=== PATIENT | female | born 1950 | race Caucasian/White ===

== ENCOUNTER 2023-08-13 14:23 | Inpatient (IN) | payer MEDICARE, SELFPAY ==
--- NOTE | ~2023-08-13 | XR_ITS ---
EXAMINATION: XR CHEST CLINICAL INFORMATION: General weakness, rash, fall. COMPARISON: None available. TECHNIQUE: 2 views of the chest were obtained. FINDINGS: Moderate size hiatal hernia. Otherwise, no significant cardiomediastinal contour abnormality. No focal airspace opacity, pleural effusion or pneumothorax. Nonspecific asymmetric widening of the right acromioclavicular joint. Partially imaged reversed total left shoulder arthroplasty. Thoracic spondylosis. XR/XR chest 2V IMPRESSION: 1. No acute cardiopulmonary findings. 2. Moderate size hiatal hernia. 3. Nonspecific asymmetric widening of the right acromioclavicular joint. Recommend correlation with point tenderness.
--- NOTE | ~2023-08-13 | CT_ITS ---
EXAMINATION: CT CERVICAL SPINE CLINICAL INFORMATION: Reason for Exam general weakness, rash and two falls COMPARISON: No prior CT available, TECHNIQUE: Computed axial sagittal and coronal images acquired using department's standard protocol. This CT examination was performed using dose optimization techniques as appropriate, variously including the following: *Automated exposure control *Adjustment of mA and/or kV according to patient size (this includes techniques or standardized protocols for targeted exams where dose is matched to indication/reason for exam; i.e. extremities or head) *Use of iterative reconstruction technique CONTRAST: None DLP: 908 mGy-cm FINDINGS: SKULL BASE: Visualized structures at skull base are normal, Included facial sinuses are clear, CERVICAL VERTEBRAE: Seven cervical vertebrae identified maintaining proper height and alignment, DISCS: Loss of disc height and developed osteophyte from the edges of endplates at C3-C4, C4-C5, C5-C6 and to a lesser extent C6-C7 and C7-T1 suggest underlying advanced degenerative disc disease. C1-C2: There is no CT evidence of significant osseous narrowing of the central canal or neural foramen. C2-C3: There is no CT evidence of significant osseous narrowing of the central canal or neural foramen. C3-C4: Circumferential disc bulge and developed osteophyte from the edges of endplates along with facet joints arthropathy contributed to bilateral foraminal stenosis. There is also mild narrowing of central canal at this level. No fracture. C4-C5: Circumferential disc bulge and developed osteophyte from the edges of endplates along with facet joints arthropathy contributed to bilateral foraminal stenosis. There is also mild narrowing of central canal at this level. No fracture. C5-C6: Circumferential disc bulge and developed osteophyte from the edges of endplates along with facet joints arthropathy contributed to bilateral foraminal stenosis. There is also mild narrowing of central canal at this level. No fracture. C6-C7: There is no CT evidence of significant osseous narrowing of the central canal or neural foramen. C7-T1: There is no CT evidence of significant osseous narrowing of the central canal or neural foramen. PARAVERTEBRAL SOFT TISSUE: Paravertebral soft tissues unremarkable. CT/CT cervical spine wo IV con IMPRESSION: * No CT evidence of cervical spine fracture. * Advanced degenerative disc disease at C3-C4, C4-C5, C5-C6 and to a lesser extent C6-C7 and C7-T1. * Circumferential disc bulge and developed osteophyte from the edges of endplates along with facet joints arthropathy contributed to mild narrowing of neural foramen bilaterally and central canal at C3-C4, C4-C5 and C5-C6. If patient has neurological symptoms consider correlation with follow-up MRI.
--- NOTE | ~2023-08-13 | CT_ITS ---
CT head/brain wo IV con CLINICAL INFORMATION: Generalized weakness rash fall COMPARISON: No prior CT scan available for comparison. TECHNIQUE: Department standard protocol. This CT examination was performed using dose optimization techniques as appropriate, variously including the following: *Automated exposure control *Adjustment of mA and/or kV according to patient size (this includes techniques or standardized protocols for targeted exams where dose is matched to indication/reason for exam; i.e. extremities or head) *Use of iterative reconstruction technique DLP: 559 mGy-cm FINDINGS: Exam limited by motion artifact. Beam hardening artifacts distorting images. CEREBRAL HEMISPHERES: There is no evidence of intra-axial or extra-axial mass, hemorrhage or acute infarct. BRAIN PARENCHYMA: Deep white matter and paraventricular hypoattenuation, nonspecific; most likely changes secondary to chronic ischemia due to microvascular angiopathy. SUBDURAL SPACE: No bleed. BASAL GANGLIA AND PINEAL GLAND: Unremarkable VENTRICLES: Symmetric and normal in size. CEREBELLUM AND BRAINSTEM: There is a wedge-shaped low-attenuation area in the right cerebellum about 2 x 1.9 cm, may represent an arachnoid cyst, versus an old brain injury versus congenital developmental. This could be further characterize with MRI if clinically indicated. CEREBELLOPONTINE ANGLES: No lesion found. ORBITS: No intraorbital mass. VESSELS: Unremarkable SKULL BASE: Unremarkable INCLUDED SINUSES AT SKULL BASE: Clear SKULL AND SKIN: No fracture or bone lesion found. CT/CT head/brain wo IV con IMPRESSION: * Deep white matter and periventricular hypoattenuation, nonspecific; most likely sequela of chronic microvascular angiopathy ischemia. * There is a wedge-shaped low-attenuation area in the right cerebellum fossa about 2 x 1.9 cm, may represent an arachnoid cyst, versus an old cerebellar injury versus congenital developmental. This could be further characterize with MRI, if clinically indicated.
--- NOTE | ~2023-08-13 | MR_ITS ---
EXAMINATION: MR BRAIN WITHOUT CONTRAST CLINICAL INFORMATION: Frequent falls. Cerebellar hypotension on CT imaging. COMPARISON: Head CT dated 08/13/2023. TECHNIQUE: Multiplanar, multisequence imaging of the brain was performed without contrast. FINDINGS: No diffusion abnormalities are identified to suggest an acute infarct. There are chronic infarcts in the inferior right cerebellar hemisphere. No mass effect or midline shift is seen. [id number] chronic white matter microangiopathic changes noted with diffuse brain parenchymal volume loss and concordant ex vacuo prominence of the ventricles. No evidence of hydrocephalus. No extra-axial fluid collections are seen. The gradient refocused acquisition is normal. Mild chronic small vessel ischemic changes noted in the georgette. The craniovertebral junction, marrow signal, and midline structures are normal. The major intracranial flow voids at the level of the [place] are preserved. The dural venous sinus flow voids are maintained. The mastoid air cells and paranasal sinuses are well aerated. Severe loss of disc height with chronic endplate changes partially visualized at the C3-C4 level. MR/MR head/brain wo con IMPRESSION: No acute intracranial process. Chronic right-sided cerebellar infarcts. Moderate generalized parenchymal volume loss and [id number] chronic white matter microangiopathy.
--- NOTE | ~2023-08-13 | XR_ITS ---
EXAMINATION: XR BILATERAL HIPS WITH AP PELVIS CLINICAL INFORMATION: Fall COMPARISON: None available. TECHNIQUE: AP view of the pelvis and 2 views of each hip were obtained. FINDINGS: Bone alignment is normal. No fracture or dislocation. Mild arthritis at both hip joints with small osteophytes. Proliferative bone reaction adjacent to both greater trochanters and ischial tuberosities. Bones of the pelvis are otherwise normal. Sacroiliac joints are normal. Degenerative changes of the lower lumbar spine. Soft tissues are normal. XR/XR hip BI w [id number] IMPRESSION: No fracture or dislocation. Mild degenerative changes.
[2023-08-13 14:31] VITALS: BP 128/68; BP 158/74; PULSE 103; PULSE 82; RESP 20; TEMP 36.5; O2SAT 84; O2SAT 99; BMI 27.8
--- NOTE | 2023-08-13 14:43 | ECG_ITS ---
Test Reason : FALL Blood Pressure : / mmHG Vent. Rate : 079 BPM Atrial Rate : 079 BPM P-R Int : 152 ms QRS Dur : 076 ms QT Int : 416 ms P-R-T Axes : 011 021 049 degrees QTc Int : 477 ms Normal sinus rhythm Normal ECG No previous ECGs available Referred By: Daysi Fletcher Electronically Signed By:COLBY JOSEPH
[2023-08-13] MEDS: diphenhydrAMINE HCL 50 MG/ML VIAL IVPUSH (15:04)
[2023-08-13 15:07] VITALS: PULSE 83; RESP 18
[2023-08-13] MEDS: Famotidine/PF 20 MG/2 ML VIAL IVPUSH (15:07)
[2023-08-13] MEDS: methylPREDNISolone Sod Succ 125 MG/2 ML VIAL IVPUSH (15:07)
[2023-08-13] MEDS: Propylene Glycol/PEG 400 Gel Eye Drops 10ML 2 DROP EYE-BOTH (15:22)
[2023-08-13 15:29] LABS: INTERNATIONAL NORM RATIO 1.1 (0.9-1.1); Prothrombin Time 13.3 SEC (11.1-13.3)
--- NOTE | 2023-08-13 15:29 | ED_ITS ---
HPI - Fall General Chief Complaint: Fall Stated Complaint: FALL, LOW O2 SAT Time Seen by Provider: 08/13/23 14:34 Source: patient and EMS Mode of arrival: EMS Related Data Allergies Allergy/AdvReac Type Severity Reaction Status Date / Time Penicillins [PENICILLINS] Allergy Severe HIVES Verified 08/13/23 14:58 droperidol [From INAPSINE] Allergy Intermediate UNUSUAL Verified 08/13/23 14:58 HEAD MOVEMENTS oxycodone [OXYCODONE] Allergy Mild ITCHING Verified 08/13/23 14:58 morphine [MORPHINE] AdvReac Unknown CONFUSION Verified 08/13/23 14:58 PMFSH Social History Social History Smoked in Last 30 Days: No Use of substances other than those prescribed or required for medical reasons: No Physical Exam 2 Vital Signs: Vital Signs: Last Vital Signs Temp 97.7 F 08/13/23 14:31 Pulse 83 08/13/23 15:07 Resp 18 08/13/23 15:07 BP 158/74 H 08/13/23 14:31 Pulse Ox 99 08/13/23 14:31 O2 Del Method Room Air 08/13/23 14:31 BMI result Body Mass Index 27.8 Medications Administered Discontinued Medications Generic Name Dose Route Start Last Admin Trade Name Freq PRN Reason Stop Dose Admin Diphenhydramine HCl 50 mg 08/13/23 14:48 08/13/23 15:04 Diphenhydramine Hcl 50 Mg/Ml Vial IVPUSH 08/13/23 14:49 50 mg ONCE ONE Administration Famotidine 20 mg 08/13/23 14:48 08/13/23 15:07 Famotidine/Pf 20 Mg/2 Ml Vial IVPUSH 08/13/23 14:49 20 mg ONCE ONE Administration Methylprednisolone Sodium Succinate 125 mg 08/13/23 14:48 08/13/23 15:07 Methylprednisolone Sod Succ 125 Mg/2 Ml Vial IVPUSH 08/13/23 14:49 125 mg ONCE ONE Administration Polyethyl Glycol/Propylene Glycol 2 drop 08/13/23 14:48 08/13/23 15:22 Propylene Glycol/Peg 400 Gel Eye Drops 10ml EYE-BOTH 08/13/23 14:49 2 drop ONCE ONE Administration Medical Decision Making Lab Data 08/13/23 15:14 08/13/23 15:14
[2023-08-13 15:43] LABS: Basophils Percent Auto 0.2 % (0-2); PLT CLUMP 1; SCAN SMEAR FLAG 1
[2023-08-13 15:44] LABS: Eosinophils Absolute Auto 0.3 X10*3/uL (0.0-0.4); Eosinophils Percent Auto 1.5 % (0-4); Hematocrit 47.2 % (37.0-47.0); Hemoglobin 15.2 g/dl (12.0-16.0); Imm Gran Abs Auto 0.15 X10*3/uL (0.00-0.03); Imm Gran Pct Auto 0.7 % (0.0-0.4); Lymphocytes Absolute Auto 0.6 X10*3/uL (1.2-4.9); Lymphocytes Percent Auto 2.5 % (20-40); MANUAL DIFF FLAG SCAN; Mean Corpuscular HGB Conc 32.2 g/dl (31.0-35.0); Mean Corpuscular Hemoglobin 27.1 pg (27.0-33.0); Mean Corpuscular Volume 84.3 fL (80.0-98.0); Monocytes Absolute Auto 0.7 X10*3/uL (0.1-1.2); Monocytes Percent Auto 2.9 % (2-11); Neutrophils Absolute Auto 20.4 x10*3/uL (2.0-8.3); Neutrophils Percent Auto 92.2 % (45-73); Red Cell Distribution Width 16.1 % (11.0-16.0)
[2023-08-13 15:45] LABS: PLT ABN DIST 1; White Blood Count 22.2 X10*3/uL (4.8-10.8)
--- NOTE | 2023-08-13 15:49 | ED_ITS ---
HPI - Allergic Reaction General Chief complaint: Fall Stated complaint: FALL, LOW O2 SAT Time Seen by Provider: 08/13/23 14:34 Source: patient and EMS Mode of arrival: EMS Limitations: no limitations History of Present Illness HPI narrative: 73yoF with a PMHx of left shoulder/knee replacements who is presenting to the ED via EMS for general weakness to b/l lower extremities, two falls today and diffuse itchy rash. She reports on Wednesday she went to the dentist and they gave her 2 erythromycin is like they normally do prophylactic due to her left shoulder replacement and left knee replacement then 2 days later she developed this diffuse itchy rash. She was supposed to follow-up with her doctor today although she canceled due to 2 falls that she had. She reports that 1 of the falls were when she was trying to get into her car she misstepped and landed on her buttocks. She reports she did hit her head but did not lose consciousness she is not on any blood thinners and she did not have any symptoms prior to the fall other than general bilateral leg weakness. She also reports she when outside to her patio and she fell again she reports her legs just gave out. Therefore her 2 friends called EMS for further evaluation treatment. Patient reports that she has not had any other new medication. Apparently when EMS arrived they believe that she had low oxygen due to her lips appear cyanotic although when patient arrived to our ER she is 99% on room air and she denies any shortness of breath or any trouble breathing or coughing or any chest pain. Patient denies changes in lotions or detergents. Denies drainage from rash. Denies CP SOB or any difficulty breathing. Denies wheezing, facial swelling or throat swelling. Denies any difficulty swallowing or chest tightness. Denies any recent sick contacts or recent travel, fever, chills, body aches or recent illness, cough, palpitations, nausea/vomiting/diarrhea, abdominal pain, swelling or pain in the joints, muscle aches, stiffness, headache, dizziness, numbness, tingling or any other symptoms complaints or concerns at this time. complaint: allergic reaction Onset (ago): day(s) (5) Exposure: medication (Possibly erythromycin after she was given this at the dentist on Wednesday) Symptoms: rash and itching Severity: moderate Treatment prior to arrival: none Previous Allergic Reaction History: none Related Data Home Medications Medication Instructions Recorded Confirmed atorvastatin 40 mg tablet 40 mg PO DAILY 08/13/23 bupropion HCl 100 mg tablet,12 hr 100 mg PO QAM 08/13/23 sustained-release carvedilol 3.125 mg tablet 3.125 mg PO BID 08/13/23 cyclosporine 0.05 % eye drops in a 1 drp ophthalmic (eye) BID 08/13/23 dropperette (Restasis) duloxetine 60 mg capsule,delayed 60 mg PO DAILY 08/13/23 release erythromycin 500 mg tablet 1,000 mg PO ONCE 08/13/23 furosemide 20 mg tablet 20 mg PO DAILY 08/13/23 gabapentin 300 mg capsule 300 mg PO BEDTIME 08/13/23 levothyroxine 100 mcg tablet mcg PO 08/13/23 omeprazole 40 mg capsule,delayed 40 mg PO DAILY 08/13/23 release potassium chloride 10 mEq 10 meq PO DAILY 08/13/23 tablet,extended release tolterodine 4 mg capsule,extended 4 mg PO DAILY 08/13/23 release 24 hr trazodone 100 mg tablet 100 mg PO BEDTIME 08/13/23 Allergies Allergy/AdvReac Type Severity Reaction Status Date / Time Penicillins [PENICILLINS] Allergy Severe HIVES Verified 08/13/23 14:58 droperidol [From INAPSINE] Allergy Intermediate UNUSUAL Verified 08/13/23 14:58 HEAD MOVEMENTS oxycodone [OXYCODONE] Allergy Mild ITCHING Verified 08/13/23 14:58 morphine [MORPHINE] AdvReac Unknown CONFUSION Verified 08/13/23 14:58 Review of Systems 2 Review of Systems: Constitutional : No Fever, No Chills , no body aches, no recent illness Head/Face: No facial swelling, No facial redness ENT/Mouth : No oral/throat swelling, No Hoarseness, No Swallowing Difficulty Eyes: No Eye Pain, No Swelling, No Redness Cardiovascular : No Chest Pain, No SOB, No palpitations Respiratory : No Cough, No Sputum, No Wheezing, No Smoke Exposure, No Dyspnea Gastrointestinal : No Nausea, No Vomiting, No Diarrhea, No abdominal Pain Genitourinary : No Dysuria, No Urinary Frequency, No Hematuria Musculoskeletal : No joint pain, No Myalgias, No Joint Swelling Skin : No Skin Lesions, positive rash Neuro : + general Weakness, No Focal weakness, No Numbness, No Headache, No dizziness, No tingling Psych : No Anxiety/Panic, No Depression Heme/Lymph: No Bruising, No Lymphadenopathy Endocrine : No Polyuria, No Polydipsia Denies changes in lotions or detergents. + new medication on wednesday at dentist office Denies drainage from rash. Denies any recent sick contacts or recent travel. Yes all other systems are reviewed and are negative PMFSH Past Medical History Attestation statement: The following information was validated with the patient. Source: old records reviewed, obtained from family and nursing notes reviewed Social History Social History Smoked in Last 30 Days: No Use of substances other than those prescribed or required for medical reasons: No Advance Directives: No Advance Directives Information Provided: No Physical Exam ED Vital Signs: Vital Signs - 24 hr 08/13/23 14:31 08/13/23 15:07 08/13/23 15:07 Temperature 97.7 F Pulse Rate 82 83 83 Respiratory Rate 20 18 Blood Pressure 158/74 H Pulse Oximetry 99 Oxygen Delivery Method Room Air 08/13/23 17:00 Temperature Pulse Rate 78 Respiratory Rate 16 Blood Pressure 155/66 H Pulse Oximetry 98 Oxygen Delivery Method Room Air BMI result Body Mass Index 27.8 vital signs have been reviewed as normal and appeared to be correct. Blood pressure 158/74. Heart rate normal. Respiration rate normal. Temperature normal. Oxygen saturation normal. Appearance: Alert. Oriented X3. In acute distress. Patient's lips and nose and upper arms with cyanosis. Head: Normal external exam. Normocephalic. Atraumatic. No Mathis signs noted. No raccoon eyes noted Eyes: PERRLA. EOMI. Conjunctiva and sclera normal. Eyelids normal. ENT: EAC normal. TM's Normal. No septal hematoma noted. No hemotympanum noted. Pharynx normal. Uvula midline. Patient noted to have dry mucous membranes. No lesions/ulcerations or masses noted on the tongue. Normal voice. No trismus noted. No drooling noted. No muffled voice noted. Neck: Normal inspection. Neck supple. FROM. No adenopathy. Thyroid Normal. No tracheal deviation noted. No crepitus is noted. No meningeal signs. No neck mass noted. No signs of trauma noted. CVS: Normal heart rate and rhythm. Heart sound normal. Pulses normal throughout. No murmurs/rales/gallops. Respiratory: No respiratory distress. Painless inspiration. Breath sounds normal. No wheezes/rales/rhonchi noted. Chest nontender. No crepitus is noted. No signs of trauma noted. No accessory muscle usage noted or decreased air movement noted. No signs of trauma. Abdomen: Soft and nontender. Bowel sounds normal in all 4 quadrants. No distention noted. No organomegaly noted. No visible injury noted. Back: No CVA tenderness. Full range of motion noted. Nontender. No signs of trauma. Patient neuro intact bilaterally and distally on all 4 extremities. Patient's reflexes intact bilaterally and distally on all 4 extremities. No lesion/induration/fluctuance or signs of infection noted. Skin: Skin warm and dry. Normal skin color. Normal skin turgor. No lesions/lacerations noted. Patient noted to have erythematous macular blanchable well-demarcated lesions/hives consistent with allergic reaction to upper aspect of her body. To lower legs patient appears to have petechiae. No drainage. Extremities: No lower extremity edema. No calf tenderness is noted. Extremities exhibit normal range of motion although patient reports pain. Neuro: Oriented X 3. No motor deficit. No sensory deficit. Reflexes normal. No focal neuro deficits noted. CN's II-XII intact bilaterally? Vascular: + radial pulses/+ 2 distal pedal pulses/+2 dorsalis pedis b/l. Delayed cap refill to upper extremities nail. Normal cap refill to lower toe nails. + cyanosis noted to upper extremity nails. No cyanosis to lower extremity toes nails/legs. Course Course Course Narrative: 14:45pm - 73yoF presenting to the ER with generalized weakness, 2 falls and a diffuse rash. She reports that this rash started 2 days after she was seen at the dentist on Wednesday and given to erythromycin pills for prophylactic therapy due to she has left shoulder and knee replacement. She does not have a mechanical valve. She reports she has had these pills in the past and has never had a reaction. She denies any other new substances. When EMS arrived at her house they noted that she had cyanosis therefore they placed on nasal cannula oxygen and brought her here for further evaluation treatment. Patient denies any oxygen her oxygen saturation 99% on room air. She does have a diffuse rash that is erythematous and blanchable consistent with hives. To lower legs patient appears to have petechiae. She is also noted to have dry mucous membranes. No focal weakness. Patient would not be a TPA candidate as she has non disabling symptoms. IMP/Plan: Allergic rxn. Not anaphylaxis. Not sepsis/ infectious etiology. Patient well appearing in no acute distress, breathing easily without throat symptoms. Speaking full sentences, and handling secretions without difficulty. There is no obvious threat to airway. Lungs are CTA in all diamond. No signs of angioedema, stridor, airway compromise, anaphylaxis or anaphylactic shock. Not c/w SSSS/ TEN/ Eryth multiforme/ Love Johnsons. Given HPI and PE - will obtain labs, blood cultures, lactic, CT scan of brain/cervical spine, chest x-ray. Provide 125 mg of IV Solu-Medrol, 50 mg of IV Benadryl, 20 mg of IV Pepcid and lubricate the patient size with eyedrops and re-evaluate. I considered Love Altaf, TEN, SSS, EM, infx, sepsis but the hx, exam & or data did not support the dxs. Pt/family was advised that some diseases present atypically & the pt was given explicit DC instructions. Reevaluation(s) Reevaluation #1: Labs reviewed - patient with leukocytosis of 22,000, RBC 5.60, hematocrit 47.2, platelet count unable to evaluate due to clumps, hyponatremia of 133, potassium of 5.4, carbon dioxide of 19, BUN of 22, lactic acid of 3.3, total CK 172, total protein 6.2, albumin 3.0, lactic acid 3.3 although I do not believe this is sepsis this is drug reaction versus vasculitis versus possible discoid lupus flare. otherwise all other labs are within normal limits. CT scan of brain/cervical spine and chest x-ray revealed chronic changes no acute processes noted. Plan: Therefore at this time patient will be admitted for leukocytosis, hyponatremia, hyperkalemia, general weakness with possibly drug reaction versus vasculitis versus discoid lupus flare. I discussed this case with Dr. Butt the hospitalist who will admit at this time. Patient at bedside understand agree this plan. Time: 18:44 Medications Administered Discontinued Medications Generic Name Dose Route Start Last Admin Trade Name Freq PRN Reason Stop Dose Admin Diphenhydramine HCl 50 mg 08/13/23 14:48 08/13/23 15:04 Diphenhydramine Hcl 50 Mg/Ml Vial IVPUSH 08/13/23 14:49 50 mg ONCE ONE Administration Famotidine 20 mg 08/13/23 14:48 08/13/23 15:07 Famotidine/Pf 20 Mg/2 Ml Vial IVPUSH 08/13/23 14:49 20 mg ONCE ONE Administration Methylprednisolone Sodium Succinate 125 mg 08/13/23 14:48 08/13/23 15:07 Methylprednisolone Sod Succ 125 Mg/2 Ml Vial IVPUSH 08/13/23 14:49 125 mg ONCE ONE Administration Polyethyl Glycol/Propylene Glycol 2 drop 08/13/23 14:48 08/13/23 15:22 Propylene Glycol/Peg 400 Gel Eye Drops 10ml EYE-BOTH 08/13/23 14:49 2 drop ONCE ONE Administration Medical Decision Making Medical Decision Making MDM Narrative: see course Differential Diagnosis Differential Diagnoses: The differential diagnosis associated with the presentation includes see course Admission/Observation Consideration of admission/observation: Escalation of care including admission/observation considered Consult Healthcare Provider Management of the patient was discussed with: Hospitalist Dr. Butt Lab Data MDM Lab Attestation statement: I reviewed the patient's lab results. 08/13/23 15:14 08/13/23 16:44 Labs: Lab Results 08/13/23 08/13/23 Range/Units 15:14 16:44 WBC 22.2 H (4.8-10.8) X10*3/uL RBC 5.60 H (4.20-5.50) X10*6/uL Hgb 15.2 (12.0-16.0) g/dl Hct 47.2 H (37.0-47.0) % MCV 84.3 (80.0-98.0) fL MCH 27.1 (27.0-33.0) pg MCHC 32.2 (31.0-35.0) g/dl RDW 16.1 H (11.0-16.0) % Plt Count TNP MPV 13.0 H (9.4-12.3) fL Immature Gran % (Auto) 0.7 H (0.0-0.4) % Neut % (Auto) 92.2 H (45-73) % Lymph % (Auto) 2.5 L (20-40) % Robertson % (Auto) 2.9 (2-11) % Eos % (Auto) 1.5 (0-4) % Baso % (Auto) 0.2 (0-2) % Lymph # (Auto) 0.6 L (1.2-4.9) X10*3/uL Robertson # (Auto) 0.7 (0.1-1.2) X10*3/uL Eos # (Auto) 0.3 (0.0-0.4) X10*3/uL Baso # (Auto) 0.0 (0.0-0.2) X10*3/uL Abs Immat Gran (auto) 0.15 H (0.00-0.03) X10*3/uL Absolute Neuts (auto) 20.4 H (2.0-8.3) x10*3/uL Absolute Nucleated RBC 0.000 (0.0-0.012) X10*3/uL Nucleated RBC % (auto) 0.0 (0.0-0.2) /100WBC Smear Tech's Comments VERIFIED PT 13.3 (11.1-13.3) SEC INR 1.1 (0.9-1.1) Sodium 133 L (135-145) mmol/L Potassium 5.4 H (3.3-5.1) mmol/L Chloride 102 (96-108) mmol/L Carbon Dioxide 19 L (22-29) mmol/L Anion Gap 17 (12-20) BUN 22 H (9-16) mg/dL Creatinine 0.97 (0.5-1.4) mg/dL Estim Creat Clear Calc 53.6 Estimated GFR 56 Random Glucose 80 (60-115) mg/dL Lactic Acid 3.3 H* (0.5-2.0) mmol/L Calcium 8.6 (8.4-10.2) mg/dL Magnesium 2.4 (1.6-2.6) mg/dL Total Bilirubin 1.0 (0.0-1.0) mg/dL Direct Bilirubin 0.3 (0.0-0.5) mg/dL AST 14 (5-31) U/L ALT 16 (0-31) U/L Alkaline Phosphatase 68 (39-117) U/L Total Creatine Kinase 172 H (26-140) U/L Troponin I High Sens < 2.7 (<3.5-17.0) ng/L B-Natriuretic Peptide 21 (<100) pg/mL Total Protein 6.2 L (6.5-8.0) g/dL Albumin 3.0 L (3.5-5.0) g/dL Independent Interpretation I performed an independent interpretation of an: CT Scan (CT scan of brain/cervical spine and chest x-ray reviewed by myself this is my independent interpretation agreeable with radiology reports no discrepancy) Radiology Impression Discussion of test interpretation with radiology: I have reviewed the radiologist's reading. Radiologist Impression: FINDINGS: Exam limited by motion artifact. Beam hardening artifacts distorting images. CEREBRAL HEMISPHERES: There is no evidence of intra-axial or extra-axial mass, hemorrhage or acute infarct. BRAIN PARENCHYMA: Deep white matter and paraventricular hypoattenuation, nonspecific; most likely changes secondary to chronic ischemia due to microvascular angiopathy. SUBDURAL SPACE: No bleed. BASAL GANGLIA AND PINEAL GLAND: Unremarkable VENTRICLES: Symmetric and normal in size. CEREBELLUM AND BRAINSTEM: There is a wedge-shaped low-attenuation area in the right cerebellum about 2 x 1.9 cm, may represent an arachnoid cyst, versus an old brain injury versus congenital developmental. This could be further characterize with MRI if clinically indicated. CEREBELLOPONTINE ANGLES: No lesion found. ORBITS: No intraorbital mass. VESSELS: Unremarkable SKULL BASE: Unremarkable INCLUDED SINUSES AT SKULL BASE: Clear SKULL AND SKIN: No fracture or bone lesion found. CT/CT head/brain wo IV con IMPRESSION: * Deep white matter and periventricular hypoattenuation, nonspecific; most likely sequela of chronic microvascular angiopathy ischemia. * There is a wedge-shaped low-attenuation area in the right cerebellum fossa about 2 x 1.9 cm, may represent an arachnoid cyst, versus an old cerebellar injury versus congenital developmental. This could be further characterize with MRI, if clinically indicated. FINDINGS: SKULL BASE: Visualized structures at skull base are normal, Included facial sinuses are clear, CERVICAL VERTEBRAE: Seven cervical vertebrae identified maintaining proper height and alignment, DISCS: Loss of disc height and developed osteophyte from the edges of endplates at C3-C4, C4-C5, C5-C6 and to a lesser extent C6-C7 and C7-T1 suggest underlying advanced degenerative disc disease. C1-C2: There is no CT evidence of significant osseous narrowing of the central canal or neural foramen. C2-C3: There is no CT evidence of significant osseous narrowing of the central canal or neural foramen. C3-C4: Circumferential disc bulge and developed osteophyte from the edges of endplates along with facet joints arthropathy contributed to bilateral foraminal stenosis. There is also mild narrowing of central canal at this level. No fracture. C4-C5: Circumferential disc bulge and developed osteophyte from the edges of endplates along with facet joints arthropathy contributed to bilateral foraminal stenosis. There is also mild narrowing of central canal at this level. No fracture. C5-C6: Circumferential disc bulge and developed osteophyte from the edges of endplates along with facet joints arthropathy contributed to bilateral foraminal stenosis. There is also mild narrowing of central canal at this level. No fracture. C6-C7: There is no CT evidence of significant osseous narrowing of the central canal or neural foramen. C7-T1: There is no CT evidence of significant osseous narrowing of the central canal or neural foramen. PARAVERTEBRAL SOFT TISSUE: Paravertebral soft tissues unremarkable. CT/CT cervical spine wo IV con IMPRESSION: * No CT evidence of cervical spine fracture. * Advanced degenerative disc disease at C3-C4, C4-C5, C5-C6 and to a lesser extent C6-C7 and C7-T1. * Circumferential disc bulge and developed osteophyte from the edges of endplates along with facet joints arthropathy contributed to mild narrowing of neural foramen bilaterally and central canal at C3-C4, C4-C5 and C5-C6. If patient has neurological symptoms consider correlation with follow-up MRI. FINDINGS: Moderate size hiatal hernia. Otherwise, no significant cardiomediastinal contour abnormality. No focal airspace opacity, pleural effusion or pneumothorax. Nonspecific asymmetric widening of the right acromioclavicular joint. Partially imaged reversed total left shoulder arthroplasty. Thoracic spondylosis. XR/XR chest 2V IMPRESSION: 1. No acute cardiopulmonary findings. 2. Moderate size hiatal hernia. 3. Nonspecific asymmetric widening of the right acromioclavicular joint. Recommend correlation with point tenderness. Independent Historian Clinical information obtained from an independent historian. History obtained from or confirmed by: EMS External Record Review External record reviewed: Inpatient record, Office record, Outpatient record, Prior outpatient labs, Prior outpatient radiology, Primary care record and Outside ED record All prior labs/imaging/EKG and notes that are accessible in our system reviewed by myself Chronic Conditions Patient?s care impacted by: Other (Prior knee and his shoulder surgery) Social Determinants Patient?s care significantly limited by Social Determinants of Health including: Other Social Determinant of Health Critical Care Time Critical Care Time Critical Care Time: Yes Total Critical Care Time: 60 Attestation: I personally attest to this time spent taking care of the patient Discharge Plan Discharge Clinical Impression: Allergic reaction, Elevated WBC count, Fall, General weakness, Head injury, Anemia, Acute hyponatremia, Acute hyperkalemia, Elevated lactic acid level, Lupus, Drug reaction Patient Disposition: Admitted as Observation
[2023-08-13 16:20] LABS: SLIDE REVIEW VERIFIED
[2023-08-13 17:00] VITALS: BP 155/66; PULSE 78; RESP 16; O2SAT 98
[2023-08-13 17:06] LABS: Lactic Acid 3.3 mmol/L (0.5-2.0)
[2023-08-13 17:10] LABS: Alanine Aminotransferase 16 U/L (0-31); Alkaline Phosphatase 68 U/L (39-117); Anion Gap 17 (12-20); Aspartate Amino Transferase 14 U/L (5-31); Bilirubin Direct 0.3 mg/dL (0.0-0.5); Blood Urea Nitrogen 22 mg/dL (9-16); Calcium 8.6 mg/dL (8.4-10.2); Carbon Dioxide 19 mmol/L (22-29); Chloride 102 mmol/L (96-108); Creatinine Clr Calc Pharmacy 53.6; Estimated Glomerular Filt Rate 56; Glucose Random 80 mg/dL (60-115); Magnesium 2.4 mg/dL (1.6-2.6); Potassium 5.4 mmol/L (3.3-5.1); Sodium 133 mmol/L (135-145); Total Protein 6.2 g/dL (6.5-8.0)
[2023-08-13 17:11] LABS: B Type Natriuretic Peptide 21 pg/mL (<100)
[2023-08-13 18:02] LABS: Troponin-I High Sensitivity < 2.7 ng/L (<3.5-17.0)
--- NOTE | 2023-08-13 18:20 | PC.NURSE ---
This business writer assumed care of this Pt at 1545. Pt A&Ox3, reports increase weakness in the pass few days, but started few months ago , causing two falls today. Erythematous generalized rash with hives noted all over body, Pt stated starting 5 days ago after taking prophylactic ABX prescribed by dentist . Pt speaking in full sentences, SpO2 96% on RA, denies SOB, CP or palpitations. Pt reports dry mouth, Ice chips given, tolerating well. Pt difficult stick, 2nd IV line established via ultrasound guided.
[2023-08-13 18:49] LABS: Reflex Lactate? Lactic Acid Added
--- NOTE | 2023-08-13 19:02 | PHA.MEDREC ---
Pharmacy Consult ? Medication Reconciliation Pharmacy has completed the medication reconciliation. Patient confirmed medications. Reported she takes duloxetine 30 and 60 mg at night. Reports she was taken of bupropion and restatis eye drops. Reports she now use Refresh Tears but also use Systane. Cortney Perez, PharmD
[2023-08-13 19:15] LABS: ~Lactic Acid-LAB USE ONLY 1.9 mmol/L (0.5-2.0)
[2023-08-13 19:29] LABS: Carbon Monoxide POC 1.5 %; VBG HCO3 21 mmol/L (22-26); VBG pCO2 31 mmHg; VBG pH 7.45 (7.32-7.43); VBG pO2 56 mmHg
[2023-08-13 19:33] LABS: Carbon Monoxide Refer to POC result; Venous Blood Gas Refer to POC result
--- NOTE | 2023-08-13 19:36 | P.HPHOSP_ITS ---
<Statement entered by Airam Joiner MD - 10/10/23 19:22> Pt seen and examined i agree with the findings in the H&P, A&P History of Present Illness Date of Service: 08/13/23 Attending physician on admission: Airam Joiner Chief Complaint: Lower leg weakness, falls, puritic red rash Pt is a 73-year-old female with a PMH significant for?lupus, HLD, HTN, hypothyroidism, chronic lower extremity edema, GERD, and mood disorder who presents to the ED for evaluation after multiple falls earlier today. Patient lives by herself and was locked out of her house earlier today when she went to get her spare mcgovern from her patio. Patient says she bent over to get the mcgovern and her legs ?just let go? and she fell to the ground and could not get up. Patient denies lightheadedness, dizziness. Denies head strike. No LOC. She remained on the ground in the rain for 45 minutes before EMS arrived to help her back into her house. Patient declined to be brought to the emergency room at that time. Later in the afternoon she went to get into her car and fell again when she ?misjudged? where the seat was. Pt did strike her head on the ground but denies LOC. Pt also experienced right hip pain at this time. Pt again called EMS who brought her to the ED for further evaluation. Pt denies lightheadedness, dizziness, nausea, vomiting, diarrhea, abdominal pain. No recent illnesses. Denies chest pain/pressure, palpitations. No shortness of breath, difficulty breathing. Patient states that her legs lately have ?not been what they used to be?, and she has been having difficulty getting up from sitting and has found her legs weaker than normal. Patient reports having to other recent falls, one in June and another in April where she fell and had to non displaced/incomplete fractures in her left fibula. Patient followed up with [facility] and fractures healed without complications. Patient also has been experiencing diffuse erythematous, pruritic rash on torso and upper body. Patient began noticing rash 5 days prior on Wednesday. Began as a pruritic rash on her back and chest, then spread to upper back, abdomen, upper extremities, and upper thighs. Yesterday patient noticed she also had a rash on her face and on lower extremities. Patient reports on Wednesday she took erythromycin prophylactically before a dental procedure d/t left shoulder and left knee replacements. Patient reports this is common for her before dental procedures, and reports she has done this for many years prior. However rash developed 2 days later after taking erythromycin. Patient denies any other medication changes. No new laundry detergent, soaps, lotions. Denies wheezing, difficulty breathing or swallowing. No shortness of breath. Of note, patient denies ever having a rash like this before, but does have a history of lupus and states she does get a mylar rash when exposed to sunlight, though rash is normally confined to her face. In the ED patient was afebrile but slightly hypertensive up to 158/74, satting at 99% on RA. Labs were significant for leukocytosis of 22.2, sodium 133, potassium 5.4, lactic acid 3.3 with repeat 1.9, albumin 3.0, CPK 172. Renal and hepatic function WNL. CXR showed no acute cardiopulmonary findings, but did show moderate size hiatal hernia and nonspecific asymmetric widening of the right acromioclavicular joint. CT of head found nonspecific deep white matter and periventricular hypoattenuation, most likely sequela of chronic microvascular angiopathy ischemia, and also found a wedge-shaped low-attenuation area in the right cerebellum fossa about 2 x 1.9 cm, possibly an arachnoid cyst versus an old cerebellar injury versus congenital development. MRI follow-up recommended if clinically relevant. CT of cervical spine of found no evidence of cervical spine fracture, but did show degenerative disc disease and circumferential disc bulge and developed osteophyte at C3-C4, C4-C5, and C5-C6. EKG demonstrated normal sinus rhythm without evidence of ST elevations or depressions. Pt was treated with diphenhydramine, Solu-Medrol, famotidine, and polyethylene glycol/polypropylene glycol. Pt will be admitted to the hospital for treatment and further evaluation of recurrent falls, and likely drug-induced allergic reaction. Review of Systems 2 Review of Systems: Lower leg weakness Frequent falls with head strike Right hip pain Diffuse, pruritic, erythematous whole body rash Denies LOC No lightheadedness, dizziness Denies chest pain/pressure, palpitations No shortness of breath, dysphagia, difficulty breathing Denies fever, chills, nausea, vomiting, abdominal pain, diarrhea PMFSH Social History Smoked in Last 30 Days: No Use of substances other than those prescribed or required for medical reasons: No Advance Directives: No Advance Directives Information Provided: No Meds Allergies Allergy/AdvReac Type Severity Reaction Status Date / Time Penicillins [PENICILLINS] Allergy Severe HIVES Verified 08/13/23 14:58 droperidol [From INAPSINE] Allergy Intermediate UNUSUAL Verified 08/13/23 14:58 HEAD MOVEMENTS oxycodone [OXYCODONE] Allergy Mild ITCHING Verified 08/13/23 14:58 morphine [MORPHINE] AdvReac Unknown CONFUSION Verified 08/13/23 14:58 Home Medications Medication Instructions Recorded Confirmed Last Taken Type atorvastatin 40 mg tablet 40 mg PO BEDTIME 08/13/23 08/13/23 08/12/23 History carboxymethylcellulose sodium 0.5 1 drp ophthalmic (eye) BID 08/13/23 08/13/23 08/13/23 History % eye drops (Refresh Tears) carvedilol 3.125 mg tablet 3.125 mg PO BID 08/13/23 08/13/23 08/13/23 History duloxetine 30 mg capsule,delayed 30 mg PO BEDTIME 08/13/23 08/13/23 08/12/23 History release duloxetine 60 mg capsule,delayed 60 mg PO BEDTIME 08/13/23 08/13/23 08/12/23 History release erythromycin 500 mg tablet 1,000 mg PO ONCE PRN PRIOR TO 08/13/23 08/13/23 Unknown History DENTAL PROCEDURE furosemide 20 mg tablet 20 mg PO DAILY 08/13/23 08/13/23 08/13/23 History gabapentin 300 mg capsule 300 mg PO BEDTIME 08/13/23 08/13/23 08/12/23 History levothyroxine 100 mcg tablet 100 mcg PO DAILY 08/13/23 08/13/23 08/13/23 History omeprazole 40 mg capsule,delayed 40 mg PO DAILY 08/13/23 08/13/23 08/13/23 History release potassium chloride 10 mEq 10 meq PO DAILY 08/13/23 08/13/23 08/13/23 History tablet,extended release tolterodine 4 mg capsule,extended 4 mg PO DAILY 08/13/23 08/13/23 08/13/23 History release 24 hr trazodone 100 mg tablet 100 mg PO BEDTIME 08/13/23 08/13/23 08/12/23 History Physical Exam 2 Vital Signs and Narrative: Vital Signs: Last Vital Signs Temp 97.7 F 08/13/23 14:31 Pulse 78 08/13/23 17:00 Resp 16 08/13/23 17:00 BP 155/66 H 08/13/23 17:00 Pulse Ox 98 08/13/23 17:00 O2 Del Method Room Air 08/13/23 17:00 BMI result Body Mass Index 27.8 Constitutional: Alert, in no acute distress. Mental Status: Oriented to person, place and time. Eyes: Pupils are equal, round, and reactive to light. Pt constantly blinking, difficulty seeing in light which she states is her baseline. Ear, Nose, and Throat: Oropharynx clear, mucous membranes moist. Ears and nose without deformities. Trachea midline. Respiratory: Clear to auscultation bilaterally. No wheezing, rales, or rhonchi. Cardiovascular: S1, S2 regular. No murmurs, rubs, or gallops. Gastrointestinal: Abdomen soft, non-tender, non-distended. Normal bowel sounds. Neurologic: Cranial nerves II-XII are grossly intact bilaterally. No focal neurological deficits. Moves all extremities spontaneously. Skin: Multiple areas of ecchymoses on upper extremities bilaterally. Face with erythematous mylar rash. Chest, abdomen, back, upper extremities bilaterally with diffuse erythematous, blanchable macular rash. Petechial rash on lower extremities bilaterally. See pictures below. Musculoskeletal: Limited ROM of right leg secondary to right hip pain. Right hip tender to palpation. Extremities: Non pitting edema. Psychiatric: Normal mood and affect. Results Labs 08/13/23 15:14 08/13/23 16:44 Labs: Laboratory Results - last 24 hr 08/13/23 08/13/23 08/13/23 15:14 16:44 18:58 MCV 84.3 MCH 27.1 MCHC 32.2 RDW 16.1 H Plt Count TNP MPV 13.0 H Immature Gran % (Auto) 0.7 H Neut % (Auto) 92.2 H Lymph % (Auto) 2.5 L Sargent % (Auto) 2.9 Eos % (Auto) 1.5 Baso % (Auto) 0.2 Lymph # (Auto) 0.6 L Sargent # (Auto) 0.7 Eos # (Auto) 0.3 Baso # (Auto) 0.0 Abs Immat Gran (auto) 0.15 H Absolute Neuts (auto) 20.4 H Absolute Nucleated RBC 0.000 Nucleated RBC % (auto) 0.0 Smear Tech's Comments VERIFIED PT 13.3 INR 1.1 VBG pH VBG pCO2 VBG pO2 VBG HCO3 VBG O2 Saturation VBG Base Excess Carboxyhemoglobin % Anion Gap 17 Estim Creat Clear Calc 53.6 Estimated GFR 56 Random Glucose 80 Lactic Acid 3.3 H* Lactic Acid F/U @ 2Hr 1.9 Calcium 8.6 Magnesium 2.4 Total Bilirubin 1.0 Direct Bilirubin 0.3 AST 14 ALT 16 Alkaline Phosphatase 68 Total Creatine Kinase 172 H B-Natriuretic Peptide 21 Total Protein 6.2 L Albumin 3.0 L 08/13/23 19:23 MCV MCH MCHC RDW Plt Count MPV Immature Gran % (Auto) Neut % (Auto) Lymph % (Auto) Sargent % (Auto) Eos % (Auto) Baso % (Auto) Lymph # (Auto) Sargent # (Auto) Eos # (Auto) Baso # (Auto) Abs Immat Gran (auto) Absolute Neuts (auto) Absolute Nucleated RBC Nucleated RBC % (auto) Smear Tech's Comments PT INR VBG pH 7.45 H VBG pCO2 31 VBG pO2 56 VBG HCO3 21 L VBG O2 Saturation 86.0 VBG Base Excess -1.0 Carboxyhemoglobin % 1.5 Anion Gap Estim Creat Clear Calc Estimated GFR Random Glucose Lactic Acid Lactic Acid F/U @ 2Hr Calcium Magnesium Total Bilirubin Direct Bilirubin AST ALT Alkaline Phosphatase Total Creatine Kinase B-Natriuretic Peptide Total Protein Albumin Imaging Radiologist's Impressions: Impressions Cervical Spine CT 08/13/23 17:13 IMPRESSION: * No CT evidence of cervical spine fracture. * Advanced degenerative disc disease at C3-C4, C4-C5, C5-C6 and to a lesser extent C6-C7 and C7-T1. * Circumferential disc bulge and developed osteophyte from the edges of endplates along with facet joints arthropathy contributed to mild narrowing of neural foramen bilaterally and central canal at C3-C4, C4-C5 and C5-C6. If patient has neurological symptoms consider correlation with follow-up MRI. Head CT 08/13/23 17:13 IMPRESSION: * Deep white matter and periventricular hypoattenuation, nonspecific; most likely sequela of chronic microvascular angiopathy ischemia. * There is a wedge-shaped low-attenuation area in the right cerebellum fossa about 2 x 1.9 cm, may represent an arachnoid cyst, versus an old cerebellar injury versus congenital developmental. This could be further characterize with MRI, if clinically indicated. Chest X-Ray 08/13/23 17:23 IMPRESSION: 1. No acute cardiopulmonary findings. 2. Moderate size hiatal hernia. 3. Nonspecific asymmetric widening of the right acromioclavicular joint. Recommend correlation with point tenderness. Assessment and Plan (1) Acute hyperkalemia: Status: Acute (2) Elevated lactic acid level: Status: Acute (3) General weakness: Status: Acute (4) Rash and nonspecific skin eruption: Status: Acute (5) Frequent falls: Status: Acute Plan Pt is a 73-year-old female with a PMH significant for?lupus, HLD, HTN, hypothyroidism, chronic lower extremity edema, GERD, and mood disorder who presents to the ED for evaluation after multiple falls earlier today. Pt will be admitted to the hospital for treatment and further evaluation of recurrent falls, and likely drug-induced allergic reaction. Frequent falls Patient fell twice today, once with head strike Patient reports at least two other falls at home since April CT of head shows wedge-shaped area of hypoattenuation in the right cerebellum fossa Will get MRI of head/brain Will get x-ray of hip/pelvis d/t right hip pain Hold off on neurology consult pending MRI results PT/OT evaluation Will monitor on telemetry Erythematous rash Possibly secondary to adverse drug reaction, though patient has taken erythromycin in the past with no adverse reaction Not likely of infectious etiology Will give dexamethasone IV 10 mg q.6 Will give loratadine Hyperkalemia Potassium 5.3 Will give one dose of Lokelma Hold potassium chloride supplements Follow BMP in the morning Lactic acidosis, resolved Initial lactic acid 3.3 with repeat 1.9 Leukocytosis Likely reactionary, no clear source of infection: Patient afebrile, CXR negative, no nausea, vomiting, diarrhea, abdominal pain, cough, SOB Macular degeneration/dry eyes Continue home eye drops HLD Continue statin HTN Continue home meds Chronic lower leg edema Continue furosemide Hypothyroidism Continue levothyroxine Mood disorder Continue duloxetine DNR/DNI Attending:?Dr. Joiner DVT Prophylaxis: Lovenox Pt will require a hospitalization of at least two nights for treatment and further evaluation of frequent falls and full-body rash with IV steroids, PT/OT evaluation, additional imaging, and close monitoring. Time Spent With Patient Time: Total time managing care of this patient today ____ minutes. Quality Stroke Does the patient have a stroke diagnosis?: No VTE Prior VTE?: No VTE Risk Level:: Medical - moderate - high VTE Device Contraindication: Treatment Not Indicated VTE Drug Contraindication: N/A - Med Ordered
[2023-08-13 20:42] VITALS: BP 135/65; PULSE 78; RESP 18; O2SAT 93
[2023-08-13] MEDS: traZODone HCL 100 MG TABLET PO (21:35)
[2023-08-13] MEDS: Sodium Zirconium Cyclosilicate 10 GM POWD.PACK PO (21:35)
[2023-08-13] MEDS: DULoxetine HCl 30 MG CAPSULE.DR PO (21:36)
[2023-08-13] MEDS: DULoxetine HCl 60 MG CAPSULE.DR PO (21:36)
[2023-08-13] MEDS: carvediloL 3.125 MG TABLET PO (21:36)
[2023-08-13] MEDS: Gabapentin 300 MG CAPSULE PO (21:36)
[2023-08-13] MEDS: Atorvastatin Calcium 40 MG TABLET PO (21:36)
[2023-08-13] MEDS: dexAMETHasone sod phosphate 10 MG/ML VIAL IVPUSH (21:36)
[2023-08-13] MEDS: Enoxaparin Sodium 40 MG/0.4 ML SYRINGE SUBCUT (21:37)
[2023-08-13 21:43] LABS: Appearance Urine Clear; Color Urine Yellow; Glucose Urine UA Negative (Negative); Leukocyte Esterase Urine Moderate (2+) (Negative); Nitrite Urine Negative (Negative); PH 5.5 (5.0-9.0); Specific Gravity - Urine 1.015 (1.005-1.025); UMIC TRIGGER UACC YES; Urine Blood Negative (Negative); Urine Ketones Trace mg/dL (Negative); Urine Protein Trace mg/dL (Neg-Trace)
[2023-08-13 21:48] LABS: Bacteria Urine None Seen (None Seen); RBC Urine 0-2 /HPF (0-2); UACC Culture Trigger YES
[2023-08-13] MEDS: Propylene Glycol/PEG 400 Gel Eye Drops 10ML 1 DROP EYE-BOTH (21:56)
--- NOTE | 2023-08-13 22:28 | PC.NURSE ---
RN to RN report given to Tresa Pt will be transported to room 487, Pt aware of plan.
[2023-08-13 22:57] VITALS: BMI 26.9
[2023-08-13 23:05] VITALS: BP 153/70; PULSE 82; RESP 16; TEMP 36.7; O2SAT 98
[2023-08-14] MEDS: Levothyroxine Sodium 100 MCG TABLET PO (05:20)
[2023-08-14] MEDS: 0.9 % Sodium Chloride Flush 3 ML SYRINGE IVFLUSH ×4 (05:20→20:18)
[2023-08-14] MEDS: Omeprazole 40 MG CAPSULE.DR PO (05:20)
[2023-08-14] MEDS: dexAMETHasone sod phosphate 10 MG/ML VIAL IVPUSH (05:20)
[2023-08-14 08:00] VITALS: BP 144/93; PULSE 70; RESP 18; TEMP 36.8; O2SAT 91
[2023-08-14] MEDS: Tolterodine Tartrate LA 4 MG CAP.ER.24H PO (08:02)
[2023-08-14] MEDS: Loratadine 10 MG TABLET PO (08:02)
[2023-08-14] MEDS: Furosemide 20 MG TABLET PO (08:02)
[2023-08-14] MEDS: carvediloL 3.125 MG TABLET PO ×2 (08:02→20:18)
[2023-08-14] MEDS: Propylene Glycol/PEG 400 Gel Eye Drops 10ML 1 DROP EYE-BOTH ×2 (08:12→20:29)
--- NOTE | 2023-08-14 08:53 | HO.PM.IMPN ---
Subjective Subjective Date of Service: 08/14/23 Interval History: itchy, weak Physical Exam Vital Signs: Vital Signs: Last Vital Signs Temp 98.2 F 08/14/23 08:00 Pulse 70 08/14/23 08:00 Resp 18 08/14/23 08:00 BP 144/93 H 08/14/23 08:00 Pulse Ox 91 L 08/14/23 08:00 O2 Del Method Room Air 08/14/23 08:00 BMI result Body Mass Index 26.9 stable diffuse rash (see pics from hpi) Objective Data Active Medications Acetaminophen (Acetaminophen 325 Mg Tablet) 650 mg PO Q6H PRN PRN Reason: Pain, Mild (Pain Scale 1-3) Atorvastatin Calcium (Atorvastatin Calcium 40 Mg Tablet) 40 mg PO BEDTIME [facility] Last Admin: 08/13/23 21:36 Dose: 40 mg Documented By: EVELIA Carvedilol (Carvedilol 3.125 Mg Tablet) 3.125 mg PO BID [facility]; Protocol Last Admin: 08/14/23 08:02 Dose: 3.125 mg Documented By: AMEENA Docusate Sodium (Docusate Sodium 100 Mg Capsule) 100 mg PO DAILY PRN PRN Reason: Constipation Duloxetine HCl (Duloxetine Hcl 30 Mg Capsule.) 30 mg PO BEDTIME [facility] Last Admin: 08/13/23 21:36 Dose: 30 mg Documented By: EVELIA Duloxetine HCl (Duloxetine Hcl 60 Mg Capsule.) 60 mg PO BEDTIME [facility] Last Admin: 08/13/23 21:36 Dose: 60 mg Documented By: EVELIA Enoxaparin Sodium (Enoxaparin Sodium 40 Mg/0.4 Ml Syringe) 40 mg SUBCUT Q24H [facility] Last Admin: 08/13/23 21:37 Dose: 40 mg Documented By: EVELIA Furosemide (Furosemide 20 Mg Tablet) 20 mg PO DAILY [facility]; Protocol Last Admin: 08/14/23 08:02 Dose: 20 mg Documented By: AMEENA Gabapentin (Gabapentin 300 Mg Capsule) 300 mg PO BEDTIME [facility] Last Admin: 08/13/23 21:36 Dose: 300 mg Documented By: EVELIA Levothyroxine Sodium (Levothyroxine Sodium 100 Mcg Tablet) 100 mcg PO DAILY@0600 [facility] Last Admin: 08/14/23 05:20 Dose: 100 mcg Documented By: HAMILTON Loratadine (Loratadine 10 Mg Tablet) 10 mg PO DAILY [facility] Last Admin: 08/14/23 08:02 Dose: 10 mg Documented By: AMEENA Omeprazole (Omeprazole 40 Mg Capsule.Dr) 40 mg PO DAILY@0630 [facility] Last Admin: 08/14/23 05:20 Dose: 40 mg Documented By: HAMILTON Ondansetron HCl (Ondansetron Hcl 4 Mg/2 Ml Vial) 4 mg IVPUSH Q8H PRN PRN Reason: Nausea and Vomiting Polyethyl Glycol/Propylene Glycol (Propylene Glycol/Peg 400 Gel Eye Drops 10ml) 1 drop EYE-BOTH BID [facility] Last Admin: 08/14/23 08:12 Dose: 1 drop Documented By: AMEENA Prednisone (Prednisone 20 Mg Tablet) 40 mg PO DAILY [facility] Sodium Chloride (0.9 % Sodium Chloride Flush 3 Ml Syringe) 3 ml IVFLUSH QSHIFT [facility] Last Admin: 08/14/23 08:02 Dose: 3 ml Documented By: AMEENA Tolterodine Tartrate (Tolterodine Tartrate La 4 Mg Cap.Er.24h) 4 mg PO DAILY [facility] Last Admin: 08/14/23 08:02 Dose: 4 mg Documented By: AMEENA Trazodone HCl (Trazodone Hcl 100 Mg Tablet) 100 mg PO BEDTIME [facility] Last Admin: 08/13/23 21:35 Dose: 100 mg Documented By: JBX Labs 08/13/23 15:14 08/13/23 16:44 Labs: Laboratory Results - last 24 hr 08/13/23 08/13/23 08/13/23 15:14 16:44 18:58 MCV 84.3 MCH 27.1 MCHC 32.2 RDW 16.1 H Plt Count TNP MPV 13.0 H Immature Gran % (Auto) 0.7 H Neut % (Auto) 92.2 H Lymph % (Auto) 2.5 L Bennett % (Auto) 2.9 Eos % (Auto) 1.5 Baso % (Auto) 0.2 Lymph # (Auto) 0.6 L Bennett # (Auto) 0.7 Eos # (Auto) 0.3 Baso # (Auto) 0.0 Abs Immat Gran (auto) 0.15 H Absolute Neuts (auto) 20.4 H Absolute Nucleated RBC 0.000 Nucleated RBC % (auto) 0.0 Smear Tech's Comments VERIFIED PT 13.3 INR 1.1 VBG pH VBG pCO2 VBG pO2 VBG HCO3 VBG O2 Saturation VBG Base Excess Carboxyhemoglobin % Anion Gap 17 Estim Creat Clear Calc 53.6 Estimated GFR 56 Random Glucose 80 Lactic Acid 3.3 H* Lactic Acid F/U @ 2Hr 1.9 Calcium 8.6 Magnesium 2.4 Total Bilirubin 1.0 Direct Bilirubin 0.3 AST 14 ALT 16 Alkaline Phosphatase 68 Total Creatine Kinase 172 H B-Natriuretic Peptide 21 Total Protein 6.2 L Albumin 3.0 L Urine Color Urine Appearance Urine pH Ur Specific [place] Urine Protein Urine Glucose (UA) Urine Ketones Urine Blood Urine Nitrite Ur Leukocyte Esterase Urine RBC Urine WBC Ur Squamous Epith Cells Urine Bacteria Hyaline Casts 08/13/23 08/13/23 19:23 21:34 MCV MCH MCHC RDW Plt Count MPV Immature Gran % (Auto) Neut % (Auto) Lymph % (Auto) Bennett % (Auto) Eos % (Auto) Baso % (Auto) Lymph # (Auto) Bennett # (Auto) Eos # (Auto) Baso # (Auto) Abs Immat Gran (auto) Absolute Neuts (auto) Absolute Nucleated RBC Nucleated RBC % (auto) Smear Tech's Comments PT INR VBG pH 7.45 H VBG pCO2 31 VBG pO2 56 VBG HCO3 21 L VBG O2 Saturation 86.0 VBG Base Excess -1.0 Carboxyhemoglobin % 1.5 Anion Gap Estim Creat Clear Calc Estimated GFR Random Glucose Lactic Acid Lactic Acid F/U @ 2Hr Calcium Magnesium Total Bilirubin Direct Bilirubin AST ALT Alkaline Phosphatase Total Creatine Kinase B-Natriuretic Peptide Total Protein Albumin Urine Color Yellow Urine Appearance Clear Urine pH 5.5 Ur Specific [place] 1.015 Urine Protein Trace Urine Glucose (UA) Negative Urine Ketones Trace Urine Blood Negative Urine Nitrite Negative Ur Leukocyte Esterase Moderate (2+) H Urine RBC 0-2 Urine WBC 11-20 H Ur Squamous Epith Cells 3-5 Urine Bacteria None Seen Hyaline Casts 3-5 Assessment and Plan (1) Rash and nonspecific skin eruption: Status: Acute Plan 73F PMH discoid lupus, hld, htn, hypothyroid, gerd, mood disorder, presented with falls and rash frequent falls ?old vs recent cerebellar finding on cth, pt, mri drug rash erythromycin most likely culprit change to prednisone 40mg daily benadryl hypokarlemia monitor lactic acidosis - acute resolved not due to sepsis (due to drug reaction) macular degeneration hld statin hypothryoid synthroid dnr/dni dvt prophylaxis - lovenox reason for continued hospitalization:monitor drug reaction Time Spent With Patient Time: Total time managing care of this patient today ____ minutes. Quality Stroke Does the patient have a stroke diagnosis?: No VTE Prior VTE?: No VTE Risk Level:: Medical - moderate - high VTE Device Contraindication: Treatment Not Indicated VTE Drug Contraindication: N/A - Med Ordered
[2023-08-14 09:48] VITALS: O2SAT 98
[2023-08-14] MEDS: predniSONE 20 MG TABLET 40 MG PO (10:05)
[2023-08-14 11:14] VITALS: BP 134/61; PULSE 82; RESP 18; TEMP 36.9; O2SAT 96
[2023-08-14 15:15] VITALS: BP 126/60; PULSE 79; RESP 18; TEMP 36.4; O2SAT 97
[2023-08-14] MEDS: diphenhydrAMINE HCL 50 MG/ML VIAL 25 MG IVPUSH ×2 (16:23→22:36)
[2023-08-14 20:00] VITALS: BP 168/79; PULSE 87; RESP 20; TEMP 36.4; O2SAT 93
[2023-08-14] MEDS: DULoxetine HCl 30 MG CAPSULE.DR PO (20:18)
[2023-08-14] MEDS: Atorvastatin Calcium 40 MG TABLET PO (20:18)
[2023-08-14] MEDS: Gabapentin 300 MG CAPSULE PO (20:18)
[2023-08-14] MEDS: Enoxaparin Sodium 40 MG/0.4 ML SYRINGE SUBCUT (20:18)
[2023-08-14] MEDS: traZODone HCL 100 MG TABLET PO (20:19)
[2023-08-14] MEDS: DULoxetine HCl 60 MG CAPSULE.DR PO (20:19)
[2023-08-14 23:46] VITALS: BP 144/60; PULSE 85; RESP 18; TEMP 37.2; O2SAT 95
[2023-08-15 04:00] VITALS: BP 147/68; PULSE 88; RESP 16; TEMP 37; O2SAT 96
[2023-08-15] MEDS: Omeprazole 40 MG CAPSULE.DR PO (05:49)
[2023-08-15] MEDS: diphenhydrAMINE HCL 50 MG/ML VIAL 25 MG IVPUSH ×3 (05:49→18:15)
[2023-08-15] MEDS: Levothyroxine Sodium 100 MCG TABLET PO (05:49)
[2023-08-15 06:19] LABS: Hematocrit 39.6 % (37.0-47.0); Hemoglobin 12.3 g/dl (12.0-16.0); Mean Corpuscular HGB Conc 31.1 g/dl (31.0-35.0); Mean Corpuscular Hemoglobin 26.6 pg (27.0-33.0); Mean Corpuscular Volume 85.5 fL (80.0-98.0); Mean Platelet Volume 11.4 fL (9.4-12.3); Platelet Count 180 X10*3/uL (160-400); Red Blood Count 4.63 X10*6/uL (4.20-5.50); Red Cell Distribution Width 16.7 % (11.0-16.0); White Blood Count 16.6 X10*3/uL (4.8-10.8)
[2023-08-15 07:08] VITALS: BP 164/77; PULSE 71; RESP 18; TEMP 36.7; O2SAT 95
[2023-08-15 07:37] LABS: Anion Gap 13 (12-20); Blood Urea Nitrogen 22 mg/dL (9-16); Calcium 8.8 mg/dL (8.4-10.2); Carbon Dioxide 20 mmol/L (22-29); Chloride 110 mmol/L (96-108); Creatinine Clr Calc Pharmacy 69.3; Estimated Glomerular Filt Rate > 60; Glucose Fasting 135 mg/dL (60-99); Sodium 139 mmol/L (135-145)
[2023-08-15] MEDS: predniSONE 20 MG TABLET 40 MG PO (07:41)
[2023-08-15] MEDS: carvediloL 3.125 MG TABLET PO ×2 (07:41→20:45)
[2023-08-15] MEDS: Loratadine 10 MG TABLET PO (07:41)
[2023-08-15] MEDS: Furosemide 20 MG TABLET PO (07:41)
[2023-08-15] MEDS: Tolterodine Tartrate LA 4 MG CAP.ER.24H PO (07:41)
[2023-08-15] MEDS: 0.9 % Sodium Chloride Flush 3 ML SYRINGE IVFLUSH ×3 (07:42→20:46)
[2023-08-15] MEDS: Propylene Glycol/PEG 400 Gel Eye Drops 10ML 1 DROP EYE-BOTH ×2 (07:51→20:46)
--- NOTE | 2023-08-15 08:59 | P.PNIM_ITS ---
Subjective Subjective Date of Service: 08/15/23 Interval History: improving rash Physical Exam 2 Vital Signs: Vital Signs: Last Vital Signs Temp 98.1 F 08/15/23 07:08 Pulse 71 08/15/23 07:08 Resp 18 08/15/23 07:08 BP 164/77 H 08/15/23 07:08 Pulse Ox 95 08/15/23 07:08 O2 Del Method Room Air 08/15/23 07:08 BMI result Body Mass Index 26.9 facial erythema and abdominal erythema still present but much improved Objective Data Active Medications Acetaminophen (Acetaminophen 325 Mg Tablet) 650 mg PO Q6H PRN PRN Reason: Pain, Mild (Pain Scale 1-3) Atorvastatin Calcium (Atorvastatin Calcium 40 Mg Tablet) 40 mg PO BEDTIME [facility] Last Admin: 08/14/23 20:18 Dose: 40 mg Documented By: HAMILTON Carvedilol (Carvedilol 3.125 Mg Tablet) 3.125 mg PO BID [facility]; Protocol Last Admin: 08/15/23 07:41 Dose: 3.125 mg Documented By: AMEENA Diphenhydramine HCl (Diphenhydramine Hcl 50 Mg/Ml Vial) 25 mg IVPUSH Q6H PRN PRN Reason: itchy Last Admin: 08/15/23 05:49 Dose: 25 mg Documented By: HAMILTON Docusate Sodium (Docusate Sodium 100 Mg Capsule) 100 mg PO DAILY PRN PRN Reason: Constipation Duloxetine HCl (Duloxetine Hcl 30 Mg Capsule.) 30 mg PO BEDTIME [facility] Last Admin: 08/14/23 20:18 Dose: 30 mg Documented By: HAMILTON Duloxetine HCl (Duloxetine Hcl 60 Mg Capsule.Dr) 60 mg PO BEDTIME [facility] Last Admin: 08/14/23 20:19 Dose: 60 mg Documented By: HAMILTON Enoxaparin Sodium (Enoxaparin Sodium 40 Mg/0.4 Ml Syringe) 40 mg SUBCUT Q24H [facility] Last Admin: 08/14/23 20:18 Dose: 40 mg Documented By: HAMILTON Furosemide (Furosemide 20 Mg Tablet) 20 mg PO DAILY [facility]; Protocol Last Admin: 08/15/23 07:41 Dose: 20 mg Documented By: AMEENA Gabapentin (Gabapentin 300 Mg Capsule) 300 mg PO BEDTIME [facility] Last Admin: 08/14/23 20:18 Dose: 300 mg Documented By: HAMILTON Levothyroxine Sodium (Levothyroxine Sodium 100 Mcg Tablet) 100 mcg PO DAILY@0600 [facility] Last Admin: 08/15/23 05:49 Dose: 100 mcg Documented By: HAMILTON Loratadine (Loratadine 10 Mg Tablet) 10 mg PO DAILY [facility] Last Admin: 08/15/23 07:41 Dose: 10 mg Documented By: AMEENA Omeprazole (Omeprazole 40 Mg Capsule.Dr) 40 mg PO DAILY@0630 [facility] Last Admin: 08/15/23 05:49 Dose: 40 mg Documented By: HAMILTON Ondansetron HCl (Ondansetron Hcl 4 Mg/2 Ml Vial) 4 mg IVPUSH Q8H PRN PRN Reason: Nausea and Vomiting Polyethyl Glycol/Propylene Glycol (Propylene Glycol/Peg 400 Gel Eye Drops 10ml) 1 drop EYE-BOTH BID [facility] Last Admin: 08/15/23 07:51 Dose: 1 drop Documented By: AMEENA Prednisone (Prednisone 20 Mg Tablet) 40 mg PO DAILY [facility] Last Admin: 08/15/23 07:41 Dose: 40 mg Documented By: AMEENA Sodium Chloride (0.9 % Sodium Chloride Flush 3 Ml Syringe) 3 ml IVFLUSH QSHIFT [facility] Last Admin: 08/15/23 07:42 Dose: 3 ml Documented By: AMEENA Tolterodine Tartrate (Tolterodine Tartrate La 4 Mg Cap.Er.24h) 4 mg PO DAILY [facility] Last Admin: 08/15/23 07:41 Dose: 4 mg Documented By: AMEENA Trazodone HCl (Trazodone Hcl 100 Mg Tablet) 100 mg PO BEDTIME [facility] Last Admin: 08/14/23 20:19 Dose: 100 mg Documented By: HAMILTON Labs 08/15/23 05:39 08/15/23 05:39 Labs: Laboratory Results - last 24 hr 08/15/23 05:39 MCV 85.5 MCH 26.6 L MCHC 31.1 RDW 16.7 H Plt Count 180 MPV 11.4 Absolute Nucleated RBC 0.000 Nucleated RBC % (auto) 0.0 Anion Gap 13 Estim Creat Clear Calc 69.3 Estimated GFR > 60 Fasting Glucose 135 H Calcium 8.8 Microbiology Microbiology Results: Microbiology 08/13/23 16:44 Blood Culture - Preliminary Blood - Venous No growth after 24 hours. 08/13/23 15:14 Blood Culture - Preliminary Blood - Venous No growth after 24 hours. 08/13/23 Unknown Urine Culture - Preliminary Urine clean catch - Urine grier top Culture too young to evaluate. Assessment and Plan (1) Rash and nonspecific skin eruption: Status: Acute Plan 73F PMH discoid lupus, hld, htn, hypothyroid, gerd, mood disorder, presented with falls and rash frequent falls ?old vs recent cerebellar finding on cth, mri Plan for short-term rehab on discharge drug rash erythromycin most likely culprit prednisone 40mg daily benadryl Improving hyperkalemia Resolved lactic acidosis - acute resolved not due to sepsis (due to drug reaction) macular degeneration hld statin hypothryoid synthroid dnr/dni dvt prophylaxis - lovenox reason for continued hospitalization:monitor drug reaction, plan for MRI Time Spent With Patient Time: Total time managing care of this patient today ____ minutes. Quality Stroke Does the patient have a stroke diagnosis?: No VTE Prior VTE?: No VTE Risk Level:: Medical - moderate - high VTE Device Contraindication: Treatment Not Indicated VTE Drug Contraindication: N/A - Med Ordered
[2023-08-15 11:25] VITALS: BP 164/81; PULSE 79; RESP 18; TEMP 36.4; O2SAT 95
[2023-08-15] MEDS: Acetaminophen 325 MG TABLET 650 MG PO (11:49)
--- NOTE | 2023-08-15 12:50 | MHC.CM.PN ---
IMM 08/15/23: Lives alone on first floor. Owns cane, walker and WC. Drives self where she needs to go. PCP on file is accurate. [facility] and if she can't go there, then she wants to go home w/[facility] in-home services (whoever they used last time, she does not recall, but only wants who they recommend); she had their services in April of 2023 and was happy with the care [facility] set up for her in her home. She has since been D/C'd from their services. Would need to reach out to [facility]F to inquire RE the in-home company previously assigned to her in April 2023. D/C plan TBD. BERNARDO to follow.
--- NOTE | 2023-08-15 12:55 | MHC.CM.PN ---
...If Pt. is to return home rather than SNF, she indicated her sister would be transporting her home. CM to follow.
[2023-08-15 15:49] VITALS: BP 158/87; PULSE 74; RESP 15; TEMP 36.6; O2SAT 98
[2023-08-15 19:59] VITALS: BP 158/60; PULSE 60; RESP 14; TEMP 36.8; O2SAT 92
[2023-08-15] MEDS: Gabapentin 300 MG CAPSULE PO (20:45)
[2023-08-15] MEDS: DULoxetine HCl 30 MG CAPSULE.DR PO (20:45)
[2023-08-15] MEDS: DULoxetine HCl 60 MG CAPSULE.DR PO (20:45)
[2023-08-15] MEDS: Atorvastatin Calcium 40 MG TABLET PO (20:45)
[2023-08-15] MEDS: Enoxaparin Sodium 40 MG/0.4 ML SYRINGE SUBCUT (20:45)
[2023-08-15] MEDS: traZODone HCL 100 MG TABLET PO (20:45)
[2023-08-15 23:44] VITALS: BP 157/84; PULSE 73; RESP 18; TEMP 36.3; O2SAT 95
[2023-08-16] VITALS (7 sets, daily range): BP systolic 162–179; BP diastolic 68–89; PULSE 62–168; RESP 17–20; TEMP 36.1–36.9; O2SAT 93–97
[2023-08-16] MEDS: Levothyroxine Sodium 100 MCG TABLET PO (05:40)
[2023-08-16] MEDS: Omeprazole 40 MG CAPSULE.DR PO (05:40)
[2023-08-16] MEDS: diphenhydrAMINE HCL 50 MG/ML VIAL 25 MG IVPUSH ×3 (05:48→20:41)
[2023-08-16] MEDS: Loratadine 10 MG TABLET PO (08:26)
[2023-08-16] MEDS: predniSONE 20 MG TABLET 40 MG PO (08:26)
[2023-08-16] MEDS: Docusate Sodium 100 MG CAPSULE PO (08:26)
[2023-08-16] MEDS: Propylene Glycol/PEG 400 Gel Eye Drops 10ML 1 DROP EYE-BOTH ×2 (08:26→20:39)
[2023-08-16] MEDS: carvediloL 3.125 MG TABLET PO ×2 (08:26→20:38)
[2023-08-16] MEDS: 0.9 % Sodium Chloride Flush 3 ML SYRINGE IVFLUSH ×3 (08:27→20:39)
[2023-08-16] MEDS: Furosemide 20 MG TABLET PO (08:27)
[2023-08-16] MEDS: Tolterodine Tartrate LA 4 MG CAP.ER.24H PO (08:27)
[2023-08-16] MEDS: Milk of Magnesia 30 ML ORAL.SUSP PO (10:45)
--- NOTE | 2023-08-16 11:02 | HO.PM.IMPN ---
Subjective Subjective Date of Service: 08/16/23 Interval History: rash much better, feeling stronger Physical Exam Vital Signs: Vital Signs: Last Vital Signs Temp 97 F 08/16/23 07:01 Pulse 76 08/16/23 10:42 Resp 18 08/16/23 07:01 BP 179/68 H 08/16/23 10:42 Pulse Ox 94 08/16/23 10:42 O2 Del Method Room Air 08/16/23 07:01 BMI result Body Mass Index 26.9 facial erythema and abdominal erythema continue to improve Objective Data Active Medications Acetaminophen (Acetaminophen 325 Mg Tablet) 650 mg PO Q6H PRN PRN Reason: Pain, Mild (Pain Scale 1-3) Last Admin: 08/15/23 11:49 Dose: 650 mg Documented By: AMEENA Atorvastatin Calcium (Atorvastatin Calcium 40 Mg Tablet) 40 mg PO BEDTIME [facility] Last Admin: 08/15/23 20:45 Dose: 40 mg Documented By: SAL Carvedilol (Carvedilol 3.125 Mg Tablet) 3.125 mg PO BID [facility]; Protocol Last Admin: 08/16/23 08:26 Dose: 3.125 mg Documented By: ROBSON Diphenhydramine HCl (Diphenhydramine Hcl 50 Mg/Ml Vial) 25 mg IVPUSH Q6H PRN PRN Reason: itchy Last Admin: 08/16/23 05:48 Dose: 25 mg Documented By: SAL Docusate Sodium (Docusate Sodium 100 Mg Capsule) 100 mg PO DAILY PRN PRN Reason: Constipation Last Admin: 08/16/23 08:26 Dose: 100 mg Documented By: ROBSON Duloxetine HCl (Duloxetine Hcl 30 Mg Capsule.) 30 mg PO BEDTIME [facility] Last Admin: 08/15/23 20:45 Dose: 30 mg Documented By: SAL Duloxetine HCl (Duloxetine Hcl 60 Mg Capsule.) 60 mg PO BEDTIME [facility] Last Admin: 08/15/23 20:45 Dose: 60 mg Documented By: SAL Enoxaparin Sodium (Enoxaparin Sodium 40 Mg/0.4 Ml Syringe) 40 mg SUBCUT Q24H [facility] Last Admin: 08/15/23 20:45 Dose: 40 mg Documented By: SAL Furosemide (Furosemide 20 Mg Tablet) 20 mg PO DAILY [facility]; Protocol Last Admin: 08/16/23 08:27 Dose: 20 mg Documented By: ROBSON Gabapentin (Gabapentin 300 Mg Capsule) 300 mg PO BEDTIME [facility] Last Admin: 08/15/23 20:45 Dose: 300 mg Documented By: SAL Levothyroxine Sodium (Levothyroxine Sodium 100 Mcg Tablet) 100 mcg PO DAILY@0600 [facility] Last Admin: 08/16/23 05:40 Dose: 100 mcg Documented By: SAL Loratadine (Loratadine 10 Mg Tablet) 10 mg PO DAILY [facility] Last Admin: 08/16/23 08:26 Dose: 10 mg Documented By: ROBSON Omeprazole (Omeprazole 40 Mg Capsule.Dr) 40 mg PO DAILY@0630 [facility] Last Admin: 08/16/23 05:40 Dose: 40 mg Documented By: SAL Ondansetron HCl (Ondansetron Hcl 4 Mg/2 Ml Vial) 4 mg IVPUSH Q8H PRN PRN Reason: Nausea and Vomiting Polyethyl Glycol/Propylene Glycol (Propylene Glycol/Peg 400 Gel Eye Drops 10ml) 1 drop EYE-BOTH BID [facility] Last Admin: 08/16/23 08:26 Dose: 1 drop Documented By: ROBSON Prednisone (Prednisone 20 Mg Tablet) 40 mg PO DAILY [facility] Last Admin: 08/16/23 08:26 Dose: 40 mg Documented By: ROBSON Sodium Chloride (0.9 % Sodium Chloride Flush 3 Ml Syringe) 3 ml IVFLUSH QSHIFT [facility] Last Admin: 08/16/23 08:27 Dose: 3 ml Documented By: ROBSON Tolterodine Tartrate (Tolterodine Tartrate La 4 Mg Cap.Er.24h) 4 mg PO DAILY [facility] Last Admin: 08/16/23 08:27 Dose: 4 mg Documented By: ROBSON Trazodone HCl (Trazodone Hcl 100 Mg Tablet) 100 mg PO BEDTIME [facility] Last Admin: 08/15/23 20:45 Dose: 100 mg Documented By: SAL Labs 08/15/23 05:39 08/15/23 05:39 Microbiology Microbiology Results: Microbiology 08/13/23 16:44 Blood Culture - Preliminary Blood - Venous No growth after 48 hours. 08/13/23 15:14 Blood Culture - Preliminary Blood - Venous No growth after 48 hours. 08/13/23 Unknown Urine Culture - Final Urine clean catch - Urine grier top Assessment and Plan (1) Rash and nonspecific skin eruption: Status: Acute Plan 73F PMH discoid lupus, hld, htn, hypothyroid, gerd, mood disorder, presented with falls and rash frequent falls ?old vs recent cerebellar finding on cth, mri Plan for short-term rehab on discharge drug rash erythromycin most likely culprit continue prednisone 40mg daily benadryl Improving hyperkalemia Resolved lactic acidosis - acute resolved not due to sepsis (due to drug reaction) macular degeneration hld statin hypothryoid synthroid dnr/dni dvt prophylaxis - lovenox reason for continued hospitalization:monitor drug reaction, plan for MRI Time Spent With Patient Time: Total time managing care of this patient today ____ minutes. Quality Stroke Does the patient have a stroke diagnosis?: No VTE Prior VTE?: No VTE Risk Level:: Medical - moderate - high VTE Device Contraindication: Treatment Not Indicated VTE Drug Contraindication: N/A - Med Ordered
--- NOTE | 2023-08-16 14:09 | MHC.CM.PN ---
Patient is not yet medically cleared for dc (monitoring drug reaction);PT rec STR and CM will follow.
--- NOTE | 2023-08-16 14:09 | MHC.CM.PN ---
met with Pt to discuss dc plan. She has stated that she wants to go home, and if STR is needed, she will only go to [facility]. CM discussed that OT and PT have recommended STR and [facility] not [facility] a [facility] available, and asked if she would consider another STR, she said that she would not. She would like to go home and have [facility]. CM to follow and assist with dc.
[2023-08-16] MEDS: Gabapentin 300 MG CAPSULE PO (20:38)
[2023-08-16] MEDS: Enoxaparin Sodium 40 MG/0.4 ML SYRINGE SUBCUT (20:38)
[2023-08-16] MEDS: traZODone HCL 100 MG TABLET PO (20:38)
[2023-08-16] MEDS: Atorvastatin Calcium 40 MG TABLET PO (20:38)
[2023-08-16] MEDS: DULoxetine HCl 60 MG CAPSULE.DR PO (20:38)
[2023-08-16] MEDS: DULoxetine HCl 30 MG CAPSULE.DR PO (20:38)
--- NOTE | 2023-08-16 23:41 | ECG_ITS ---
Test Reason : Tachycardia Blood Pressure : / mmHG Vent. Rate : 157 BPM Atrial Rate : 000 BPM P-R Int : 000 ms QRS Dur : 076 ms QT Int : 272 ms P-R-T Axes : 000 037 209 degrees QTc Int : 439 ms Atrial fibrillation with rapid ventricular response Marked ST abnormality, possible inferior subendocardial injury Marked ST abnormality, possible lateral subendocardial injury Abnormal ECG When compared with ECG of 13-AUG-2023 16:55, Significant changes have occurred Referred By: Sarah Dennis Electronically Signed By:COLBY JOSEPH
--- NOTE | 2023-08-16 23:54 | PM.EVENT ---
Event Note Date of Service: 08/16/23 Event Note: Called around 1140PM for HR of 160s. EKG showed new onset Afib w RvR Started IV Metoprolol and extra PO Carvedilol Cardio consult and Echo tomorrow To discuss AC w cardio Time Spent With Patient Time: Total time managing care of this patient today ____ minutes.
[2023-08-17] VITALS (12 sets, daily range): BP systolic 134–180; BP diastolic 72–100; PULSE 63–160; RESP 18–20; TEMP 36.2–37.1; O2SAT 95–98
[2023-08-17] MEDS: Metoprolol Tartrate 5 MG/5 ML VIAL IVPUSH (00:05)
[2023-08-17] MEDS: carvediloL 3.125 MG TABLET PO ×4 (00:16→19:21)
--- NOTE | 2023-08-17 03:36 | PC.NURSE ---
Addendum entered by Carine Valderrama RN 08/17/23 04:04: 5 beats of VTach at 0353, MD aware, pt asymptomatic. Original Note: Pt had a sudden burst od HR on the 160s -170s at 2330, rest of vitals are WNL, pt denies any palpitation ,CP nor SOB, Dr. Dennis was notified, EKG stat done showed RVR , same MD came at the bedside, Metoprolol 5 mg IV given, Coreg 3.125 mg po given, vitals remained stable, pt denies any discomfort, HR came down to 70s at SR.
[2023-08-17] MEDS: Omeprazole 40 MG CAPSULE.DR PO (05:29)
[2023-08-17] MEDS: Levothyroxine Sodium 100 MCG TABLET PO (05:29)
--- NOTE | 2023-08-17 07:00 | CA_ITS ---
Transthoracic Echocardiogram Patient (Last, First, Middle): Rica Velasco V Gender: Female Date of : 1950 Age: 73 Procedure Date: 08/17/2023 Procedure Type: Transthoracic Echocardiogram Location: [facility] [place] Height: 167.64 cm Weight: 75.3 kg BSA: 1.85 m2 Heart Rate: bpm BP: 168 / 92 mmHg Geochemistry Teacher: PRITI Referring MD: Sarah Dennis MD Symptoms: new onset atrial fibrillation Study Quality: Fair ECG Rhythm: Sinus Conclusions: - The left ventricular systolic function is normal. The calculated ejection fraction is 64% by biplane method. - There is severe septal and severe basal asymmetric hypertrophy. - No obvious valvular pathology seen on this study. Findings Procedure Information Contrast agent, definity, is being given per protocol without apparent complications. Left Ventricle Normal left ventricular cavity size. There is mildly increased left ventricular wall thickness. The left ventricular systolic function is normal. The calculated ejection fraction is 64% by biplane method. There is no evidence of regional wall motion abnormalities. There is severe septal and severe basal asymmetric hypertrophy. Right Ventricle Normal right ventricular cavity size and systolic function. Atria Both atria are normal in size. Aortic Valve There is a normal trileaflet aortic valve. There is mild calcification of the aortic valve. There is no aortic valve stenosis. There is no aortic valve regurgitation. Mitral Valve There is mild anterior mitral leaflet thickening. There is mild mitral annular calcification. There is trace mitral valve regurgitation. There is no mitral valve stenosis. Pulmonic Valve The pulmonic valve is likely normal. Tricuspid Valve Normal tricuspid valve structure. There is mild tricuspid valve regurgitation. There is no evidence of pulmonary hypertension. Great Vessels The asc aorta is normal in size. Venous The inferior vena cava is normal in size and collapses greater than 50% with inspiration. Pericardium/Pleural There is no evidence of pericardial effusion. Prior Study Comparison No prior study available for comparison. Recommendations, Care & Conclusions No obvious valvular pathology seen on this study. Measurements 2D Linear Measurements IVSd: 1.70 0.6-0.9/0.6-1.0 cm LVIDd: 3.69 3.9-5.3/4.2-5.9 cm LVIDd Index: 1.99 2.4-3.2/2.2-3.1 cm/m2 LVIDs: 2.56 2.0-3.6 cm LVPWd: 1.17 0.7-1.1 cm Ao Root: 3.30 2.1-3.5 cm LA Diam: 3.80 2.7-3.8/3.0-4.0 cm LAIDs Index: 2.05 1.5-2.3 cm/m2 LV Mass: 241.34 67-162/88-224 g LV Mass Index: 130.45 43-95/49-115 g/m2 LVOT Diam: 1.90 3.0+(-)1.3 cm 2D Systolic Function EF 4C: 63.30 >55% EF 2C: 67.70 >55% EF BiP: 64.10 >55% Mitral Valve MV Pk E: 1.09 MV PK A: 1.03 MV Decel Time: 223.00 E/A: 1.10 E'Lateral: 9.14 E'Medial: 6.53 E/E' Med: 16.70 E/E' Lat: 11.90 PHT: 65.00 MVA PHT: 3.38 Decel Surry: 4.89 Aortic Valve AoV Pk Cain: 1.65 AoV Mn Cain: 1.12 AoV VTI: 0.36 AoV Pk Grad: 11.00 Aov Mn Grad: 6.00 CHADD Cont.VTI: 2.19 LVOT LVOT Pk Cain: 1.25 LVOT Mn Cain: 0.89 LVOT VTI: 0.28 LVOT Pk Grad: 6.00 LVOT Mn Grad: 4.00 LVOT Diam: 1.90 LVOT Area: 2.84 Diastolic Function MV Pk E: 1.09 MV Pk A: 1.03 E/A: 1.10 E'Medial: 6.53 E/E' Med: 16.70 E' Laterial: 9.14 E/E' Lat: 11.90 Right Ventricle TAPSE (mm): 21.00 TVS' Cain: 14.00 Tricuspid Valve TR Pk Cain: 1.93 TR Pk Grad: 15.00 RA Press: 3.00 RVSP: 18.00 Great Vessels Aorta Ao Root-2D: 3.30 2.0-3.7 cm Ao Asc: 3.40 2.1-3.4 cm Pulmonary Valve PV Pk Cain: 1.07 Peak PV Grad: 5.00 Updated in Other Vendor System with Status of Final Garry Castellon MD electronically signed on 08/17/2023 11:29:39 AM with status of Final
[2023-08-17 07:05] LABS: Hematocrit 38.9 % (37.0-47.0); Hemoglobin 12.2 g/dl (12.0-16.0); Mean Corpuscular HGB Conc 31.4 g/dl (31.0-35.0); Mean Corpuscular Hemoglobin 27.2 pg (27.0-33.0); Mean Corpuscular Volume 86.8 fL (80.0-98.0); Mean Platelet Volume 11.8 fL (9.4-12.3); Platelet Count 197 X10*3/uL (160-400); Red Blood Count 4.48 X10*6/uL (4.20-5.50); Red Cell Distribution Width 17.1 % (11.0-16.0); White Blood Count 14.1 X10*3/uL (4.8-10.8)
[2023-08-17 07:17] LABS: Anion Gap 11 (12-20); Blood Urea Nitrogen 19 mg/dL (9-16); Calcium 8.7 mg/dL (8.4-10.2); Carbon Dioxide 30 mmol/L (22-29); Chloride 107 mmol/L (96-108); Creatinine Clr Calc Pharmacy 78.9; Estimated Glomerular Filt Rate > 60; Glucose Fasting 101 mg/dL (60-99); Magnesium 2.5 mg/dL (1.6-2.6); Potassium 3.6 mmol/L (3.3-5.1); Sodium 144 mmol/L (135-145)
[2023-08-17 07:33] LABS: Thyroid Stimulating Hormone 1.82 uIU/mL (0.32-4.0)
[2023-08-17] MEDS: Tolterodine Tartrate LA 4 MG CAP.ER.24H PO (09:07)
[2023-08-17] MEDS: predniSONE 20 MG TABLET 40 MG PO (09:07)
[2023-08-17] MEDS: Propylene Glycol/PEG 400 Gel Eye Drops 10ML 1 DROP EYE-BOTH ×2 (09:07→19:21)
[2023-08-17] MEDS: Furosemide 20 MG TABLET PO (09:08)
[2023-08-17] MEDS: Loratadine 10 MG TABLET PO (09:09)
[2023-08-17] MEDS: diphenhydrAMINE HCL 50 MG/ML VIAL 25 MG IVPUSH ×2 (09:09→16:11)
[2023-08-17] MEDS: 0.9 % Sodium Chloride Flush 3 ML SYRINGE IVFLUSH ×3 (09:09→19:21)
--- NOTE | 2023-08-17 09:47 | PM.CNCAR ---
History of Present Illness History of Present Illness Date of Service: 08/17/23 Chief complaint: whole body erythematous rash, frequent falls Narrative: This is a cardiology consultation regarding atrial fibrillation rapid rate. Patient with multiple comorbidities including discard lupus, hypertension, hyperlipidemia extra. It seems she is here for rash thought to be from regulated causes. In this context, she was noted to have atrial fibrillation rapid rate on the telemetry as today. Patient states she really did not feel anything in terms of symptoms. She does not recall any prior cardiac issues. No history of any coronary artery disease or myocardial infarction or cardiomyopathy. Today, she states she feels fine. Review of Systems Review of Systems: Yes all other systems are reviewed and are negative Constitutional: Constitutional: Reports as per HPI and Reports no additional constitutional complaints Eyes: Eyes: Reports as per HPI and Denies no additional eye complaints ENT: Denies system reviewed and no additional complaints, except as documented and Reports as per HPI Cardiovascular: Cardiovascular: Reports as per HPI, Reports no additional cardiovascular complaints, Denies acrocyanosis, Denies cool extremities, Denies chest pain, Denies leg edema, Denies lightheadedness, Denies palpitations and Denies dyspnea Respiratory: Respiratory: Reports as per HPI, Denies no additional respiratory complaints and Denies dyspnea Gastrointestinal: Gastrointestinal: Reports as per HPI and Denies no additional gastrointestinal complaints Genitourinary: Genitourinary: Reports as per HPI Musculoskeletal: Musculoskeletal: Reports no additional musculoskeletal complaints and Reports as per HPI Integumentary/Breasts: Skin/Breast: Reports system reviewed and no additional complaints, except as docu Neurologic: Reports system reviewed and no additional complaints, except as documented and Reports as per HPI Psychiatric: Psychiatric: Reports no additional psychiatric complaints and Reports as per HPI Endocrine: Endocrine: Reports no additional endocrine complaints, Reports as per HPI and Denies palpitations Hematologic/Lymphatic: Hematologic/Lymphatic: Reports no additional hematologic/lymphatic complaints and Reports as per HPI Allergic/Immunologic: Allergic/Immunologic: Reports no additional allergic/immunologic complaints and Reports as per HPI [facility] Past Medical History Medical History (Updated 08/17/23 @ 09:51 by Garry Castellon MD) Lupus Family History Family History (Updated 08/17/23 @ 09:49 by Garry Castellon MD) Mother Myocardial infarction Social History Social History Household Members: None Housing: House Patient Tobacco Use Status: Never used Tobacco Smoked in Last 30 Days: No e-Cigarette/Vaping Use: Never Used Use of substances other than those prescribed or required for medical reasons: No Currently Displaying Signs/Symptoms of Drug Intoxication Withdrawal: No Have you been hit, kicked, punched, or otherwise hurt by someone within the past year? If so, by whom?: No Do you feel safe in your current relationship?: Yes Is there a partner from a previous relationship who is making you feel unsafe now?: No Are you made to feel afraid or neglected: No Advance Directives: No Advance Directives Information Provided: No Do you have thoughts of harming others: None Do you have a plan to hurt others: No Plan Recently lost weight without trying: Yes How much weight loss: 2-13 pounds Nutrition Risks: No Nutritional Risk Patient : No service: No Meds Allergies Allergy/AdvReac Type Severity Reaction Status Date / Time Penicillins [PENICILLINS] Allergy Severe HIVES Verified 08/13/23 14:58 droperidol [From INAPSINE] Allergy Intermediate UNUSUAL Verified 08/13/23 14:58 HEAD MOVEMENTS oxycodone [OXYCODONE] Allergy Mild ITCHING Verified 08/13/23 14:58 morphine [MORPHINE] AdvReac Unknown CONFUSION Verified 08/13/23 14:58 Active Medications: Current Medications Acetaminophen (Acetaminophen 325 Mg Tablet) 650 mg PO Q6H PRN PRN Reason: Pain, Mild (Pain Scale 1-3) Last Admin: 08/15/23 11:49 Dose: 650 mg Atorvastatin Calcium (Atorvastatin Calcium 40 Mg Tablet) 40 mg PO BEDTIME [facility] Last Admin: 08/16/23 20:38 Dose: 40 mg Carvedilol (Carvedilol 3.125 Mg Tablet) 3.125 mg PO BID [facility]; Protocol Last Admin: 08/17/23 09:07 Dose: 3.125 mg Diphenhydramine HCl (Diphenhydramine Hcl 50 Mg/Ml Vial) 25 mg IVPUSH Q6H PRN PRN Reason: itchy Last Admin: 08/17/23 09:09 Dose: 25 mg Docusate Sodium (Docusate Sodium 100 Mg Capsule) 100 mg PO DAILY PRN PRN Reason: Constipation Last Admin: 08/16/23 08:26 Dose: 100 mg Duloxetine HCl (Duloxetine Hcl 30 Mg Capsule.Dr) 30 mg PO BEDTIME [facility] Last Admin: 08/16/23 20:38 Dose: 30 mg Duloxetine HCl (Duloxetine Hcl 60 Mg Capsule.Dr) 60 mg PO BEDTIME [facility] Last Admin: 08/16/23 20:38 Dose: 60 mg Enoxaparin Sodium (Enoxaparin Sodium 40 Mg/0.4 Ml Syringe) 40 mg SUBCUT Q24H [facility] Last Admin: 08/16/23 20:38 Dose: 40 mg Furosemide (Furosemide 20 Mg Tablet) 20 mg PO DAILY [facility]; Protocol Last Admin: 08/17/23 09:08 Dose: 20 mg Gabapentin (Gabapentin 300 Mg Capsule) 300 mg PO BEDTIME [facility] Last Admin: 08/16/23 20:38 Dose: 300 mg Levothyroxine Sodium (Levothyroxine Sodium 100 Mcg Tablet) 100 mcg PO DAILY@0600 [facility] Last Admin: 08/17/23 05:29 Dose: 100 mcg Loratadine (Loratadine 10 Mg Tablet) 10 mg PO DAILY [facility] Last Admin: 08/17/23 09:09 Dose: 10 mg Omeprazole (Omeprazole 40 Mg Capsule.) 40 mg PO DAILY@0630 [facility] Last Admin: 08/17/23 05:29 Dose: 40 mg Ondansetron HCl (Ondansetron Hcl 4 Mg/2 Ml Vial) 4 mg IVPUSH Q8H PRN PRN Reason: Nausea and Vomiting Polyethyl Glycol/Propylene Glycol (Propylene Glycol/Peg 400 Gel Eye Drops 10ml) 1 drop EYE-BOTH BID [facility] Last Admin: 08/17/23 09:07 Dose: 1 drop Prednisone (Prednisone 20 Mg Tablet) 40 mg PO DAILY [facility] Last Admin: 08/17/23 09:07 Dose: 40 mg Sodium Chloride (0.9 % Sodium Chloride Flush 3 Ml Syringe) 3 ml IVFLUSH QSHIFT [facility] Last Admin: 08/17/23 09:09 Dose: 3 ml Tolterodine Tartrate (Tolterodine Tartrate La 4 Mg Cap.Er.24h) 4 mg PO DAILY [facility] Last Admin: 08/17/23 09:07 Dose: 4 mg Trazodone HCl (Trazodone Hcl 100 Mg Tablet) 100 mg PO BEDTIME [facility] Last Admin: 08/16/23 20:38 Dose: 100 mg Home Medications Medication Instructions Recorded Confirmed Last Taken Type atorvastatin 40 mg tablet 40 mg PO BEDTIME 08/13/23 08/13/23 08/12/23 History carboxymethylcellulose sodium 0.5 1 drp ophthalmic (eye) BID 08/13/23 08/13/23 08/13/23 History % eye drops (Refresh Tears) carvedilol 3.125 mg tablet 3.125 mg PO BID 08/13/23 08/13/23 08/13/23 History duloxetine 30 mg capsule,delayed 30 mg PO BEDTIME 08/13/23 08/13/23 08/12/23 History release duloxetine 60 mg capsule,delayed 60 mg PO BEDTIME 08/13/23 08/13/23 08/12/23 History release erythromycin 500 mg tablet 1,000 mg PO ONCE PRN PRIOR TO 08/13/23 08/13/23 Unknown History DENTAL PROCEDURE furosemide 20 mg tablet 20 mg PO DAILY 08/13/23 08/13/23 08/13/23 History gabapentin 300 mg capsule 300 mg PO BEDTIME 08/13/23 08/13/23 08/12/23 History levothyroxine 100 mcg tablet 100 mcg PO DAILY 08/13/23 08/13/23 08/13/23 History omeprazole 40 mg capsule,delayed 40 mg PO DAILY 08/13/23 08/13/23 08/13/23 History release potassium chloride 10 mEq 10 meq PO DAILY 08/13/23 08/13/23 08/13/23 History tablet,extended release tolterodine 4 mg capsule,extended 4 mg PO DAILY 08/13/23 08/13/23 08/13/23 History release 24 hr trazodone 100 mg tablet 100 mg PO BEDTIME 08/13/23 08/13/23 08/12/23 History Physical Exam Vital Signs: Vital Signs: Last Vital Signs Temp 97.8 F 08/17/23 07:13 Pulse 64 08/17/23 07:13 Resp 18 08/17/23 07:13 BP 168/92 H 08/17/23 07:13 Pulse Ox 96 08/17/23 07:13 O2 Del Method Room Air 08/17/23 07:13 O2 Flow Rate 98 08/16/23 23:30 BMI result Body Mass Index 26.9 Const: General: comfortable and no acute distress Orientation/consciousness: patient oriented x3 HEENT: Other: Unremarkable Head: Yes normal to inspection Neck: Neck: Yes normal visual inspection Chest: Chest palpation & inspection: normal inspection of the chest Resp: Auscultation: clear to auscultation bilaterally Cardio: Palpation: normal PMI Heart sounds: S1 normal heart sound present, S2 normal heart sound present, no gallops, no murmurs and no rubs GI: Palpation (GI): Soft to palpation Back/Spine/Pelvis: Other: unremarkable Skin: General skin exam: rashes and/or lesions noted Neuro: General: patient oriented x3 Extrem: General: Yes normal to inspection Psych: Mental Status: mental status grossly normal Objective Labs and Meds 08/17/23 06:09 08/17/23 06:09 Lab results: Laboratory Results - last 24 hr 08/17/23 06:09 WBC 14.1 H RBC 4.48 Hgb 12.2 Hct 38.9 MCV 86.8 MCH 27.2 MCHC 31.4 RDW 17.1 H Plt Count 197 MPV 11.8 Absolute Nucleated RBC 0.000 Nucleated RBC % (auto) 0.0 Sodium 144 Potassium 3.6 Chloride 107 Carbon Dioxide 30 H Anion Gap 11 L BUN 19 H Creatinine 0.65 Estim Creat Clear Calc 78.9 Estimated GFR > 60 Fasting Glucose 101 H Calcium 8.7 Magnesium 2.5 TSH 1.82 ECG Interpretation: EKG with atrial fibrillation at a rate of 157/Min; ST depression somewhat diffusely. While in sinus rhythm, 79/Min. No ST-T changes noted. Imaging Radiologist's impression: Impressions Brain MRI 08/16/23 12:35 IMPRESSION: No acute intracranial process. Chronic right-sided cerebellar infarcts. Moderate generalized parenchymal volume loss and [id number] chronic white matter microangiopathy. Assessment and Plan (1) Atrial fibrillation with rapid ventricular response: Status: Acute Plan Telemetry with evidence of atrial fibrillation rapid rate but back in sinus rhythm now with PACs/PVCs. Blood pressure seems to be on the higher side. Listed to be on carvedilol 3.125 b.i.d.. Start Cardizem CD 1 20 mg daily. Brain MRI with suggestion of chronic right-sided cerebellar infarct. Not clear if it is related to intracranial vascular disease or embolic. Ideally, recommend anticoagulation but need to ensure there is no significant fall risk or other bleeding concerns. Will review echocardiogram once completed. Time Spent With Patient Time: Total time managing care of this patient today ____ minutes. Procedures Date of Service Date of Service: 08/17/23
--- NOTE | 2023-08-17 10:40 | P.PNIM_ITS ---
Subjective Subjective Date of Service: 08/17/23 Interval History: rash continues to improve, overnight went into rapid afib for about 20 minutes, asymptomatic Physical Exam 2 Vital Signs: Vital Signs: Last Vital Signs Temp 97.8 F 08/17/23 07:13 Pulse 64 08/17/23 07:13 Resp 18 08/17/23 07:13 BP 168/92 H 08/17/23 07:13 Pulse Ox 96 08/17/23 07:13 O2 Del Method Room Air 08/17/23 07:13 O2 Flow Rate 98 08/16/23 23:30 BMI result Body Mass Index 26.9 rash mostlyt resolved ambulation improving Objective Data Active Medications Acetaminophen (Acetaminophen 325 Mg Tablet) 650 mg PO Q6H PRN PRN Reason: Pain, Mild (Pain Scale 1-3) Last Admin: 08/15/23 11:49 Dose: 650 mg Documented By: AMEENA Apixaban (Apixaban 5 Mg Tablet) 5 mg PO BID [facility] Atorvastatin Calcium (Atorvastatin Calcium 40 Mg Tablet) 40 mg PO BEDTIME [facility] Last Admin: 08/16/23 20:38 Dose: 40 mg Documented By: MARY Carvedilol (Carvedilol 3.125 Mg Tablet) 3.125 mg PO BID [facility]; Protocol Last Admin: 08/17/23 09:07 Dose: 3.125 mg Documented By: ROBSON Diltiazem HCl (Diltiazem Hcl Cd 120 Mg Cap.Er.Deg) 120 mg PO DAILY [facility]; Protocol Diphenhydramine HCl (Diphenhydramine Hcl 50 Mg/Ml Vial) 25 mg IVPUSH Q6H PRN PRN Reason: itchy Last Admin: 08/17/23 09:09 Dose: 25 mg Documented By: ROBSON Docusate Sodium (Docusate Sodium 100 Mg Capsule) 100 mg PO DAILY PRN PRN Reason: Constipation Last Admin: 08/16/23 08:26 Dose: 100 mg Documented By: ROBSON Duloxetine HCl (Duloxetine Hcl 30 Mg Capsule.) 30 mg PO BEDTIME [facility] Last Admin: 08/16/23 20:38 Dose: 30 mg Documented By: MARY Duloxetine HCl (Duloxetine Hcl 60 Mg Capsule.) 60 mg PO BEDTIME [facility] Last Admin: 08/16/23 20:38 Dose: 60 mg Documented By: MARY Furosemide (Furosemide 20 Mg Tablet) 20 mg PO DAILY [facility]; Protocol Last Admin: 08/17/23 09:08 Dose: 20 mg Documented By: ROBSON Gabapentin (Gabapentin 300 Mg Capsule) 300 mg PO BEDTIME [facility] Last Admin: 08/16/23 20:38 Dose: 300 mg Documented By: MARY Levothyroxine Sodium (Levothyroxine Sodium 100 Mcg Tablet) 100 mcg PO DAILY@0600 [facility] Last Admin: 08/17/23 05:29 Dose: 100 mcg Documented By: MARY Loratadine (Loratadine 10 Mg Tablet) 10 mg PO DAILY [facility] Last Admin: 08/17/23 09:09 Dose: 10 mg Documented By: ROBSON Omeprazole (Omeprazole 40 Mg Capsule.Dr) 40 mg PO DAILY@0630 [facility] Last Admin: 08/17/23 05:29 Dose: 40 mg Documented By: MARY Ondansetron HCl (Ondansetron Hcl 4 Mg/2 Ml Vial) 4 mg IVPUSH Q8H PRN PRN Reason: Nausea and Vomiting Polyethyl Glycol/Propylene Glycol (Propylene Glycol/Peg 400 Gel Eye Drops 10ml) 1 drop EYE-BOTH BID [facility] Last Admin: 08/17/23 09:07 Dose: 1 drop Documented By: ROBSON Prednisone (Prednisone 20 Mg Tablet) 40 mg PO DAILY [facility] Last Admin: 08/17/23 09:07 Dose: 40 mg Documented By: ROBSON Sodium Chloride (0.9 % Sodium Chloride Flush 3 Ml Syringe) 3 ml IVFLUSH QSHIFT [facility] Last Admin: 08/17/23 09:09 Dose: 3 ml Documented By: ROBSON Tolterodine Tartrate (Tolterodine Tartrate La 4 Mg Cap.Er.24h) 4 mg PO DAILY [facility] Last Admin: 08/17/23 09:07 Dose: 4 mg Documented By: ROBSON Trazodone HCl (Trazodone Hcl 100 Mg Tablet) 100 mg PO BEDTIME [facility] Last Admin: 08/16/23 20:38 Dose: 100 mg Documented By: MARY Labs 08/17/23 06:09 08/17/23 06:09 Labs: Laboratory Results - last 24 hr 08/17/23 06:09 MCV 86.8 MCH 27.2 MCHC 31.4 RDW 17.1 H Plt Count 197 MPV 11.8 Absolute Nucleated RBC 0.000 Nucleated RBC % (auto) 0.0 Anion Gap 11 L Estim Creat Clear Calc 78.9 Estimated GFR > 60 Fasting Glucose 101 H Calcium 8.7 Magnesium 2.5 TSH 1.82 Assessment and Plan (1) Rash and nonspecific skin eruption: Status: Acute Plan 73F PMH discoid lupus, hld, htn, hypothyroid, gerd, mood disorder, presented with falls and rash frequent falls due to old cerebellar infarcts working with pt/ot, ? discharge to SNF, but if continues to improved, possibly home drug rash with systemic drug reaction erythromycin most likely culprit continue prednisone 40mg daily benadryl much improved new onset afib with rvr now in sinus with pacs cardio appreciated -started diltiazem 120 mg daily, follow-up echo Starting on Eliquis 5 mg b.i.d. - discussed risks (bleeding, falls)/benefit (stroke prevention) with patient and healthcare proxy hyperkalemia Resolved lactic acidosis - acute resolved not due to sepsis (due to drug reaction) macular degeneration hld statin hypothryoid synthroid dnr/dni dvt prophylaxis - eliquis reason for continued hospitalization:monitor for tolerance of diltiazem , Eliquis, monitoring heart rhythm Time Spent With Patient Time: Total time managing care of this patient today ____ minutes. Quality Stroke Does the patient have a stroke diagnosis?: No VTE Prior VTE?: No VTE Risk Level:: Medical - moderate - high VTE Device Contraindication: Treatment Not Indicated VTE Drug Contraindication: N/A - Med Ordered
[2023-08-17] MEDS: dilTIAZem HCL CD 120 MG CAP.ER.DEG PO (11:14)
[2023-08-17] MEDS: Apixaban 5 MG TABLET PO ×2 (11:14→19:21)
[2023-08-17] MEDS: DULoxetine HCl 30 MG CAPSULE.DR PO (19:21)
[2023-08-17] MEDS: DULoxetine HCl 60 MG CAPSULE.DR PO (19:21)
[2023-08-17] MEDS: Atorvastatin Calcium 40 MG TABLET PO (19:21)
[2023-08-17] MEDS: Gabapentin 300 MG CAPSULE PO (19:21)
[2023-08-17] MEDS: traZODone HCL 100 MG TABLET PO (19:21)
[2023-08-18 03:13] VITALS: BP 160/82; PULSE 76; RESP 18; TEMP 36.4; O2SAT 93
[2023-08-18 06:37] LABS: Anion Gap 11 (12-20); Blood Urea Nitrogen 24 mg/dL (9-16); Calcium 8.3 mg/dL (8.4-10.2); Carbon Dioxide 27 mmol/L (22-29); Chloride 106 mmol/L (96-108); Creatinine Clr Calc Pharmacy 77.7; Estimated Glomerular Filt Rate > 60; Glucose Fasting 115 mg/dL (60-99); Magnesium 2.6 mg/dL (1.6-2.6); Sodium 140 mmol/L (135-145)
[2023-08-18] MEDS: Omeprazole 40 MG CAPSULE.DR PO (06:43)
[2023-08-18] MEDS: Levothyroxine Sodium 100 MCG TABLET PO (06:43)
[2023-08-18] MEDS: diphenhydrAMINE HCL 50 MG/ML VIAL 25 MG IVPUSH (06:45)
[2023-08-18 06:55] LABS: Hematocrit 39.8 % (37.0-47.0); Hemoglobin 12.3 g/dl (12.0-16.0); Mean Corpuscular HGB Conc 30.9 g/dl (31.0-35.0); Mean Corpuscular Hemoglobin 26.8 pg (27.0-33.0); Mean Corpuscular Volume 86.7 fL (80.0-98.0); Mean Platelet Volume 11.1 fL (9.4-12.3); Platelet Count 204 X10*3/uL (160-400); Red Blood Count 4.59 X10*6/uL (4.20-5.50); Red Cell Distribution Width 17.1 % (11.0-16.0); White Blood Count 13.5 X10*3/uL (4.8-10.8)
[2023-08-18 08:00] VITALS: BP 178/88; PULSE 70; RESP 20; TEMP 36.9; O2SAT 96
[2023-08-18] MEDS: Tolterodine Tartrate LA 4 MG CAP.ER.24H PO (08:26)
[2023-08-18] MEDS: predniSONE 20 MG TABLET 40 MG PO (08:26)
[2023-08-18] MEDS: Furosemide 20 MG TABLET PO (08:27)
[2023-08-18] MEDS: dilTIAZem HCL CD 120 MG CAP.ER.DEG PO ×2 (08:27→10:53)
[2023-08-18] MEDS: Loratadine 10 MG TABLET PO (08:27)
[2023-08-18] MEDS: Apixaban 5 MG TABLET PO (08:27)
[2023-08-18] MEDS: carvediloL 3.125 MG TABLET PO (08:27)
[2023-08-18] MEDS: 0.9 % Sodium Chloride Flush 3 ML SYRINGE IVFLUSH (08:28)
[2023-08-18] MEDS: Propylene Glycol/PEG 400 Gel Eye Drops 10ML 1 DROP EYE-BOTH (08:36)
[2023-08-18 10:56] VITALS: BP 150/88; PULSE 75
--- NOTE | 2023-08-18 11:08 | MHC.CM.PN ---
IMM 08/18/23, Pt has been medically cleared for dc, she is going to [facility] for STR, her sister is going to transport her, as she declined to go by ambulance.
--- NOTE | 2023-08-18 11:25 | PM.PNCARD ---
Subjective Subjective Date of Service: 08/18/23 Interval history: Patient states she is feeling fine. No new complaints. However, this a.m. she went back into atrial fibrillation rapid rate but now back in sinus rhythm. Review of Systems Review of Systems Yes all other systems are reviewed and are negative Constitutional: Reports as per HPI and Reports no additional constitutional complaints Eyes: Reports as per HPI and Denies no additional eye complaints Denies system reviewed and no additional complaints, except as documented and Reports as per HPI Cardiovascular: Reports as per HPI, Reports no additional cardiovascular complaints, Denies acrocyanosis, Denies cool extremities, Denies chest pain, Denies leg edema, Denies lightheadedness, Denies palpitations and Denies dyspnea Respiratory: Reports as per HPI, Denies no additional respiratory complaints and Denies dyspnea Gastrointestinal: Reports as per HPI and Denies no additional gastrointestinal complaints Genitourinary: Reports as per HPI Musculoskeletal: Reports no additional musculoskeletal complaints and Reports as per HPI Skin/Breast: Reports system reviewed and no additional complaints, except as docu Reports system reviewed and no additional complaints, except as documented and Reports as per HPI Psychiatric: Reports no additional psychiatric complaints and Reports as per HPI Endocrine: Reports no additional endocrine complaints, Reports as per HPI and Denies palpitations Hematologic/Lymphatic: Reports no additional hematologic/lymphatic complaints and Reports as per HPI Allergic/Immunologic: Reports no additional allergic/immunologic complaints and Reports as per HPI Physical Exam Vital Signs: Last Vital Signs Temp 98.4 F 08/18/23 08:00 Pulse 75 08/18/23 10:56 Resp 20 08/18/23 08:00 BP 150/88 H 08/18/23 10:56 Pulse Ox 96 08/18/23 08:00 O2 Del Method Room Air 08/18/23 08:00 O2 Flow Rate 98 08/16/23 23:30 BMI result Body Mass Index 26.9 Const General: comfortable and no acute distress Orientation/consciousness: patient oriented x3 HEENT Other: Unremarkable Head: Yes normal to inspection Neck Neck: Yes normal visual inspection Chest Chest palpation & inspection: normal inspection of the chest Resp Auscultation: clear to auscultation bilaterally Cardio Palpation: normal PMI Heart sounds: S1 normal heart sound present, S2 normal heart sound present, no gallops, no murmurs and no rubs GI Palpation (GI): Soft to palpation Back/Spine/Pelvis Other: unremarkable Skin General skin exam: no rashes or lesions noted Neuro General: patient oriented x3 Extrem General: Yes normal to inspection Psych Mental Status: mental status grossly normal Objective Labs and Meds 08/18/23 05:38 08/18/23 05:38 Lab results: Laboratory Results - last 24 hr 08/18/23 05:38 WBC 13.5 H RBC 4.59 Hgb 12.3 Hct 39.8 MCV 86.7 MCH 26.8 L MCHC 30.9 L RDW 17.1 H Plt Count 204 MPV 11.1 Absolute Nucleated RBC 0.000 Nucleated RBC % (auto) 0.0 Sodium 140 Potassium 4.0 Chloride 106 Carbon Dioxide 27 Anion Gap 11 L BUN 24 H Creatinine 0.66 Estim Creat Clear Calc 77.7 Estimated GFR > 60 Fasting Glucose 115 H Calcium 8.3 L Magnesium 2.6 Progress Note: A&P Assessment and plan (1) Atrial fibrillation with rapid ventricular response: Status: Acute Plan She had one further episode of atrial fibrillation with rapid rate this a.m., but again back in sinus rhythm. Echocardiogram with LVEF of 64%. Septal hypertrophy, but otherwise unremarkable. For meds on carvedilol 3.125 b.i.d.. Also diltiazem CD 120 mg daily. We can increase that dose to 240 mg daily as the blood pressure is also higher side. Brain MRI with suggestion of chronic right-sided cerebellar infarct. Not clear if it is related to intracranial vascular disease or embolic. Ideally, recommend anticoagulation but need to ensure there is no significant fall risk or other bleeding concerns. Discussed with Dr. Dennis. She is going to rehab and whenever she is able to come we can arrange follow-up appointment. Time Spent With Patient Time: Total time managing care of this patient today ____ minutes. Progress Note: Quality Stroke Does the patient have a stroke diagnosis?: No Procedures Date of Service Date of Service: 08/18/23
--- NOTE | 2023-08-18 11:33 | PM.DS ---
DS: Providers Provider Date of Service: 08/18/23 Date of admission: 08/13/23 20:29 Primary care physician: Brandon Mauricio MD Consults: 08/16/23 23:51 Consult to Cardiology Routine Consulting Provider: [facility] Reason for consultation: new onset atrial fibrillation DS: Diagnosis Discharge Diagnosis (1) Atrial fibrillation with rapid ventricular response: Status: Acute (2) Frequent falls: Status: Acute (3) Rash and nonspecific skin eruption: Status: Acute (4) Drug reaction: Status: Acute (5) Acute hyperkalemia: Status: Acute DS: Summary Hospital Course Hospital Course: Admission note HPI Pt is a 73-year-old female with a PMH significant for?lupus, HLD, HTN, hypothyroidism, chronic lower extremity edema, GERD, and mood disorder who presents to the ED for evaluation after multiple falls earlier today. Patient lives by herself and was locked out of her house earlier today when she went to get her spare mcgovern from her patio. Patient says she bent over to get the mcgovern and her legs ?just let go? and she fell to the ground and could not get up. Patient denies lightheadedness, dizziness. Denies head strike. No LOC. She remained on the ground in the rain for 45 minutes before EMS arrived to help her back into her house. Patient declined to be brought to the emergency room at that time. Later in the afternoon she went to get into her car and fell again when she ?misjudged? where the seat was. Pt did strike her head on the ground but denies LOC. Pt also experienced right hip pain at this time. Pt again called EMS who brought her to the ED for further evaluation. Pt denies lightheadedness, dizziness, nausea, vomiting, diarrhea, abdominal pain. No recent illnesses. Denies chest pain/pressure, palpitations. No shortness of breath, difficulty breathing. Patient states that her legs lately have ?not been what they used to be?, and she has been having difficulty getting up from sitting and has found her legs weaker than normal. Patient reports having to other recent falls, one in June and another in April where she fell and had to non displaced/incomplete fractures in her left fibula. Patient followed up with [facility] and fractures healed without complications. Patient also has been experiencing diffuse erythematous, pruritic rash on torso and upper body. Patient began noticing rash 5 days prior on Wednesday. Began as a pruritic rash on her back and chest, then spread to upper back, abdomen, upper extremities, and upper thighs. Yesterday patient noticed she also had a rash on her face and on lower extremities. Patient reports on Wednesday she took erythromycin prophylactically before a dental procedure d/t left shoulder and left knee replacements. Patient reports this is common for her before dental procedures, and reports she has done this for many years prior. However rash developed 2 days later after taking erythromycin. Patient denies any other medication changes. No new laundry detergent, soaps, lotions. Denies wheezing, difficulty breathing or swallowing. No shortness of breath. Of note, patient denies ever having a rash like this before, but does have a history of lupus and states she does get a mylar rash when exposed to sunlight, though rash is normally confined to her face. In the ED patient was afebrile but slightly hypertensive up to 158/74, satting at 99% on RA. Labs were significant for leukocytosis of 22.2, sodium 133, potassium 5.4, lactic acid 3.3 with repeat 1.9, albumin 3.0, CPK 172. Renal and hepatic function WNL. CXR showed no acute cardiopulmonary findings, but did show moderate size hiatal hernia and nonspecific asymmetric widening of the right acromioclavicular joint. CT of head found nonspecific deep white matter and periventricular hypoattenuation, most likely sequela of chronic microvascular angiopathy ischemia, and also found a wedge-shaped low-attenuation area in the right cerebellum fossa about 2 x 1.9 cm, possibly an arachnoid cyst versus an old cerebellar injury versus congenital development. MRI follow-up recommended if clinically relevant. CT of cervical spine of found no evidence of cervical spine fracture, but did show degenerative disc disease and circumferential disc bulge and developed osteophyte at C3-C4, C4-C5, and C5-C6. EKG demonstrated normal sinus rhythm without evidence of ST elevations or depressions. Pt was treated with diphenhydramine, Solu-Medrol, famotidine, and polyethylene glycol/polypropylene glycol. Pt will be admitted to the hospital for treatment and further evaluation of recurrent falls, and likely drug-induced allergic reaction. Hospital course # frequent falls MRI brain reported old cerebellar infarcts. Seen by PT\OT who recommended SNF. to be discharge to nursing facility for rehab. # drug rash with systemic drug reaction erythromycin most likely culprit. Improved with Loratadine, Prednisone and Benadryl PRN. To be discharged on tapering dose Prednisone and daily Loratadine with PRN Benadryl. # new onset afib with rvr Converted back to sinus with usage of Cardizem as she was evaluated by Cardiology who recommended Cardizem CD 240 mg daily as Echo showed EF 64% with severe septal and basal hypertrophy Started on Eliquis 5 mg b.i.d. as risks (bleeding, falls) and benefit (stroke prevention) were discussed with patient and healthcare proxy who agreed to proceed with anticoagulation. Plan to follow with cardiology as outpatient. 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 Discharge coordination time: Greater than 30 minutes Quality: Safe Use of Opioids Does Pt have an Active Cancer Diagnosis on the Problem List?: No Quality: Stroke Does the patient have a stroke diagnosis?: No Physical Exam Vital Signs: Vital Signs: Last Vital Signs Temp 98.4 F 08/18/23 08:00 Pulse 75 08/18/23 10:56 Resp 20 08/18/23 08:00 BP 150/88 H 08/18/23 10:56 Pulse Ox 96 08/18/23 08:00 O2 Del Method Room Air 08/18/23 08:00 O2 Flow Rate 98 08/16/23 23:30 BMI result Body Mass Index 26.9 Const: Other: Constitutional : Awake, interactive, not in distress Neck : Normal inspection, Supple Cardiovascular : RRR, no JVP, no lower extremity edema Respiratory : good bilateral air entry, no crackles, wheezes or rhonchi Gastrointestinal: soft, lax, Normal bowel sounds, Non tender Skin : Warm, Dry, generalized rash with no scratching woods, bleeding or new rash Neurological : Alert & oriented x3, No focal deficit DS: Data Data Completed and Pending Labs on day of discharge: Laboratory Results - last 24 hr 08/18/23 05:38 WBC 13.5 H RBC 4.59 Hgb 12.3 Hct 39.8 MCV 86.7 MCH 26.8 L MCHC 30.9 L RDW 17.1 H Plt Count 204 MPV 11.1 Absolute Nucleated RBC 0.000 Nucleated RBC % (auto) 0.0 Sodium 140 Potassium 4.0 Chloride 106 Carbon Dioxide 27 Anion Gap 11 L BUN 24 H Creatinine 0.66 Estim Creat Clear Calc 77.7 Estimated GFR > 60 Fasting Glucose 115 H Calcium 8.3 L Magnesium 2.6 Preliminary micro results at discharge 08/13/23 16:44 Blood Culture - Preliminary Blood - Venous No growth after 48 hours. 08/13/23 15:14 Blood Culture - Preliminary Blood - Venous No growth after 48 hours. Imaging Chest x-ray: Radiologist's impression: ITS Impressions Cervical Spine CT 08/13/23 17:13 IMPRESSION: * No CT evidence of cervical spine fracture. * Advanced degenerative disc disease at C3-C4, C4-C5, C5-C6 and to a lesser extent C6-C7 and C7-T1. * Circumferential disc bulge and developed osteophyte from the edges of endplates along with facet joints arthropathy contributed to mild narrowing of neural foramen bilaterally and central canal at C3-C4, C4-C5 and C5-C6. If patient has neurological symptoms consider correlation with follow-up MRI. Head CT 08/13/23 17:13 IMPRESSION: * Deep white matter and periventricular hypoattenuation, nonspecific; most likely sequela of chronic microvascular angiopathy ischemia. * There is a wedge-shaped low-attenuation area in the right cerebellum fossa about 2 x 1.9 cm, may represent an arachnoid cyst, versus an old cerebellar injury versus congenital developmental. This could be further characterize with MRI, if clinically indicated. Chest X-Ray 08/13/23 17:23 IMPRESSION: 1. No acute cardiopulmonary findings. 2. Moderate size hiatal hernia. 3. Nonspecific asymmetric widening of the right acromioclavicular joint. Recommend correlation with point tenderness. Hip/Pelvis X-Ray 08/13/23 21:13 IMPRESSION: No fracture or dislocation. Mild degenerative changes. Brain MRI 08/16/23 12:35 IMPRESSION: No acute intracranial process. Chronic right-sided cerebellar infarcts. Moderate generalized parenchymal volume loss and [id number] chronic white matter microangiopathy. Discharge Plan Discharge Anticipated Discharge Date/Time: 08/18/23 11:17 Patient Disposition: Xfer [facility] Discharge Diagnosis: Skin rash NEw onset Atrial fibrillation Referrals: Mary[facility] Zep[facility] [place] [facility] [Outside] - 1 Week Brandon Mauricio MD [Primary Care Provider] - 1 Week Discharge Medications: New loratadine 10 mg Tablet 10 mg PO DAILY Qty: 30 0RF Eliquis 5 mg Tablet 5 mg PO BID Qty: 60 0RF diltiazem HCl 240 mg Capsule,Extended Release 24hr 240 mg PO DAILY Qty: 30 0RF Protocol: Hold for SBP/HR < HOLD for SBP < : 90 HOLD for HR < : 60 diphenhydramine HCl 25 mg capsule 25 mg PO TID PRN (Reason: itching) Qty: 20 0RF prednisone 10 mg tablet See Taper PO DIRECTED Qty: 30 0RF Taper: Prednisone 40 mg daily for 3 Days and 0 Hour 30 mg daily for 3 Days and 0 Hour 20 mg daily for 3 Days and 0 Hour 10 mg daily for 3 Days and 0 Hour Rx Instructions: see taper instructions Continued atorvastatin 40 mg tablet 40 mg PO BEDTIME tolterodine 4 mg capsule,extended release 24hr 4 mg PO DAILY potassium chloride 10 mEq tablet extended release 10 meq PO DAILY omeprazole 40 mg capsule,delayed release(DR/EC) 40 mg PO DAILY carvedilol 3.125 mg tablet 3.125 mg PO BID levothyroxine 100 mcg tablet 100 mcg PO DAILY trazodone 100 mg tablet 100 mg PO BEDTIME gabapentin 300 mg capsule 300 mg PO BEDTIME furosemide 20 mg tablet 20 mg PO DAILY duloxetine 60 mg capsule,delayed release(DR/EC) 60 mg PO BEDTIME duloxetine 30 mg capsule,delayed release(DR/EC) 30 mg PO BEDTIME carboxymethylcellulose sodium [Refresh Tears] 0.5 % Drops 1 drp OPHTHALMIC (EYE) BID Discontinued erythromycin 500 mg tablet 1,000 mg PO ONCE PRN (Reason: PRIOR TO DENTAL PROCEDURE) Discharge Orders: Discharge Order (Routine); Ordered 08/18/23 Ordered By: Sarah Dennis Diet: Advance to usual diet Activity on Discharge: As tolerated Stand Alone Forms: Patient Portal Discharge page Care Plan Goals: Read below Health Concerns: Read below Plan of Treatment: Read below Assessment: You were admitted for evaluation of skin rash. believed to be a drug reaction likely to antibiotic Erythromycin. responded well to treatment with Steroids and allergy meds. 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
[2023-08-18 11:57] VITALS: BP 134/78; PULSE 76; RESP 20; TEMP 36.4; O2SAT 98
[2023-08-18 12:06] VITALS: BP 134/78; PULSE 76; O2SAT 98
== END 2023-08-18 13:18 | disposition skilled nursing facility (03) | DRG 607 ==
LOC: HO.ED 18:37 → HO.EDOVER 20:49 → HO.IMC 21:27
PROVIDERS: Internal Medicine; Physician Assistant Medical; Admitting Provider Student in an Organized Health Care Education/Training Program; Emergency Provider Emergency Medicine Emergency Medical Services; PCP Internal Medicine; Visit Provider Student in an Organized Health Care Education/Training Program
DX: L27.0 Generalized skin eruption due to drugs and medicaments taken internally (principal); E87.21 Acute metabolic acidosis; T36.3X5A Adverse effect of macrolides, initial encounter; H35.30 Unspecified macular degeneration; I48.91 Unspecified atrial fibrillation; I69.398 Other sequelae of cerebral infarction; Z66 Do not resuscitate; F39 Unspecified mood [affective] disorder; E87.5 Hyperkalemia; R29.6 Repeated falls; M32.9 Systemic lupus erythematosus, unspecified; E03.9 Hypothyroidism, unspecified; Z79.899 Other long term (current) drug therapy
CPT/HCPCS: 36415; 70450; 70551; 71046; 72125; 73521; 80048; 80053; 81001; 82248; 82375; 82550; 82803; 83605; 83735; 83880; 84443; 84484; 85025; 85027; 85610; 87040; 87086; 93005; 93306; 97110; 97162; 97166; 97530; 97535; 99285; J1100; J1200; J1650; J2930; Q9957

== ENCOUNTER 2023-08-13 20:29 | Outpatient (BNV) | payer MEDICARE, SELFPAY | END 2023-08-17 07:00 | PROVIDERS: Admitting Provider Student in an Organized Health Care Education/Training Program; Emergency Provider Emergency Medicine Emergency Medical Services; PCP Internal Medicine; Visit Provider Internal Medicine | DX: I36.1 Nonrheumatic tricuspid (valve) insufficiency (principal); I34.81 Nonrheumatic mitral (valve) annulus calcification | CPT/HCPCS: 93306 ==

== ENCOUNTER → 2023-08-13 20:29 | Outpatient (BNV) | payer MEDICARE, SELFPAY | PROVIDERS: Admitting Provider Student in an Organized Health Care Education/Training Program; Emergency Provider Emergency Medicine Emergency Medical Services; PCP Internal Medicine; Visit Provider Internal Medicine | DX: E87.5 Hyperkalemia (principal); R79.89 Other specified abnormal findings of blood chemistry; R53.1 Weakness; R21 Rash and other nonspecific skin eruption; R29.6 Repeated falls | CPT/HCPCS: 99223; 99232; 99233; 99239; 99499 ==

== ENCOUNTER → 2023-08-13 20:29 | Outpatient (BNV) | payer MEDICARE, SELFPAY | PROVIDERS: Admitting Provider Student in an Organized Health Care Education/Training Program; Emergency Provider Emergency Medicine Emergency Medical Services; PCP Internal Medicine; Visit Provider Internal Medicine | DX: I48.91 Unspecified atrial fibrillation (principal) | CPT/HCPCS: 99223; 99233 ==

== ENCOUNTER → 2023-09-03 12:50 | Outpatient (REF) | payer MEDICARE, SELFPAY ==
--- NOTE | 2023-09-03 12:59 | HM_ITS ---
Conclusion: 1. Patient was monitored for total period of 3 days 2. Baseline was normal sinus with average heart of 81 beats per minute 3. No significant pauses noted 4. Frequent PACs noted with total burden of 1.3% with 9 short runs of SVG, fastest 130 beats per minute and longest 5 beats 5. No patient reported events MTDD
== END ==
LOC: HO.CARD 12:50
PROVIDERS: PCP Internal Medicine; Visit Provider Internal Medicine
DX: I48.91 Unspecified atrial fibrillation (principal)
CPT/HCPCS: 93242

== ENCOUNTER → 2023-09-03 12:59 | Outpatient (BNV) | payer MEDICARE, SELFPAY | PROVIDERS: PCP Internal Medicine; Visit Provider Internal Medicine Cardiovascular Disease | DX: I49.1 Atrial premature depolarization (principal) | CPT/HCPCS: 93244 ==

== ENCOUNTER 2023-09-16 13:27 | Outpatient (AMB) | payer MEDICARE, SELFPAY ==
[2023-09-16 13:31] VITALS: BP 114/58; PULSE 89; BMI 27.3
--- NOTE | 2023-09-16 13:31 | A.OFFVIS_ITS ---
Intake Vital Signs 09/16/23 13:31 Height 5 ft 6 in Weight 168 lb 13.985 oz BMI 27.3 BP 114/58 L Blood Pressure Location Lt brachial Pulse 89 Intake Visit Reasons: [facility] [place] f/u after testing (HS) Accompanied by: family member - HCP Allergies erythromycin base [From Erythrocin] Allergy (Severe, Verified 08/18/23 11:31) Rash Penicillins [PENICILLINS] Allergy (Severe, Verified 08/13/23 14:58) HIVES droperidol [From INAPSINE] Allergy (Intermediate, Verified 08/13/23 14:58) UNUSUAL HEAD MOVEMENTS oxycodone [OXYCODONE] Allergy (Mild, Verified 08/13/23 14:58) ITCHING morphine [MORPHINE] Adverse Reaction (Unknown, Verified 08/13/23 14:58) CONFUSION Medication List - Last Reconciled 09/16/23 by Gia Dasilva NP apixaban (Eliquis) 5 mg PO BID atorvastatin 40 mg PO BEDTIME carboxymethylcellulose sodium 0.5% (Refresh Tears) 1 drp ophthalmic (eye) BID carvedilol 3.125 mg PO BID diltiazem HCl 240 mg See Protocol PO DAILY diphenhydramine HCl 25 mg PO TID PRN duloxetine 60 mg PO BEDTIME duloxetine 30 mg PO BEDTIME furosemide 20 mg PO DAILY gabapentin 300 mg PO BEDTIME levothyroxine 100 mcg PO DAILY loratadine 10 mg PO DAILY omeprazole 40 mg PO DAILY potassium chloride ER 10 mEq PO DAILY tolterodine ER 4 mg PO DAILY trazodone 100 mg PO BEDTIME HPI HPI Comments History of Present Illness Details 73-year-old female presents with her a [facility] care proxy to discuss results. Patient reports doing very well. Denies any new falls, palpitations, SOB, bleeding concerns, or dizziness. She reports checking her blood pressures at home with systolic readins of 1302-150s in the early mornings before her medications. She does try to avoid salt best she can. She reports compliance with the medications. PT had a echocardiogram in-patient that showed EF of 64% and Septal hypertophy. Holter showed normal sinus rhythm with a PAC burden of 1.3%. [facility] Medical History Frequent falls Anemia Head injury General weakness Fall Lupus Family History Mother Myocardial infarction Social History Household Members: None Housing: House Patient Tobacco Use Status: Never used Tobacco e-Cigarette/Vaping Use: Never Used service: No Review of Systems Const Denies chills, Denies fatigue, Denies fever(s), Denies frequent falls, Denies weakness, Denies weight gain and Denies weight loss ENT Denies dizziness Card Denies chest pain, Denies chest pain with activity, Denies syncope, Denies rapid heart rate, Denies pedal edema, Denies irregular heart rhythm, Denies leg edema, Denies lightheadedness, Denies palpitations, Denies dyspnea, Denies dyspnea on exertion, Denies orthopnea and Denies other (LOC) Resp Denies cough, Denies dyspnea and Denies dyspnea on exertion GI Denies hematochezia and Denies change in bowel habits Musc Denies abnormal gait, Denies arthralgias, Denies muscle weakness, Denies numbness, Denies radiating pain into limb and Denies tingling Neuro Denies abnormal gait, Denies dizziness, Denies syncope, Denies frequent falls, Denies numbness, Denies tingling and Denies weakness Endo Denies fatigue and Denies palpitations Physical Exam Const General: healthy appearing and no acute distress Orientation/consciousness: patient oriented x3 HEENT Head: Yes normal to inspection Eyes General: appearance normal, both eyes and all related structures Neck Neck: Yes normal visual inspection Chest Chest palpation & inspection: normal inspection of the chest Resp Effort & Inspection: normal respiratory effort Auscultation: clear to auscultation bilaterally Cardio Jugular venous distension: no JVD Palpation: normal PMI Rate: regular rate Rhythm: regular rhythm Heart sounds: S1 normal heart sound present, S2 normal heart sound present, no click, no gallops, no murmurs and no rubs GI Inspection: Yes normal to inspection Palpation (GI): Soft to palpation Skin General skin exam: no rashes or lesions noted Neuro General: patient oriented x3 Extrem General: Yes normal to inspection Psych Appearance: grossly normal Assessment & Plan Assessment & Plan (1) Atrial fibrillation: Code(s): I48.91 - Unspecified atrial fibrillation (2) Asymmetric septal hypertrophy: Comment: Seen on Echo 10/3/23 Code(s): I42.2 - Other hypertrophic cardiomyopathy Plan Discussed the importance of blood pressure control. Goal of 130/80. Avoidance of salt. Report any new palpitations or symptoms. Importance of eliquis discussed and the risks of stroke without anticoagulation. Medications: New diltiazem HCl 240 mg See Protocol PO DAILY 30 caps 6RF Refilled apixaban (Eliquis) 5 mg PO BID 60 tabs 6RF apixaban (Eliquis) 5 mg PO BID 60 tabs 0RF diltiazem HCl 240 mg See Protocol PO DAILY 30 caps 6RF Coding Level of Care Code Est Pt Level 3 (09472) Diagnoses Atrial fibrillation I48.91 Asymmetric septal hypertrophy I42.2
== END 2023-09-16 13:59 | disposition home or self-care (01) ==
PROVIDERS: PCP Internal Medicine; Visit Provider Nurse Practitioner
DX: I48.91 Unspecified atrial fibrillation (principal); I42.2 Other hypertrophic cardiomyopathy
CPT/HCPCS: 99213

== ENCOUNTER → 2023-09-16 13:27 | Outpatient (BNVA) | payer MEDICARE, SELFPAY | PROVIDERS: PCP Internal Medicine; Visit Provider Nurse Practitioner | DX: I48.91 Unspecified atrial fibrillation (principal); I42.2 Other hypertrophic cardiomyopathy | CPT/HCPCS: 99212 ==

== ENCOUNTER 2023-12-09 15:25 | Emergency (ER) | payer MEDICARE, SELFPAY ==
--- NOTE | ~2023-12-09 | XR_ITS ---
Examination: Right elbow, chest with right RIBS and pelvis. Clinical indications: Fall. Pain. COMPARISON: Hip with bilateral pelvis, chest 08/13/2023. TECHNIQUE: Chest and right RIBS 6 views. AP pelvis one view. Right elbow 3 views. FINDINGS: CHEST: The lungs are well-expanded and clear of acute pneumonic process. The heart size and pulmonary vascularity is normal. 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 RIGHT RIBS: Multiple views of right ribs reveal no visible fracture or bony abnormality. PELVIS: There is normal symmetry of bilateral SI joints and hip joints. There is no visible acute fracture, dislocation or subluxation. There are degenerative disc changes lower lumbar spine. No lytic or sclerotic process seen. The soft tissues are normal. RIGHT ELBOW: There is no visible acute fracture, dislocation or subluxation seen. The joint space is maintained normal. There is a small olecranon and coronoid process enthesophytes. No loose body seen. No joint effusion noted. XR/XR pelvis 1-2V IMPRESSION: 1. Unremarkable chest exam. 2. Unremarkable right rib exam. 3. Unremarkable pelvis. 4. Unremarkable right elbow exam. 5. Small olecranon and coronoid process enthesophytes. No loose bodies or joint effusion seen. No acute fracture seen.
--- NOTE | ~2023-12-09 | XR_ITS ---
Examination: Right elbow, chest with right RIBS and pelvis. Clinical indications: Fall. Pain. COMPARISON: Hip with bilateral pelvis, chest 08/13/2023. TECHNIQUE: Chest and right RIBS 6 views. AP pelvis one view. Right elbow 3 views. FINDINGS: CHEST: The lungs are well-expanded and clear of acute pneumonic process. The heart size and pulmonary vascularity is normal. 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 RIGHT RIBS: Multiple views of right ribs reveal no visible fracture or bony abnormality. PELVIS: There is normal symmetry of bilateral SI joints and hip joints. There is no visible acute fracture, dislocation or subluxation. There are degenerative disc changes lower lumbar spine. No lytic or sclerotic process seen. The soft tissues are normal. RIGHT ELBOW: There is no visible acute fracture, dislocation or subluxation seen. The joint space is maintained normal. There is a small olecranon and coronoid process enthesophytes. No loose body seen. No joint effusion noted. XR/XR elbow RT 2V IMPRESSION: 1. Unremarkable chest exam. 2. Unremarkable right rib exam. 3. Unremarkable pelvis. 4. Unremarkable right elbow exam. 5. Small olecranon and coronoid process enthesophytes. No loose bodies or joint effusion seen. No acute fracture seen.
--- NOTE | ~2023-12-09 | XR_ITS ---
Examination: Right elbow, chest with right RIBS and pelvis. Clinical indications: Fall. Pain. COMPARISON: Hip with bilateral pelvis, chest 08/13/2023. TECHNIQUE: Chest and right RIBS 6 views. AP pelvis one view. Right elbow 3 views. FINDINGS: CHEST: The lungs are well-expanded and clear of acute pneumonic process. The heart size and pulmonary vascularity is normal. 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 RIGHT RIBS: Multiple views of right ribs reveal no visible fracture or bony abnormality. PELVIS: There is normal symmetry of bilateral SI joints and hip joints. There is no visible acute fracture, dislocation or subluxation. There are degenerative disc changes lower lumbar spine. No lytic or sclerotic process seen. The soft tissues are normal. RIGHT ELBOW: There is no visible acute fracture, dislocation or subluxation seen. The joint space is maintained normal. There is a small olecranon and coronoid process enthesophytes. No loose body seen. No joint effusion noted. XR/XR ribs RT min 3V w CXR1V IMPRESSION: 1. Unremarkable chest exam. 2. Unremarkable right rib exam. 3. Unremarkable pelvis. 4. Unremarkable right elbow exam. 5. Small olecranon and coronoid process enthesophytes. No loose bodies or joint effusion seen. No acute fracture seen.
--- NOTE | ~2023-12-09 | CT_ITS ---
EXAMINATION: CT brain and CT cervical spine without contrast. CLINICAL INDICATION: Fall, head strike. COMPARISON: CT brain and CT cervical spine 08/13/2023. TECHNIQUE: 5 mm thin axial and reformatted 2 mm thin sagittal and coronal images of brain were obtained. Subsequently axial 2 mm thin and 2 mm thin sagittal and coronal reconstructed images of cervical spine were obtained. DLP [id number]. This CT examination was performed using dose optimization technique as appropriate, variously including the following: Automated exposure control Adjustment of MA and/or KV according to patient size(this includes techniques or standardized protocols for targeted exams where dose is matched to indication/reason for exam; extremities or head. Use of iterative reconstruction techniques. FINDINGS: Brain: There is no acute intra-axial, extra-axial bleed, masses or midline shift. There is no acute infarction evolution. There is no edema. The grier to white matter differentiation is maintained normal. There is wedge shaped hypodensity in right inferior cerebellar hemisphere from previous insult. The lateral ventricles are symmetrical in size but moderately enlarged and so are the cortical sulci from cerebral volume loss. Bone windows reveal posterior occipital lobe hematoma without calvarial fracture. Bilateral paranasal sinuses and mastoid air cells are well-aerated. Cervical spine: On sagittal reconstructed images there is maintained cervical lordosis. The vertebral heights, alignment are normal. There is loss of C3-C4, C4-C5, C5-C6 disc heights with ventral and posterior spondylosis. The craniovertebral junction and the C1-C2 alignment is normal. The prevertebral and paravertebral soft tissues are normal. The airway is widely patent. The lung apices are clear. CT/CT cervical spine wo IV con IMPRESSION: Midline posterior parietal scalp hematoma without calvarial fracture. No intracranial bleed or infarct. 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 No acute fracture or dislocation in cervical spine. Degenerative disc changes and spondylosis C3-C4 through C5-C6 disc level.
--- NOTE | 2023-12-09 15:37 | ECG_ITS ---
Test Reason : FALL Blood Pressure : / mmHG Vent. Rate : 078 BPM Atrial Rate : 078 BPM P-R Int : 192 ms QRS Dur : 082 ms QT Int : 408 ms P-R-T Axes : 108 017 046 degrees QTc Int : 465 ms Normal sinus rhythm Nonspecific ST abnormality Abnormal ECG When compared with ECG of 16-AUG-2023 23:39, Sinus rhythm has replaced Atrial fibrillation Vent. rate has decreased BY [address] no longer depressed in Inferior leads ST no longer depressed in Anterolateral leads T wave inversion no longer evident in Inferior leads T wave inversion no longer evident in Anterolateral leads Referred By: Ozzie Goodwin Electronically Signed By:Agusto Adams
[2023-12-09 15:41] VITALS: BP 140/90; BP 191/76; PULSE 66; PULSE 83; RESP 20; TEMP 36.5; O2SAT 95; O2SAT 97; BMI 27.9
--- OUTSIDE RECORDS SUMMARY | 2023-12-09 16:53 | XMS_ITS | Continuity of Care Document ---
Author Name Unknown Organization [facility] Address [address] [place] [id number] Care Team Providers Care Parts Driver Name Role Phone Brandon Mauricio MD Primary Care Physician Encounter [facility] [place] [facility] [place] Date(s): 12/18/20 - 01/17/21 [facility] [address] [place] [address]- Attending Physician: Abhilash Pineda Admitting Physician: Admtr, Abhilash Referring Physician: Admtr, [id number] Allergies, Adverse Reactions, Alerts Substance Reaction Severity Status naproxen STOMACH UPSET Active CeleBREX STOMACH UPSET Active Inapsine stiff neck can't move Active morphine nausea vimiting very lethargic Active oxyCODONE lethargiic Active penicillins hives Active Medications buPROPion 100 mg/12 hours (SR) oral tablet, extended release 1 tablet = 100 mg, By Mouth, Daily at bedtime, # 60 tablet, 0 Refills, Maintenance, 12/30/20 7:13:00 EST, ER Tablet, Partial fill upon patient request if the prescription is for a schedule II opioid drug. Start Date: 12/30/20 Status: Ordered celecoxib 200 mg oral capsule 1 capsule = 200 mg, By Mouth, Daily, 0 Refills, Maintenance, 12/31/20 8:55:00 EST, Capsule, Partialfill upon patient request if the prescription is for a schedule II opioid drug. Start Date: 12/31/20 Status: Ordered docusate sodium 100 mg oral capsule 1 capsule = 100 mg, By Mouth, 2 times a day, # 60 capsule, 0 Refills, Maintenance, 12/31/20 8:50:00EST, Capsule, [facility], Partial fill upon patient request if the prescription is for a schedule II opioid drug., 167, cm, 12/31/20 8:28... Start Date: 12/31/20 Status: Ordered duloxetine 30 mg oral enteric coated capsule 3 capsule = 90 mg, By Mouth, Daily, 0 Refills, Maintenance, 12/31/20 8:54:00 EST, Capsule, Partial fill upon patient request if the prescription is for a schedule II opioid drug. Start Date: 12/31/20 Status: Ordered gabapentin 300 mg oral capsule 300 mg, 1, capsule, By Mouth, Daily, Refills 0, Maintenance, 12/18/20 14:33:00 EST, Partial fill upon patient request if the prescription is for a schedule II opioid drug. Start Date: 12/18/20 Status: Ordered Klor-Con 10 10, mEq, By Mouth, Daily, 0, 0, 02/16/08 0:06:58, Print LISA Number, [id number], Constant Indicator Start Date: 02/16/08 Status: Ordered Levothyroxine Tablet = 0.01 mg, By Mouth, Daily, on WEDNESDAY takes tabs 2, 0 Refills Start Date: 02/16/08 Status: Ordered lisinopril 20 mg oral tablet 20 mg, 1, tablet, By Mouth, Daily, Refills 0, Maintenance, 01/03/21 12:19:00 EST, Partial fill uponpatient request if the prescription is for a schedule II opioid drug. Start Date: 01/03/21 Status: Ordered MiraLax Powder 1 pack/packet = 17 Gm, By Mouth, Daily, PRN Constipation, 0 Refills, Maintenance, 12/31/20 8:55:00 EST, Powder, Partial fill upon patient request if the prescription is for a schedule II opioid drug. Start Date: 12/31/20 Status: Ordered Omeprazole = 40 mg, By Mouth, Daily, 0 Refills, Maintenance, 12/18/20 14:32:00 EST, Partial fill upon patient request if the prescription is for a schedule II opioid drug. Start Date: 12/18/20 Status: Ordered rivaroxaban 20 mg oral tablet = 20 mg, By Mouth, Daily at supper, 0 Refills, Maintenance, 01/03/21 9:29:00 EST, Tablet, Partial fill upon patient request if the prescription is for a schedule II opioid drug. Start Date: 01/03/21 Status: Ordered senna 187 mg oral tablet 1 tablet = 8.6 mg, By Mouth, Daily at bedtime, PRN as needed for constipation, 0 Refills, Maintenance, 12/31/20 8:55:00 EST, Tablet, Partial fill upon patient request if the prescription is for a schedule II opioid drug. Start Date: 12/31/20 Status: Ordered tolterodine 4 mg oral capsule, extended release 1 capsule = 4 mg, By Mouth, Daily, # 30 capsule, 0 Refills, Maintenance, 12/30/20 7:14:00 EST, CR Capsule, Partial fill upon patient request if the prescription is for a schedule II opioid drug. Start Date: 12/30/20 Status: Ordered traZODone 100 mg oral tablet 100 mg, 1, tablet, By Mouth, Daily at bedtime, Refills 0, Maintenance, 12/18/20 14:31:00 EST, Partial fill upon patient request if the prescription is for a schedule II opioid drug. Start Date: 12/18/20 Status: Ordered Problem List Condition Effective Dates Status Health Status Inform ant Macular degeneration(Confirmed) Active Depression(Confirmed) Active Finger injury(Confirmed) Active Hypertension(Confirmed) Active Hypothyroid(Confirmed) Active UTI (urinary tract infection)(Confirmed) Active
--- OUTSIDE RECORDS SUMMARY | 2023-12-09 16:53 | XMS_ITS | Continuity of Care Document ---
Author Name Unknown Organization [facility] Address [address] [place] [id number]- Care Team Providers Care Chaplain Name Role Phone Brandon Mauricio MD Primary Care Physician Encounter [facility] Date(s): 05/19/23 - 06/18/[address] [address]- Attending Physician: Not on Staff, Attending MD Admitting Physician: Not on Staff, Admitting MD Referring Physician: Not on Staff, Referring MD Allergies, Adverse Reactions, Alerts Substance Reaction Severity Status naproxen STOMACH UPSET Active morphine nausea vimiting very lethargic Active penicillins hives Active Inapsine stiff neck can't move Active oxyCODONE lethargiic Active CeleBREX STOMACH UPSET Active Immunizations Given and Recorded Vaccine Date Status Refusal Reason tetanus/diphtheria/pertussis, acel(Tdap) 04/04/22 Given Medications amoxicillin 500 mg oral capsule = 500 mg, By Mouth, 3 times a day, 0 Refills, Maintenance, 04/30/23 12:02:00 EDT, Capsule, Partial fill upon patient request if the prescription is for a schedule II opioid drug. Start Date: 04/30/23 Stop Date: 05/05/23 Status: Ordered atorvastatin 40 mg oral tablet 40, By Mouth, Daily at bedtime, 0 Refills, Maintenance, 04/28/23 1:26:00 EDT, Partial fill upon patient request if the prescription is for a schedule II opioid drug. Start Date: 04/28/23 Status: Ordered buPROPion 100 mg/12 hours (SR) oral tablet, extended release 1 tablet = 100 mg, By Mouth, Daily at bedtime, # 60 tablet, 0 Refills, Maintenance, 12/30/20 7:13:00 EST, ER Tablet, Partial fill upon patient request if the prescription is for a schedule II opioid drug. Start Date: 12/30/20 Status: Ordered duloxetine 30 mg oral enteric [...] 0, 0, 02/16/08 0:06:58, Print LISA Number, [id number], Constant Indicator Start Date: 02/16/08 Status: Ordered Levothyroxine Tablet = 100 mcg, By Mouth, Daily, on WEDNESDAY takes tabs 2, 0 Refills, 02/16/08 0:04:21 EDT Start Date: 02/16/08 Status: Ordered Ocuvite Adult 50+ oral capsule 1 capsule, By Mouth, Daily, 0 Refills, Maintenance, 04/28/23 1:34:00 EDT, Partial fill upon patientrequest if the prescription is for a schedule II opioid drug. Start Date: 04/28/23 Status: Ordered Omeprazole = 40 mg, By Mouth, Daily, 0 Refills, Maintenance, 12/18/20 14:32:00 EST, Partial fill upon patient request if the prescription is for a schedule II opioid drug. Start Date: 12/18/20 Status: Ordered tolterodine 4 mg oral capsule, [...] Date: 12/18/20 Status: Ordered Problem List Condition Confirmation Course Effective Dates Status Health St atus Informant Macular degeneration Confirmed Active Depression Confirmed Active Finger injury Confirmed Active Hypertension Confirmed Active Hypothyroid Confirmed Active UTI (urinary tract infection) Confirmed Active Patient Care team information Care Team Personnel Name: [place] Adamson RN Position: S RN Member Role: Primary Care Nurse Name: Brandon Mauricio MD Position: [facility] Physician - Primary Care Member Role: PCP Address: Address: [address] [place] [address] Name: Sarah Morales RN Position: [facility] RN Member Role: Primary Care Nurse Name: Trini Barakat RN Position: [facility] RN Member Role: Primary Care Nurse Name: Brittany Lane RN Position: S RN Member Role: Primary Care Nurse Name: [place] Maddox RN Position: S RN Member Role: Primary Care Nurse Care Team Related Persons Name: GARY BLACK Address: [address] [address]
--- OUTSIDE RECORDS SUMMARY | 2023-12-09 16:53 | XMS_ITS | Continuity of Care Document ---
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 Role Phone Brandon Mauricio MD Primary Care Physician [phone] Encounter 05/21/23 - 06/15/23 [facility] [address] [place] [address]- Discharge Disposition: GOALS MET Allergies, Adverse Reactions, Alerts Substance Reaction Severity Status naproxen STOMACH UPSET Active CeleBREX STOMACH UPSET Active morphine nausea vimiting very lethargic Active oxyCODONE lethargiic Active penicillins hives Active Inapsine stiff neck can't move Active Immunizations Given and Recorded Vaccine Date [...] 0, 0, 02/16/08 0:06:58, Print LISA Number, [id number], Constant Indicator Start Date: 02/16/08 Status: Ordered [...] Care Nurse Name: Brandon Mauricio MD Position: S Physician - Primary Care Member Role: PCP Address: Address: [address] [place] [address] Name: Sarah Morales RN Position: S RN Member Role: Primary Care Nurse Name: Trini Barakat RN Position: S RN Member Role: Primary Care Nurse Name: Brittany Lane RN Position: S RN Member Role: Primary Care Nurse Name: [place] Maddox RN Position: S RN Member Role: Primary Care Nurse Care Team Related Persons Name: GARY BLACK Address: [address] [address]
--- OUTSIDE RECORDS SUMMARY | 2023-12-09 16:53 | XMS_ITS | Continuity of Care Document ---
Author Name Unknown Organization [facility] Address [address] [place] [phone]- Care Team Providers Care Cook Helper Name Role Phone Brandon Mauricio MD Primary Care Physician Encounter [facility] ACCT R [id number] Date(s): 12/30/20 - 01/03/[address] [address]- Discharge Disposition: A-Transfer SNF Attending Physician: Rian Bnod MD Admitting Physician: Rian Bond MD Referring Physician: Rian Bond MD Allergies, Adverse Reactions, Alerts Substance Reaction Severity Status naproxen STOMACH UPSET Active morphine nausea vimiting very lethargic Active penicillins hives Active Inapsine stiff neck can't move Active oxyCODONE lethargiic Active CeleBREX STOMACH UPSET Active Medications acetaminophen 325 mg oral tablet 650 mg, Tablet, By Mouth, Every 6 hours, PRN for Pain , Mild, Routine, 12/31/20 20:09:00 EST Start Date: 12/31/20 Stop Date: 01/04/21 Status: Discontinued acetaminophen-HYDROcodone 325 mg-5 mg oral tablet See Instructions, PRN Pain , Severe, Take 1 tablet By Mouth Every 4 hours as needed for pain, # 42 tablet, 0 Refills, Acute 01/10/21 9:29:00 EST, 01/03/21 9:29:00 EST, Tablet, Partial fill upon patient request if the prescription is for a schedule II... Start Date: 01/03/21 Stop Date: 01/10/21 Status: Ordered buPROPion 100 mg/12 hours (SR) oral tablet, extended release 1 tablet = 100 mg, By Mouth, Daily at bedtime, # 60 tablet, 0 Refills, Maintenance, 12/30/20 7:13:00 EST, ER Tablet, Partial fill upon patient request if the prescription is for a schedule II opioid drug. Start Date: 12/30/20 Status: Ordered carvedilol 3.125 mg oral tablet 3.125 mg, Tablet, By Mouth, 01/03/21 9:00:00 EST Start Date: 01/03/21 Stop Date: 01/03/21 Status: Completed celecoxib 200 mg oral capsule 1 capsule [...] capsule, 0 Refills, Maintenance, 12/31/20 8:50:00EST, Capsule, [facility], Partial fill upon patient request if [...] 0, 0, 02/16/08 0:06:58, Print LISA Number, [id number], Constant Indicator Start Date: 02/16/08 Status: Ordered Levothyroxine Tablet = 0.01 mg, By Mouth, Daily, on WEDNESDAY takes tabs 2, 0 Refills Start Date: 02/16/08 Status: Ordered lisinopril 20 mg oral tablet 20 mg, Tablet, By Mouth, 01/03/21 12:19:00 EST Start Date: 01/03/21 Stop Date: 01/03/21 Status: Completed lisinopril 20 mg oral tablet 20 mg, [...] opioid drug. Start Date: 12/30/20 Status: Ordered traMADol 50 mg oral tablet See Instructions, PRN Pain , Mild, Take 1 tablet By Mouth Every 4 hours as needed for pain not to exceed 400 mg/day, # 60 tablet, 0 Refills, Acute 01/10/21 9:30:00 EST, 01/03/21 9:29:00 EST, Tablet, Partial fill upon patient request if the prescript... 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 IMPRESSION: Unremarkable postoperative study. WSN: [id number] Ordering Physician: Rian Bond Dictated By: Francis Roldan MD Dictated Date/Time: 12/30/20 1:30 pm Reviewed By: Francis Roldan MD Signed By: Francis Roldan MD Signed Date/Time: 12/30/20 1:30 pm Transcribed By: MEDINA Transcribed Date/Time: 12/30/20 1:29 pm Vital Signs Most recent to oldest [Reference Range]: 1 2 3 Height 167 cm (01/03/21 11:29 AM) 167 cm (01/03/21 7:21 AM) 167 cm (01/02/21 3:18 PM) Weight 78.6 kg (12/30/20 9:17 AM) 78.6 kg (12/30/20 6:56 AM) Oxygen Saturation [94-100 %] 98 % (01/03/21 11:29 AM) 98 % (01/03/21 7:21 AM) 94 % (01/03/21 3:00 AM) Pulse Rate [55-90 bpm] 88 bpm (01/03/21 11:29 AM) 83 bpm (01/03/21 9:55 AM) 83 bpm (01/03/21 7:21 AM) Body Mass Index [18.5-24.99] 28.18 *H* (12/30/20 9:17 AM) 28.18 *H* (12/30/20 6:56 AM) Blood Pressure [90-138/55-84 mm Hg] 146/88mm Hg *H* (01/03/21 12:33 PM) 146/88mm Hg *H* (01/03/21 11:29 AM) 184/90mm Hg *H* (01/03/21 9:55 AM) Respiratory Rate [16-30 br/min] 20 br/min (01/03/21 3:59 PM) 20 br/min (01/03/21 11:29 AM) 20 br/min (01/03/21 11:00 AM) Temperature [96.8-100.4 DegF] 98.1 DegF (01/03/21 11:29 AM) 98.1 DegF (01/03/21 7:21 AM) 97.4 DegF (01/03/21 3:00 AM) Liters per Minute 2 L/min (01/02/21 3:18 PM) 2 L/min (01/01/21 7:45 AM) 2 L/min (01/01/21 5:17 AM) Mode of Delivery (Oxygen) Room air (01/03/21 11:29 AM) Room air (01/03/21 7:21 AM) Room air (01/03/21 3:00 AM) Blood pressure sites Arm, left (01/03/21 11:29 AM) Arm, left (01/03/21 7:21 AM) Arm, right (01/03/21 3:00 AM) Temperature Route Oral (01/03/21 11:29 AM) Oral (01/03/21 7:21 AM) Oral (01/03/21 3:00 AM) Dry Weight 78.6 kg (12/30/20 9:17 AM) 78.6 kg (12/30/20 6:56 AM) Weight Obtained Via Standing scale (12/30/20 9:17 AM) Dry Weight Obtained Via Standing scale (12/30/20 9:17 AM)
--- OUTSIDE RECORDS SUMMARY | 2023-12-09 16:53 | XMS_ITS | Continuity of Care Document ---
Author Name Unknown Organization [facility] Address [address] [place] [id number]- Care Team Providers Care Shoe Repair Cobbler Name Role Phone Brandon Mauricio MD Primary Care Physician Encounter [facility]CT R [id number] Date(s): 04/03/22 - 04/04/[address] [address]- Discharge Disposition: A-D/C Home Attending Physician: Tiffany Amezcua MD Admitting Physician: Tiffany Amezcua MD Referring Physician: Not on Staff, Referring MD Allergies, Adverse Reactions, Alerts Substance Reaction Severity Status naproxen STOMACH UPSET Active CeleBREX STOMACH UPSET Active morphine nausea vimiting very lethargic Active oxyCODONE lethargiic Active penicillins hives Active Inapsine stiff neck can't move Active Immunizations Given and Recorded Vaccine Date Status Refusal Reason tetanus/diphtheria/pertussis, acel(Tdap) 04/04/22 Given Medications buPROPion 100 mg/12 hours (SR) oral [...] capsule, 0 Refills, Maintenance, 12/31/20 8:50:00EST, Capsule, [facility], Partial fill upon patient [...] 0, 0, 02/16/08 0:06:58, Print LISA Number, [id number], Constant Indicator Start Date: 02/16/08 Status: Ordered [...] Exam Date Time Procedure Performing Provider Status 04/03/22 10:31 PM Hand Min 3 Views Left Misbah Melchorjuan campoverde; Auth (Verified) Notes: (Hand Min 3 Views Left) Reason For Exam: with Pain;Trauma RESULT: Hand Min 3 Views Left Hand Min 3 Views Left, 3 views Hx of Present Illness: pt states tripand fall while taking blanket out of her car, no loc, no thinners; Reason: Trauma; with Pain; Clinical Question(s): Fracture COMPARISON: 04/03/2022 radiographs of the right hand. FINDINGS: No fractures or bone lesions. [id number] changes of the DIPs. Mild degenerative changes at the first CMC joint. Borderline scapholunate interval measuring 0.3 cm, slightly less then the contralateral side suggests some degree of scapholunate dissociation. Normal soft tissues. IMPRESSION: 1. No acute fracture or malalignment. 2. Borderline scapholunate interval measuring 0.3 cm, slightly less than the contralateral side suggesting some degree of scapholunate dissociation, of uncertain chronicity. WSN: [id number] Ordering Physician: Alejo Dugan Dictated By: Dewayne Schmitz MD Dictated Date/Time: 04/03/22 11:47 p Reviewed By: Dewayne Schmitz MD Signed By: Dewayne Schmitz MD Signed Date/Time: 04/03/22 11:47 pm Transcribed By: MEDINA Transcribed Date/Time: 04/03/22 11:44 pm * Exam Date Time Procedure Performing Provider Status 04/03/22 10:31 PM Elbow Min 3 Views Left Hammad Crawley lle; Auth (Verified) Notes: (Elbow Min 3 Views Left) Reason For Exam: with Pain;Trauma RESULT: Elbow Min 3 Views Left Elbow Min 3 Views Left INDICATION: Fall COMPARISON: None. FINDINGS: No fracture or dislocation. Moderate spurring at the ulnotrochlear joint. Several well-corticated osseous fragments projecting just lateral to the lateral humeral epicondylemeasuring up to 6 mm, which may be related to calcific tendinopathy of the extensor tendons, may berelated to an old soft tissue injury or, less likely, represent free intra-articular bodies. No joint effusion. Mild soft tissue edema at the lateral/dorsal aspect of the proximal forearm; tiny densities projecting over the area of swelling, which may be outside of the patient or may represent foreign bodies. IMPRESSION: No acute osseous abnormality. Mild-moderate elbow joint osteoarthritis. Mild soft tissue edema at the proximal forearm; tiny densities projecting over the area of swelling, which may be outside of the patient or may represent tiny foreign bodies related to possible laceration. Correlate with physical exam. I have personally reviewed the images and I agree with this report. WSN: [id number] Ordering Physician: Alejo Dugan Dictated By: Leo Guillen DO Dictated Date/Time: 04/03/22 11:17 p Reviewed By: Von London MD Signed By: Von London MD Signed Date/Time: 04/03/22 11:22 pm Transcribed By: MEDINA Transcribed Date/Time: 04/03/22 11:15 pm * Exam Date Time Procedure Performing Provider Status 04/03/22 10:31 PM Hand Min 3 Views Right Hammad Crawley; Auth (Verified) Notes: (Hand Min 3 Views Right) Reason For Exam: with Pain;Trauma RESULT: Hand Min 3 Views Right Hand Min 3 Views Right INDICATION: Fall COMPARISON: 06/19/2011 FINDINGS: No fractures or bone lesions. Mild-moderate diffuse interphalangeal osteoarthritis. Mild radiocarpal and first carpometacarpal osteoarthritis. Borderline increased scapholunate interval. No radiographic evidence of significant soft tissue swelling. 2 mm linear density projecting just ulnar to the base of the fifth metacarpal, seen in 2010, possibly representing chronic foreign body. IMPRESSION: No acute osseous abnormality. Borderline increased scapholunate interval, question scapholunate ligament injury, age-indeterminate but new from 2010. Osteoarthritis. Findings were relayed by Dr. Guillen to Alejo Dugan MD via Cortext on 04/03/2022 10:50 PM . I have personally reviewed the images and I agree with this report. WSN: [id number] Ordering Physician: Alejo Dugan Dictated By: Leo Guillen DO Dictated Date/Time: 04/03/22 10:56 p Reviewed By: Von London MD Signed By: Von London MD Signed Date/Time: 04/03/22 11:01 pm Transcribed By: MEDINA Transcribed Date/Time: 04/03/22 10:50 pm Vital Signs Most recent to oldest [Reference Range]: 1 2 3 Height 170 cm (04/04/22 2:32 AM) 170 cm (04/03/22 9:08 PM) 170 cm (04/03/22 3:07 PM) Weight 82 kg (04/04/22 2:32 AM) 82 kg (04/03/22 9:08 PM) 82 kg (04/03/22 3:07 PM) Oxygen Saturation [94-100 %] 98 % (04/04/22 2:32 AM) 100 % (04/03/22 9:08 PM) 91 % *L* (04/03/22 6:54 PM) Pulse Rate [55-90 bpm] 72 bpm (04/04/22 2:32 AM) 74 bpm (04/03/22 9:08 PM) 85 bpm (04/03/22 6:54 PM) Body Mass Index [18.5-24.99] 28.37 *H* (04/04/22 2:32 AM) 28.37 *H* (04/03/22 9:08 PM) 28.37 *H* (04/03/22 3:06 PM) Blood Pressure [90-138/55-84 mm Hg] 198/100mm Hg *H* (04/04/22 2:32 AM) 162/83mm Hg *H* (04/03/22 9:08 PM) 188/112mm Hg *H* (04/03/22 6:54 PM) Respiratory Rate [16-30 br/min] 18 br/min (04/04/22 2:32 AM) 20 br/min (04/03/22 9:08 PM) 18 br/min (04/03/22 6:54 PM) Temperature [96.8-100.4 DegF] 98.7 DegF (04/03/22 9:08 PM) 97.8 DegF (04/03/22 6:54 PM) 97.7 DegF (04/03/22 5:03 PM) Mode of Delivery (Oxygen) Room air (04/03/22 9:08 PM) Room air (04/03/22 5:03 PM) Room air (04/03/22 3:06 PM) Blood pressure sites Arm, right (04/03/22 9:08 PM) Arm, right (04/03/22 6:54 PM) Arm, right (04/03/22 5:03 PM) Temperature Route Oral (04/03/22 9:08 PM) Oral (04/03/22 6:54 PM) Oral (04/03/22 5:03 PM) Dry Weight 82 kg (04/04/22 2:32 AM) 82 kg (04/03/22 9:08 PM) 82 kg (04/03/22 3:07 PM) Weight Obtained Via Patient/family state d (04/03/22 3:06 PM) Dry Weight Obtained Via Patient/family s tated (04/03/22 3:06 PM)
--- OUTSIDE RECORDS SUMMARY | 2023-12-09 16:53 | XMS_ITS | Continuity of Care Document ---
Author Name Unknown Organization [facility] Address [address] [place] [id number]- Care Team Providers Care Physician/Allergy/Immunology Name Role Phone Brandon Mauricoi MD Primary Care Physician Encounter [facility] Date(s): 04/27/23 - 04/30/[address] [address]- Encounter Diagnosis Syncope(Final) - 04/27/23 Discharge Disposition: A-D/C Home Attending Physician: Tamiko Nelson MD Admitting Physician: Rebeca Gil MD Referring Physician: Not on Staff, Referring [...] 0, 0, 02/16/08 0:06:58, Print LISA Number, [id number], Constant Indicator Start Date: 02/16/08 Status: Ordered [...] Active UTI (urinary tract infection) Confirmed Active Results Radiology Reports * Exam Date Time Procedure Performing Provider Status 04/27/23 7:[address] Head/Brain W/O Contrast Arnie Méndez; Auth (Verified) Notes: (CT Head/Brain W/O Contrast) Reason For Exam: Trauma RESULT: CT Head/Brain W/O Contrast CT Cervical Spine W/O Contrast, CT Head/Brain W/O Contrast Hx of Present Illness: passed out two teeth extracted yest just novacaine and felt ok the was walking into the kitchen and passed out pt c o pain in L ankle and middle R back pain pt has on going condition with eyes and is blinking alot . pt states that she has started to be; Reason: Other:; Neck trauma, dangerous injury mechanism; Clinical Question(s): Fracture Dislocation COMPARISON: None. TECHNIQUE: Incremental CT without contrast through the head was formatted in axial and coronal plane. Spiral CT without contrast through the cervical spine was formatted in 3 planes. Automatic tube modulation was used for the cervical spine and iterative dose reconstruction was used for both the head and cervical spine to optimize scan parameters and image quality. CTDIvol Body: 8.90 mGy, DLP Body: 263 mGy*cm. CTDIvol Head: 39.60 mGy, DLP Head: 672 mGy*cm. FINDINGS: Video Game Animator View Findings, Lines and Tubes: None. HEAD: BRAIN and EXTRA-AXIAL SPACES: No parenchymal hemorrhage, midline shift or mass effect. There is a small focus of encephalomalaciain the right cerebellum consistent with old infarction. Edwards- white matter differentiation is well preserved. No acute infarct. Negative insular ribbon sign. Atherosclerotic vascular calcification of the carotid arteries but negative hyperdense vessel sign. Mild prominence of the ventricles and sulci consistent with parenchymal volume loss. No white matter lesions. No subarachnoid hemorrhage, subdural or epidural collections. CALVARIUM, SKULL BASE AND SOFT TISSUES: No fractures or suspicious bony lesions. The paranasal sinuses and mastoid air cells are clear. Status-post bilateral lens extraction. The extracranial soft tissues are unremarkable. CERVICAL SPINE: No fracture or acute malalignment. The alignment is maintained. Moderate-severe degenerative changes are noted including disc height loss, anterior osteophytes and posterior disc osteophyte complexes. OTHER BONES: The limited visualized upper ribs and clavicles are intact. CERVICAL SOFT TISSUES AND LUNG APICES: Image quality degraded by respiratory motion. Clear lung apices. IMPRESSION: No acute abnormality of the head or cervical spine. WSN: [id number] Ordering Physician: Alma Galindo Dictated By: Castro Deng MD Dictated Date/Time: 04/27/23 7:18 pm Reviewed By: Castro Deng MD Signed By: Castro Deng MD Signed Date/Time: 04/27/23 7:18 pm Transcribed By: MEDINA Transcribed Date/Time: 04/27/23 7:13 pm * Exam Date Time Procedure Performing Provider Status 04/27/23 7:[address] Cervical Spine W/O Contrast Dexter Méndez; Auth (Verified) Notes: (CT Cervical Spine W/O Contrast) Reason For Exam: Neck trauma, dangerous injury mechanism;Other: RESULT: CT Cervical Spine W/O Contrast CT Cervical Spine W/O Contrast, CT Head/Brain W/O Contrast Hx of Present Illness: passed out two teeth extracted yest just novacaine and felt ok the was walking into the kitchen and passed out pt c o pain in L ankle and middle R back pain pt has on going condition with eyes and is blinking alot . pt states that she has started to be; Reason: Other:; Neck trauma, dangerous injury mechanism; Clinical Question(s): Fracture Dislocation COMPARISON: None. TECHNIQUE: Incremental CT without contrast through the head was formatted in axial and coronal plane. Spiral CT without contrast through the cervical spine was formatted in 3 planes. Automatic tube modulation was used for the cervical spine and iterative dose reconstruction was used for both the head and cervical spine to optimize scan parameters and image quality. CTDIvol Body: 8.90 mGy, DLP Body: 263 mGy*cm. CTDIvol Head: 39.60 mGy, DLP Head: 672 mGy*cm. FINDINGS: Video Game Animator View Findings, Lines and Tubes: None. HEAD: BRAIN and EXTRA-AXIAL SPACES: No parenchymal hemorrhage, midline shift or mass effect. There is a small focus of encephalomalaciain the right cerebellum consistent with old infarction. Edwards- white matter differentiation is well preserved. No acute infarct. Negative insular ribbon sign. Atherosclerotic vascular calcification of the carotid arteries but negative hyperdense vessel sign. Mild prominence of the ventricles and sulci consistent with parenchymal volume loss. No white matter lesions. No subarachnoid hemorrhage, subdural or epidural collections. CALVARIUM, SKULL BASE AND SOFT TISSUES: No fractures or suspicious bony lesions. The paranasal sinuses and mastoid air cells are clear. Status-post bilateral lens extraction. The extracranial soft tissues are unremarkable. CERVICAL SPINE: No fracture or acute malalignment. The alignment is maintained. Moderate-severe degenerative changes are noted including disc height loss, anterior osteophytes and posterior disc osteophyte complexes. OTHER BONES: The limited visualized upper ribs and clavicles are intact. CERVICAL SOFT TISSUES AND LUNG APICES: Image quality degraded by respiratory motion. Clear lung apices. IMPRESSION: No acute abnormality of the head or cervical spine. WSN: [id number] Ordering Physician: Alma Galindo Dictated By: Castro Deng MD Dictated Date/Time: 04/27/23 7:18 pm Reviewed By: Castro Deng MD Signed By: Castro Deng MD Signed Date/Time: 04/27/23 7:18 pm Transcribed By: MEDINA Transcribed Date/Time: 04/27/23 7:13 pm * Exam Date Time Procedure Performing Provider Status 04/27/23 7:02 PM Knee 1 or 2 Views Left Sadie Hernandez; Usman (Verified) Notes: (Knee 1 or 2 Views Left) Reason For Exam: with Pain;Trauma RESULT: Knee 1 or 2 Views Left Knee 1 or 2 Views Left CLINICAL INDICATION: Hx of Present Illness: passed out two teeth extracted yest just novacaine and felt ok the was walking into the kitchen and passed out pt c o pain in L ankle and middle R back pain pt has on going condition with eyes and is blinking alot . pt states that she has started to be; Reason: Trauma; with Pain; Clinical Question(s): Fracture COMPARISONS: None TECHNIQUE: 2 views of the left knee were obtained. FINDINGS: Status post total knee arthroplasty. Arthroplasty hardware is surrounded by bone. No loosening. No joint effusion. The patella is normally positioned. IMPRESSION: No fracture or dislocation. Intact arthroplasty hardware. WSN: [id number] Ordering Physician: Alma Galindo Dictated By: Castro Deng MD Dictated Date/Time: 04/27/23 7:08 pm Reviewed By: Castro Deng MD Signed By: Castro Deng MD Signed Date/Time: 04/27/23 7:08 pm Transcribed By: MEDINA Transcribed Date/Time: 04/27/23 7:07 pm * Exam Date Time Procedure Performing Provider Status 04/27/23 7:02 PM Ankle Min 3 Views Left DavidSadie duran; Usman (Verified) Notes: (Ankle Min 3 Views Left) Reason For Exam: with Pain;Trauma RESULT: Ankle Min 3 Views Left Ankle Min 3 Views Left CLINICAL INDICATION: Hx of Present Illness: passed out two teeth extracted yest just novacaine and felt ok the was walking into the kitchen and passed out pt c o pain in L ankle and middle R back pain pt has on going condition with eyes and is blinking alot . pt states that she has started to be; Reason: Trauma; with Pain; Clinical Question(s): Fracture COMPARISONS: None TECHNIQUE: AP, lateral and stress views of the left ankle were obtained. FINDINGS: There is a minimally displaced oblique fracture extending through the distal fibula at the lateral malleolus. No medial or posterior malleolar fracture. There is overlying soft tissue swelling. Thereis a prominent calcaneal heel spur. The ankle mortise is not widened. No retained foreign body is identified. Hindfoot midfoot alignment is normal. IMPRESSION: Minimally displaced oblique distal fibular fracture. Prominent plantar calcaneal heel spur. An actionable message (Yellow) has been communicated via the [employer] system on 04/27/2023 7:06 PM, Message ID [id number]. WSN: [id number] Ordering Physician: Alma Galindo Dictated By: Castro Deng MD Dictated Date/Time: 04/27/23 7:06 pm Reviewed By: Castro Deng MD Signed By: Castro Deng MD Signed Date/Time: 04/27/23 7:06 pm Transcribed By: MEDINA Transcribed Date/Time: 04/27/23 7:06 pm * Exam Date Time Procedure Performing Provider Status 04/27/23 7:02 PM Chest 2 Views Frontal and Lat Mnea Hernandez; Usman (Verified) Notes: (Chest 2 Views Frontal and Lat) Reason For Exam: Chest Pain;Other: RESULT: Chest 2 Views Frontal and Lat Chest 2 Views Frontal and Lat Hx of Present Illness: passed out two teeth extracted yest just novacaine and felt ok the was walking into the kitchen and passed out pt c o pain in L ankle and middle R back pain pt has on going condition with eyes and is blinking alot . pt states that she has started to be; Reason: Other:; Chest Pain; Clinical Question(s): Other: COMPARISON: 05/29/2022 FINDINGS: LINES AND TUBES: None. LUNGS AND PLEURA: Previously seen left mid lung zone opacity has resolved. Clear lungs. Normal pulmonary vascularity. No pleural effusion. No pneumothorax. HEART, MEDIASTINUM AND JAMIE: Heart is at the upper limits of normal for size. Moderate-sized paraesophageal hernia. BONES AND SOFT TISSUES: No acute abnormality. Left reverse shoulder arthroplasty intact. Status post bilateral distal clavicular excision. . IMPRESSION: No acute cardiopulmonary pathology. WSN: [id number] Ordering Physician: Alejo Dugan Dictated By: Castro Deng MD Dictated Date/Time: 04/27/23 7:04 pm Reviewed By: Castro Deng MD Signed By: Castro Deng MD Signed Date/Time: 04/27/23 7:04 pm Transcribed By: MEDINA Transcribed Date/Time: 04/27/23 7:03 pm Vital Signs Most recent to oldest [Reference Range]: 1 2 3 Height 170 cm (04/30/23 10:17 AM) 170 cm (04/30/23 7:30 AM) 170 cm (04/30/23 2:45 AM) Weight 77 kg (04/28/23 1:01 AM) Oxygen Saturation [94-100 %] 98 % (04/30/23 7:30 AM) 93 % *L* (04/30/23 2:45 AM) 94 % (04/29/23 11:22 PM) Pulse Rate [55-90 bpm] 86 bpm (04/30/23 7:30 AM) 100 bpm *H* (04/30/23 2:45 AM) 70 bpm (04/29/23 11:22 PM) Body Mass Index [18.5-24.99 kg/m2] 26.64 kg/m2 *H* (04/28/23 1:01 AM) Blood Pressure [90-138/55-84 mm Hg] 155/95mm Hg *H* (04/30/23 7:30 AM) 136/73mm Hg (04/30/23 2:45 AM) 172/82mm Hg *H* (04/29/23 11:22 PM) Respiratory Rate [16-30 br/min] 20 br/min (04/30/23 7:30 AM) 16 br/min (04/30/23 2:45 AM) 18 br/min (04/29/23 11:22 PM) Temperature [96.8-100.4 DegF] 98.1 DegF (04/30/23 7:30 AM) 97.9 DegF (04/30/23 2:45 AM) 97.9 DegF (04/29/23 11:22 PM) Mode of Delivery (Oxygen) Room air (04/30/23 7:30 AM) Room air (04/30/23 2:45 AM) Room air (04/29/23 11:22 PM) Blood pressure sites Arm, right (04/30/23 7:30 AM) Arm, right (04/30/23 2:45 AM) Arm, right (04/29/23 11:22 PM) Temperature Route Oral (04/30/23 7:30 AM) Oral (04/30/23 2:45 AM) Oral (04/29/23 11:22 PM) Dry Weight 77 kg (04/28/23 1:01 AM) 77 kg (04/27/23 5:53 PM) 77 kg (04/27/23 4:04 PM) Dry Weight Obtained Via Patient/family s tated (04/27/23 4:04 PM) Admission evaluation note * Renee Verdin MD: MODIFY Renee Verdin MD: MODIFY, MODIFY, MODIFY, MODIFY Kyle Delgado DO: MODIFY, MODIFY Kyle Delgado DO: MODIFY, MODIFY Kyle Delgado DO: MODIFY, MODIFY Kyle Delgado DO: MODIFY, MODIFY Delgado DO, Kyle: MODIFY, MODIFY Delgado DO, Kyle: MODIFY, MODIFY Delgado DO, Kyle: MODIFY, MODIFY Delgado DO, Kyle: MODIFY, MODIFY Delgado DO, Kyle: MODIFY, MODIFY Delgado DO, Kyle: MODIFY, MODIFY Delgado DO, Kyle: MODIFY, MODIFY Delgado DO, Kyle: MODIFY, MODIFY Delgado DO, Kyle: MODIFY, MODIFY Delgado DO, Kyle: MODIFY, MODIFY Delgado DO, Kyle: MODIFY, MODIFY Delgado DO, Kyle: MODIFY, MODIFY Delgado DO, Kyle: MODIFY, MODIFY Delgado DO, Kyle: MODIFY, PERFORM Delgado DO, Kyle: PERFORM Event Display: Admission Note Authored Date: [id number] Patient: ??ROBERTA BHATIA ? Age:??72 Years?Sex:??Female?:??1950?? Chief Complaint/Reason for Consultation from home, legs gave out, fell to ground, did not hit head, no loc, no sob, refused collar. had twoteeth pulled yesterday, has had some n/d from that. History of Present Illness This is a 72-year-old female with a past medical history of hypertension, hypothyroidism, discoid lupus who presented to the emergency department via EMS for loss of control of her legs and a fall onto her back that occurred a few hours prior to presentation. ?? The patient reports that she was standing in her kitchen the afternoon prior to admission, she was talking with her friend??and started to feel lightheaded??with??her vision going dark.?? Patient reports that she felt her knees give out??and that she??rolled her left ankle outwards??and fell onto her back.?? She does not believe she hit her head or lost consciousness.?? Patient without any chest pain, shortness of breath, abdominal pain, nausea, vomiting, headache, fevers, chills, dysuria??or unusual symptoms prior??to this event.?? No numbness or tingling in the lower extremities.?? She had not had any changes??in medication and??had taken her usual??morning medications.?? She does report having??soreness in the left ankle and??right knee.??Patient recently had a tooth extraction and hasbeen restless and??has had trouble sleeping.? Imaging showed no acute abnormality on CXR,??left ankle x-ray showed a minimally displaced??oblique distal fracture??of the fibula.??Prominent plantar calcaneal heel spur. Left knee x-ray showed no fracture or dislocation. Intact arthroplasty hardware. CTH/c-spine showed no acute abnormality of the head or spine. So far in the emergency room patient received 975 mg of Tylenol, 500 mg of amoxicillin, and a 1 L bolus of LR IV fluids. ?? Vital signs have shown the patient to be afebrile, heart rate in the 70s to 80s, blood pressure of 116/100 initially and 172/95 downtrending to 149/78, oxygen saturation of 97% on room air. Labs showed a CBC and BMP within normal limits, TSH of 0.47, COVID-negative. EKG showed normal sinus rhythm, heart rate 77 bpm, without significant signs of ischemia. Urinalysis with slight bacteria, 2+ leukocytes and 11 WBCs. Review of Systems A review of systems was completed and is otherwise negative except as mentioned in history of present illness. Objective Measurements?? Height: 170 cm (04/27/23) Dry Weight: 77 kg (04/27/23) ? Vital Signs?? Temperature: 98.2 DegF (04/27/23 16:51:00) Temperature Route: Oral (04/27/23 16:51:00) Pulse Rate:??7 bpm??Low (04/27/23 23:05:00) Respiratory Rate: 18 br/min (04/27/23 23:05:00) Systolic Blood Pressure:??162 mm Hg??High (04/27/23 23:05:00) Diastolic Blood Pressure:??96 mm Hg??High (04/27/23 23:05:00) Blood pressure sites: Arm, left (04/27/23 23:05:00) Mean Arterial Pressure: 116 mm Hg (04/27/23 20:28:00) Pulse Pressure: 66 mm Hg (04/27/23 23:05:00) Oxygen Saturation: 95 % (04/27/23 23:05:00) Mode of Delivery (Oxygen): Room air (04/27/23 23:05:00) Early Warning Score: 4 (04/27/23 23:06:05) ? Physical Exam General: The patient was found resting and in no acute distress. HEENT:??NCAT, EOMI, no scleral icterus,??moist mucus membranes, trachea midline. Cardiovascular: RRR S1 and S2 heard with no murmurs, rubs or gallops. Respiratory: Breath sounds clear to auscultation bilaterally. No wheezing. GI: Soft. Nontender and nondistended. Normal bowel sounds present. MSK: LLE ankle with limited ROM due to pain, mild edema, tender to palpation, RLE without edema, noerythema in the lower extremities. 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 Sensation intact throughout. Psych: Alert and oriented x3, appropriate level of concern and pleasant. Assessment/Plan This is a 72-year-old female with a past medical history of hypertension, hypothyroidism, discoid lupus who presented to the emergency department via EMS for syncope and was found to have a distal fibula fracture of her left lower extremity. ?? Syncope??- orthostatic??hypotension??vs??vasovagal vs arrhythmia?? Patient presented after syncopal event??with unclear etiology,??stated she felt lightheaded,??her knees gave out??and she fell and twisted her ankle. CTH/c-spine showed no acute abnormality of the head or spine. EKG showed normal sinus rhythm, heart rate 77 bpm, without significant signs of ischemia. Labs without significant findings,??UA with asymptomatic bacteriuria??but otherwise without signs of infection, no fever??or leukocytosis. Differential includes syncope??secondary to orthostatic hypotension, vasovagal syncope or arrhythmia. Pt has had somewhat of a labile BP since arrival. ?? Plan Obtain orthostatic vitals Continue case monitor, monitor for arrhythmia Consider Holter monitor on discharge Monitor vitals per unit standard EKG PRN ?? LLE fracture of distal fibula Left ankle x-ray showed a minimally displaced??oblique distal fracture??of the fibula.??Prominent plantar calcaneal heel spur. Plan: patient to follow-up with orthopedics outpatient. Tylenol PRN??for pain. ?? Asymptomatic bacteriuria Pt without dysuria; UA with slight bacteria, 2+ leukocytes and 11 WBCs. Plan: Follow-up with add on urine culture ?? Chronic stable medical conditions: Hypertension:??Continue home??Coreg 3.125 twice daily,??benazepril not on formulary,??equivalent dose of lisinopril ordered??20 mg daily Hyperlipidemia:??Continue home atorvastatin 40 mg daily Insomnia/depression:??Continue home duloxetine 90 mg and home bupropion??100 mg and trazodone??100 mg at bedtime Neuropathy: continue home gabapentin GERD: Pantoprazole??40 mg daily ordered, omeprazole not on formulary Hypothyroidism: Continue home levothyroxine Overactive bladder:??Hold??tolterodine??not on formulary ?? Quality Measures: VTE prophylaxis: Lovenox Diet: Cardiac Code status: DNR - confirmed with the patient Discharge planning:??Likely 1-2 days ?? Discussed with Dr. Verdin ?? - Kyle Delgado DO - PGY2 - Internal Medicine - Pager # [phone]? Attending Attestation: I have seen and evaluated this patient???04/28/2023 on D3 B after she had presented for evaluation??after an episode of lightheadedness at home where she fell??without loss of consciousness or head strike??and wherein she??sustained??a left ankle injury?admitted for evaluation of near syncope after she was also found to have a minimally displaced oblique fracture of the distal fibula. ??She describes intermittent??lightheadedness??upon standing??for the past several days. ??Additionally she had a dental procedure??and has been on??antibiotics with some loose stools.??She denies any nausea or vomiting but has had poor oral intake because of the dental issue. ??Sheotherwise denies any changes to her medications recently and has been adherent to her antihypertensi ve regimen.?On??review of??billing???there was??billing for orthostatic hypotension back in 05/2021 but I could not find??the associated documentation for that. ??Nonetheless her current clinical symptoms do seem most suggestive of an orthostatic or postural hypotension leading to near syncope resulting in a fall with??a minimally displaced??oblique fracture of the distal fibula.?The differential for her and near syncope/fall??would??include cardiogenic etiologies??but her initial EKG and telemetry have been normal??and??there are no??murmurs to suggest underlying structural heart??disease. ??The patient was given a walking boot and advised to follow-up with orthopedic surgery.?I have discussed the case and its management with the resident and agree with the findings and plan as documented in the resident??s note. ?? [] ?? Histories Allergies Allergies ?(Active and Proposed Allergies Only) CeleBREX? (Severity: Unknown severity, Onset: Unknown) ?Reactions: STOMACH UPSET naproxen? (Severity: Unknown severity, Onset: Unknown) ?Reactions: STOMACH UPSET morphine? (Severity: Unknown severity, Onset: Unknown) ?Reactions: very lethargic, nausea vimiting oxyCODONE? (Severity: Unknown severity, Onset: Unknown) ?Reactions: lethargiic penicillins? (Severity: Unknown severity, Onset: Unknown) ?Reactions: hives Inapsine? (Severity: Unknown severity, Onset: Unknown) ?Reactions: stiff neck can't move ? Past Medical History/Problem List Active Problems/ Past Surgical History Depression Finger injury Hypertension Hypothyroid Macular degeneration UTI (urinary tract infection) Discoid lupus Postoperative DVT Left total knee arthroplasty Rotator cuff surgery Cataract extraction Left shoulder replacement Right hammertoe surgery Bilateral shoulder arthroscopy ? Social History ?? She lives at home by herself. ??She does not smoke drink alcohol or use drugs. ??She does have a best friend who is helpful and supportive. ?? Family History No family history recorded. ? Medications Home Medications Amoxicillin (amoxicillin 500 mg oral capsule)?1?capsule?500?Milligram?By Mouth?3 times a day?for 7?Days?TAKE 1 CAPSULE BY MOUTH THREE TIMES DAILY UNTIL GONE Atorvastatin (atorvastatin 40 mg oral tablet)?40?By Mouth?Daily at bedtime Benazepril (benazepril 40 mg oral tablet)?1/2 tablet?By Mouth?Daily at bedtime BuPROpion (buPROPion 100 mg/12 hours (SR) oral tablet, extended release)?1?tab(s)?100?Milligram?By Mouth?Daily at bedtime Carvedilol (carvedilol 3.125 mg oral tablet)?3.125?By Mouth?2 times a day Docusate (docusate sodium 100 mg oral capsule)?1?capsule?100?Milligram?By Mouth?2times a day Duloxetine (duloxetine 30 mg oral enteric coated capsule)?3?capsule?90?Milligram?By Mouth?Daily Gabapentin (gabapentin 300 mg oral capsule)?300?Milligram?1?capsule?By Mouth?Daily Levothyroxine (Levothyroxine Tablet)?100?Microgram?By Mouth?Daily?on WEDNESDAY takes tabs 2 Miscellaneous Rx (FUROSEMIDE 20MG TABLETS)?20?By Mouth?Daily?TAKE 1 TABLET BY MOUTH EVERY DAY Multivitamin With Minerals (Ocuvite Adult 50+ oral capsule)?1?capsule?By Mouth?Daily Omeprazole?40?Milligram?By Mouth?Daily Potassium Chloride (Klor-Con 10)?10?Milliequivalent?By Mouth?Daily Tolterodine (tolterodine 4 mg oral capsule, extended release)?1?capsule?4?Milligram?By Mouth?Daily Trazodone (traZODone 100 mg oral tablet)?100?Milligram?1?tablet?By Mouth?Daily atbedtime ? Results Recent Labs BLOOD COUNT & DIFF WBC 8.3 k/mm3 ()?? 04/27/2023 16:30 RBC 4.53 m/mm3 ()?? 04/27/2023 16:30 Hgb 13.0 Gm/dL ()?? 04/27/2023 16:30 Hct 41.8 % ()?? 04/27/2023 16:30 MCV 92.3 femtoliters ()?? 04/27/2023 16:30 MCH 28.7 pg ()?? 04/27/2023 16:30 MCHC 31.1 g/dL (Low)?? 04/27/2023 16:30 Platelet Count 234 k/mm3 ()?? 04/27/2023 16:30 RDW-SD 50.7 femtoliters (High)?? 04/27/2023 16:30 MPV 11.5 femtoliters ()?? 04/27/2023 16:30 Nucleated RBC (Automated) 0.0 #/100 WBC'S ()?? 04/27/2023 16:30 Abs. NRBC 0.0 k/mm3 ()?? 04/27/2023 16:30 Abs. Neut 5.4 k/mm3 ()?? 04/27/2023 16:30 Abs. Lymph 1.8 k/mm3 ()?? 04/27/2023 16:30 Abs. Alpine 0.9 k/mm3 ()?? 04/27/2023 16:30 Abs. Eo 0.2 k/mm3 ()?? 04/27/2023 16:30 Abs. Baso 0.1 k/mm3 ()?? 04/27/2023 16:30 Neut % 64.2 % ()?? 04/27/2023 16:30 Lymph % 21.5 % ()?? 04/27/2023 16:30 Alpine % 10.8 % (High)?? 04/27/2023 16:30 Eos % 2.2 % ()?? 04/27/2023 16:30 Baso % 0.7 % ()?? 04/27/2023 16:30 Imm Gran 0.6 % ()?? 04/27/2023 16:30 Abs. Imm Gran 0.1 k/mm3 ()?? 04/27/2023 16:30 ?? CHEM GENERAL Sodium 140 mmol/L ()?? 04/27/2023 16:32 Potassium 4.3 mmol/L ()?? 04/27/2023 16:32 Chloride 102 mmol/L ()?? 04/27/2023 16:32 Bicarbonate Level 28 mmol/L ()?? 04/27/2023 16:32 Anion Gap 10 ()?? 04/27/2023 16:32 Glucose Level 102 mg/dL (High)?? 04/27/2023 16:32 BUN 14 mg/dL ()?? 04/27/2023 16:32 Creatinine-Blood 1.0 mg/dL ()?? 04/27/2023 16:32 Estimated GFR Creatinine 60 ML/MIN/1.73 M2 ()?? 04/27/2023 16:32 Calcium 9.5 mg/dL ()?? 04/27/2023 16:32 Magnesium 2.2 mg/dL ()?? 04/27/2023 16:32 ?? ENDOCRINE/TUMOR MARKER TSH 0.47 uIU/mL ()?? 04/27/2023 16:32 ?? HEME OTHER Hold Blue Top SPECIMEN DISCARDED AFTER 4 HOURS. ()?? 04/27/2023 16:30 ?? UA/URINALYSIS Appear/Color, Urine LIGHT YELLOW ()?? 04/27/2023 19:32 Specific Lester, Urine 1.010 ()?? 04/27/2023 19:32 pH, Urine 6.5 ()?? 04/27/2023 19:32 Albumin, Urine NEGATIVE ()?? 04/27/2023 19:32 Glucose, Urine NEGATIVE ()?? 04/27/2023 19:32 Ketones, Urine NEGATIVE ()?? 04/27/2023 19:32 Bilirubin, Urine NEGATIVE ()?? 04/27/2023 19:32 Hemoglobin, Urine NEGATIVE ()?? 04/27/2023 19:32 Nitrite, Urine NEGATIVE ()?? 04/27/2023 19:32 Leukocyte, Urine 2+ (Abnormal)?? 04/27/2023 19:32 Urobilinogen NORMAL mg/dL ()?? 04/27/2023 19:32 WBC's, Urine 11 /HPF (High)?? 04/27/2023 19:32 RBC's, Urine 1 /HPF ()?? 04/27/2023 19:32 Bacteria SLIGHT HPF (Abnormal)?? 04/27/2023 19:32 Squamous Epith 1 /HPF ()?? 04/27/2023 19:32 Transitional Epith <1 /HPF ()?? 04/27/2023 19:32 Hold Urine Culture Testing available 48 hours from time of collection. ()?? 04/27/2023 19:32 ?? URINE OTHER Est Creatinine Clearance 48.59 mL/min ()?? 04/27/2023 17:16 ?? VIROLOGY COVID-19 by RT-PCR NEGATIVE ()?? 04/27/2023 20:18 ? Urinalysis Albumin, Urine: NEGATIVE (19:32) Appear/Color, Urine: LIGHT YELLOW (19:32) Bacteria: SLIGHT Abnormal (19:32) Bilirubin, Urine: NEGATIVE (19:32) Est Creatinine Clearance: 48.59 mL/min (17:16) Glucose, Urine: NEGATIVE (19:32) Hemoglobin, Urine: NEGATIVE (19:32) Hold Urine Culture: Testing available 48 hours from time of collection. (19:32) Ketones, Urine: NEGATIVE (19:32) Leukocyte, Urine: 2+ Abnormal (19:32) Nitrite, Urine: NEGATIVE (19:32) pH, Urine: 6.5 (19:32) RBC's, Urine: 1 /HPF (19:32) Specific Lester, Urine: 1.01 (19:32) Squamous Epith: 1 /HPF (19:32) Transitional Epith: <1 (19:32) Urobilinogen: NORMAL (19:32) WBC's, Urine:??11 /HPF??High (19:32) ?? Microbiology ?? COVID-19 (Novel Coronavirus), Rapid PCR?? Completed?? Source: Nasal Body Site: Nose Collected Dt/Tm: 04/27/2023 20:08 Last Updated Dt/Tm: 04/27/2023 21:16 ? Cardiology * Event Display: Cardiac Rhythm Strips Authored Date: * Event Display: Cardiac Rhythm Strips Authored Date: Hospital Progress note * Justine Doyel RN: PERFORM, SIGN, VERIFY Event Display: Progress Note Hospital Authored Date: Patient: ROBERTA BHATIA Age: 72 years Sex: Female : 1950 Associated Diagnoses: None Author: Justine Doyle RN Findings Problem Related to Alteration in Cardiac Function (new) : Alteration in Cardiac Function/new 04/30/2023 4:00 EDT Alteration in Cardiac Status Related to Syncope . Nursing Data Cardiac Data. : Cardiac Data. 04/29/2023 5:00 EDT Cardiovascular Assessment Status Unchanged from recorder's assessment 04/29/2023 3:00 EDT Cardiovascular Assessment Status Unchanged from recorder's assessment 04/29/2023 1:00 EDT Cardiovascular Assessment Status Unchanged from recorder's assessment 04/28/2023 23:00 EDT Cardiovascular Assessment Status Unchanged from recorder's assessment 04/28/2023 21:00 EDT Cardiovascular Assessment Status Unchanged from recorder's assessment 04/28/2023 19:18 EDT Cardiovascular Symptoms None Nail Bed Color, Fingers [place] Nail Bed Color, Toes [place] Skin Temperature Upper Extremities Warm Skin Temperature Lower Extremities Warm Cardiac Rhythm Normal sinus rhythm, Sinus arrhythmia monitoring and evaluation advisor Yes Cardiovascular WNL except . Evaluation E: Patient alert orient x3. Denies pain. Diminished lungs bibasilar. Left lower leg edematous, bruised, elevated with ice intermittently. Received miralax as last bm 04/25. +flatus. Primafit to suction, as limited mobility. 0.9nacl infusing at 100 ml/hr. Known orthostatic hypotension, patient asymptomatic at this time. Tele: NSR. See cis for details. . * Tamiko Nelson MD: PERFORM Event Display: Progress Note Hospital Authored Date: Patient: ??ROBERTA BHATIA ? Age:??72 Years?Sex:??Female?:??1950?? Subjective Patient seen and examined Patient's orthostatic vitals significantly positive Complaining of dizziness on standing Denies any chest pain shortness of breath nausea vomiting diarrhea Review of Systems All systems were reviewed and are negative unless mentioned Allergies Allergies ?(Active and Proposed Allergies Only) CeleBREX? (Severity: Unknown severity, Onset: Unknown) ?Reactions: STOMACH UPSET naproxen? (Severity: Unknown severity, Onset: Unknown) ?Reactions: STOMACH UPSET morphine? (Severity: Unknown severity, Onset: Unknown) ?Reactions: very lethargic, nausea vimiting oxyCODONE? (Severity: Unknown severity, Onset: Unknown) ?Reactions: lethargiic penicillins? (Severity: Unknown severity, Onset: Unknown) ?Reactions: hives Inapsine? (Severity: Unknown severity, Onset: Unknown) ?Reactions: stiff neck can't move ? Objective Measurements?? Height: 170 cm (04/29/23) Weight: 77 kg (04/28/23) Dry Weight: 77 kg (04/28/23) Body Mass Index:??26.64 kg/m2??High (04/28/23) ? Vital Signs?? Temperature: 97.4 DegF (04/29/23 15:00:00) Temperature Route: Oral (04/29/23 15:00:00) Pulse Rate: 67 bpm (04/29/23 15:00:00) Pulse Rate, Lyin bpm (04/28/23 17:32:00) Systolic Blood Pressure, Lyin mm Hg (04/28/23 17:32:00) Diastolic Blood Pressure, Lyin mm Hg (04/28/23 17:32:00) Pulse Rate, Sittin bpm (04/28/23 17:32:00) Systolic Blood Pressure, Sittin mm Hg (04/28/23 17:32:00) Diastolic Blood Pressure, Sittin mm Hg (04/28/23 17:32:00) Pulse Rate, Standin bpm (04/28/23 17:32:00) Systolic Blood Pressure, Standin mm Hg (04/28/23 17:32:00) Diastolic Blood Pressure, Standin mm Hg (04/28/23 17:32:00) Respiratory Rate: 18 br/min (04/29/23 15:00:00) Systolic Blood Pressure:??154 mm Hg??High (04/29/23 15:00:00) Diastolic Blood Pressure:??87 mm Hg??High (04/29/23 15:00:00) Blood pressure sites: Arm, left (04/29/23 15:00:00) Mean Arterial Pressure: 100 mm Hg (04/29/23 03:53:00) Pulse Pressure: 67 mm Hg (04/29/23 15:00:00) Oxygen Saturation: 98 % (04/29/23 15:00:00) Mode of Delivery (Oxygen): Room air (04/29/23 15:00:00) Early Warning Score: 2 (04/29/23 16:09:58) ? Intake/Output? 04/27 20:13 04/29 07:00 04/28 07:00 04/27 07:00 04/26 07:00 ?? 04/29 16:33 04/29 16:33 04/29 06:59 04/28 06:59 04/27 06:59 Intake ?560 ?0 ?560 ?0 ?0 Output ? 2500 ?0 ? 2500 ?0 ?0 Net Total ?-1940 ?0 ?-1940 ?0 ?0 ? Physical Exam General: The patient was found resting and in no acute distress. HEENT:??NCAT, EOMI, no scleral icterus,??moist mucus membranes, trachea midline. Cardiovascular: RRR S1 and S2 heard with no murmurs, rubs or gallops. Respiratory: Breath sounds clear to auscultation bilaterally. No wheezing. GI: Soft. Nontender and nondistended. Normal bowel sounds present. MSK: LLE ankle with limited ROM due to pain, mild edema, tender to palpation, RLE without edema, noerythema in the lower extremities. 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 Sensation intact throughout. Psych: Alert and oriented x3, appropriate level of concern and pleasant _ Home Medications Amoxicillin (amoxicillin 500 mg oral capsule)?1?capsule?500?Milligram?By Mouth?3 times a day?for 7?Days?TAKE 1 CAPSULE BY MOUTH THREE TIMES DAILY UNTIL GONE Atorvastatin (atorvastatin 40 mg oral tablet)?40?By Mouth?Daily at bedtime Benazepril (benazepril 40 mg oral tablet)?1/2 tablet?By Mouth?Daily at bedtime BuPROpion (buPROPion 100 mg/12 hours (SR) oral tablet, extended release)?1?tab(s)?100?Milligram?By Mouth?Daily at bedtime Carvedilol (carvedilol 3.125 mg oral tablet)?3.125?By Mouth?2 times a day Docusate (docusate sodium 100 mg oral capsule)?1?capsule?100?Milligram?By Mouth?2times a day Duloxetine (duloxetine 30 mg oral enteric coated capsule)?3?capsule?90?Milligram?By Mouth?Daily Gabapentin (gabapentin 300 mg oral capsule)?300?Milligram?1?capsule?By Mouth?Daily Levothyroxine (Levothyroxine Tablet)?100?Microgram?By Mouth?Daily?on WEDNESDAY takes tabs 2 Miscellaneous Rx (FUROSEMIDE 20MG TABLETS)?20?By Mouth?Daily?TAKE 1 TABLET BY MOUTH EVERY DAY Multivitamin With Minerals (Ocuvite Adult 50+ oral capsule)?1?capsule?By Mouth?Daily Omeprazole?40?Milligram?By Mouth?Daily Potassium Chloride (Klor-Con 10)?10?Milliequivalent?By Mouth?Daily Tolterodine (tolterodine 4 mg oral capsule, extended release)?1?capsule?4?Milligram?By Mouth?Daily Trazodone (traZODone 100 mg oral tablet)?100?Milligram?1?tablet?By Mouth?Daily atbedtime ? Inpatient Medications Medications (21) Active SCHEDULED: (13) Amoxicillin 250 mg Capsule (Amoxicillin Capsule) ??500 mg, By Mouth, 3 times a day Atorvastatin 40 mg Tablet (atorvastatin 40 mg oral tablet) ??40 mg, By Mouth, Daily at bedtime BuPROPion 100 mg SR Tablet (buPROPion 100 mg/12 hours (SR) oral tablet, extended release) ??100 mg,By Mouth, Daily at bedtime Carvedilol 3.125 mg Tablet (carvedilol 3.125 mg oral tablet) ??3.125 mg, By Mouth, 2 times a day Duloxetine 30 mg Capsule (Duloxetine) ??90 mg, By Mouth, Daily at bedtime Enoxaparin 40 mg Inj (Enoxaparin Inj) ??40 mg 0.4 mL, Subcutaneous Injection, Daily Gabapentin 300 mg Capsule (gabapentin 300 mg oral capsule) ??300 mg, By Mouth, Daily at bedtime Levothyroxine 100 mcg Tablet (Levothyroxine Tablet) ??100 mcg, By Mouth, Daily Levothyroxine 100 mcg Tablet (Levothyroxine Tablet) ??100 mcg, By Mouth, Every Wednesday Lisinopril 20 mg Tablet (lisinopril 20 mg oral tablet) ??20 mg, By Mouth, Daily at bedtime NaCl 0.9% Flush 3ml (NaCL 0.9% Flush) ??3 mL, IV Push, Every 8 hours Pantoprazole 40 mg EC Tablet (pantoprazole 40 mg oral delayed release tablet) ??40 mg, By Mouth, Daily Trazodone 50 mg Tablet (traZODone 50 mg oral tablet) ??100 mg, By Mouth, Daily at bedtime CONTINUOUS: (1) NaCL 0.9% (1000 mL) Cont IV 1,000 mL (Sodium Chloride 0.9% 1,000 mL) ??1,000 mL, IV Infusion, 100 mL/hr PRN: (7) Acetaminophen 325 mg Tablet (Acetaminophen Tablet) ??650 mg, By Mouth, Every 4 hours Dextromethorphan-Guaifenesin 20 mg-200 mg/10 mL Liqu UD (Robitussin DM Liquid) ??10 mL, By Mouth, Every 4 hours Melatonin 3 mg Tablet (Melatonin Tablet) ??3 mg, By Mouth, Daily at bedtime NaCl 0.9% Flush 3ml (NaCL 0.9% Flush) ??3 mL, IV Push, Every 8 hours Polyethylene Glycol 17 Gm Powder (MiraLax Powder) ??17 Gm 1 pack/packet, By Mouth, Daily Senna 8.6 mg / Docusate 50 mg tablet (Docusate/Senna Tablet) ??1 tablet, By Mouth, 2 times a day Simethicone 80 mg Chewable Tablet (Simethicone Tablet) ??80 mg, Chew, 3 times a day ? 72 Hour Antibiotic History Active Antibiotics Calendar Day Last Administered First Administered Amoxicillin??500 mg, By Mouth, 3 times a day ?2 04/29/2023 10:04 04/28/2023 09:00 ? Stopped Antibiotics Stop Date/Time Last Administered First Administered Amoxicillin??500 mg, By Mouth, Once 04/27/2023 20:52 04/27/2023 20:52 04/27/2023 20:52 ? Results Recent Labs BLOOD COUNT & DIFF WBC 9.0 k/mm3 ()?? 04/28/2023 07:30 RBC 4.83 m/mm3 ()?? 04/28/2023 07:30 Hgb 13.6 Gm/dL ()?? 04/28/2023 07:30 Hct 44.2 % ()?? 04/28/2023 07:30 MCV 91.5 femtoliters ()?? 04/28/2023 07:30 MCH 28.2 pg ()?? 04/28/2023 07:30 MCHC 30.8 g/dL (Low)?? 04/28/2023 07:30 Platelet Count 218 k/mm3 ()?? 04/28/2023 07:30 RDW-SD 50.2 femtoliters (High)?? 04/28/2023 07:30 MPV 11.6 femtoliters ()?? 04/28/2023 07:30 Nucleated RBC (Automated) 0.0 #/100 WBC'S ()?? 04/28/2023 07:30 Abs. NRBC 0.0 k/mm3 ()?? 04/28/2023 07:30 ?? CHEM GENERAL Sodium 140 mmol/L ()?? 04/29/2023 01:29 Potassium 3.6 mmol/L ()?? 04/29/2023 01:29 Chloride 104 mmol/L ()?? 04/29/2023 01:29 Bicarbonate Level 25 mmol/L ()?? 04/29/2023 01:29 Anion Gap 11 ()?? 04/29/2023 01:29 Glucose Level 103 mg/dL (High)?? 04/29/2023 01:29 BUN 12 mg/dL ()?? 04/29/2023 01:29 Creatinine-Blood 0.8 mg/dL ()?? 04/29/2023 01:29 Estimated GFR Creatinine 77 ML/MIN/1.73 M2 ()?? 04/29/2023 01:29 Calcium 8.9 mg/dL ()?? 04/29/2023 01:29 ?? URINE OTHER Est Creatinine Clearance 60.74 mL/min ()?? 04/28/2023 08:34 ? Urinalysis?? No qualifying data available. ? Assessment/Plan This is a 72-year-old female with a past medical history of hypertension, hypothyroidism, discoid lupus who presented to the emergency department via EMS for syncope and was found to have a distal fibula fracture of her left lower extremity. ?? Syncope??- orthostatic??hypotension?? Patient presented after syncopal event??with unclear etiology,??stated she felt lightheaded,??her knees gave out??and she fell and twisted her ankle. CTH/c-spine showed no acute abnormality of the head or spine. EKG showed normal sinus rhythm, heart rate 77 bpm, without significant signs of ischemia. Labs without significant findings,??UA with asymptomatic bacteriuria??but otherwise without signs of infection, no fever??or leukocytosis. Patient's orthostatic vitals significantly positive??for orthostatic hypotension ?? Plan Start IV fluids Telemetry monitoring Patient currently on Coreg, lisinopril Hold BP meds??Coreg, lisinopril Plan for repeat orthostatic vitals tomorrow Start compression stocking ? LLE fracture of distal fibula Left ankle x-ray showed a minimally displaced??oblique distal fracture??of the fibula.??Prominent plantar calcaneal heel spur. Plan: patient to follow-up with orthopedics outpatient. Tylenol PRN??for pain. Discussed with Ortho PA today ?? Asymptomatic bacteriuria Pt without dysuria; UA with slight bacteria, 2+ leukocytes and 11 WBCs. Unfortunately urine culture was not sent For now??we will hold off on any antibiotics??as patient is not symptomatic ?? Chronic stable medical conditions: Hypertension:??We will hold??Coreg 3.125 twice daily,??lisinopril??as patient's orthostatic vitals are significantly positive ? Hyperlipidemia:??Continue home atorvastatin 40 mg daily Insomnia/depression:??Continue home duloxetine 90 mg and home bupropion??100 mg and trazodone??100 mg at bedtime Neuropathy: continue home gabapentin GERD: Pantoprazole??40 mg daily ordered, omeprazole not on formulary Hypothyroidism: Continue home levothyroxine Overactive bladder:??Hold??tolterodine??not on formulary ?? Quality Measures: VTE prophylaxis: Lovenox Diet: Cardiac Code status: DNR - confirmed with the patient Discharge planning:??Likely 1-2 days ? Diagnoses Syncope ??(R55) ? * Raheem CARVER, Arden: PERFORM, SIGN, VERIFY, MODIFY, SIGN Event Display: Progress Note Hospital Authored Date: [id number] Patient: ROBERTA BHATIA Age: 72 years Sex: Female : 1950 Associated Diagnoses: None Author: Raheem CARVER, Arden 72-year-old female with a past medical history of hypertension, hypothyroidism, discoid lupus who presented to the emergency department via EMS for syncope and was found to have a distal fibula fracture of her left lower extremity. patient orthostatic positive - contributing factors { patient having diarrhea multiple days after starting antibiotics for her dental infection } will check ortho lives alone , await pt eval might need rehab will hold lasix , restart as appropriate please follow with PT EVAL AND dc planning for further questions please refer todays h and p Note * Hannah Maddox RN: PERFORM Event Display: Discharge/Transfer Note Hospital Authored Date: [id number] Nursing Discharge Note Entered On: 04/30/2023 16:29 EDT Performed On: 04/30/2023 16:29 EDT by Hannah Maddox RN Nursing Discharge Note 2 Discharge Time : 04/30/2023 15:30 EDT Discharge Level of Care at Discharge : senior living facility Discharge Nursing Homes/Rehab Facilities : [facility] Patient Left Unit Via : Ambulance Patient Accompanied Off Unit with : Ambulance/[facility] Personnel Handover Given to Transport Personnel : Yes DC Instructions Provided & Signed by Pt : No Patient Understands D/C Instructions : No Patient Instructions Discharge Signed : No Did Pt have Specialty Bed or Wound Vac : No Hannah Maddox RN - 04/30/2023 16:29 EDT * Tamiko Nelson MD: PERFORM, MODIFY, MODIFY Event Display: Discharge/Transfer Note Hospital Authored Date: Patient: ??ROBERTA BHATIA ? Age:??72 Years?Sex:??Female?:??1950?? Patient Information Discharge Location: [facility] Primary Care Physician: Brandon Mauricio MD Admit Date/Time: 04/27/23 20:13 Discharge Disposition Discharge Disposition: Snf Facility/Rehab Discharge Diagnosis Syncope (R55) Orthostatic hypotension _ Discharge Medications Amoxicillin (amoxicillin 500 mg oral capsule)?500?Milligram?By Mouth?3 times a day?for 5?Days Atorvastatin (atorvastatin 40 mg oral tablet)?40?By Mouth?Daily at bedtime BuPROpion (buPROPion 100 mg/12 hours (SR) oral tablet, extended release)?1?tab(s)?100?Milligram?By Mouth?Daily at bedtime Duloxetine (duloxetine 30 mg oral enteric coated capsule)?3?capsule?90?Milligram?By Mouth?Daily Gabapentin (gabapentin 300 mg oral capsule)?300?Milligram?1?capsule?By Mouth?Daily Levothyroxine (Levothyroxine Tablet)?100?Microgram?By Mouth?Daily?on WEDNESDAY takes tabs 2 Multivitamin With Minerals (Ocuvite Adult 50+ oral capsule)?1?capsule?By Mouth?Daily Omeprazole?40?Milligram?By Mouth?Daily Potassium Chloride (Klor-Con 10)?10?Milliequivalent?By Mouth?Daily Tolterodine (tolterodine 4 mg oral capsule, extended release)?1?capsule?4?Milligram?By Mouth?Daily Trazodone (traZODone 100 mg oral tablet)?100?Milligram?1?tablet?By Mouth?Daily atbedtime ? Medications Started None Medications Discontinued Hold benazepril, Lasix, Coreg Doses Changed None Allergies Allergies ?(Active and Proposed Allergies Only) CeleBREX? (Severity: Unknown severity, Onset: Unknown) ?Reactions: STOMACH UPSET naproxen? (Severity: Unknown severity, Onset: Unknown) ?Reactions: STOMACH UPSET morphine? (Severity: Unknown severity, Onset: Unknown) ?Reactions: very lethargic, nausea vimiting oxyCODONE? (Severity: Unknown severity, Onset: Unknown) ?Reactions: lethargiic penicillins? (Severity: Unknown severity, Onset: Unknown) ?Reactions: hives Inapsine? (Severity: Unknown severity, Onset: Unknown) ?Reactions: stiff neck can't move ? PCP Follow-Up/Heads-Up Please follow with??CBC BMP in 5 to 7 days Hospital Course ??This is a 72-year-old female with a past medical history of hypertension, hypothyroidism, discoidlupus who presented to the emergency department via EMS for syncope and was found to have a distal fibula fracture of her left lower extremity. ?? Syncope??- orthostatic??hypotension?? Patient presented after syncopal event??with unclear etiology,??stated she felt lightheaded,??her knees gave out??and she fell and twisted her ankle. CTH/c-spine showed no acute abnormality of the head or spine. EKG showed normal sinus rhythm, heart rate 77 bpm, without significant signs of ischemia. Labs without significant findings,??UA with asymptomatic bacteriuria??but otherwise without signs of infection, no fever??or leukocytosis. Patient's orthostatic vitals significantly positive??for orthostatic hypotension Status post??IV fluids??yesterday and today Patient's orthostatic vitals??much better than before??but still??positive Patient's dizziness now completely resolved Patient is feeling much better As patient is having significant orthostatic hypotension, patient's home blood pressure medicationsbenazepril,??Coreg, Lasix were??on hold Plan to follow-up with PCP as outpatient??for restart of this medications??slowly Telemetry no significant findings Patient is advised to??wear compression stockings??on the right leg??as left leg has fracture Patient is also advised to??get up slowly ? LLE fracture of distal fibula Left ankle x-ray showed a minimally displaced??oblique distal fracture??of the fibula.??Prominent plantar calcaneal heel spur. Plan: patient to follow-up with orthopedics outpatient. Tylenol PRN??for pain. Discussed with Ortho ?? Asymptomatic bacteriuria Pt without dysuria; UA with slight bacteria, 2+ leukocytes and 11 WBCs. Unfortunately urine culture was not sent For now??we will hold off on any antibiotics??as patient is not symptomatic ?? Chronic stable medical conditions: Hypertension:??We will hold??Coreg 3.125 twice daily,??benazepril, Lasix??due to orthostatic hypotension Hyperlipidemia:??Continue home atorvastatin 40 mg daily Insomnia/depression:??Continue home duloxetine 90 mg and home bupropion??100 mg and trazodone??100 mg at bedtime Neuropathy: continue home gabapentin GERD: Pantoprazole??40 mg daily ordered, omeprazole not on formulary Hypothyroidism: Continue home levothyroxine Overactive bladder:??cont ??tolterodine?? Continue patient's??home amoxicillin??for??4-5 more days??for recent tooth extraction ?? Quality Measures: VTE prophylaxis: Received??Lovenox??in the hospital Diet: Cardiac Code status: DNR - confirmed with the patient ?? Discharge to??rehab today as per??PT recommendations Please check repeat orthostatic vitals in the rehab tomorrow. Objective Assessment and Plan ? Measurements?? Height: 170 cm (04/30/23) Weight: 77 kg (04/28/23) Dry Weight: 77 kg (04/28/23) Body Mass Index:??26.64 kg/m2??High (04/28/23) ? Vital Signs?? Temperature: 98.1 DegF (04/30/23 07:30:00) Temperature Route: Oral (04/30/23 07:30:00) Pulse Rate: 86 bpm (04/30/23 07:30:00) Pulse Rate, Lyin bpm (04/30/23 10:17:00) Systolic Blood Pressure, Lyin mm Hg (04/30/23 10:17:00) Diastolic Blood Pressure, Lyin mm Hg (04/30/23 10:17:00) Pulse Rate, Sittin bpm (04/30/23 10:17:00) Systolic Blood Pressure, Sittin mm Hg (04/30/23 10:17:00) Diastolic Blood Pressure, Sittin mm Hg (04/30/23 10:17:00) Pulse Rate, Standin bpm (04/30/23 10:17:00) Systolic Blood Pressure, Standin mm Hg (04/30/23 10:17:00) Diastolic Blood Pressure, Standin mm Hg (04/30/23 10:17:00) Respiratory Rate: 20 br/min (04/30/23 07:30:00) Systolic Blood Pressure:??155 mm Hg??High (04/30/23 07:30:00) Diastolic Blood Pressure:??95 mm Hg??High (04/30/23 07:30:00) Blood pressure sites: Arm, right (04/30/23 07:30:00) Mean Arterial Pressure: 115 mm Hg (04/30/23 07:30:00) Pulse Pressure: 60 mm Hg (04/30/23 07:30:00) Oxygen Saturation: 98 % (04/30/23 07:30:00) Mode of Delivery (Oxygen): Room air (04/30/23 07:30:00) Early Warning Score: 0 (04/30/23 07:30:45) ? Intake/Output? 04/27 20:13 04/30 07:00 04/29 07:00 04/28 07:00 04/27 07:00 ?? 04/30 12:06 04/30 12:06 04/30 06:59 04/29 06:59 04/28 06:59 Intake ? 2360 ?0 ? 1800 ?560 ?0 Output ? 4900 ?0 ? 2400 ? 2500 ?0 Net Total ?-2540 ?0 ? -600 ?-1940 ?0 ? . Physical Exam General: The patient was found resting and in no acute distress. HEENT:??NCAT, EOMI, no scleral icterus,??moist mucus membranes, trachea midline. Cardiovascular: RRR S1 and S2 heard with no murmurs, rubs or gallops. Respiratory: Breath sounds clear to auscultation bilaterally. No wheezing. GI: Soft. Nontender and nondistended. Normal bowel sounds present. MSK: LLE ankle with limited ROM due to pain, mild edema, tender to palpation, RLE without edema, noerythema in the lower extremities. 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 Sensation intact throughout. Psych: Alert and oriented x3, appropriate level of concern and pleasant Consultants None Pending Results Add On Lab Order ordered on 04/27/2023 Add On Lab Order ordered on 04/27/2023 Add On Lab Order ordered on 04/28/2023 Follow-Up Appointments Added Follow Up ?Time Frame ?Comments Luly CARVER, Brandon Lopez Patient Instructions Please hold home medication of benazepril, Lasix,??Coreg You are found to have orthostatic hypotension Use compression stockings??for your legs for orthostatic hypotension Please follow with your PCP in 5 to 7 days to check CBC, BMP Please follow-up with [place] [facility] [phone] in 2 weeks Home Health Face to Face ^[email or web address] Results Discharge Labs BLOOD COUNT & DIFF WBC 9.0 k/mm3 ()?? 04/28/2023 07:30 RBC 4.83 m/mm3 ()?? 04/28/2023 07:30 Hgb 13.6 Gm/dL ()?? 04/28/2023 07:30 Hct 44.2 % ()?? 04/28/2023 07:30 MCV 91.5 femtoliters ()?? 04/28/2023 07:30 MCH 28.2 pg ()?? 04/28/2023 07:30 MCHC 30.8 g/dL (Low)?? 04/28/2023 07:30 Platelet Count 218 k/mm3 ()?? 04/28/2023 07:30 RDW-SD 50.2 femtoliters (High)?? 04/28/2023 07:30 MPV 11.6 femtoliters ()?? 04/28/2023 07:30 Nucleated RBC (Automated) 0.0 #/100 WBC'S ()?? 04/28/2023 07:30 Abs. NRBC 0.0 k/mm3 ()?? 04/28/2023 07:30 Abs. Neut 5.4 k/mm3 ()?? 04/27/2023 16:30 Abs. Lymph 1.8 k/mm3 ()?? 04/27/2023 16:30 Abs. Alpine 0.9 k/mm3 ()?? 04/27/2023 16:30 Abs. Eo 0.2 k/mm3 ()?? 04/27/2023 16:30 Abs. Baso 0.1 k/mm3 ()?? 04/27/2023 16:30 Neut % 64.2 % ()?? 04/27/2023 16:30 Lymph % 21.5 % ()?? 04/27/2023 16:30 Alpine % 10.8 % (High)?? 04/27/2023 16:30 Eos % 2.2 % ()?? 04/27/2023 16:30 Baso % 0.7 % ()?? 04/27/2023 16:30 Imm Gran 0.6 % ()?? 04/27/2023 16:30 Abs. Imm Gran 0.1 k/mm3 ()?? 04/27/2023 16:30 ?? CHEM GENERAL Sodium 140 mmol/L ()?? 04/29/2023 01:29 Potassium 3.6 mmol/L ()?? 04/29/2023 01:29 Chloride 104 mmol/L ()?? 04/29/2023 01:29 Bicarbonate Level 25 mmol/L ()?? 04/29/2023 01:29 Anion Gap 11 ()?? 04/29/2023 01:29 Glucose Level 103 mg/dL (High)?? 04/29/2023 01:29 BUN 12 mg/dL ()?? 04/29/2023 01:29 Creatinine-Blood 0.8 mg/dL ()?? 04/29/2023 01:29 Estimated GFR Creatinine 77 ML/MIN/1.73 M2 ()?? 04/29/2023 01:29 Calcium 8.9 mg/dL ()?? 04/29/2023 01:29 Magnesium 2.2 mg/dL ()?? 04/27/2023 16:32 ? ENDOCRINE/TUMOR MARKER TSH 0.47 uIU/mL ()?? 04/27/2023 16:32 ? HEME OTHER Hold Blue Top SPECIMEN DISCARDED AFTER 4 HOURS. ()?? 04/27/2023 16:30 ? UA/URINALYSIS Appear/Color, Urine LIGHT YELLOW ()?? 04/27/2023 19:32 Specific Lester, Urine 1.010 ()?? 04/27/2023 19:32 pH, Urine 6.5 ()?? 04/27/2023 19:32 Albumin, Urine NEGATIVE ()?? 04/27/2023 19:32 Glucose, Urine NEGATIVE ()?? 04/27/2023 19:32 Ketones, Urine NEGATIVE ()?? 04/27/2023 19:32 Bilirubin, Urine NEGATIVE ()?? 04/27/2023 19:32 Hemoglobin, Urine NEGATIVE ()?? 04/27/2023 19:32 Nitrite, Urine NEGATIVE ()?? 04/27/2023 19:32 Leukocyte, Urine 2+ (Abnormal)?? 04/27/2023 19:32 Urobilinogen NORMAL mg/dL ()?? 04/27/2023 19:32 WBC's, Urine 11 /HPF (High)?? 04/27/2023 19:32 RBC's, Urine 1 /HPF ()?? 04/27/2023 19:32 Bacteria SLIGHT HPF (Abnormal)?? 04/27/2023 19:32 Squamous Epith 1 /HPF ()?? 04/27/2023 19:32 Transitional Epith <1 /HPF ()?? 04/27/2023 19:32 Hold Urine Culture Testing available 48 hours from time of collection. ()?? 04/27/2023 19:32 ? URINE OTHER Est Creatinine Clearance 60.74 mL/min ()?? 04/28/2023 08:34 ? VIROLOGY COVID-19 by RT-PCR NEGATIVE ()?? 04/27/2023 20:18 ? Microbiology ?? COVID-19 (Novel Coronavirus), Rapid PCR?? Completed?? Source: Nasal Body Site: Nose Collected Dt/Tm: 04/27/2023 20:08 Last Updated Dt/Tm: 04/27/2023 21:16 ? 45_ minutes spent on discharge * Hannah Maddox RN: PERFORM Event Display: Patient Education/Instruction Authored Date: Inpatient Adult Discharge Instructions [address] [address] Name: ROBERTA BHATIA : 1950 Visit: 04/27/2023 20:13:00 Current Date: 04/30/2023 15:04 Account: [id number] Inpatient Adult Discharge Instructions We would like to thank you for allowing us to assist you with your healthcare needs. The following includes patient education materials and information regarding your injury/illness. Our entire staffstrives to provide an excellent experience for our patients and their families. PLEASE ENSURE YOU FOLLOW-UP PER THE INSTRUCTIONS BELOW! ?? YOUR OPINION IS IMPORTANT TO US! Please complete the survey you may receive by mail or email. Your feedback will be used to make improvements to the healthcare experiences of our patients and their families. Surveys are administered by EDAN. ?? If further treatment with your primary care physician or another doctor is recommended, it is important for you to keep the appointment. Call your primary care physician or return to the Emergency Department immediately if your condition worsens, fails to improve, or new symptoms develop. If you need to find a doctor, you can call [facility] 8bit for a referral at [phone] or toll free at [phone] ([phone] or log in to [email or web address] ?? You can view and manage your care through the patient portal or by using a health care edwina of your choosing. MyCheck is a website that allows you to securely view your medical information including your hospital discharge summary, office visit summaries, medications and follow-up visits. You can also request appointments, renew medications, and request access to your medical information using a health care edwina of your choosing, or just ask a question. You can enroll at [email or web address] or register during your next office visit. You have been discharged from [facility], Patient Care Unit: D3B. If you have any questions regarding these instructions after you leave, please call us and we will be happy to assist you. [facility] Your Care Team Attending Physician Tamiko Nelson MD Discharging Providers Tamiko Nelson MD Reason for Admission from home, legs gave out, fell to ground, did not hit head, no loc, no sob, refused collar. had twoteeth pulled yesterday, has had some n/d from that. Your Diagnosis Syncope Tests Performed Below is a partial list of the tests performed during your hospitalization. You may have had other tests and procedures not included in this list. Please discuss all test results with your provider. Basic Metabolic Panel BUN Calcium Level CBC CBC w/ Differential COVID-19 (Novel Coronavirus), Rapid PCR Creatinine Electrolytes Glucose Level Hold Blue Top Tube MAGNESIUM TSH WITH REFLEX TO FT4 Urinalysis w/hold for Urine Culture CT Cervical Spine W/O Contrast CT Head/Brain W/O Contrast XR Ankle Min 3 Views Left XR Chest 2 Views Frontal and Lat XR Knee 1 or 2 Views Left Primary Care Provider Brandon Mauricio MD Advance Directive Health Care Proxy on File Yes - Health Care Proxy Discharge Vitals Temperature: 98.1 DegF Height: 170 cm Pulse Rate: 86 bpm Weight: 77 kg Respiratory Rate: 20 br/min Body Mass Index:??26.64 kg/m2??High Systolic Blood Pressure:??155 mm Hg??High Body surface area: 1.91 Diastolic Blood Pressure:??95 mm Hg??High ?? Oxygen Saturation: 98 % ?? Studies Pending All tests and labs ordered during this hospital stay have been completed unless listed below. Please discuss all pending results with your provider listed above in these instructions. ?? Add On Lab Order What to do next Instructions From Your Doctor Please hold home medication of benazepril, Lasix,??Coreg You are found to have orthostatic hypotension Use compression stockings??for your legs for orthostatic hypotension Please follow with your PCP in 5 to 7 days to check CBC, BMP Please follow-up with [facility] [phone] in 2 weeks Discharge Orders Diet:??Cardiac diet You Need to Schedule the Following Appointments Follow Up with??Brandon Mauricio MD Where: ?? Discharge Medications JANNETTEROBERTA :1950 Visit Date:04/27/2023 Medications: Please continue your medications until treatment is completed or stopped by your provider. Medications not listed below should be discontinued. Discuss any questions related to medications with your provider. What How Much When Instructions Next Dose Changed Amoxicillin (amoxicillin 500 mg oral capsule) 500 Milligram Oral 3 times a day Duration: 5 Days Unchanged Atorvastatin (atorvastatin 40 mg oral tablet) 40 Oral Daily at Bedtime Unchanged BuPROpion (buPROPion 100 mg/ 12 hours (SR) oral tablet, extended release) 1 tab(s) Oral Daily at Bedtime Unchanged Duloxetine (duloxetine 30 mg oral enteric coated capsule) 3 capsule Oral Daily Unchanged Gabapentin (gabapentin 300 mg oral capsule) 1 capsule Oral Daily Unchanged Levothyroxine (Levothyroxine Tablet) 100 Microgram Oral Daily on WEDNESDAY takes tabs 2 ?? Unchanged Multivitamin With Minerals (Ocuvite Adult 50+ oral capsule) 1 capsule Oral Daily Unchanged Omeprazole 40 Milligram Oral Daily Unchanged Potassium Chloride (Klor-Con 10) 10 Milliequivalent Oral Daily Unchanged Tolterodine (tolterodine 4 mg oral capsule, extended release) 1 capsule Oral Daily Unchanged Trazodone (traZODone 100 mg oral tablet) 1 tab(s) Oral Daily at Bedtime ?? What How Much When Comments Stop Taking Benazepril (benazepril 40 mg oral tablet) 1/2 tablet Oral Daily at Bedtime Stop Taking Carvedilol (carvedilol 3.125 mg oral tablet) 3.125 Oral Twice a day Stop Taking Celecoxib (celecoxib 200 mg oral capsule) 1 capsule Oral Daily Stop Taking Docusate (docusate sodium 100 mg oral capsule) 1 capsule Oral Twice a day Stop Taking Lisinopril (lisinopril 20 mg oral tablet) 1 tab(s) Oral Daily Stop Taking Miscellaneous Rx (FUROSEMIDE 20MG TABLETS) 20 Oral Daily TAKE 1 TABLET BY MOUTH EVERY DAY ?? Stop Taking Polyethylene Glycol 3350 (MiraLax Powder) 17 gram Oral Daily as needed for Constipation Stop Taking rivaroxaban (rivaroxaban 20 mg oral tablet) 20 Milligram Oral Daily at supper Stop Taking Senna (senna 187 mg oral tablet) 1 tab(s) Oral Daily at Bedtime as needed for as needed for constipation Test Results Below is a partial list of the most recent Laboratory test results done prior to this discharge. You may have had other tests and procedures not included in this list. Please discuss all test resultswith your provider. Est Creatinine Clearance - 60.74 mL/min (04/28/2023) Basic Metabolic Panel (04/28/2023) ???Sodium - 143 mmol/L???Potassium - HEMOLYZED???Chloride - 107 mmol/L???Bicarbonate Level - 28 mmol/L???Anion Gap - 8???Glucose Level - 114 mg/dL???BUN - 10 mg/dL???Creatinine-Blood - 0.8 mg/dL???Estimated GFR Creatinine - 83 ML/MIN/1.73 M2???Calcium - 9.5 mg/dL BUN (04/29/2023) ???BUN - 12 mg/dL Calcium Level (04/29/2023) ???Calcium - 8.9 mg/dL CBC (04/28/2023) ???WBC - 9.0 k/mm3???RBC - 4.83 m/mm3???Hgb - 13.6 Gm/dL???Hct - 44.2 %???MCV - 91.5 femtoliters???MCH - 28.2 pg???MCHC - 30.8 g/dL???Platelet Count - 218 k/mm3???RDW-SD - 50.2 femtoliters???MPV - 11.6 femtoliters???Nucleated RBC (Automated) - 0.0 #/100 WBC'S???Abs. NRBC - 0.0 k/mm3 CBC w/ Differential (04/27/2023) ???WBC - 8.3 k/mm3???RBC - 4.53 m/mm3???Hgb - 13.0 Gm/dL???Hct - 41.8 %???MCV - 92.3 femtoliters???MCH - 28.7 pg???MCHC - 31.1 g/dL???Platelet Count - 234 k/mm3???RDW-SD - 50.7 femtoliters???MPV - 11.5 femtoliters???Nucleated RBC (Automated) - 0.0 #/100 WBC'S???Abs. NRBC - 0.0 k/mm3???Abs. Neut - 5.4 k/mm3???Abs. Lymph - 1.8 k/mm3???Abs. Alpine - 0.9 k/mm3???Abs. Eo - 0.2 k/mm3???Abs. Baso - 0.1 k/mm3???Neut % - 64.2 %???Lymph % - 21.5 %???Alpine % - 10.8 %???Eos % - 2.2 %???Baso % - 0.7 %???Imm Gran - 0.6 %???Abs. Imm Gran - 0.1 k/mm3 COVID-19 (Novel Coronavirus), Rapid PCR (04/27/2023) ???COVID-19 by RT-PCR - NEGATIVE Creatinine (04/29/2023) ???Creatinine-Blood - 0.8 mg/dL???Estimated GFR Creatinine - 77 ML/MIN/1.73 M2 Electrolytes (04/29/2023) ???Sodium - 140 mmol/L???Potassium - 3.6 mmol/L???Chloride - 104 mmol/L???Bicarbonate Level - 25 mmol/L???Anion Gap - 11 Glucose Level (04/29/2023) ???Glucose Level - 103 mg/dL Hold Blue Top Tube (04/27/2023) ???Hold Blue Top - SPECIMEN DISCARDED AFTER 4 HOURS. MAGNESIUM (04/27/2023) ???Magnesium - 2.2 mg/dL TSH WITH REFLEX TO FT4 (04/27/2023) ???TSH - 0.47 uIU/mL Urinalysis w/hold for Urine Culture (04/27/2023) ???Appear/Color, Urine - LIGHT YELLOW???Specific Lester, Urine - 1.010???pH, Urine - 6.5???Albumin, Urine - NEGATIVE???Glucose, Urine - NEGATIVE???Ketones, Urine - NEGATIVE???Bilirubin, Urine - NEGATIVE???Hemoglobin, Urine - NEGATIVE???Nitrite, Urine - NEGATIVE???Leukocyte, Urine - 2+???Urobilinogen - NORMAL???WBC's, Urine - 11 /HPF???RBC's, Urine - 1 /HPF???Bacteria - SLIGHT???Squamous Epith - 1 /HPF? ?Transitional Epith - <1 /HPF? ?Hold Urine Culture - Testing available 48 hours from timeof collection. Allergies (NKA means No Known Allergies) CeleBREX??(STOMACH UPSET) Inapsine??(stiff neck can't move) morphine??(nausea vimiting, very lethargic) naproxen??(STOMACH UPSET) oxyCODONE??(lethargiic) penicillins??(hives) Problems Active Problems??(6) Depression?? Finger injury?? Hypertension?? Hypothyroid?? Macular degeneration?? UTI (urinary tract infection)?? Education Materials Below is the list of Educational Leaflet Providered with your Discharge Instructions. Valuables and Belongings I fully understand and agree that [facility] accepts no responsibility for all my personal property including clothing, toilet articles, radios, jewelry, dentures, hearing aids, rings, money, or any other property that is in my possession or is brought to me after admission. I understand certain valuables may be placed in a hospital safe for a short period of time. I understand that the hospital is not liable for loss or damage due to accident, fire, or other natural occurrence while said property is in the safe. I accept full responsibility for any personal property that I keep with me, and will not hold the hospital responsible in case of loss or disappearance. I acknowledge that i have been encouraged to send valuables and belongings home. ?? Date for Pt to Sign Valuables/Belongings: 04/28/23 01:19:00 ?? Other Discharge Information ? Case Management Discharge Plan?? Discharge Plan?? Discharge Agency Information?? Discharge Level of Care at Discharge: senior living facility Name of Agency #1: [facility] Discharge Transportation Arranged: [facility] ??[phone] Service Categories #1: Occupational Therapy, Physical Therapy, Snf Mode of Transportation Arranged: Ambulance Service Comments #1: You are being discharged to [facility] via ambulance stretcher, for rehab. Discharge Arranged Transport Date/Time: 04/30/23 12:00:00 ?? Discharge Nursing Homes/Rehab Facilities: [facility] ? Pulmonary Rehab Status?? Pulmonary Rehab Discharge Status?? Respiratory Rate: 20 br/min ? Common Emergency Awareness Tips IS IT A STROKE? Act FAST and Check for these signs: FACE Does the face look uneven? ARM Does one arm drift down? SPEECH Does their speech sound strange? TIME Call at any sign of stroke ?? Heart Attack Signs Chest discomfort: Most heart attacks involve discomfort in the center of the chest and lasts more than a few minutes, or goes away and comes back. It can feel like uncomfortable pressure, squeezing, fullness or pain. Discomfort in upper body: Symptoms can include pain or discomfort in one or both arms, back, neck, jaw or stomach. Shortness of breath: With or without discomfort. Other signs: Breaking out in a cold sweat, nausea, or lightheaded. Remember, MINUTES DO MATTER. If you experience any of these heart attack warning signs, call to get immediate medical attention! ?? Smoking can increase your chances of developing chronic health problems and can cause harmful effects to other family members in your house. If you smoke, you are strongly encouraged to quit. Please call [facility] amazingtunes Link at [phone] or 5-672-526Swink.tv ([phone]) or log in to [email or web address] for referrals to smoking cessation programs. ?? 446 Suicide & Crisis Lifeline is available 07/06 if you or someone you know needs to find a reason to keep living. By calling 820 you'll be connected to a skilled, trained counselor at a crisis center in your area. INPATIENT DISCHARGE INSTRUCTIONS SIGNATURE CORINNA BHATIAROBERTA Location:[facility] Registration Date and Time:04/27/2023 20:13 EDT Primary Care Physician: Luly CARVER, Brandon Lopez, Attending Physician: Leslie CARVER, Tamiko, I ROBERTA BHATIA, have received the above patient education materials/instructions and have verbalized understanding. If ambulance or transport services are being used I further acknowledge being given a choice of service. ?? If you need to contact me, please call me at this number: . Patient/Health And Safety Director Name: Patient/Health And Safety Director Signature: Relationship to Patient: Witness Name/Signature: Date: Patient Care team information Care Team Personnel Name: Hannah Adamson RN Position: [facility] RN Member Role: Primary Care Nurse Name: Brandon Mauricio MD Position: [facility] Physician - Primary Care Member Role: PCP Address: Address: [address] [place] [address] Name: Sarah Morales RN Position: [facility] RN Member Role: Primary Care Nurse Name: Trini Barakat RN Position: [facility] RN Member Role: Primary Care Nurse Name: Brittany Lane RN Position: [facility] RN Member Role: Primary Care Nurse Name: Hannah Maddox RN Position: [facility] RN Member Role: Primary Care Nurse Name: Rojelio STRONG Attending Position: [facility] ED Medicine Name: Aishwarya Porter RN Position: [facility] ED RN W/OE and Tasks Member Role: Patient Care Provider Name: Mena Sinclair Position: [facility] ED TA [facility] Care Team Related Persons Name: GARY BLACK Address: [address] [place] [address]
--- OUTSIDE RECORDS SUMMARY | 2023-12-09 16:53 | XMS_ITS | Continuity of Care Document ---
Author Name Unknown Organization [facility] Address [address] [place] [id number]- Care Team Providers Care Ice Rink Attendant Name Role Phone Brandon Mauricio MD Primary Care Physician Encounter [facility] Date(s): 09/23/20 - 10/23/[address] [address] Attending Physician: Admbeth, Abhilash Admitting Physician: Admtr, Abhilash Referring Physician: Admtr, Ar8 Allergies, Adverse Reactions, Alerts Substance Reaction Severity Status morphine nausea vimiting very lethargic Active penicillins hives Active Inapsine stiff neck can't move Active oxyCODONE lethargiic Active Medications Avapro 300, mg, By Mouth, Daily at bedtime, 0, 0, 02/16/08 0:04:38, Print LISA Number, [id number], Constant Indicator Start Date: 02/16/08 Status: Ordered Estradiol = 1 mg, By Mouth, Daily, 0 Refills Start Date: 02/16/08 Status: Ordered gabapentin 100 mg oral capsule 1 capsule = 100 mg, By Mouth, 2 times a day, 0 Refills, Maintenance Start Date: 07/28/13 Status: Ordered Klor-Con 10 10, mEq, By Mouth, Daily, 0, 0, 02/16/08 0:06:58, Print LISA Number, [id number], Constant Indicator Start Date: 02/16/08 Status: Ordered Levothyroxine Tablet = 0.01 mg, By Mouth, Daily, on WEDNESDAY takes tabs 2, 0 Refills Start Date: 02/16/08 Status: Ordered Lexapro Tablet 20, mg, By Mouth, Daily at bedtime, 0, 0, 02/16/08 0:01:04, Print LISA Number, [id number], Constant Indicator Start Date: 02/16/08 Status: Ordered Lotrel 10 mg-40 mg oral capsule 1, capsule, By Mouth, Daily, 0, 0, 02/16/08 0:07:16, Print LISA Number, [id number], Constant Indicator Start Date: 02/16/08 Status: Ordered medroxyprogesterone 2.5 mg oral tablet 2.5, mg, 1, tablet, By Mouth, Daily, 0, 0, 02/16/08 0:06:31, Print LISA Number, [id number], Constant Indicator Start Date: 02/16/08 Status: Ordered Nexium Capsule 40, mg, By Mouth, Daily, 0, 0, 02/16/08 0:02:43, Print LISA Number, [id number], Constant Indicator Start Date: 02/16/08 Status: Ordered Ocuvite 1 tablet, By Mouth, Daily, 0 Refills, Maintenance Start Date: 07/28/13 Status: Ordered VESIcare = 5 mg, By Mouth, Daily, 0 Refills, Maintenance Start Date: 07/28/13 Status: Ordered Problem List Condition Effective Dates Status Health Status Inform ant Finger injury(Confirmed) Active
--- OUTSIDE RECORDS SUMMARY | 2023-12-09 16:53 | XMS_ITS | Continuity of Care Document ---
Author Name Unknown Organization [facility] Address [address] [place] [id number]- Care Team Providers Care Executive Chef Assistant Name Role Phone Brandon Mauricio MD Primary Care Physician [phone] Encounter 08/25/23 - 09/21/23 [facility] [address] [place] [address]- Discharge Disposition: CLIENT NO LONGER REQUIRES SKILLED CARE Allergies, Adverse Reactions, Alerts Substance Reaction Severity [...] 0, 0, 02/16/08 0:06:58, Print LISA Number, [id number], Constant Indicator Start Date: 02/16/08 Status: Ordered [...] Primary Care Member Role: PCP Address: Address: [address] [place] [address] Name: Sarah Morales RN Position: S RN Member Role: Primary Care Nurse Name: Trini Barakat RN Position: S RN Member Role: Primary Care Nurse Name: Brittany Lane RN Position: S RN Member Role: Primary Care Nurse Name: Hannah Maddox RN Position: [facility] RN Member Role: Primary Care Nurse Care Team Related Persons Name: GARY BLACK Address: [address] [address]
--- OUTSIDE RECORDS SUMMARY | 2023-12-09 16:53 | XMS_ITS | Continuity of Care Document ---
Author Name Unknown Organization [facility] ter Address [address] [place] [id number]- Care Team Providers Care Cot Assembler Name Role Phone Brandon Mauricio MD Primary Care Physician [phone] Encounter [facility] Date(s): 12/20/20 - 01/19/[address] [address] Attending Physician: Abhilash Pineda Admitting Physician: Admtr, Abhilash Referring Physician: Admtr, Ar8 Allergies, Adverse Reactions, Alerts Substance Reaction Severity Status naproxen STOMACH UPSET Active Inapsine stiff neck can't move Active CeleBREX STOMACH UPSET Active morphine nausea [...] capsule, 0 Refills, Maintenance, 12/31/20 8:50:00EST, Capsule, [facility], Partial fill upon [...] 0, 0, 02/16/08 0:06:58, Print LISA Number, [id number], Constant Indicator Start Date: 02/16/08 Status: Ordered [...]
[2023-12-09 16:56] LABS: MANUAL DIFF FLAG NO
[2023-12-09 16:59] LABS: Basophils Absolute Auto 0.1 X10*3/uL (0.0-0.2); Basophils Percent Auto 0.6 % (0-2); Eosinophils Absolute Auto 0.3 X10*3/uL (0.0-0.4); Eosinophils Percent Auto 2.6 % (0-4); Hematocrit 41.9 % (37.0-47.0); Hemoglobin 12.5 g/dl (12.0-16.0); Imm Gran Abs Auto 0.04 X10*3/uL (0.00-0.03); Imm Gran Pct Auto 0.4 % (0.0-0.4); Lymphocytes Absolute Auto 1.8 X10*3/uL (1.2-4.9); Lymphocytes Percent Auto 17.3 % (20-40); Mean Corpuscular HGB Conc 29.8 g/dl (31.0-35.0); Mean Corpuscular Hemoglobin 25.5 pg (27.0-33.0); Mean Corpuscular Volume 85.3 fL (80.0-98.0); Mean Platelet Volume 10.9 fL (9.4-12.3); Neutrophils Absolute Auto 7.1 x10*3/uL (2.0-8.3); Neutrophils Percent Auto 69.1 % (45-73); Platelet Count 288 X10*3/uL (160-400); Red Blood Count 4.91 X10*6/uL (4.20-5.50); White Blood Count 10.3 X10*3/uL (4.8-10.8)
[2023-12-09 17:08] LABS: INTERNATIONAL NORM RATIO 1.2 (0.9-1.1)
--- NOTE | 2023-12-09 17:08 | ED_ITS ---
HPI - General Adult General Chief complaint: Fall Stated complaint: Fall w/ head strike, hematoma on back of head Time Seen by Provider: 12/09/23 15:58 Source: patient, old records reviewed and other (healthcare proxy) Mode of arrival: EMS Limitations: no limitations History of Present Illness HPI narrative: 73-year-old female with past medical history significant for atrial fibrillation on Eliquis, hyperlipidemia, hypertension, hypothyroidism, GERD presents for evaluation after a fall. Patient is independent and lives alone in her own condo She reports that she was walking to her car and when she unlocked the car door she accidentally unlock the trunk. She reports she went to close the trunk and tripped over her cane She believes she was turning to her right side as she fell She complains of right upper back pain and posterior headache. She has a wound to the back of her head Denies any neck pain She also complains of mild right elbow and left hip pain Patient is adamant that this was a nonsyncopal fall. She reports that she remembers the entire event Denies any chest pain, abdominal pain Related Data Home Medications Medication Instructions Recorded Confirmed atorvastatin 40 mg tablet 40 mg PO BEDTIME 08/13/23 12/09/23 carboxymethylcellulose sodium 0.5 1 drp ophthalmic (eye) Q2H PRN Dry 08/13/23 12/09/23 % eye drops (Refresh Tears) Eyes carvedilol 3.125 mg tablet 3.125 mg PO BID 08/13/23 12/09/23 duloxetine 30 mg capsule,delayed 30 mg PO BEDTIME 08/13/23 12/09/23 release duloxetine 60 mg capsule,delayed 60 mg PO BEDTIME 08/13/23 12/09/23 release furosemide 20 mg tablet 20 mg PO DAILY 08/13/23 12/09/23 gabapentin 300 mg capsule 300 mg PO BEDTIME 08/13/23 12/09/23 levothyroxine 100 mcg tablet 100 mcg PO DAILY 08/13/23 12/09/23 omeprazole 40 mg capsule,delayed 40 mg PO DAILY 08/13/23 12/09/23 release potassium chloride 10 mEq 10 meq PO BEDTIME 08/13/23 12/09/23 tablet,extended release tolterodine 4 mg capsule,extended 4 mg PO DAILY 08/13/23 12/09/23 release 24 hr trazodone 100 mg tablet 100 mg PO BEDTIME 08/13/23 12/09/23 benazepril 40 mg tablet 20 mg PO DAILY 12/09/23 12/09/23 Previous Rx's Medication Instructions Recorded apixaban 5 mg tablet (Eliquis) 5 mg PO BID #60 tabs 09/16/23 diltiazem HCl 240 mg 240 mg PO DAILY #30 caps 09/16/23 capsule,extended release 24 hr Allergies Allergy/AdvReac Type Severity Reaction Status Date / Time erythromycin base Allergy Severe Rash Verified 08/18/23 11:31 [From Erythrocin] Penicillins [PENICILLINS] Allergy Severe HIVES Verified 08/13/23 14:58 droperidol [From INAPSINE] Allergy Intermediate UNUSUAL Verified 08/13/23 14:58 HEAD MOVEMENTS oxycodone [OXYCODONE] Allergy Mild ITCHING Verified 08/13/23 14:58 morphine [MORPHINE] AdvReac Unknown CONFUSION Verified 08/13/23 14:58 Review of Systems 2 Constitutional: Constitutional: Denies chills, Denies fever(s) and Reports headache(s) Eyes: Eyes: Denies blurry vision ENT: Denies dizziness and Reports headache(s) Cardiovascular: Cardiovascular: Denies chest pain, Denies syncope and Denies dyspnea Respiratory: Respiratory: Denies cough and Denies dyspnea Gastrointestinal: Gastrointestinal: Denies abdominal pain, Denies nausea and Denies vomiting Musculoskeletal: Musculoskeletal: Reports back pain Integumentary/Breasts: Skin/Breast: Denies rash and Reports wounds Neurologic: Denies confusion, Denies dizziness, Denies syncope and Reports headache(s) Psychiatric: Psychiatric: Denies confusion [facility] Past Medical History Medical History Frequent falls Anemia Head injury General weakness Fall Lupus Family History Family History Mother Myocardial infarction Social History Social History Household Members: None Housing: House Patient Tobacco Use Status: Never used Tobacco Smoked in Last 30 Days: No e-Cigarette/Vaping Use: Never Used Use of substances other than those prescribed or required for medical reasons: No Advance Directives: Yes Advance Directives Information Provided: No Advance Directives on File: No service: No Physical Exam ED Vital Signs: Vital Signs - 24 hr 12/09/23 15:41 12/09/23 23:10 Temperature 97.7 F Pulse Rate 83 81 Respiratory Rate 20 18 Blood Pressure 191/76 H 118/74 Pulse Oximetry 97 95 Oxygen Delivery Method Room Air Room Air BMI result Body Mass Index 27.9 Const General: cooperative and healthy appearing; No confusion Nutritional Appearance: well nourished Orientation/consciousness: patient oriented x3 and No confusion HENMT Other: Hematoma to the posterior scalp without active bleeding Eyes Eyelids: Yes eyelids normal Conjunctivae: conjunctivae normal Sclerae: sclerae normal Corneas: corneas normal Pupils: Equal, round and reactive pupils present EOM: EOMs intact bilaterally Neck Neck: Yes full ROM Resp Effort & Inspection: normal respiratory effort, able to speak in complete sentences, no audible wheezes and not labored Auscultation: clear to auscultation bilaterally GI Inspection: No distended Palpation (GI): Soft to palpation, not firm, nontender, no guarding and not rigid Back/Spine/Pelvis Other: Tenderness in the right posterior axillary line extending slightly medial over the area of approximately T3-T6. No palpable deformities Skin General skin exam: elasticity normal Neuro General: patient oriented x3 and No confusion Cranial nerves: Yes CN's II-XII intact bilaterally, Yes Equal, round and reactive pupils present and Yes Bilaterally intact EOM present Cognition (Neuro): normal cognition Extrem Other: Patient has full range of motion to the bilateral lower extremities, right upper extremity. She has chronic decreased range of motion left upper extremity due to a chronic shoulder issue. Mild tenderness to the left hip with manipulation. No shortening or rotation of the left lower extremity Course Reevaluation(s) Reevaluation #1: Patient's workup largely unremarkable. She did have a wound to the left posterior scalp that was closed with orlando, see procedure note. CT imaging of the brain, cervical spine, x-ray of the elbow, right ribs with PA chest and pelvis did not show any acute traumatic injuries. I discussed with the patient's healthcare proxy who does not feel safe with the patient going home today. He would like her to remain in the ED overnight. The patient would also prefer to stay in the ED overnight. She does not meet criteria for admission. Time: 19:30 Medications Administered Generic Name Dose Route Start Last Admin Trade Name Freq PRN Reason Stop Dose Admin Apixaban 5 mg 12/09/23 22:15 12/09/23 23:12 Apixaban 5 Mg Tablet PO 5 mg BID PHONG Administration Atorvastatin Calcium 40 mg 12/09/23 22:15 12/09/23 23:11 Atorvastatin Calcium 40 Mg Tablet PO 40 mg BEDTIME PHONG Administration Carvedilol 3.125 mg 12/09/23 22:15 12/09/23 23:11 Carvedilol 3.125 Mg Tablet PO 3.125 mg BID PHONG Administration Protocol Duloxetine HCl 30 mg 12/09/23 22:15 12/09/23 23:11 Duloxetine Hcl 30 Mg Capsule. PO 30 mg BEDTIME PHONG Administration Duloxetine HCl 60 mg 12/09/23 22:15 12/09/23 23:11 Duloxetine Hcl 60 Mg Capsule. PO 60 mg BEDTIME PHONG Administration Gabapentin 300 mg 12/09/23 22:15 12/09/23 23:11 Gabapentin 300 Mg Capsule PO 300 mg BEDTIME PHONG Administration Potassium Chloride 10 meq 12/09/23 22:30 12/09/23 23:11 Potassium Chloride Er 10 Meq Tablet.Er PO 10 meq BEDTIME PHONG Administration Trazodone HCl 100 mg 12/09/23 22:15 12/09/23 23:11 Trazodone Hcl 100 Mg Tablet PO 100 mg BEDTIME PHONG Administration Discontinued Medications Generic Name Dose Route Start Last Admin Trade Name Tyq PRN Reason Stop Dose Admin Acetaminophen 650 mg 12/09/23 16:40 12/09/23 18:38 Acetaminophen 325 Mg Tablet PO 12/09/23 16:41 650 mg ONCE ONE Administration Procedures Laceration Laceration 1: Site: scalp (Posterior scalp) Size (cm): 3 Description: linear (v-shaped) Depth: simple, single layer Number of sutures: 6 Technique: simple, interrupted (surgical orlando) Medical Decision Making Medical Decision Making MDM Narrative: 73-year-old female presents for evaluation after a fall. Plan for CT imaging of the brain, cervical spine. She has right thoracic paraspinous region tenderness. Concern for rib fracture, x-ray of the ribs with PA chest was ordered. Will also get an x-ray of the right elbow and left hip pelvis. Basic labs, EKG will be obtained. Differential Diagnosis Differential Diagnoses: The differential diagnosis associated with the presentation includes Mechanical fall Head strike Intracranial hemorrhage Calvarial fracture Cervical fracture Contusion Skin tear Laceration Lab Data [facility] Lab Attestation statement: I reviewed the patient's lab results. No significant anemia, no leukocytosis. No electrolyte abnormalities. 12/09/23 16:50 12/09/23 16:50 Labs: Lab Results 12/09/23 Range/Units 16:50 WBC 10.3 (4.8-10.8) X10*3/uL RBC 4.91 (4.20-5.50) X10*6/uL Hgb 12.5 (12.0-16.0) g/dl Hct 41.9 (37.0-47.0) % MCV 85.3 (80.0-98.0) fL MCH 25.5 L (27.0-33.0) pg MCHC 29.8 L (31.0-35.0) g/dl RDW 15.0 (11.0-16.0) % Plt Count 288 D (160-400) X10*3/uL MPV 10.9 (9.4-12.3) fL Immature Gran % (Auto) 0.4 (0.0-0.4) % Neut % (Auto) 69.1 (45-73) % Lymph % (Auto) 17.3 L (20-40) % [place] % (Auto) 10.0 (2-11) % Eos % (Auto) 2.6 (0-4) % Baso % (Auto) 0.6 (0-2) % Lymph # (Auto) 1.8 (1.2-4.9) X10*3/uL [place] # (Auto) 1.0 (0.1-1.2) X10*3/uL Eos # (Auto) 0.3 (0.0-0.4) X10*3/uL Baso # (Auto) 0.1 (0.0-0.2) X10*3/uL Abs Immat Gran (auto) 0.04 H (0.00-0.03) X10*3/uL Absolute Neuts (auto) 7.1 (2.0-8.3) x10*3/uL Absolute Nucleated RBC 0.000 (0.0-0.012) X10*3/uL Nucleated RBC % (auto) 0.0 (0.0-0.2) /100WBC PT 15.0 H (11.1-13.3) SEC INR 1.2 H (0.9-1.1) Sodium 142 (135-145) mmol/L Potassium 3.8 (3.3-5.1) mmol/L Chloride 106 (96-108) mmol/L Carbon Dioxide 26 (22-29) mmol/L Anion Gap 14 (12-20) BUN 16 (9-16) mg/dL Creatinine 0.78 (0.5-1.4) mg/dL Estim Creat Clear Calc 69.2 Estimated GFR > 60 Random Glucose 104 (60-115) mg/dL Calcium 9.6 D (8.4-10.2) mg/dL Magnesium 2.2 (1.6-2.6) mg/dL Total Bilirubin 0.4 (0.0-1.0) mg/dL AST 17 (5-31) U/L ALT 14 (0-31) U/L Alkaline Phosphatase 96 (39-117) U/L Troponin I High Sens < 2.7 (<3.5-17.0) ng/L Total Protein 7.4 (6.5-8.0) g/dL Albumin 3.7 (3.5-5.0) g/dL Independent Interpretation I performed an independent interpretation of an: EKG (Normal sinus rhythm with a rate of [address] segment elevations or depressions.) and CT Scan (Agree with Radiology interpretation) Radiology Impression Discussion of test interpretation with radiology: I have reviewed the radiologist's reading. (No acute intracranial hemorrhage. Midline posterior scalp hematoma without calvarial fracture. Degenerative changes of the cervical spine without fracture) Discharge Plan Discharge Clinical Impression: Fall, Laceration of scalp Patient Disposition: Home, Self-Care Instructions: Laceration (ED) Additional Instructions: Your workup in the emergency room today was reassuring. This includes all of your blood work, EKG, x-rays and CT imaging You had 6 orlando placed to your posterior head These can be removed in 5-7 days You may resume all of your medications Prescriptions: No Action atorvastatin 40 mg tablet 40 mg PO BEDTIME tolterodine 4 mg capsule,extended release 24hr 4 mg PO DAILY potassium chloride 10 mEq tablet extended release 10 meq PO BEDTIME omeprazole 40 mg capsule,delayed release(DR/EC) 40 mg PO DAILY carvedilol 3.125 mg tablet 3.125 mg PO BID levothyroxine 100 mcg tablet 100 mcg PO DAILY trazodone 100 mg tablet 100 mg PO BEDTIME gabapentin 300 mg capsule 300 mg PO BEDTIME furosemide 20 mg tablet 20 mg PO DAILY duloxetine 60 mg capsule,delayed release(DR/EC) 60 mg PO BEDTIME duloxetine 30 mg capsule,delayed release(DR/EC) 30 mg PO BEDTIME carboxymethylcellulose sodium [Refresh Tears] 0.5 % Drops 1 drp OPHTHALMIC (EYE) Q2H PRN (Reason: Dry Eyes) benazepril 40 mg tablet 20 mg PO DAILY diltiazem HCl 240 mg capsule,extended release 24hr 240 mg PO DAILY Qty: 30 6RF Protocol: Hold for SBP/HR < HOLD for SBP < : 90 HOLD for HR < : 60 Eliquis 5 mg tablet 5 mg PO BID Qty: 60 6RF
[2023-12-09 17:24] LABS: Alanine Aminotransferase 14 U/L (0-31); Albumin Level 3.7 g/dL (3.5-5.0); Alkaline Phosphatase 96 U/L (39-117); Anion Gap 14 (12-20); Aspartate Amino Transferase 17 U/L (5-31); Bilirubin Total 0.4 mg/dL (0.0-1.0); Blood Urea Nitrogen 16 mg/dL (9-16); Calcium 9.6 mg/dL (8.4-10.2); Carbon Dioxide 26 mmol/L (22-29); Chloride 106 mmol/L (96-108); Creatinine Clr Calc Pharmacy 69.2; Estimated Glomerular Filt Rate > 60; Glucose Random 104 mg/dL (60-115); Magnesium 2.2 mg/dL (1.6-2.6); Potassium 3.8 mmol/L (3.3-5.1); Sodium 142 mmol/L (135-145); Total Protein 7.4 g/dL (6.5-8.0)
[2023-12-09 17:34] LABS: Troponin-I High Sensitivity < 2.7 ng/L (<3.5-17.0)
[2023-12-09] MEDS: Acetaminophen 325 MG TABLET 650 MG PO (18:38)
--- NOTE | 2023-12-09 18:42 | PC.NURSE ---
Pt medicated per JAN for 08/24 head and back pain by this float MARIA ISABEL.
--- NOTE | 2023-12-09 19:46 | PC.NURSE ---
4 x4 and gauze wrap applied to pts head per Cristobal NICOLAS.
--- NOTE | 2023-12-09 21:41 | PHA.MEDREC ---
Pharmacy Consult ? Medication Reconciliation Pharmacy has completed the medication reconciliation. Patient confirmed all medications. Cortney Perez, JanaeD
[2023-12-09 23:10] VITALS: BP 118/74; PULSE 81; RESP 18; O2SAT 95
[2023-12-09] MEDS: DULoxetine HCl 60 MG CAPSULE.DR PO (23:11)
[2023-12-09] MEDS: Potassium Chloride ER 10 MEQ TABLET.ER PO (23:11)
[2023-12-09] MEDS: DULoxetine HCl 30 MG CAPSULE.DR PO (23:11)
[2023-12-09] MEDS: carvediloL 3.125 MG TABLET PO (23:11)
[2023-12-09] MEDS: Atorvastatin Calcium 40 MG TABLET PO (23:11)
[2023-12-09] MEDS: traZODone HCL 100 MG TABLET PO (23:11)
[2023-12-09] MEDS: Gabapentin 300 MG CAPSULE PO (23:11)
[2023-12-09] MEDS: Apixaban 5 MG TABLET PO (23:12)
--- NOTE | 2023-12-10 01:22 | PC.NURSE ---
Pt assisted to restroom via wheelchair.
[2023-12-10 04:00] VITALS: BP 155/71; PULSE 69; RESP 16; TEMP 36.7; O2SAT 94
[2023-12-10] MEDS: Omeprazole 40 MG CAPSULE.DR PO (06:48)
[2023-12-10] MEDS: Levothyroxine Sodium 100 MCG TABLET PO (06:48)
--- NOTE | 2023-12-10 08:03 | PC.NURSE ---
provided with coffee and toast. states she lives at home, has cane, walker, and wheelchair. will ambulation trial patient and rewrap patient's head prior to discharge.
--- NOTE | 2023-12-10 08:57 | PC.NURSE ---
ambulated to the bathroom independently with walker, strong steady gait. orlando cleaned, rewrapped - no bleeding at this time.
[2023-12-10 09:01] VITALS: BP 116/73; PULSE 91; RESP 16; TEMP 36.8; O2SAT 96
[2023-12-10] MEDS: Acetaminophen 325 MG TABLET 650 MG PO (09:06)
[2023-12-10] MEDS: carvediloL 3.125 MG TABLET PO (09:06)
[2023-12-10] MEDS: Furosemide 20 MG TABLET PO (09:06)
[2023-12-10] MEDS: dilTIAZem HCL CD 240 MG CAP.ER.DEG PO (09:06)
[2023-12-10] MEDS: Tolterodine Tartrate LA 4 MG CAP.ER.24H PO (09:06)
[2023-12-10] MEDS: lisinopriL 20 MG TABLET PO (09:06)
[2023-12-10] MEDS: Apixaban 5 MG TABLET PO (09:07)
== END 2023-12-10 10:18 | disposition home or self-care (01) ==
PROVIDERS: Physician Assistant; Emergency Provider Emergency Medicine; PCP Internal Medicine
DX: S01.01XA Laceration without foreign body of scalp, initial encounter (principal); R51.9 Headache, unspecified; R07.81 Pleurodynia; M54.2 Cervicalgia; R94.31 Abnormal electrocardiogram [ECG] [EKG]; M25.521 Pain in right elbow; R10.2 Pelvic and perineal pain; W01.0XXA Fall on same level from slipping, tripping and stumbling without subsequent striking against object, initial encounter; Y93.9 Activity, unspecified; Y92.9 Unspecified place or not applicable; Y99.8 Other external cause status; Z79.899 Other long term (current) drug therapy
CPT/HCPCS: 12002; 36415; 70450; 71101; 72125; 72170; 73070; 80053; 83735; 84484; 85025; 85610; 93005; 99284; 99285

== ENCOUNTER → 2023-12-09 15:37 | Outpatient (BNV) | payer MEDICARE, SELFPAY | PROVIDERS: Emergency Provider Emergency Medicine; PCP Internal Medicine; Visit Provider Internal Medicine Cardiovascular Disease | DX: R94.31 Abnormal electrocardiogram [ECG] [EKG] (principal) | CPT/HCPCS: 93010 ==

== ENCOUNTER 2023-12-16 09:01 | Emergency (ER) | payer MEDICARE, SELFPAY ==
[2023-12-16 09:12] VITALS: PULSE 82; RESP 16; TEMP 36.3; O2SAT 96; BMI 27.1
--- NOTE | 2023-12-16 10:08 | ED_ITS ---
HPI - Wound/Laceration General Chief Complaint: Wound/Laceration Stated Complaint: Removal of [place] Time Seen by Provider: 12/16/23 09:21 Source: patient, RN notes reviewed and old records reviewed Mode of arrival: ambulatory History of Present Illness HPI narrative: 73-year-old female with a past medical history of AFib on Eliquis, HLD, HTN, hypothyroid, GERD, presenting to ED for staple removal from scalp s/p mechanical trip and fall on 12/09/2023. Patient was evaluated in our ED after incident, had 6 orlando placed as well as imaging studies which were unremarkable. Denies fever, chills, drainage from area, headache nausea/vomiting Onset (ago): day(s) Related Data Home Medications Medication Instructions Recorded Confirmed atorvastatin 40 mg tablet 40 mg PO BEDTIME 08/13/23 12/09/23 carboxymethylcellulose sodium 0.5 1 drp ophthalmic (eye) Q2H PRN Dry 08/13/23 12/09/23 % eye drops (Refresh Tears) Eyes carvedilol 3.125 mg tablet 3.125 mg PO BID 08/13/23 12/09/23 duloxetine 30 mg capsule,delayed 30 mg PO BEDTIME 08/13/23 12/09/23 release duloxetine 60 mg capsule,delayed 60 mg PO BEDTIME 08/13/23 12/09/23 release furosemide 20 mg tablet 20 mg PO DAILY 08/13/23 12/09/23 gabapentin 300 mg capsule 300 mg PO BEDTIME 08/13/23 12/09/23 levothyroxine 100 mcg tablet 100 mcg PO DAILY 08/13/23 12/09/23 omeprazole 40 mg capsule,delayed 40 mg PO DAILY 08/13/23 12/09/23 release potassium chloride 10 mEq 10 meq PO BEDTIME 08/13/23 12/09/23 tablet,extended release tolterodine 4 mg capsule,extended 4 mg PO DAILY 08/13/23 12/09/23 release 24 hr trazodone 100 mg tablet 100 mg PO BEDTIME 08/13/23 12/09/23 benazepril 40 mg tablet 20 mg PO DAILY 12/09/23 12/09/23 Previous Rx's Medication Instructions Recorded apixaban 5 mg tablet (Eliquis) 5 mg PO BID #60 tabs 09/16/23 diltiazem HCl 240 mg 240 mg PO DAILY #30 caps 09/16/23 capsule,extended release 24 hr Allergies Allergy/AdvReac Type Severity Reaction Status Date / Time erythromycin base Allergy Severe Rash Verified 08/18/23 11:31 [From Erythrocin] Penicillins [PENICILLINS] Allergy Severe HIVES Verified 08/13/23 14:58 droperidol [From INAPSINE] Allergy Intermediate UNUSUAL Verified 08/13/23 14:58 HEAD MOVEMENTS oxycodone [OXYCODONE] Allergy Mild ITCHING Verified 08/13/23 14:58 morphine [MORPHINE] AdvReac Unknown CONFUSION Verified 08/13/23 14:58 Review of Systems Review of Systems: Constitutional: No Fever, No Chills ENT/Mouth: No Ear Pain, No Nasal Congestion, No sore throat, No Rhinorrhea, No Swallowing Difficulty Cardiovascular: No Chest Pain, No SOB Respiratory: No Cough, No Sputum Gastrointestinal: No Nausea, No Vomiting,No Abdominal pain Musculoskeletal: No joint pain, No Myalgias, No Joint Swelling Skin: +Skin Lesions, No rash Neuro: No Weakness, No Numbness, No Paresthesias Yes all other systems are reviewed and are negative Constitutional: Constitutional: Reports as per [facility] Past Medical History Attestation statement: The following information was validated with the patient. Source: old records reviewed Medical History Frequent falls Anemia Head injury General weakness Fall Lupus Family History Family History Mother Myocardial infarction Social History Social History Household Members: None Housing: House Patient Tobacco Use Status: Never used Tobacco e-Cigarette/Vaping Use: Never Used Advance Directives: Yes Advance Directives on File: No service: No Physical Exam Vital Signs: Vital Signs: Last Vital Signs Temp 97.4 F 12/16/23 09:12 Pulse 82 12/16/23 09:12 Resp 16 12/16/23 09:12 Pulse Ox 96 12/16/23 09:12 O2 Del Method Room Air 12/16/23 09:12 BMI result Body Mass Index 27.1 Const: General: cooperative, healthy appearing and no acute distress Orientation/consciousness: patient oriented x3 Limitations: no limitations HEENT: Other: +healing laceration noted to posterior s calp with overlying scabbing. Six [place] intact. No fluctuance/induration or active pus drainage. No surrounding erythema. Mildly tender. Head: Yes normal to inspection and Yes atraumatic Ears: hearing grossly normal bilaterally General nose exam: Normal external nose present Face and sinus: Yes normal facial exam Eyes: General: appearance normal, both eyes and all related structures EOM: EOMs intact bilaterally Neck: Neck: Yes normal visual inspection and Yes no meningeal signs Resp: Effort & Inspection: normal respiratory effort and no respiratory distress Cardio: Rate: regular rate : General: Yes no CVA tenderness Back/Spine/Pelvis: Back: no CVA tenderness Skin: Rashes: no rashes Neuro: General: patient oriented x3, tone normal and no meningeal signs Cranial nerves: Yes CN's II-XII intact bilaterally Gait exam (Neuro): Normal gait present Extrem: General: Yes normal to inspection Medical Decision Making Medical Decision Making MDM Narrative: 73-year-old female with a past medical history of AFib on Eliquis, HLD, HTN, hypothyroid, GERD, presenting to ED for staple removal from scalp s/p mechanical trip and fall on 12/09/2023. On exam vital signs stable, NAD, nontoxic appearing, physical exam as noted above. Six [place] removed without complications. No evidence of overlying cellulitis/infection or abscess Please refer to course for remaining clinical decision making, interpretation of labs/imaging results, and discussions with consultants and/or family members. Results discussed with patient including worrisome signs and symptoms and strict return precautions, and when to return to the emergency department. They verbalized understanding and feel safe for discharge at this time. External Record Review External record reviewed: Inpatient record, Office record, Outpatient record, Prior outpatient labs, Prior outpatient radiology, Primary care record and Outside ED record Tests considered The following testing was considered but not selected: As above Prescription Management I considered prescription management with: Pain Medication and Antibiotic Procedures Procedure Narrative Procedure Narrative: Staple removal Staple remover used: 6 [place] removed No complications No bleeding No dressing applied Discharge Plan Discharge Clinical Impression: Encounter for removal of [place] Patient Disposition: Home, Self-Care Instructions: Stitches Removal (ED) Additional Instructions: Please wash area gently with soap and water. Do not scrub If area begins to look infected, is read or there is drainage return to the ED Follow-up with your doctor Prescriptions: No Action atorvastatin 40 mg tablet 40 mg PO BEDTIME tolterodine 4 mg capsule,extended release 24hr 4 mg PO DAILY potassium chloride 10 mEq tablet extended release 10 meq PO BEDTIME omeprazole 40 mg capsule,delayed release(DR/EC) 40 mg PO DAILY carvedilol 3.125 mg tablet 3.125 mg PO BID levothyroxine 100 mcg tablet 100 mcg PO DAILY trazodone 100 mg tablet 100 mg PO BEDTIME gabapentin 300 mg capsule 300 mg PO BEDTIME furosemide 20 mg tablet 20 mg PO DAILY duloxetine 60 mg capsule,delayed release(DR/EC) 60 mg PO BEDTIME duloxetine 30 mg capsule,delayed release(DR/EC) 30 mg PO BEDTIME carboxymethylcellulose sodium [Refresh Tears] 0.5 % Drops 1 drp OPHTHALMIC (EYE) Q2H PRN (Reason: Dry Eyes) benazepril 40 mg tablet 20 mg PO DAILY diltiazem HCl 240 mg capsule,extended release 24hr 240 mg PO DAILY Qty: 30 6RF Protocol: Hold for SBP/HR < HOLD for SBP < : 90 HOLD for HR < : 60 Eliquis 5 mg tablet 5 mg PO BID Qty: 60 6RF Referrals: Brandon Mauricio MD [Primary Care Provider] - 5 days
[2023-12-16 10:28] VITALS: PULSE 86; RESP 20; TEMP 37.1; O2SAT 98
== END 2023-12-16 10:30 | disposition home or self-care (01) ==
PROVIDERS: Emergency Provider Emergency Medicine; PCP Internal Medicine
DX: Z48.02 Encounter for removal of sutures (principal); S01.01XD Laceration without foreign body of scalp, subsequent encounter; W01.0XXD Fall on same level from slipping, tripping and stumbling without subsequent striking against object, subsequent encounter
CPT/HCPCS: 99283

== ENCOUNTER 2023-12-17 10:18 | Inpatient (IN) | payer MEDICARE, SELFPAY ==
[2023-12-17] VITALS (7 sets, daily range): BP systolic 110–148; BP diastolic 54–65; PULSE 60–99; RESP 18; TEMP 36.3–36.6; O2SAT 94–95; BMI 27.7
--- NOTE | ~2023-12-17 | XR_ITS ---
EXAMINATION: XR BILATERAL HIPS WITH AP PELVIS CLINICAL INFORMATION: Fall COMPARISON: X-ray pelvis 12/09/2023 TECHNIQUE: Pelvis 2 views. Right hip 2 views. Left hip 2 views. FINDINGS: Anatomic articulation of bilateral hip joints. No visible fracture, dislocation or subluxation. Mild bilateral hip joint degenerative changes, joint space are relatively maintained. Bilateral SI joints and symphysis pubis are maintained. Mild symphysis pubis degeneration. Gas and stool projected over portion of the sacrum and pelvic bones, limiting evaluation. No visible fracture or malalignment. On the pelvic x-rays,, multiple radiopaque wires projected over lumbosacral junction, possibly overlying the patient.. Degenerative changes in lower lumbar spine. XR/XR hip BI w [id number] IMPRESSION: No radiographic evidence of acute fracture, dislocation or malalignment. If there is clinical concern for a radiographically fracture, consider pelvic CT.
--- NOTE | ~2023-12-17 | CT_ITS ---
CT HEAD WITHOUT IV CONTRAST CT CERVICAL SPINE WITHOUT IV CONTRAST INDICATION: Status post fall with pain. COMPARISON: Head and cervical spine CT degenerative 04/03/2024. TECHNIQUE: Multidetector CT acquisitions of the head and cervical spine were obtained without IV contrast. Multiplanar reformats were acquired and utilized for image interpretation. This CT examination was performed using dose optimization techniques as appropriate, variously including the following: *Automated exposure control *Adjustment of mA and/or kV according to patient size (this includes techniques or standardized protocols for targeted exams where dose is matched to indication/reason for exam; i.e. extremities or head) *Use of iterative reconstruction technique FINDINGS: HEAD: Chronic right cerebellar infarcts are again noted and there is mild chronic microangiopathy. There is no intracranial hemorrhage, hydrocephalus, extra-axial surface collection, midline shift, or other herniation pattern. Edwards to white matter differentiation is diffusely maintained without evidence of an evolved acute territorial infarct. The basilar cisterns are preserved. Parietal scalp hematoma. No acute osseous abnormality. The paranasal sinuses and the mastoid air cells are well aerated. CERVICAL SPINE: There is advanced cervical spondylosis. Diffuse osteopenia. Multilevel degenerative disc disease and multilevel hypertrophic facet arthropathy. There is no prevertebral soft tissue swelling. CT/CT head/brain wo IV con IMPRESSION: - No acute intracranial abnormality. Parietal scalp hematoma. No acute osseous findings. Chronic right cerebellar infarcts and mild chronic microangiopathy. - No acute osseous abnormality within the cervical spine. Multilevel cervical spondylosis.
--- NOTE | ~2023-12-17 | CT_ITS ---
CT HEAD WITHOUT IV CONTRAST CT CERVICAL SPINE WITHOUT IV CONTRAST INDICATION: Status post fall with pain. COMPARISON: Head and cervical spine CT degenerative 04/03/2024. TECHNIQUE: Multidetector CT acquisitions of the head and cervical spine were obtained without IV contrast. Multiplanar reformats were acquired and utilized for image interpretation. This CT examination was performed using dose optimization techniques as appropriate, variously including the following: *Automated exposure control *Adjustment of mA and/or kV according to patient size (this includes techniques or standardized protocols for targeted exams where dose is matched to indication/reason for exam; i.e. extremities or head) *Use of iterative reconstruction technique FINDINGS: HEAD: Chronic right cerebellar infarcts are again noted and there is mild chronic microangiopathy. There is no intracranial hemorrhage, hydrocephalus, extra-axial surface collection, midline shift, or other herniation pattern. Edwards to white matter differentiation is diffusely maintained without evidence of an evolved acute territorial infarct. The basilar cisterns are preserved. Parietal scalp hematoma. No acute osseous abnormality. The paranasal sinuses and the mastoid air cells are well aerated. CERVICAL SPINE: There is advanced cervical spondylosis. Diffuse osteopenia. Multilevel degenerative disc disease and multilevel hypertrophic facet arthropathy. There is no prevertebral soft tissue swelling. CT/CT cervical spine wo IV con IMPRESSION: - No acute intracranial abnormality. Parietal scalp hematoma. No acute osseous findings. Chronic right cerebellar infarcts and mild chronic microangiopathy. - No acute osseous abnormality within the cervical spine. Multilevel cervical spondylosis.
--- NOTE | ~2023-12-17 | XR_ITS ---
EXAMINATION: XR CHEST CLINICAL INFORMATION: Chest pain COMPARISON: X-ray 12/09/2023 TECHNIQUE: Frontal view of the chest was obtained. FINDINGS: The cardiomediastinal silhouette is stable. The lungs are well expanded. Mild bronchial wall thickening. There is no focal consolidation, edema, or effusion. No pneumothorax. Left reverse total shoulder arthroplasty. Presumed postsurgical changes of bilateral acromioclavicular joint. XR/XR chest 1V IMPRESSION: Bronchial thickening can be seen with infectious/inflammatory process. No dense consolidation.
--- NOTE | ~2023-12-17 | US_ITS ---
EXAMINATION: US ABDOMEN LIMITED CLINICAL INFORMATION: Abdominal pain. COMPARISON: CT abdomen/pelvis 12/17/2023 TECHNIQUE: Real-time imaging of the right upper quadrant abdominal viscera. FINDINGS: PANCREAS: Obscured. LIVER: The liver is normal in size. The liver contour is normal. Parenchymal echogenicity is normal. No focal hepatic lesion. There is no intrahepatic biliary duct dilatation seen. GALLBLADDER: The gallbladder is distended without evidence of stones, sludge, polyps, significant wall thickening or pericholecystic fluid. COMMON BILE DUCT: Normal in caliber measuring 0.5 cm in diameter. RIGHT KIDNEY: No hydronephrosis. The kidney measures 9.0 cm in maximum dimension. Midpole cyst measures 1.4 x 1.3 x 0.9 cm. No further routine follow-up is needed. FREE FLUID: None. US/US abdomen limited IMPRESSION: Distended gallbladder. No significant wall thickening.
--- NOTE | ~2023-12-17 | CT_ITS ---
EXAMINATION: CT CHEST, ABDOMEN AND PELVIS WITH CONTRAST CLINICAL INFORMATION: Status post fall. COMPARISON: None available. TECHNIQUE: Multidetector volumetric imaging was performed of the chest, abdomen and pelvis following administration of 85 mL Omnipaque 350 intravenous contrast. Oral contrast was not administered. Sagittal and coronal reformatted images were obtained on the technologist's workstation. This CT examination was performed using dose optimization techniques as appropriate, variously including the following: *Automated exposure control *Adjustment of mA and/or kV according to patient size (this includes techniques or standardized protocols for targeted exams where dose is matched to indication/reason for exam; i.e. extremities or head) *Use of iterative reconstruction technique DLP: 1172.46 mGy-cm FINDINGS: CHEST: LUNGS: Mild centrilobular and paraseptal emphysema. 9 mm spiculated nodule superior segment left lower lobe on image 240 of series 9. Few tree-in-bud micronodules in the left lower lobe. No focal consolidation. PLEURA: No pleural effusion. MEDIASTINUM: Imaged thyroid gland is unremarkable. No bulky axillary, hilar or mediastinal lymphadenopathy. Great vessels are of normal caliber. Heart size is normal. No pericardial effusion. CORONARY ARTERY CALCIFICATION: Moderate. CHEST WALL/AXILLA: No axillary or internal mammary lymphadenopathy. ABDOMEN AND PELVIS: ABDOMINAL AND PELVIC WALL: No acute abnormality. LIVER AND BILIARY TREE: The liver is normal in size and contour. No suspicious hepatic lesion. No biliary ductal dilatation. Hepatic vasculature is patent. GALLBLADDER: Distended with phrygian cap. Possible mild gallbladder wall edema. PANCREAS: No ductal dilatation. SPLEEN: Not enlarged. ADRENAL GLANDS: No adrenal mass. KIDNEYS AND URETERS: The kidneys are symmetric in size and enhancement. No hydronephrosis no perinephric fluid collection. 8 mm right renal hypodensity is too small to characterize. GASTROINTESTINAL TRACT: Large hiatal hernia. Wall thickening of the mid transverse colon to the descending colon with subtle pericolonic inflammatory change. No small bowel obstruction. VASCULAR: Normal caliber abdominal aorta. LYMPH NODES: No bulky lymphadenopathy. FREE FLUID: No free fluid. BLADDER: Unremarkable. PELVIC VISCERA: Unremarkable. OSSEOUS STRUCTURES: Diffuse osteopenia. Anterior wedging of T11 vertebral body. Multilevel degenerative disc disease. Left total shoulder arthroplasty. CT/CT abdomen pelvis w IV con IMPRESSION: Wall thickening and submucosal edema from the splenic flexure through the descending colon. Subtle pericolonic inflammatory change. This most likely represents colitis. Infectious and inflammatory etiologies should be considered. 9 mm left lower lobe spiculated pulmonary nodule. Short interval follow-up in 3 months is advised. Large hiatal hernia. Distended gallbladder. Possible mild gallbladder wall edema. Advise correlation with right upper quadrant ultrasound.
--- NOTE | 2023-12-17 10:45 | ECG_ITS ---
Test Reason : CHEST PAIN Blood Pressure : / mmHG Vent. Rate : 078 BPM Atrial Rate : 078 BPM P-R Int : 200 ms QRS Dur : 070 ms QT Int : 364 ms P-R-T Axes : 055 031 070 degrees QTc Int : 414 ms Normal sinus rhythm Nonspecific T wave abnormality Abnormal ECG When compared with ECG of 09-DEC-2023 16:04, Nonspecific T wave abnormality now evident in Lateral leads Referred By: Rosemary Drake Electronically Signed By:JUMANA SETHI MD
--- NOTE | 2023-12-17 10:51 | ED_ITS ---
HPI - Fall General Chief Complaint: Fall Stated Complaint: FALL LAST NIGHT R SIDE HIP PAIN History of Present Illness HPI Narrative: Patient is a 73-year-old female with a history of atrial fibrillation going to the bathroom last night. Subsequently while on the toilet felt dizzy lightheaded fell hit her head was on the ground had a bowel movement while patient was on the ground. Patient then dragged herself to a phone overnight. Was on the ground for over 10 hours. Patient was sent to the emergency department for further evaluation. Denies having any chest pain. Related Data Home Medications Medication Instructions Recorded Confirmed atorvastatin 40 mg tablet 40 mg PO BEDTIME 08/13/23 12/09/23 carboxymethylcellulose sodium 0.5 1 drp ophthalmic (eye) Q2H PRN Dry 08/13/23 12/09/23 % eye drops (Refresh Tears) Eyes carvedilol 3.125 mg tablet 3.125 mg PO BID 08/13/23 12/09/23 duloxetine 30 mg capsule,delayed 30 mg PO BEDTIME 08/13/23 12/09/23 release duloxetine 60 mg capsule,delayed 60 mg PO BEDTIME 08/13/23 12/09/23 release furosemide 20 mg tablet 20 mg PO DAILY 08/13/23 12/09/23 gabapentin 300 mg capsule 300 mg PO BEDTIME 08/13/23 12/09/23 levothyroxine 100 mcg tablet 100 mcg PO DAILY 08/13/23 12/09/23 omeprazole 40 mg capsule,delayed 40 mg PO DAILY 08/13/23 12/09/23 release potassium chloride 10 mEq 10 meq PO BEDTIME 08/13/23 12/09/23 tablet,extended release tolterodine 4 mg capsule,extended 4 mg PO DAILY 08/13/23 12/09/23 release 24 hr trazodone 100 mg tablet 100 mg PO BEDTIME 08/13/23 12/09/23 benazepril 40 mg tablet 20 mg PO DAILY 12/09/23 12/09/23 Previous Rx's Medication Instructions Recorded apixaban 5 mg tablet (Eliquis) 5 mg PO BID #60 tabs 09/16/23 diltiazem HCl 240 mg 240 mg PO DAILY #30 caps 09/16/23 capsule,extended release 24 hr Allergies Allergy/AdvReac Type Severity Reaction Status Date / Time erythromycin base Allergy Severe Rash Verified 08/18/23 11:31 [From Erythrocin] Penicillins [PENICILLINS] Allergy Severe HIVES Verified 08/13/23 14:58 droperidol [From INAPSINE] Allergy Intermediate UNUSUAL Verified 08/13/23 14:58 HEAD MOVEMENTS oxycodone [OXYCODONE] Allergy Mild ITCHING Verified 08/13/23 14:58 morphine [MORPHINE] AdvReac Unknown CONFUSION Verified 08/13/23 14:58 Review of Systems 2 Review of Systems: Positive generalized malaise. Positive syncopal event off the toilet. Hit her head. Complaining of pain to bilateral hip. Complaining of bruises everywhere. [facility] Past Medical History Attestation statement: The following information was validated with the patient. Source: unable to obtain Medical History Frequent falls Anemia Head injury General weakness Fall Lupus Family History Family History Mother Myocardial infarction Social History Social History Household Members: None Housing: House Patient Tobacco Use Status: Never used Tobacco Smoked in Last 30 Days: No e-Cigarette/Vaping Use: Never Used Advance Directives: Yes Advance Directives on File: No service: No Physical Exam 2 Vital Signs: Vital Signs: Last Vital Signs Temp 97.7 F 12/17/23 10:32 Pulse 82 12/17/23 10:35 Resp 18 12/17/23 10:32 BP 148/65 H 12/17/23 10:32 Pulse Ox 95 12/17/23 10:32 O2 Del Method Room Air 12/17/23 10:32 BMI result Body Mass Index 27.7 Appearance: Alert. Oriented X3. No acute distress. Eyes: Pupils equal, round and reactive to light. Positive dry blood in the mouth. Positive abrasion to the gums ENT: Pharynx normal. There has no posterior C-spine tenderness. Neck: Normal inspection. Neck supple. No lymph nodes noted. No crepitus CVS: Normal heart rate and rhythm. Pulses normal. Normal S1 and S2 Respiratory: No respiratory distress. Breath sounds normal. No Wheezing. No rales Abdomen: Soft and nontender. No rigidity. No distention. good BS x4 Skin: Skin warm and dry. Normal skin color. Normal skin turgor. Rectal exam was done with nurse Janice present. Grossly brown stool no blood Extremities: 1+ pitting edema to the lower extremity. Neurovascular intact to all extremities. Diffuse bruising everywhere on her body including the head the neck the chest the abdomen the hips the arms and legs Neuro: Oriented X 3. No motor deficit. No sensory deficit. Moving all extermities. No slurred speech Medications Administered Discontinued Medications Generic Name Dose Route Start Last Admin Trade Name Freq PRN Reason Stop Dose Admin Diphtheria/Tetanus/Acell Pertussis 0.5 ml 12/17/23 10:48 12/17/23 11:18 Diphth,Pertus(Acell),Tet Adult 0.5 Ml Syringe IM 12/17/23 10:49 0.5 ml .ONCE ONE Administration Sodium Chloride 500 mls @ 999 mls/hr 12/17/23 10:45 12/17/23 13:31 Ns IV 12/17/23 11:15 Infused .Q31M PHONG Infusion Sodium Chloride 500 mls @ 999 mls/hr 12/17/23 11:45 12/17/23 13:30 Ns IV 12/17/23 12:15 999 mls/hr .Q31M PHONG Administration Iohexol 100 ml 12/17/23 11:59 12/17/23 11:59 Iohexol 350 Mg/Ml 100 Ml Infus..Btl IV 12/17/23 12:00 85 ml ONCE ONE Administration Medical Decision Making Medical Decision Making MDM Narrative: 73 years old status post fall. Positive syncopal event was on the toilet subsequently fell off the toilet onto the ground. Then was unable to get up. Complaining of pain diffusely but worse in the right hip. Patient had diffuse bruising over the head neck chest abdomen pelvis and all extremities. Positive skin tear. The wounds were cleaned. Tetanus was updated. CT scan of the head C-spine chest abdomen pelvis was done. CTA of the head showed no evidence of bleeding. CT C-spine showed no acute evidence of fracture. CT chest abdomen pelvis showed a question colitis question cholecystitis patient has no right upper quadrant pain will nevertheless get an ultrasound. Patient's CK was 500 there has no evidence of rhabdo. Will admit patient for further evaluation. Patient's troponin was 5.2. Differential Diagnosis Differential Diagnoses: The differential diagnosis associated with the presentation includes Syncope, rhabdo, head injury, C-spine injury, traumatic injury to the chest abdomen pelvis, hip fracture, abrasion, Admission/Observation Consideration of admission/observation: Escalation of care including admission/observation considered Will require admission Consult Healthcare Provider Management of the patient was discussed with: Hospitalist Lab Data MDM Lab Attestation statement: I reviewed the patient's lab results. 12/17/23 11:12 12/17/23 11:12 Labs: Lab Results 12/17/23 12/17/23 Range/Units 11:12 12:23 WBC 17.5 H (4.8-10.8) X10*3/uL RBC 4.47 (4.20-5.50) X10*6/uL Hgb 11.8 L (12.0-16.0) g/dl Hct 37.3 (37.0-47.0) % MCV 83.4 (80.0-98.0) fL MCH 26.4 L (27.0-33.0) pg MCHC 31.6 (31.0-35.0) g/dl RDW 15.4 (11.0-16.0) % Plt Count 281 (160-400) X10*3/uL MPV 10.5 (9.4-12.3) fL Immature Gran % (Auto) 0.5 H (0.0-0.4) % Neut % (Auto) 84.7 H (45-73) % Lymph % (Auto) 7.4 L (20-40) % Glenn % (Auto) 7.1 (2-11) % Eos % (Auto) 0.1 (0-4) % Baso % (Auto) 0.2 (0-2) % Lymph # (Auto) 1.3 (1.2-4.9) X10*3/uL Glenn # (Auto) 1.2 (0.1-1.2) X10*3/uL Eos # (Auto) 0.0 (0.0-0.4) X10*3/uL Baso # (Auto) 0.0 (0.0-0.2) X10*3/uL Abs Immat Gran (auto) 0.08 H (0.00-0.03) X10*3/uL Absolute Neuts (auto) 14.9 H (2.0-8.3) x10*3/uL Absolute Nucleated RBC 0.000 (0.0-0.012) X10*3/uL Nucleated RBC % (auto) 0.0 (0.0-0.2) /100WBC Sodium 140 (135-145) mmol/L Potassium 4.0 (3.3-5.1) mmol/L Chloride 106 (96-108) mmol/L Carbon Dioxide 25 (22-29) mmol/L Anion Gap 13 (12-20) BUN 24 H (9-16) mg/dL Creatinine 0.97 (0.5-1.4) mg/dL Estim Creat Clear Calc 51.7 Estimated GFR 56 Random Glucose 107 (60-115) mg/dL Lactic Acid 1.1 (0.5-2.0) mmol/L Calcium 9.4 (8.4-10.2) mg/dL Total Bilirubin 0.6 (0.0-1.0) mg/dL Direct Bilirubin 0.2 (0.0-0.5) mg/dL AST 36 H (5-31) U/L ALT 17 (0-31) U/L Alkaline Phosphatase 90 (39-117) U/L Total Creatine Kinase 503 H (26-140) U/L Troponin I High Sens 5.2 D (<3.5-17.0) ng/L Total Protein 7.0 (6.5-8.0) g/dL Albumin 3.3 L (3.5-5.0) g/dL Lipase 6 L (8-78) U/L Stool Occult Blood NEGATIVE (NEGATIVE) Influenza Type A (PCR) NEGATIVE (Negative) Influenza Type B (PCR) NEGATIVE (Negative) RSV RNA Qual (PCR) NEGATIVE (Negative) SARS-CoV-2 RNA (RT-PCR) NEGATIVE (Negative) Independent Interpretation I performed an independent interpretation of an: EKG (Sinus heart rate is 80 DC QRS QTC within normal limits is no acute ST segment elevation), Plain X-Ray (Chest x-ray was grossly negative. Bilateral hip x-ray did not show any acute fracture.) and CT Scan (CT scan of the head was grossly negative for any acute evidence of bleeding) Radiology Impression Discussion of test interpretation with radiology: I have reviewed the radiologist's reading. External Record Review External record reviewed: Inpatient record Chronic Conditions Patient?s care impacted by: Hypertension Atrial fibrillation on Eliquis Social Determinants Patient?s care significantly limited by Social Determinants of Health including: Problems related to primary support group Discharge Plan Discharge Clinical Impression: Atrial fibrillation, Head injury, Syncope Patient Disposition: Admitted As Inpatient Prescriptions: No Action atorvastatin 40 mg tablet 40 mg PO BEDTIME tolterodine 4 mg capsule,extended release 24hr 4 mg PO DAILY potassium chloride 10 mEq tablet extended release 10 meq PO BEDTIME omeprazole 40 mg capsule,delayed release(DR/EC) 40 mg PO DAILY carvedilol 3.125 mg tablet 3.125 mg PO BID levothyroxine 100 mcg tablet 100 mcg PO DAILY trazodone 100 mg tablet 100 mg PO BEDTIME gabapentin 300 mg capsule 300 mg PO BEDTIME furosemide 20 mg tablet 20 mg PO DAILY duloxetine 60 mg capsule,delayed release(DR/EC) 60 mg PO BEDTIME duloxetine 30 mg capsule,delayed release(DR/EC) 30 mg PO BEDTIME carboxymethylcellulose sodium [Refresh Tears] 0.5 % Drops 1 drp OPHTHALMIC (EYE) Q2H PRN (Reason: Dry Eyes) benazepril 40 mg tablet 20 mg PO DAILY diltiazem HCl 240 mg capsule,extended release 24hr 240 mg PO DAILY Qty: 30 6RF Protocol: Hold for SBP/HR < HOLD for SBP < : 90 HOLD for HR < : 60 Eliquis 5 mg tablet 5 mg PO BID Qty: 60 6RF
[2023-12-17 11:16] LABS: MANUAL DIFF FLAG NO
[2023-12-17] MEDS: 0.9 % Sodium Chloride 500 ML 999 ML IV ×2 (11:18→13:30)
[2023-12-17] MEDS: Diphth,Pertus(ACell),Tet Adult 0.5 ML SYRINGE IM (11:18)
[2023-12-17 11:19] LABS: Basophils Percent Auto 0.2 % (0-2); Eosinophils Percent Auto 0.1 % (0-4); Hematocrit 37.3 % (37.0-47.0); Hemoglobin 11.8 g/dl (12.0-16.0); Imm Gran Abs Auto 0.08 X10*3/uL (0.00-0.03); Imm Gran Pct Auto 0.5 % (0.0-0.4); Lymphocytes Absolute Auto 1.3 X10*3/uL (1.2-4.9); Lymphocytes Percent Auto 7.4 % (20-40); Mean Corpuscular HGB Conc 31.6 g/dl (31.0-35.0); Mean Corpuscular Hemoglobin 26.4 pg (27.0-33.0); Mean Corpuscular Volume 83.4 fL (80.0-98.0); Mean Platelet Volume 10.5 fL (9.4-12.3); Monocytes Absolute Auto 1.2 X10*3/uL (0.1-1.2); Monocytes Percent Auto 7.1 % (2-11); Neutrophils Absolute Auto 14.9 x10*3/uL (2.0-8.3); Neutrophils Percent Auto 84.7 % (45-73); Platelet Count 281 X10*3/uL (160-400); Red Blood Count 4.47 X10*6/uL (4.20-5.50); Red Cell Distribution Width 15.4 % (11.0-16.0); White Blood Count 17.5 X10*3/uL (4.8-10.8)
[2023-12-17 11:21] LABS: OBS Int Ctl Valid YES; OBS1 NEGATIVE (NEGATIVE)
[2023-12-17 11:34] LABS: Alanine Aminotransferase 17 U/L (0-31); Albumin Level 3.3 g/dL (3.5-5.0); Alkaline Phosphatase 90 U/L (39-117); Anion Gap 13 (12-20); Aspartate Amino Transferase 36 U/L (5-31); Bilirubin Direct 0.2 mg/dL (0.0-0.5); Bilirubin Total 0.6 mg/dL (0.0-1.0); Blood Urea Nitrogen 24 mg/dL (9-16); Calcium 9.4 mg/dL (8.4-10.2); Carbon Dioxide 25 mmol/L (22-29); Chloride 106 mmol/L (96-108); Creatinine Clr Calc Pharmacy 51.7; Estimated Glomerular Filt Rate 56; Glucose Random 107 mg/dL (60-115); Lipase 6 U/L (8-78); Sodium 140 mmol/L (135-145)
[2023-12-17 11:41] LABS: Troponin-I High Sensitivity 5.2 ng/L (<3.5-17.0)
[2023-12-17 11:56] LABS: Influenza A PCR NEGATIVE (Negative); Influenza B PCR NEGATIVE (Negative); Resp Syncy Virus RNA Qual PCR NEGATIVE (Negative); SARS COV2 PCR INHOUSE NEGATIVE (Negative)
[2023-12-17] MEDS: iohexoL 350 MG/ML 100 ML INFUS..BTL IV (11:59)
[2023-12-17 12:38] LABS: Lactic Acid 1.1 mmol/L (0.5-2.0)
--- NOTE | 2023-12-17 14:23 | P.HPHOSP_ITS ---
History of Present Illness Date of Service: 12/17/23 <SHARIF Laird - Last Filed: 12/17/23 16:32> Attending physician on admission: Marci Chavira <SHARIF Laird - Last Filed: 12/17/23 16:32> Chief Complaint: Fall at home <SHARIF Laird - Last Filed: 12/17/23 16:32> Pt is a 73-year-old female with a PMH significant for?paroxysmal AFib on Eliquis, HLD, HTN, hypothyroidism, and chronic lower leg edema who presents to the ED for evaluation of syncopal episode and weakness. Pt lives alone and uses cane and walker for ambulation. Patient states last night at approximately 22:00 she went to the bathroom and had a syncopal episode. Denies any prodrome of lightheadedness or dizziness, says she just passed out for 2-3 seconds. When she came to she had slid off the toilet and became wedged between the wall and the side of the toilet. Patient felt very weak and says that it took her a few hours to wiggle out of that small space. Patient was then to weak to stand up and walk, and was on the bathroom floor for some time before being able to crawl to the bedroom. While on the floor pt has large bowel movement with bright red blood. Patient states it took until 04:00 for her to be able to crawl into the bedroom to reach a phone to call her sister who then contacted 911. Patient complains of right side and hip pain from where she was wedged between toilet and wall. Denies lightheadedness or dizziness. No fever, chills, nausea, vomiting, abdominal pain. Denies diarrhea. No abdominal pain at rest. No shortness of breath or difficulty breathing. Of note, patient has a recent history of frequent falls, seen in 08/13/2023 for weakness and 2 falls on that day. Was seen again 1 week prior on 12/09/2023 for mechanical fall with head strike while getting into car; the patient suffered occipital scalp laceration and had her orlando removed in the ED just yesterday. In the ED pt was slightly hypertensive at 148/65, otherwise vitals WNL. Labs were significant for leukocytosis of 17.5 (chronically elevated) and CPK 503, otherwise grossly unremarkable. Stable H&H. No significant electrolyte abnormalities. Lactic acid WNL at 1.1. Troponin 5.2. Stool negative for occult blood. Tested negative for influenza a and B, RSV, COVID. CXR showed bronchial thickening but no dense consolidation. Hip and pelvis x-ray found no radiographic evidence for acute fracture, dislocation, or malalignment. CT of head negative for intracranial abnormality, but did show parietal scalp hematoma and chronic right cerebellar infarcts and mild chronic microangiopathy. CT of cervical spine found no acute osseous abnormality. CT of chest found 9 mm left lower lobe spiculated pulmonary nodule with short-term follow-up in [address] of abdomen and pelvis found subtle pericolonic inflammatory change possibly suggestive of colitis. Also found distended gallbladder and possible mild gallbladder wall edema. EKG demonstrated normal sinus rhythm with nonspecific T-wave abnormality but no significant ST elevations or depressions. Pt was treated with IVF. Pt will be admitted to the hospital for treatment further workup of syncopal episode in the setting of likely colitis. <SHARIF Laird - Last Filed: 12/17/23 16:32> Review of Systems 2 Review of Systems: Syncopal episode Weakness Right-sided hip pain Frequent falls at home Hematochezia Denies lightheadedness and dizziness No chest pain/pressure, palpitations Denies shortness of breath No fever, chills, nausea, vomiting <SHARIF Laird - Last Filed: 12/17/23 16:32> [facility] Medical History: Medical History (Updated 12/18/23 @ 09:30 by Ludy Bartlett MD) Hypothyroidism Lower leg edema GERD (gastroesophageal reflux disease) HLD (hyperlipidemia) HTN (hypertension) Paroxysmal A-fib Frequent falls Anemia Head injury General weakness Fall Lupus <SHARIF Laird - Last Filed: 12/17/23 16:32> Family History: Family History Mother Myocardial infarction <SHARIF Laird - Last Filed: 12/17/23 16:32> Social History: Social History Household Members: None Housing: Apartment Do you presently have visiting nurse or other home services: Yes (cleaning, meals) Patient Tobacco Use Status: Never used Tobacco Smoked in Last 30 Days: No e-Cigarette/Vaping Use: Never Used Use of substances other than those prescribed or required for medical reasons: No Currently Displaying Signs/Symptoms of Drug Intoxication Withdrawal: No Any prior treatment program specific to substance use: No Have you been hit, kicked, punched, or otherwise hurt by someone within the past year? If so, by whom?: No Do you feel safe in your current relationship?: No Current Relationship Is there a partner from a previous relationship who is making you feel unsafe now?: No Are you made to feel afraid or neglected: No Spiritual Healthcare Practices: Synagogue Advance Directives: Yes Advance Directives on File: No Advance Directives Date on File: 12/17/23 Do you have thoughts of harming others: None Do you have a plan to hurt others: No Plan Recently lost weight without trying: No Nutrition Risks: No Nutritional Risk Patient : No : No Poor oral hygiene: Yes service: No <SHARIF Laird - Last Filed: 12/17/23 16:32> Meds Allergies/Adverse reactions: Allergies Allergy/AdvReac Type Severity Reaction Status Date / Time erythromycin base Allergy Severe Rash Verified 08/18/23 11:31 [From Erythrocin] Penicillins [PENICILLINS] Allergy Severe HIVES Verified 08/13/23 14:58 droperidol [From INAPSINE] Allergy Intermediate UNUSUAL Verified 08/13/23 14:58 HEAD MOVEMENTS oxycodone [OXYCODONE] Allergy Mild ITCHING Verified 08/13/23 14:58 morphine [MORPHINE] AdvReac Unknown CONFUSION Verified 08/13/23 14:58 <SHARIF Laird - Last Filed: 12/17/23 16:32> Home medications: Home Medications Medication Instructions Recorded Confirmed Last Taken Type atorvastatin 40 mg tablet 40 mg PO BEDTIME 08/13/23 12/17/23 12/16/23 History carboxymethylcellulose sodium 0.5 1 drp ophthalmic (eye) Q2H PRN Dry 08/13/23 12/17/23 12/16/23 History % eye drops (Refresh Tears) Eyes carvedilol 3.125 mg tablet 3.125 mg PO BID 08/13/23 12/17/23 12/16/23 History duloxetine 30 mg capsule,delayed 30 mg PO BEDTIME 08/13/23 12/17/23 12/16/23 History release duloxetine 60 mg capsule,delayed 60 mg PO BEDTIME 08/13/23 12/17/23 12/16/23 History release furosemide 20 mg tablet 20 mg PO DAILY 08/13/23 12/17/23 12/16/23 History gabapentin 300 mg capsule 300 mg PO BEDTIME 08/13/23 12/17/23 12/16/23 History levothyroxine 100 mcg tablet 100 mcg PO DAILY 08/13/23 12/17/23 12/16/23 History omeprazole 40 mg capsule,delayed 40 mg PO DAILY 08/13/23 12/17/23 12/16/23 History release potassium chloride 10 mEq 10 meq PO DAILY 08/13/23 12/17/23 12/16/23 History tablet,extended release tolterodine 4 mg capsule,extended 4 mg PO DAILY 08/13/23 12/17/23 12/16/23 History release 24 hr trazodone 100 mg tablet 100 mg PO BEDTIME 08/13/23 12/17/23 12/16/23 History benazepril 40 mg tablet 20 mg PO DAILY 12/09/23 12/17/23 12/16/23 History clobetasol 0.05 % topical cream 1 appl topical BID PRN Rash 12/17/23 12/17/23 12/16/23 History levothyroxine 100 mcg tablet 50 mcg PO HERNADEZ 12/17/23 12/17/23 12/16/23 History vitamin A-vitamin C-vit E-min 1 tab PO DAILY 12/17/23 12/17/23 12/16/23 History tablet <SHARIF Laird - Last Filed: 12/17/23 16:32> Physical Exam 2 Vital Signs and Narrative: Vital Signs: Last Vital Signs Temp 97.7 F 12/17/23 10:32 Pulse 82 12/17/23 10:35 Resp 18 12/17/23 10:32 BP 148/65 H 12/17/23 10:32 Pulse Ox 95 12/17/23 10:32 O2 Del Method Room Air 12/17/23 10:32 BMI result Body Mass Index 27.7 <SHARIF Laird - Last Filed: 12/17/23 16:32> Constitutional: Alert, in no acute distress. Mental Status: Oriented to person, place and time. Eyes: Pupils are equal, round, and reactive to light. Ear, Nose, and Throat: Oropharynx clear, mucous membranes moist. Ears and nose without deformities. Trachea midline. Respiratory: Clear to auscultation bilaterally. No wheezing, rales, or rhonchi. Cardiovascular: S1, S2 regular. No murmurs, rubs, or gallops. Gastrointestinal: Abdomen soft, non-distended, with left lower quadrant tenderness. Normal bowel sounds. Neurologic: Cranial nerves II-XII are grossly intact bilaterally. No focal neurological deficits. Moves all extremities spontaneously. Skin: Warm, dry. Diffuse ecchymosis of face, chest, and knees. Significant ecchymosis of upper extremities bilaterally. Superficial abrasions to dorsal aspect of left hand. Skin tear upper right extremity near elbow. Musculoskeletal: No cyanosis or clubbing. Extremities: Non-pitting bilateral edema. Psychiatric: Normal mood and affect. <SHARIF Laird - Last Filed: 12/17/23 16:32> Results Labs CBC and Chem 7: 12/18/23 05:58 12/18/23 05:58 <SHARIF Laird - Last Filed: 12/17/23 16:32> Labs: Laboratory Results - last 24 hr 12/17/23 12/17/23 11:12 12:23 MCV 83.4 MCH 26.4 L MCHC 31.6 RDW 15.4 Plt Count 281 MPV 10.5 Immature Gran % (Auto) 0.5 H Neut % (Auto) 84.7 H Lymph % (Auto) 7.4 L [place]ley % (Auto) 7.1 Eos % (Auto) 0.1 Baso % (Auto) 0.2 Lymph # (Auto) 1.3 [place] # (Auto) 1.2 Eos # (Auto) 0.0 Baso # (Auto) 0.0 Abs Immat Gran (auto) 0.08 H Absolute Neuts (auto) 14.9 H Absolute Nucleated RBC 0.000 Nucleated RBC % (auto) 0.0 Anion Gap 13 Estim Creat Clear Calc 51.7 Estimated GFR 56 Random Glucose 107 Lactic Acid 1.1 Calcium 9.4 Total Bilirubin 0.6 Direct Bilirubin 0.2 AST 36 H ALT 17 Alkaline Phosphatase 90 Total Creatine Kinase 503 H Total Protein 7.0 Albumin 3.3 L Lipase 6 L Stool Occult Blood NEGATIVE Influenza Type A (PCR) NEGATIVE Influenza Type B (PCR) NEGATIVE RSV RNA Qual (PCR) NEGATIVE SARS-CoV-2 RNA (RT-PCR) NEGATIVE <SHARIF Laird - Last Filed: 12/17/23 16:32> Imaging Radiologist's Impressions: Impressions Chest X-Ray 12/17/23 11:44 IMPRESSION: Bronchial thickening can be seen with infectious/inflammatory process. No dense consolidation. Hip/Pelvis X-Ray 12/17/23 11:44 IMPRESSION: No radiographic evidence of acute fracture, dislocation or malalignment. If there is clinical concern for a radiographically fracture, consider pelvic CT. Cervical Spine CT 12/17/23 12:08 IMPRESSION: - No acute intracranial abnormality. Parietal scalp hematoma. No acute osseous findings. Chronic right cerebellar infarcts and mild chronic microangiopathy. - No acute osseous abnormality within the cervical spine. Multilevel cervical spondylosis. Head CT 12/17/23 12:08 IMPRESSION: - No acute intracranial abnormality. Parietal scalp hematoma. No acute osseous findings. Chronic right cerebellar infarcts and mild chronic microangiopathy. - No acute osseous abnormality within the cervical spine. Multilevel cervical spondylosis. Abdomen/Pelvis CT 12/17/23 12:13 IMPRESSION: Wall thickening and submucosal edema from the splenic flexure through the descending colon. Subtle pericolonic inflammatory change. This most likely represents colitis. Infectious and inflammatory etiologies should be considered. 9 mm left lower lobe spiculated pulmonary nodule. Short interval follow-up in 3 months is advised. Large hiatal hernia. Distended gallbladder. Possible mild gallbladder wall edema. Advise correlation with right upper quadrant ultrasound. Chest CT 12/17/23 12:13 IMPRESSION: Wall thickening and submucosal edema from the splenic flexure through the descending colon. Subtle pericolonic inflammatory change. This most likely represents colitis. Infectious and inflammatory etiologies should be considered. 9 mm left lower lobe spiculated pulmonary nodule. Short interval follow-up in 3 months is advised. Large hiatal hernia. Distended gallbladder. Possible mild gallbladder wall edema. Advise correlation with right upper quadrant ultrasound. <SHARIF Laird - Last Filed: 12/17/23 16:32> Assessment and Plan (1) Syncope: Status: Acute <SHARIF Laird - Last Filed: 12/17/23 16:32> Pt is a 73-year-old female with a PMH significant for?paroxysmal AFib on Eliquis, HLD, HTN, hypothyroidism, and chronic lower leg edema who presents to the ED for evaluation of syncopal episode and weakness. Pt was treated with IVF. Pt will be admitted to the hospital for treatment further workup of syncopal episode in the setting of likely colitis. Syncopal episode Etiology unclear; differential includes vasovagal, cardiac, orthostatic, secondary to colitis Echocardiogram on 08/17/23 with no obvious valvular pathology Will check orthostatics Pt received IVF in ED Monitor on telemetry Question of colitis CT of abd/pelvis with findings suggestive of colitis Pt with large bloody bowel movement this morning, LLQ tenderness on exam Ischemic versus infectious versus inflammatory colitis Will check CRP, GI panel, CDiff GI consult Will hold off on antibiotics at this time Pt does not meet SIRS criteria, no sepsis; lactic acid WNL at 1.1 Hold Eliquis, pneumatic boots for DVT prophylaxis Gallbladder distention CT of abd/pelvis and abd US show distended gallbladder without significant wall thickening Pt without N/V, no right-sided abd pain No further workup or treatment warranted at this time Weakness/frequent falls PT evaluation Pulmonary nodule Chest CT found 9 mm left lower lobe spiculated pulmonary nodule Patient should follow-up with repeat imaging in 3 months Paroxysmal AFib Hold Eliquis d/t possible colitis with hematochezia Continue carvedilol Hypothyroidism Continue levothyroxine Chronic lower leg edema Continue furosemide HLD Continue Mood disorder Continue home meds DNR/DNI, verified with pt Attending:?Dr. Chavira DVT Prophylaxis: Pneumatic boots d/t possible colitis with hematochezia Pt will require a hospitalization of at least two nights for treatment of?syncopal episode in the setting of likely colitis. Patient required close monitoring of vitals, labs, and cardiac functioning, will also require specialist consultation and ultimately PT evaluation. <SHARIF Laird - Last Filed: 12/17/23 16:32> Pt is a 73-year-old female with a PMH significant for?paroxysmal AFib on Eliquis, HLD, HTN, hypothyroidism, and chronic lower leg edema who presents to the ED for evaluation of syncopal episode and weakness. Pt was treated with IVF. Pt will be admitted to the hospital for treatment further workup of syncopal episode in the setting of likely colitis. Syncopal episode Etiology unclear; differential includes vasovagal, cardiac, orthostatic, secondary to colitis Echocardiogram on 08/17/23 with no obvious valvular pathology Will check orthostatics Pt received IVF in ED Monitor on telemetry Question of colitis CT of abd/pelvis with findings suggestive of colitis Pt with large bloody bowel movement this morning, LLQ tenderness on exam Ischemic versus infectious versus inflammatory colitis Will check CRP, GI panel, CDiff GI consult Will hold off on antibiotics at this time Pt does not meet SIRS criteria, no sepsis; lactic acid WNL at 1.1 Hold Eliquis, pneumatic boots for DVT prophylaxis Gallbladder distention CT of abd/pelvis and abd US show distended gallbladder without significant wall thickening Pt without N/V, no right-sided abd pain No further workup or treatment warranted at this time Weakness/frequent falls PT evaluation Pulmonary nodule Chest CT found 9 mm left lower lobe spiculated pulmonary nodule Patient should follow-up with repeat imaging in 3 months Paroxysmal AFib Hold Eliquis d/t possible colitis with hematochezia Continue carvedilol Hypothyroidism Continue levothyroxine Chronic lower leg edema Continue furosemide HLD Continue Mood disorder Continue home meds DNR/DNI, verified with pt Attending:?Dr. Chavira DVT Prophylaxis: Pneumatic boots d/t possible colitis with hematochezia Pt will require a hospitalization of at least two nights for treatment of?syncopal episode in the setting of likely colitis. Patient required close monitoring of vitals, labs, and cardiac functioning, will also require specialist consultation and ultimately PT evaluation. Addendum to history and physical by the advanced practice provider, SHARIF Coyne I interviewed and examined the patient. I discussed their presentation and management with the ANNETTE. I reviewed the history and physical and agree with the documentation, with the following additions and corrections: 73yo F living alone, had 2 sec syncopal episode and fell in hallway and was down for 10+ hr before she could get to a phone. At the time of syncope she had a BM and also had large amount of blood that she thought was from the urine but could have been from the rectum. Extensive bruising. CPK mildly elevated. Likely ischemic colitis- will admit to telemetry, get GI consultation, monitor H+H, hold apixaban for now. <Marci Chavira MD - Last Filed: 12/18/23 10:34> Quality Stroke Does the patient have a stroke diagnosis?: No <SHARIF Laird - Last Filed: 12/17/23 16:32> VTE Prior VTE?: No <SHARIF Laird - Last Filed: 12/17/23 16:32> VTE Risk Level:: Medical - moderate - high <SHARIF Laird - Last Filed: 12/17/23 16:32> VTE Device Contraindication: N/A - Device Ordered <SHARIF Laird - Last Filed: 12/17/23 16:32> VTE Drug Contraindication: Treatment Not Indicated <SHARIF Laird - Last Filed: 12/17/23 16:32>
--- NOTE | 2023-12-17 15:16 | PHA.MEDREC ---
Pharmacy Consult ? Medication Reconciliation Pharmacy has completed the medication reconciliation.Confirmed medications with Niece over the phone with list. ([phone])
[2023-12-17] MEDS: Furosemide 20 MG TABLET PO (17:21)
[2023-12-17] MEDS: Potassium Chloride ER 10 MEQ TABLET.ER PO (17:21)
[2023-12-17] MEDS: Levothyroxine Sodium 100 MCG TABLET PO (17:21)
[2023-12-17] MEDS: Omeprazole 40 MG CAPSULE.DR PO (17:22)
[2023-12-17] MEDS: dilTIAZem HCL CD 240 MG CAP.ER.DEG PO (17:22)
[2023-12-17] MEDS: Tolterodine Tartrate LA 4 MG CAP.ER.24H PO (17:22)
[2023-12-17] MEDS: 0.9 % Sodium Chloride Flush 3 ML SYRINGE IVFLUSH ×4 (17:23→21:04)
[2023-12-17 17:34] LABS: Appearance Urine Clear; Color Urine Dark Yellow; Glucose Urine UA Negative (Negative); Leukocyte Esterase Urine Trace (Negative); Nitrite Urine Negative (Negative); PH 5.5 (5.0-9.0); Specific Gravity - Urine >= 1.030 (1.005-1.025); UMIC TRIGGER UACC YES; Urine Blood Negative (Negative); Urine Ketones Negative (Negative); Urine Protein Trace mg/dL (Neg-Trace)
[2023-12-17 17:57] LABS: Bacteria Urine None Seen (None Seen); Hyaline Casts Urine 0-2 /LPF (0-2); Squamous Epithelial Cell Urine 0-2 /HPF (0-2); WBC Urine 0-5 /HPF (0-5)
--- NOTE | 2023-12-17 18:45 | PC.NURSE ---
Alert and oriented, skin tears on arms and fingers covered, denies pain or discomfort. vss. HCP at bedside
[2023-12-17] MEDS: Gabapentin 300 MG CAPSULE PO (21:03)
[2023-12-17] MEDS: traZODone HCL 100 MG TABLET PO (21:03)
[2023-12-17] MEDS: DULoxetine HCl 30 MG CAPSULE.DR PO (21:03)
[2023-12-17] MEDS: DULoxetine HCl 60 MG CAPSULE.DR PO (21:03)
[2023-12-17] MEDS: carvediloL 3.125 MG TABLET PO (21:03)
[2023-12-17] MEDS: Atorvastatin Calcium 40 MG TABLET PO (21:04)
[2023-12-18] VITALS (8 sets, daily range): BP systolic 114–136; BP diastolic 58–80; PULSE 72–85; RESP 16–20; TEMP 36.2–36.8; O2SAT 94–98
[2023-12-18] MEDS: Omeprazole 40 MG CAPSULE.DR PO (06:07)
[2023-12-18] MEDS: Levothyroxine Sodium 100 MCG TABLET PO (06:07)
[2023-12-18 06:20] LABS: Hematocrit 33.9 % (37.0-47.0); Hemoglobin 10.3 g/dl (12.0-16.0); Mean Corpuscular HGB Conc 30.4 g/dl (31.0-35.0); Mean Corpuscular Hemoglobin 25.9 pg (27.0-33.0); Mean Corpuscular Volume 85.2 fL (80.0-98.0); Mean Platelet Volume 10.5 fL (9.4-12.3); Platelet Count 219 X10*3/uL (160-400); Red Blood Count 3.98 X10*6/uL (4.20-5.50); Red Cell Distribution Width 15.7 % (11.0-16.0); White Blood Count 9.8 X10*3/uL (4.8-10.8)
[2023-12-18 06:39] LABS: Anion Gap 12 (12-20); Blood Urea Nitrogen 15 mg/dL (9-16); Calcium 8.9 mg/dL (8.4-10.2); Carbon Dioxide 20 mmol/L (22-29); Chloride 110 mmol/L (96-108); Creatinine Clr Calc Pharmacy 74.8; Estimated Glomerular Filt Rate > 60; Glucose Random 101 mg/dL (60-115); Potassium 3.7 mmol/L (3.3-5.1); Sodium 138 mmol/L (135-145)
--- NOTE | 2023-12-18 09:00 | MHC.CM.PN ---
CM met with Patient at bedside and addressed IMM with her, providing Patient with the original and a copy has been placed on the chart. Patient lives alone in a condo and she was using a cane [employer] (no prior services). Patient hopes to be able to go home and she is agreeable to a referral to [facility]. CM has initiated and will follow for dc planning. Patient's Friend/Brandon is the HCP and the PCP is Dr. Brandon Mauricio.
--- NOTE | 2023-12-18 09:27 | P.CNGI_ITS ---
History of Present Illness Data of Consult Service Date: 12/18/23 Requesting physician: Juana Coyne Primary Care Provider: Brandon Mauricio MD HPI Reason for consult: Colitis This is a 73-year-old female with past medical history of atrial fibrillation on Eliquis, hypertension, reported history of lupus, hypothyroidism, who presented to the hospital after a syncopal event and was found to have colitis for which Gastroenterology has been consulted. Patient was evaluated at bedside, who states that on the night before coming to [facility], she was in the bathroom to urinate when she passed out as she was getting up and fell on her R side. She is unsure how long it took, but thinks maybe hours to crawl out of the bathroom and get to her bedroom to call for help. Patient does not report any abdominal pain, nausea, vomiting, loose bowel movements, fevers or chills. Bloody bowel movement reported in H and P, the patient does not report that on my encounter. On arrival to the emergency room, she was noted to be widely stable. Labs were significant for leukocytosis and elevated creatinine kinase. CT abdomen pelvis showed left-sided colon wall thickening with fatty stranding. Of note, it also showed a 9 mm left lower lobe pulmonary nodule which was spiculated. Currently, patient reports overall feeling well. At baseline, she does not have any gastrointestinal complaints including diarrhea, in fact reports constipation for up to a week sometimes. Review of Systems 2 Review of Systems: Yes all other systems are reviewed and are negative PMFSH Past Medical History Medical History (Updated 12/18/23 @ 09:30 by Ludy Bartlett MD) Hypothyroidism Lower leg edema GERD (gastroesophageal reflux disease) HLD (hyperlipidemia) HTN (hypertension) Paroxysmal A-fib Frequent falls Anemia Head injury General weakness Fall Lupus Family History Family History Mother Myocardial infarction Social History Social History Household Members: None Housing: Apartment Do you presently have visiting nurse or other home services: Yes (cleaning, meals) Patient Tobacco Use Status: Never used Tobacco Smoked in Last 30 Days: No e-Cigarette/Vaping Use: Never Used Use of substances other than those prescribed or required for medical reasons: No Currently Displaying Signs/Symptoms of Drug Intoxication Withdrawal: No Any prior treatment program specific to substance use: No Have you been hit, kicked, punched, or otherwise hurt by someone within the past year? If so, by whom?: No Do you feel safe in your current relationship?: No Current Relationship Is there a partner from a previous relationship who is making you feel unsafe now?: No Are you made to feel afraid or neglected: No Spiritual Healthcare Practices: Hoahaoism Advance Directives: Yes Advance Directives on File: No Advance Directives Date on File: 12/17/23 Do you have thoughts of harming others: None Do you have a plan to hurt others: No Plan Recently lost weight without trying: No Nutrition Risks: No Nutritional Risk Patient : No : No Poor oral hygiene: Yes service: No Meds Allergies Allergy/AdvReac Type Severity Reaction Status Date / Time erythromycin base Allergy Severe Rash Verified 08/18/23 11:31 [From Erythrocin] Penicillins [PENICILLINS] Allergy Severe HIVES Verified 08/13/23 14:58 droperidol [From INAPSINE] Allergy Intermediate UNUSUAL Verified 08/13/23 14:58 HEAD MOVEMENTS oxycodone [OXYCODONE] Allergy Mild ITCHING Verified 08/13/23 14:58 morphine [MORPHINE] AdvReac Unknown CONFUSION Verified 08/13/23 14:58 Active Medications: Current Medications Acetaminophen (Acetaminophen 325 Mg Tablet) 650 mg PO Q6H PRN PRN Reason: Pain, Mild (Pain Scale 1-3) Atorvastatin Calcium (Atorvastatin Calcium 40 Mg Tablet) 40 mg PO BEDTIME [facility] Last Admin: 12/17/23 21:04 Dose: 40 mg Benzonatate (Benzonatate 100 Mg Capsule) 100 mg PO TID PRN PRN Reason: Cough Carvedilol (Carvedilol 3.125 Mg Tablet) 3.125 mg PO BID [facility]; Protocol Last Admin: 12/17/23 21:03 Dose: 3.125 mg Diltiazem HCl (Diltiazem Hcl Cd 240 Mg Cap.Er.Deg) 240 mg PO DAILY [facility]; Protocol Last Admin: 12/17/23 17:22 Dose: 240 mg Docusate Sodium (Docusate Sodium 100 Mg Capsule) 100 mg PO DAILY PRN PRN Reason: Constipation Duloxetine HCl (Duloxetine Hcl 30 Mg Capsule.Dr) 30 mg PO BEDTIME [facility] Last Admin: 12/17/23 21:03 Dose: 30 mg Duloxetine HCl (Duloxetine Hcl 60 Mg Capsule.) 60 mg PO BEDTIME [facility] Last Admin: 12/17/23 21:03 Dose: 60 mg Furosemide (Furosemide 20 Mg Tablet) 20 mg PO DAILY [facility]; Protocol Last Admin: 12/17/23 17:21 Dose: 20 mg Gabapentin (Gabapentin 300 Mg Capsule) 300 mg PO BEDTIME [facility] Last Admin: 12/17/23 21:03 Dose: 300 mg Levothyroxine Sodium (Levothyroxine Sodium 50 Mcg Tablet) 50 mcg PO Hernadez@0600 [facility] Levothyroxine Sodium (Levothyroxine Sodium 100 Mcg Tablet) 100 mcg PO DAILY@0600 [facility] Last Admin: 12/18/23 06:07 Dose: 100 mcg Lisinopril (Lisinopril 20 Mg Tablet) 20 mg PO DAILY [facility] Last Admin: 12/17/23 17:24 Dose: Not Given Melatonin (Melatonin 3 Mg Tablet) 6 mg PO BEDTIME PRN PRN Reason: Insomnia Omeprazole (Omeprazole 40 Mg Capsule.) 40 mg PO DAILY@0630 [facility] Last Admin: 12/18/23 06:07 Dose: 40 mg Ondansetron HCl (Ondansetron Hcl 4 Mg/2 Ml Vial) 4 mg IVPUSH Q8H PRN PRN Reason: Nausea and Vomiting Polyethyl Glycol/Propylene Glycol (Propylene Glycol/Peg 400 Gel Eye Drops 10ml) 1 drop EYE-BOTH Q2H PRN PRN Reason: Dry Eyes Potassium Chloride (Potassium Chloride Er 10 Meq Tablet.Er) 10 meq PO DAILY [facility] Last Admin: 12/17/23 17:21 Dose: 10 meq Sodium Chloride (0.9 % Sodium Chloride Flush 3 Ml Syringe) 3 ml IVFLUSH QSHIFT [facility] Last Admin: 12/17/23 21:04 Dose: 3 ml Sodium Chloride (0.9 % Sodium Chloride Flush 3 Ml Syringe) [facility] Last Admin: 12/17/23 21:04 Dose: 3 ml Tolterodine Tartrate (Tolterodine Tartrate La 4 Mg Cap.Er.24h) 4 mg PO DAILY [facility] Last Admin: 12/17/23 17:22 Dose: 4 mg Trazodone HCl (Trazodone Hcl 100 Mg Tablet) 100 mg PO BEDTIME [facility] Last Admin: 12/17/23 21:03 Dose: 100 mg Home Medications Medication Instructions Recorded Confirmed Last Taken Type atorvastatin 40 mg tablet 40 mg PO BEDTIME 08/13/23 12/17/23 12/16/23 History carboxymethylcellulose sodium 0.5 1 drp ophthalmic (eye) Q2H PRN Dry 08/13/23 12/17/23 12/16/23 History % eye drops (Refresh Tears) Eyes carvedilol 3.125 mg tablet 3.125 mg PO BID 08/13/23 12/17/23 12/16/23 History duloxetine 30 mg capsule,delayed 30 mg PO BEDTIME 08/13/23 12/17/23 12/16/23 History release duloxetine 60 mg capsule,delayed 60 mg PO BEDTIME 08/13/23 12/17/23 12/16/23 History release furosemide 20 mg tablet 20 mg PO DAILY 08/13/23 12/17/23 12/16/23 History gabapentin 300 mg capsule 300 mg PO BEDTIME 08/13/23 12/17/23 12/16/23 History levothyroxine 100 mcg tablet 100 mcg PO DAILY 08/13/23 12/17/23 12/16/23 History omeprazole 40 mg capsule,delayed 40 mg PO DAILY 08/13/23 12/17/23 12/16/23 History release potassium chloride 10 mEq 10 meq PO DAILY 08/13/23 12/17/23 12/16/23 History tablet,extended release tolterodine 4 mg capsule,extended 4 mg PO DAILY 08/13/23 12/17/23 12/16/23 History release 24 hr trazodone 100 mg tablet 100 mg PO BEDTIME 08/13/23 12/17/23 12/16/23 History benazepril 40 mg tablet 20 mg PO DAILY 12/09/23 12/17/23 12/16/23 History clobetasol 0.05 % topical cream 1 appl topical BID PRN Rash 12/17/23 12/17/23 12/16/23 History levothyroxine 100 mcg tablet 50 mcg PO HERNADEZ 12/17/23 12/17/23 12/16/23 History vitamin A-vitamin C-vit E-min 1 tab PO DAILY 12/17/23 12/17/23 12/16/23 History tablet Physical Exam 2 Vital Signs: Vital Signs: Last Vital Signs Temp 97.8 F 12/18/23 08:00 Pulse 77 12/18/23 08:00 Resp 18 12/18/23 08:00 BP 126/58 L 12/18/23 08:00 Pulse Ox 94 12/18/23 08:00 O2 Del Method Nasal Cannula 12/18/23 08:00 O2 Flow Rate 1 12/18/23 08:00 BMI result Body Mass Index 27.7 Const: General: cooperative and no acute distress Resp: Effort & Inspection: normal respiratory effort Cardio: Heart sounds: S1 normal heart sound present and S2 normal heart sound present GI: Inspection: Yes normal to inspection Palpation (GI): Soft to palpation and Other GI palpation findings present (nontender) Auscultation: normal bowel sounds Skin: General skin exam: ecchymosis Psych: Appearance: grossly normal Results Labs 12/18/23 05:58 12/18/23 05:58 Labs: Short CBC 12/17/23 12/18/23 Range/Units 11:12 05:58 WBC 17.5 H 9.8 (4.8-10.8) X10*3/uL Hgb 11.8 L 10.3 L (12.0-16.0) g/dl Hct 37.3 33.9 L (37.0-47.0) % Plt Count 281 219 (160-400) X10*3/uL BMP 12/17/23 12/18/23 11:12 05:58 Sodium 140 138 Potassium 4.0 3.7 Chloride 106 110 H Carbon Dioxide 25 20 L BUN 24 H 15 Creatinine 0.97 0.67 Calcium 9.4 8.9 Cardiac Enzymes 12/17/23 12/18/23 Range/Units 11:12 05:58 Total Creatine Kinase 503 H 412 H (26-140) U/L Liver Function 12/17/23 Range/Units 11:12 Total Bilirubin 0.6 (0.0-1.0) mg/dL Direct Bilirubin 0.2 (0.0-0.5) mg/dL AST 36 H (5-31) U/L ALT 17 (0-31) U/L Alkaline Phosphatase 90 (39-117) U/L Albumin 3.3 L (3.5-5.0) g/dL Urine 12/17/23 Range/Units 17:27 Urine Color Dark Yellow Urine Appearance Clear Urine pH 5.5 (5.0-9.0) Ur Specific [place] >= 1.030 H (1.005-1.025) Urine Protein Trace (Neg-Trace) mg/dL Urine Glucose (UA) Negative (Negative) mg/dL Assessment and Plan (1) Syncope: Status: Acute (2) Atrial fibrillation: Status: Acute (3) Colitis: Status: Acute Plan Clinical presentation most consistent with mild colon ischemia likely due to hypotension that also led to her syncope. Evaluation for atrial fibrillation burden as per primary team. Has mild drop in her hemoglobin, but has not had any bloody or melanotic output per rectum. Suspect this may be losses due to diffuse bruising on her limbs. Patient reports being due for a colonoscopy this year for colorectal ca screening. She is unsure of her outpatient pier master, but says her PCP will have records. She was encouraged to contact her PCP to get this done shortly after discharge for endoscopic evaluation of what is clinically consistent with left sided colon ischemia. Other Ddx including infectious or inflammatory colitis less likely in the absence of abd pain and diarrhea. Can advance diet from GI standpoint. Resumption of anticoagulation as per primary team. Thank you for allowing me to participate in her care. Please do not hesitate to reach out for any questions or concerns Procedures Date of Service Date of Service: 12/18/23
[2023-12-18] MEDS: carvediloL 3.125 MG TABLET PO ×2 (09:33→22:03)
[2023-12-18] MEDS: Tolterodine Tartrate LA 4 MG CAP.ER.24H PO (09:33)
[2023-12-18] MEDS: Furosemide 20 MG TABLET PO (09:33)
[2023-12-18] MEDS: Potassium Chloride ER 10 MEQ TABLET.ER PO (09:33)
[2023-12-18] MEDS: dilTIAZem HCL CD 240 MG CAP.ER.DEG PO (09:34)
--- NOTE | 2023-12-18 09:48 | HO.PM.IMPN ---
Subjective Subjective Date of Service: 12/18/23 Interval History: No abd pain No dizziness/lightheadedness Sore from bruising Review of Systems Review of Systems: Yes all other systems are reviewed and are negative Physical Exam Vital Signs: Vital Signs: Last Vital Signs Temp 97.8 F 12/18/23 08:00 Pulse 77 12/18/23 08:00 Resp 18 12/18/23 08:00 BP 126/58 L 12/18/23 08:00 Pulse Ox 94 12/18/23 08:00 O2 Del Method Nasal Cannula 12/18/23 08:00 O2 Flow Rate 1 12/18/23 08:00 BMI result Body Mass Index 27.7 Gen: in no acute distress HEENT: sclera anicteric, moist mucus membranes Neck: supple Lungs: clear to auscultation bilaterally Heart: regular rate and rhythm, no murmurs Abd: soft, non-tender, non-distended Ext: no edema Skin: warm/well-perfused, extensive bruising Neuro: alert and oriented x3, no focal findings Psych: appropriate affect Objective Data Active Medications Acetaminophen (Acetaminophen 325 Mg Tablet) 650 mg PO Q6H PRN PRN Reason: Pain, Mild (Pain Scale 1-3) Atorvastatin Calcium (Atorvastatin Calcium 40 Mg Tablet) 40 mg PO BEDTIME [facility] Last Admin: 12/17/23 21:04 Dose: 40 mg Documented By: KRISTAN Benzonatate (Benzonatate 100 Mg Capsule) 100 mg PO TID PRN PRN Reason: Cough Carvedilol (Carvedilol 3.125 Mg Tablet) 3.125 mg PO BID [facility]; Protocol Last Admin: 12/18/23 09:33 Dose: 3.125 mg Documented By: ERICK Diltiazem HCl (Diltiazem Hcl Cd 240 Mg Cap.Er.Deg) 240 mg PO DAILY [facility]; Protocol Last Admin: 12/18/23 09:34 Dose: 240 mg Documented By: ERICK Docusate Sodium (Docusate Sodium 100 Mg Capsule) 100 mg PO DAILY PRN PRN Reason: Constipation Duloxetine HCl (Duloxetine Hcl 30 Mg Capsule.) 30 mg PO BEDTIME [facility] Last Admin: 12/17/23 21:03 Dose: 30 mg Documented By: KRISTAN Duloxetine HCl (Duloxetine Hcl 60 Mg Capsule.) 60 mg PO BEDTIME [facility] Last Admin: 12/17/23 21:03 Dose: 60 mg Documented By: KRISTAN Furosemide (Furosemide 20 Mg Tablet) 20 mg PO DAILY [facility]; Protocol Last Admin: 12/18/23 09:33 Dose: 20 mg Documented By: ERICK Gabapentin (Gabapentin 300 Mg Capsule) 300 mg PO BEDTIME [facility] Last Admin: 12/17/23 21:03 Dose: 300 mg Documented By: KRISTAN Levothyroxine Sodium (Levothyroxine Sodium 50 Mcg Tablet) 50 mcg PO Robles@0600 [facility] Levothyroxine Sodium (Levothyroxine Sodium 100 Mcg Tablet) 100 mcg PO DAILY@0600 [facility] Last Admin: 12/18/23 06:07 Dose: 100 mcg Documented By: KRISTAN Lisinopril (Lisinopril 20 Mg Tablet) 20 mg PO DAILY [facility] Last Admin: 12/18/23 09:35 Dose: Not Given Documented By: ERICK Non-Admin Reason: Patient Refused Melatonin (Melatonin 3 Mg Tablet) 6 mg PO BEDTIME PRN PRN Reason: Insomnia Omeprazole (Omeprazole 40 Mg Capsule.) 40 mg PO DAILY@0630 [facility] Last Admin: 12/18/23 06:07 Dose: 40 mg Documented By: KRISTAN Ondansetron HCl (Ondansetron Hcl 4 Mg/2 Ml Vial) 4 mg IVPUSH Q8H PRN PRN Reason: Nausea and Vomiting Polyethyl Glycol/Propylene Glycol (Propylene Glycol/Peg 400 Gel Eye Drops 10ml) 1 drop EYE-BOTH Q2H PRN PRN Reason: Dry Eyes Potassium Chloride (Potassium Chloride Er 10 Meq Tablet.Er) 10 meq PO DAILY [facility] Last Admin: 12/18/23 09:33 Dose: 10 meq Documented By: ERICK Sodium Chloride (0.9 % Sodium Chloride Flush 3 Ml Syringe) [facility] Last Admin: 12/18/23 09:41 Dose: Not Given Documented By: ERICK Non-Admin Reason: Previously Administered Sodium Chloride (0.9 % Sodium Chloride Flush 3 Ml Syringe) [facility] Last Admin: 12/18/23 09:41 Dose: Not Given Documented By: ERICK Non-Admin Reason: Previously Administered Tolterodine Tartrate (Tolterodine Tartrate La 4 Mg Cap.Er.24h) 4 mg PO DAILY [facility] Last Admin: 12/18/23 09:33 Dose: 4 mg Documented By: ERICK Trazodone HCl (Trazodone Hcl 100 Mg Tablet) 100 mg PO BEDTIME [facility] Last Admin: 12/17/23 21:03 Dose: 100 mg Documented By: KRISTAN Labs 12/18/23 05:58 12/18/23 05:58 Labs: Laboratory Results - last 24 hr 12/17/23 12/17/23 12/17/23 11:12 12:23 16:24 MCV 83.4 MCH 26.4 L MCHC 31.6 RDW 15.4 Plt Count 281 MPV 10.5 Immature Gran % (Auto) 0.5 H Neut % (Auto) 84.7 H Lymph % (Auto) 7.4 L [place] % (Auto) 7.1 Eos % (Auto) 0.1 Baso % (Auto) 0.2 Lymph # (Auto) 1.3 [place] # (Auto) 1.2 Eos # (Auto) 0.0 Baso # (Auto) 0.0 Abs Immat Gran (auto) 0.08 H Absolute Neuts (auto) 14.9 H Absolute Nucleated RBC 0.000 Nucleated RBC % (auto) 0.0 Anion Gap 13 Estim Creat Clear Calc 51.7 Estimated GFR 56 Random Glucose 107 Lactic Acid 1.1 Calcium 9.4 Total Bilirubin 0.6 Direct Bilirubin 0.2 AST 36 H ALT 17 Alkaline Phosphatase 90 Total Creatine Kinase 503 H C-Reactive Protein 2.00 H Total Protein 7.0 Albumin 3.3 L Lipase 6 L Hold Yellow Top See Note Urine Color Urine Appearance Urine pH Ur Specific [place] Urine Protein Urine Glucose (UA) Urine Ketones Urine Blood Urine Nitrite Ur Leukocyte Esterase Urine RBC Urine WBC Ur Squamous Epith Cells Urine Bacteria Hyaline Casts Stool Occult Blood NEGATIVE Influenza Type A (PCR) NEGATIVE Influenza Type B (PCR) NEGATIVE RSV RNA Qual (PCR) NEGATIVE SARS-CoV-2 RNA (RT-PCR) NEGATIVE 12/17/23 12/18/23 17:27 05:58 MCV 85.2 MCH 25.9 L MCHC 30.4 L RDW 15.7 Plt Count 219 MPV 10.5 Immature Gran % (Auto) Neut % (Auto) Lymph % (Auto) [place] % (Auto) Eos % (Auto) Baso % (Auto) Lymph # (Auto) [place] # (Auto) Eos # (Auto) Baso # (Auto) Abs Immat Gran (auto) Absolute Neuts (auto) Absolute Nucleated RBC 0.000 Nucleated RBC % (auto) 0.0 Anion Gap 12 Estim Creat Clear Calc 74.8 Estimated GFR > 60 Random Glucose 101 Lactic Acid Calcium 8.9 Total Bilirubin Direct Bilirubin AST ALT Alkaline Phosphatase Total Creatine Kinase 412 H C-Reactive Protein Total Protein Albumin Lipase Hold Yellow Top Urine Color Dark Yellow Urine Appearance Clear Urine pH 5.5 Ur Specific [place] >= 1.030 H Urine Protein Trace Urine Glucose (UA) Negative Urine Ketones Negative Urine Blood Negative Urine Nitrite Negative Ur Leukocyte Esterase Trace H Urine RBC 6-10 H Urine WBC 0-5 Ur Squamous Epith Cells 0-2 Urine Bacteria None Seen Hyaline Casts 0-2 Stool Occult Blood Influenza Type A (PCR) Influenza Type B (PCR) RSV RNA Qual (PCR) SARS-CoV-2 RNA (RT-PCR) Assessment and Plan (1) Colitis: Status: Acute Plan d2 73yo F with paroxysmal AF on apixaban, HLD, HTN, hypothyroidism, chronic lower leg edema admitted after syncopal episode with 1 episode of BRBPR, found to have colitis likely ischemic colitis - GI consulted. Seems to have resolved. No ABX for now. OK to resume apixaban. Outpatient colonoscopy (due anyways this year). H+H stable. Recheck tomorrow. syncope - brief 2-sec episode likely due to above; also check orthostatics; monitor on telemetry mildly elevated CPK - due to being down on ground for 10+ hr, improving, no renal risk at this level incidental pulmonary nodule - 9mm LLL spiculated nodule- needs repeat CT chest in 3 months paroxysmal AF - continue apixaban + carvedilol + diltiazem hypothyroidism - continue LT4 chronic leg edema - furosemide HTN - lisinopril + carvedilol + diltiazem HLD - atorvastatin neuropathy - gabapentin + duloxetine VTE ppx - apixaban dispo - PT eval requested; suspect will need STR given she lives alone and has had multiple recent falls. Also should have Life Alert button. In my clinical judgment, the patient requires continued inpatient hospitalization for the following reasons: colitis, placement Total time managing care of this patient today: 35 minutes. Quality Stroke Does the patient have a stroke diagnosis?: No VTE Prior VTE?: No VTE Risk Level:: Medical - moderate - high VTE Device Contraindication: N/A - Device Ordered VTE Drug Contraindication: Treatment Not Indicated
[2023-12-18] MEDS: 0.9 % Sodium Chloride Flush 3 ML SYRINGE IVFLUSH ×2 (16:12→22:04)
[2023-12-18] MEDS: Acetaminophen 325 MG TABLET 650 MG PO (22:00)
[2023-12-18] MEDS: DULoxetine HCl 60 MG CAPSULE.DR PO (22:02)
[2023-12-18] MEDS: DULoxetine HCl 30 MG CAPSULE.DR PO (22:02)
[2023-12-18] MEDS: traZODone HCL 100 MG TABLET PO (22:03)
[2023-12-18] MEDS: Apixaban 5 MG TABLET PO (22:03)
[2023-12-18] MEDS: Atorvastatin Calcium 40 MG TABLET PO (22:03)
[2023-12-18] MEDS: Gabapentin 300 MG CAPSULE PO (22:04)
[2023-12-19] VITALS: BP 119/58; PULSE 82; RESP 20; TEMP 36.8; O2SAT 95
[2023-12-19] MEDS: 0.9 % Sodium Chloride Flush 3 ML SYRINGE IVFLUSH ×6 (00:31→22:04)
[2023-12-19 03:26] VITALS: BP 184/69; PULSE 83; RESP 20; TEMP 36.6; O2SAT 98
[2023-12-19] MEDS: Omeprazole 40 MG CAPSULE.DR PO (05:53)
[2023-12-19] MEDS: Levothyroxine Sodium 50 MCG TABLET PO (05:53)
[2023-12-19] MEDS: Levothyroxine Sodium 100 MCG TABLET PO (05:53)
[2023-12-19 07:09] LABS: Hematocrit 32.6 % (37.0-47.0); Hemoglobin 10.1 g/dl (12.0-16.0); Mean Corpuscular Hemoglobin 26.4 pg (27.0-33.0); Mean Corpuscular Volume 85.3 fL (80.0-98.0); Platelet Count 213 X10*3/uL (160-400); Red Blood Count 3.82 X10*6/uL (4.20-5.50); Red Cell Distribution Width 15.4 % (11.0-16.0); White Blood Count 5.4 X10*3/uL (4.8-10.8)
[2023-12-19 08:00] VITALS: BP 128/64; PULSE 67; RESP 20; TEMP 36.6; O2SAT 98
[2023-12-19] MEDS: Tolterodine Tartrate LA 4 MG CAP.ER.24H PO (09:00)
[2023-12-19] MEDS: Apixaban 5 MG TABLET PO ×2 (09:00→22:02)
[2023-12-19] MEDS: lisinopriL 20 MG TABLET PO (09:01)
[2023-12-19] MEDS: dilTIAZem HCL CD 240 MG CAP.ER.DEG PO (09:01)
[2023-12-19] MEDS: Furosemide 20 MG TABLET PO (09:01)
[2023-12-19] MEDS: carvediloL 3.125 MG TABLET PO ×2 (09:01→22:02)
[2023-12-19] MEDS: Potassium Chloride ER 10 MEQ TABLET.ER PO (09:01)
--- NOTE | 2023-12-19 10:17 | HO.PM.IMPN ---
Subjective Subjective Date of Service: 12/19/23 Interval History: Denies abdominal pain, no diarrhea, denies lightheadedness or dizziness, complaining of generalized soreness mostly on right side due to bruising, denies headache. Review of Systems All other system reviewed and negative. Physical Exam Vital Signs: Vital Signs: Last Vital Signs Temp 97.8 F 12/19/23 08:00 Pulse 67 12/19/23 08:00 Resp 20 12/19/23 08:00 BP 128/64 12/19/23 08:00 Pulse Ox 98 12/19/23 08:00 O2 Del Method Nasal Cannula 12/19/23 08:00 O2 Flow Rate 2 12/19/23 08:00 BMI result Body Mass Index 27.7 Const: Other: Gen: Resting comfortably in bed, in no acute distress HEENT: sclera anicteric, moist mucus membranes Neck: supple Lungs: clear to auscultation bilaterally Heart: regular rate and rhythm, no murmurs Abd: soft, non-tender, non-distended, bowel sounds audible Ext: no edema Skin: warm/well-perfused, extensive ecchymosis right upper extremity, diffuse ecchymosis of face, chest, legs Neuro: alert and oriented x3, no focal findings Psych: appropriate affect Objective Data Active Medications Acetaminophen (Acetaminophen 325 Mg Tablet) 650 mg PO Q6H PRN PRN Reason: Pain, Mild (Pain Scale 1-3) Last Admin: 12/18/23 22:00 Dose: 650 mg Documented By: JACKIE Apixaban (Apixaban 5 Mg Tablet) 5 mg PO BID [facility] Last Admin: 12/19/23 09:00 Dose: 5 mg Documented By: JUNE Atorvastatin Calcium (Atorvastatin Calcium 40 Mg Tablet) 40 mg PO BEDTIME [facility] Last Admin: 12/18/23 22:03 Dose: 40 mg Documented By: JACKIE Benzonatate (Benzonatate 100 Mg Capsule) 100 mg PO TID PRN PRN Reason: Cough Carvedilol (Carvedilol 3.125 Mg Tablet) 3.125 mg PO BID [facility]; Protocol Last Admin: 12/19/23 09:01 Dose: 3.125 mg Documented By: JUNE Diltiazem HCl (Diltiazem Hcl Cd 240 Mg Cap.Er.Deg) 240 mg PO DAILY [facility]; Protocol Last Admin: 12/19/23 09:01 Dose: 240 mg Documented By: JUNE Docusate Sodium (Docusate Sodium 100 Mg Capsule) 100 mg PO DAILY PRN PRN Reason: Constipation Duloxetine HCl (Duloxetine Hcl 30 Mg Capsule.) 30 mg PO BEDTIME [facility] Last Admin: 12/18/23 22:02 Dose: 30 mg Documented By: JACKIE Duloxetine HCl (Duloxetine Hcl 60 Mg Capsule.) 60 mg PO BEDTIME [facility] Last Admin: 12/18/23 22:02 Dose: 60 mg Documented By: JACKIE Furosemide (Furosemide 20 Mg Tablet) 20 mg PO DAILY [facility]; Protocol Last Admin: 12/19/23 09:01 Dose: 20 mg Documented By: JUNE Gabapentin (Gabapentin 300 Mg Capsule) 300 mg PO BEDTIME [facility] Last Admin: 12/18/23 22:04 Dose: 300 mg Documented By: JACKIE Levothyroxine Sodium (Levothyroxine Sodium 50 Mcg Tablet) 50 mcg PO Robles@0600 [facility] Last Admin: 12/19/23 05:53 Dose: 50 mcg Documented By: MARCI Levothyroxine Sodium (Levothyroxine Sodium 100 Mcg Tablet) 100 mcg PO DAILY@0600 [facility] Last Admin: 12/19/23 05:53 Dose: 100 mcg Documented By: MARCI Lisinopril (Lisinopril 20 Mg Tablet) 20 mg PO DAILY [facility] Last Admin: 12/19/23 09:01 Dose: 20 mg Documented By: JUNE Melatonin (Melatonin 3 Mg Tablet) 6 mg PO BEDTIME PRN PRN Reason: Insomnia Omeprazole (Omeprazole 40 Mg Capsule.) 40 mg PO DAILY@0630 [facility] Last Admin: 12/19/23 05:53 Dose: 40 mg Documented By: MARCI Ondansetron HCl (Ondansetron Hcl 4 Mg/2 Ml Vial) 4 mg IVPUSH Q8H PRN PRN Reason: Nausea and Vomiting Polyethyl Glycol/Propylene Glycol (Propylene Glycol/Peg 400 Gel Eye Drops 10ml) 1 drop EYE-BOTH Q2H PRN PRN Reason: Dry Eyes Potassium Chloride (Potassium Chloride Er 10 Meq Tablet.Er) 10 meq PO DAILY [facility] Last Admin: 12/19/23 09:01 Dose: 10 meq Documented By: HO.SALMOD Sodium Chloride (0.9 % Sodium Chloride Flush 3 Ml Syringe) 3 ml IVFLUSH QSHIFT [facility] Last Admin: 12/19/23 09:01 Dose: 3 ml Documented By: JUNE Sodium Chloride (0.9 % Sodium Chloride Flush 3 Ml Syringe) [facility] Last Admin: 12/19/23 00:31 Dose: 3 ml Documented By: MARCI Tolterodine Tartrate (Tolterodine Tartrate La 4 Mg Cap.Er.24h) 4 mg PO DAILY [facility] Last Admin: 12/19/23 09:00 Dose: 4 mg Documented By: JUNE Trazodone HCl (Trazodone Hcl 100 Mg Tablet) 100 mg PO BEDTIME [facility] Last Admin: 12/18/23 22:03 Dose: 100 mg Documented By: NOELLEMAR Labs 12/19/23 06:34 12/18/23 05:58 Labs: Laboratory Results - last 24 hr 12/19/23 06:34 MCV 85.3 MCH 26.4 L MCHC 31.0 RDW 15.4 Plt Count 213 MPV 11.0 Absolute Nucleated RBC 0.000 Nucleated RBC % (auto) 0.0 Microbiology Microbiology Results: Microbiology 12/17/23 12:23 Blood Culture - Preliminary Blood - Venous No growth after 24 hours. 12/17/23 12:08 Blood Culture - Preliminary Blood - Venous No growth after 24 hours. Assessment and Plan (1) Colitis: Status: Acute Plan 73yo F with paroxysmal AF on apixaban, HLD, HTN, hypothyroidism, chronic lower leg edema admitted after syncopal episode with 1 episode of BRBPR, found to have colitis likely ischemic colitis - GI consulted. Seems to have resolved. No ABX for now. OK to resume apixaban. Outpatient colonoscopy (due anyways this year). Repeat H+H stable. syncope - brief 2-sec episode likely vasovagal / while sitting on commode straining and due to positive orthostatics hypotension, no arrhythmias on telemetry. mildly elevated CPK - due to being down on ground for 10+ hr, improving, normal renal function. incidental pulmonary nodule - 9mm LLL spiculated nodule- needs repeat CT chest in 3 months paroxysmal AF - continue apixaban + carvedilol + diltiazem hypothyroidism - continue LT4 chronic leg edema - furosemide HTN - lisinopril + carvedilol + diltiazem HLD - atorvastatin neuropathy - gabapentin + duloxetine VTE ppx - apixaban dispo - PT recommend short-term rehab, Also should have Life Alert button. In my clinical judgment, the patient requires continued inpatient hospitalization for the following reasons: colitis, placement Total time managing care of this patient today: 35 minutes. Quality Stroke Does the patient have a stroke diagnosis?: No VTE Prior VTE?: No VTE Risk Level:: Medical - moderate - high VTE Device Contraindication: N/A - Device Ordered VTE Drug Contraindication: Treatment Not Indicated
[2023-12-19 12:00] VITALS: BP 106/49; PULSE 83; RESP 20; TEMP 36.7; O2SAT 95
[2023-12-19 15:50] VITALS: BP 134/69; PULSE 74; RESP 20; TEMP 36.1; O2SAT 92
[2023-12-19 19:45] VITALS: BP 137/68; PULSE 82; RESP 20; TEMP 36.9; O2SAT 93
[2023-12-19] MEDS: DULoxetine HCl 60 MG CAPSULE.DR PO (22:03)
[2023-12-19] MEDS: DULoxetine HCl 30 MG CAPSULE.DR PO (22:03)
[2023-12-19] MEDS: Atorvastatin Calcium 40 MG TABLET PO (22:03)
[2023-12-19] MEDS: Gabapentin 300 MG CAPSULE PO (22:04)
[2023-12-19] MEDS: traZODone HCL 100 MG TABLET PO (22:04)
[2023-12-19] MEDS: Acetaminophen 325 MG TABLET 650 MG PO (22:04)
[2023-12-20] VITALS: BP 129/69; PULSE 87; RESP 18; TEMP 36.6; O2SAT 92
[2023-12-20] MEDS: 0.9 % Sodium Chloride Flush 3 ML SYRINGE IVFLUSH ×3 (02:00→09:44)
[2023-12-20 03:38] VITALS: BP 131/90; PULSE 78; RESP 20; TEMP 36.8; O2SAT 94
[2023-12-20] MEDS: Levothyroxine Sodium 100 MCG TABLET PO (06:07)
[2023-12-20] MEDS: Omeprazole 40 MG CAPSULE.DR PO (06:07)
[2023-12-20] MEDS: polyethylene glycoL 3350 17 GM POWD.PACK PO (06:11)
[2023-12-20 08:00] VITALS: BP 131/90; PULSE 78; RESP 20; TEMP 36.8; O2SAT 94
[2023-12-20] MEDS: carvediloL 3.125 MG TABLET PO (09:43)
[2023-12-20] MEDS: Potassium Chloride ER 10 MEQ TABLET.ER PO (09:43)
[2023-12-20] MEDS: lisinopriL 20 MG TABLET PO (09:43)
[2023-12-20] MEDS: Furosemide 20 MG TABLET PO (09:43)
[2023-12-20] MEDS: Apixaban 5 MG TABLET PO (09:43)
[2023-12-20] MEDS: Tolterodine Tartrate LA 4 MG CAP.ER.24H PO (09:44)
[2023-12-20] MEDS: dilTIAZem HCL CD 240 MG CAP.ER.DEG PO (09:44)
--- NOTE | 2023-12-20 10:43 | MHC.CM.PN ---
Addendum entered by Valery Hernandez RN 12/20/23 16:21: AUTH STILL PENDING, ANTIC DC TOMORROW ONCE SNF RECEIVES INSURANCE AUTH. Addendum entered by Valery Hernandez RN 12/20/23 14:13: [facility] OFFERING AFTER THEY HAD A LAST MINUTE CANCELLATION, CM HAS REQUESTED THEY GO FOR AUTH, PT/HCP HAVE MET W/HOSPITALIST AND ARE AGREEABLE TO DC, CM WILL CONT TO FOLLOW. Original Note: CM MET W/PT TO DISCUSS DISPO, PT REPORTS SHE PREFERS [facility] AND WAS THERE IN THE PAST, PT AWARE AND AGREEABLE TO COPAY D/T BLUE CROSS INSURANCE, PT'S HCP PEDRO (BEST FRIENDS SON) ON PHONE WHEN CM MTG W/PT AND WILL BRING IN COPY OF PT'S HCP, REFERRAL PLACED TO [facility] AND CM AWAITING RESPONSE, CM WILL CONT TO FOLLOW.
[2023-12-20 12:00] VITALS: BP 128/61; PULSE 74; RESP 17; TEMP 37.2; O2SAT 92
--- NOTE | 2023-12-20 13:24 | P.DS_ITS ---
DS: Providers Provider Date of Service: 12/20/23 Date of admission: 12/17/23 15:57 Primary care physician: Brandon Mauricio MD Consults: 12/17/23 15:50 Consult to Gastroenterology Routine Consulting Provider: Ludy Bartlett Reason for consultation: ?colitis DS: Diagnosis Discharge Diagnosis (1) Colitis: Status: Acute DS: Summary Hospital Course Hospital Course: Date of Service: 12/17/23 Attending physician on admission: Marci Chavira Chief Complaint: Fall at home Pt is a 73-year-old female with a PMH significant for?paroxysmal AFib on Eliquis, HLD, HTN, hypothyroidism, and chronic lower leg edema who presents to the ED for evaluation of syncopal episode and weakness. Pt lives alone and uses cane and walker for ambulation. Patient states last night at approximately 22:00 she went to the bathroom and had a syncopal episode. Denies any prodrome of lightheadedness or dizziness, says she just passed out for 2-3 seconds. When she came to she had slid off the toilet and became wedged between the wall and the side of the toilet. Patient felt very weak and says that it took her a few hours to wiggle out of that small space. Patient was then to weak to stand up and walk, and was on the bathroom floor for some time before being able to crawl to the bedroom. While on the floor pt has large bowel movement with bright red blood. Patient states it took until 04:00 for her to be able to crawl into the bedroom to reach a phone to call her sister who then contacted 911. Patient complains of right side and hip pain from where she was wedged between toilet and wall. Denies lightheadedness or dizziness. No fever, chills, nausea, vomiting, abdominal pain. Denies diarrhea. No abdominal pain at rest. No shortness of breath or difficulty breathing. Of note, patient has a recent history of frequent falls, seen in 08/13/2023 for weakness and 2 falls on that day. Was seen again 1 week prior on 12/09/2023 for mechanical fall with head strike while getting into car; the patient suffered occipital scalp laceration and had her orlando removed in the ED just yesterday. In the ED pt was slightly hypertensive at 148/65, otherwise vitals WNL. Labs we re significant for leukocytosis of 17.5 (chronically elevated) and CPK 503, otherwise grossly unremarkable. Stable H&H. No significant electrolyte abnormalities. Lactic acid WNL at 1.1. Troponin 5.2. Stool negative for occult blood. Tested negative for influenza a and B, RSV, COVID. CXR showed bronchial thickening but no dense consolidation. Hip and pelvis x-ray found no radiographic evidence for acute fracture, dislocation, or malalignment. CT of head negative for intracranial abnormality, but did show parietal scalp hematoma and chronic right cerebellar infarcts and mild chronic microangiopathy. CT of cervical spine found no acute osseous abnormality. CT of chest found 9 mm left lower lobe spiculated pulmonary nodule with short-term follow-up in [address] of abdomen and pelvis found subtle pericolonic inflammatory change possibly suggestive of colitis. Also found distended gallbladder and possible mild gallbladder wall edema. EKG demonstrated normal sinus rhythm with nonspecific T-wave abnormality but no significant ST elevations or depressions. Pt was treated with IVF. Pt will be admitted to the hospital for treatment further workup of syncopal episode in the setting of likely colitis. Hospital course: 73yo F with paroxysmal AF on apixaban, HLD, HTN, hypothyroidism, chronic lower leg edema, admitted after syncopal episode with 1 episode of BRBPR, CT abdomen and pelvis showed wall thickening and submucosal edema from splenic flexure through the descending colon most likely representing colitis, likely ischemic colitis as per GI, since had no recurrent episodes of bleeding and had no fever chills, no nausea, vomiting, diarrhea, no antibiotics were required , GI recommended to resume Eliquis and outpatient colonoscopy this year hemoglobin and hematocrit remained stable. Had brief 2-3 sec episode of syncope while on commode, straining for bowel movement, likely multifactorial , vasovagal, due to positive orthostatic blood pressures and polypharmacy, no arrhythmias noted on tele monitor. Treated with IV fluids blood pressure stable, dose of Cymbalta reduced to 60 mg, recommend further medication adjustment as per PCP, On trazodone 100 mg at bedtime, Neurontin 300 mg at bedtime likely contributing to falls,also on detrol LA that can cause anticholinergic side effects. Scalp laceration healing well orlando are out. mildly elevated CPK due to being down on ground for 10+ hr,cpk improved with IV fluid ,have normal renal function. incidental pulmonary nodule noted to have 9mm LLL spiculated nodule on CT chest, needs repeat CT chest in 3 months. paroxysmal AF now in normal sinus rhythm, continue apixaban ,carvedilol and diltiazem hypothyroidism noted to have recent normal TSH continue levothyroxine chronic leg edema continue home dose of Lasix and potassium HTN stable blood pressures on lisinopril, Coreg and diltiazem, for hyperlipidemia continue Lipitor In regard to neuropathy patient on high dose duloxetine 90 mg at bedtime as well as gabapentin 300 mg at bedtime, reduced dose of duloxetine to 60 mg. Time Attestation Discharge coordination time: Greater than 30 minutes Quality: Safe Use of Opioids Does Pt have an Active Cancer Diagnosis on the Problem List?: No Quality: Stroke Does the patient have a stroke diagnosis?: No Physical Exam Vital Signs: Vital Signs: Last Vital Signs Temp 99.0 F 12/20/23 12:00 Pulse 74 12/20/23 12:00 Resp 17 12/20/23 12:00 BP 128/61 12/20/23 12:00 Pulse Ox 92 12/20/23 12:00 O2 Del Method Room Air 12/20/23 12:00 O2 Flow Rate 2 12/19/23 08:00 BMI result Body Mass Index 27.7 Const: Other: Gen: Resting comfortably in bed, in no acute distress HEENT: sclera anicteric, moist mucus membranes Scalp laceration healing well, [place] are out. Neck: supple Lungs: clear to auscultation bilaterally Heart: regular rate and rhythm, no murmurs Abd: soft, non-tender, non-distended, bowel sounds audible Ext: no edema Skin: warm/well-perfused, extensive ecchymosis right upper extremity, diffuse ecchymosis of face, chest, legs. Neuro: alert and oriented x3, no focal findings Psych: appropriate affect DS: Data Data Completed and Pending Labs on day of discharge: Preliminary micro results at discharge 12/17/23 12:23 Blood Culture - Preliminary Blood - Venous No growth after 48 hours. 12/17/23 12:08 Blood Culture - Preliminary Blood - Venous No growth after 48 hours. Discharge Plan Discharge Anticipated Discharge Date/Time: 12/20/23 14:24 Patient Disposition: Xfer SNF Discharge Diagnosis: Syncope Incidental pulmonary nodule Colitis resolved Paroxysmal atrial fibrillation Referrals: Rudylalit Pedrothuan [facility]ep[facility] [Outside] - 1 Day (SHORT TERM REHAB) Brandon Mauricio MD [Primary Care Provider] - 1 Week Discharge Medications: Continued atorvastatin 40 mg tablet 40 mg PO BEDTIME tolterodine 4 mg capsule,extended release 24hr 4 mg PO DAILY potassium chloride 10 mEq tablet extended release 10 meq PO DAILY omeprazole 40 mg capsule,delayed release(DR/EC) 40 mg PO DAILY carvedilol 3.125 mg tablet 3.125 mg PO BID levothyroxine 100 mcg tablet 100 mcg PO DAILY trazodone 100 mg tablet 100 mg PO BEDTIME gabapentin 300 mg capsule 300 mg PO BEDTIME furosemide 20 mg tablet 20 mg PO DAILY duloxetine 60 mg capsule,delayed release(DR/EC) 60 mg PO BEDTIME carboxymethylcellulose sodium [Refresh Tears] 0.5 % Drops 1 drp OPHTHALMIC (EYE) Q2H PRN (Reason: Dry Eyes) benazepril 40 mg tablet 20 mg PO DAILY levothyroxine 100 mcg Tablet 50 mcg PO HERNADEZ Rx Instructions: total dose 150 mcg on sundays clobetasol 0.05 % cream 1 appl topical BID PRN (Reason: Rash) vitamin A-vitamin C-vit E-min Tablet 1 tab PO DAILY diltiazem HCl 240 mg capsule,extended release 24hr 240 mg PO DAILY Qty: 30 6RF Protocol: Hold for SBP/HR < HOLD for SBP < : 90 HOLD for HR < : 60 Eliquis 5 mg tablet 5 mg PO BID Qty: 60 6RF Discontinued duloxetine 30 mg capsule,delayed release(DR/EC) 30 mg PO BEDTIME Discharge Orders: Discharge Order (Routine); Ordered 12/20/23 Ordered By: Syed Brody Diet: Advance to usual diet Activity on Discharge: As tolerated Stand Alone Forms: Patient Portal Discharge page Care Plan Goals: Syncope/recurrent falls being transferred to rehab for physical therapy Outpatient follow-up with primary care physician to adjust medication to avoid sedation and falls. Dose of Cymbalta reduced to 60 mg at bedtime Continue all other home medications Continue care for scalp laceration Health Concerns: Incidental pulmonary nodule noted on CT chest need repeat CT chest in 3 months Plan of Treatment: Follow-up with primary care physician upon discharge from rehab. Assessment: As above
[2023-12-20 14:48] VITALS: BP 104/62; PULSE 82; RESP 18; TEMP 36.8; O2SAT 93
== END 2023-12-20 17:59 | disposition skilled nursing facility (03) | DRG 395 ==
LOC: HO.ED 14:21 → HO.EDOVER 15:45 → HO.IMC 19:03 → HO.EDOVER 12-20 07:42
PROVIDERS: Family Medicine; Admitting Provider Student in an Organized Health Care Education/Training Program; Emergency Provider Emergency Medicine Emergency Medical Services; PCP Internal Medicine; Visit Provider Hospitalist
DX: K55.9 Vascular disorder of intestine, unspecified (principal); E03.9 Hypothyroidism, unspecified; I95.9 Hypotension, unspecified; I48.0 Paroxysmal atrial fibrillation; G62.9 Polyneuropathy, unspecified; R91.1 Solitary pulmonary nodule; E78.5 Hyperlipidemia, unspecified; Z20.822 Contact with and (suspected) exposure to COVID-19; Z79.01 Long term (current) use of anticoagulants; Z79.890 Hormone replacement therapy; Z79.899 Other long term (current) drug therapy
CPT/HCPCS: 0241U; 36415; 70450; 71045; 71260; 72125; 73521; 74177; 76705; 80048; 80076; 81001; 82272; 82550; 83605; 83690; 84484; 85025; 85027; 86140; 87040; 90715; 93005; 97162; 99285; Q9967

== ENCOUNTER → 2023-12-17 10:45 | Outpatient (BNV) | payer MEDICARE, SELFPAY | PROVIDERS: Admitting Provider Student in an Organized Health Care Education/Training Program; Emergency Provider Emergency Medicine Emergency Medical Services; PCP Internal Medicine; Visit Provider Internal Medicine Cardiovascular Disease | DX: R94.31 Abnormal electrocardiogram [ECG] [EKG] (principal); R07.9 Chest pain, unspecified | CPT/HCPCS: 93010 ==

== ENCOUNTER → 2023-12-17 15:33 | Outpatient (BNV) | payer MEDICARE, SELFPAY | PROVIDERS: Admitting Provider Student in an Organized Health Care Education/Training Program; Emergency Provider Emergency Medicine Emergency Medical Services; PCP Internal Medicine; Visit Provider Family Medicine | DX: K52.9 Noninfective gastroenteritis and colitis, unspecified (principal); R55 Syncope and collapse | CPT/HCPCS: 99223; 99232; 99239 ==

== ENCOUNTER → 2023-12-17 15:33 | Outpatient (BNV) | payer MEDICARE, SELFPAY | PROVIDERS: Admitting Provider Student in an Organized Health Care Education/Training Program; Emergency Provider Emergency Medicine Emergency Medical Services; PCP Internal Medicine; Visit Provider Internal Medicine | DX: R55 Syncope and collapse (principal); I48.91 Unspecified atrial fibrillation; K52.9 Noninfective gastroenteritis and colitis, unspecified | CPT/HCPCS: 99222 ==

== ENCOUNTER 2024-02-16 15:35 | Inpatient (IN) | payer MEDICARE, SELFPAY ==
--- NOTE | ~2024-02-16 | US_ITS ---
EXAMINATION: US EXTRACRANIAL CAROTID DUPLEX, BILATERAL CLINICAL INFORMATION: Syncope COMPARISON: None available. TECHNIQUE: Real-time ultrasound and Doppler techniques (integrating B-mode 2-D vascular images, Doppler spectral analysis and color-flow Doppler imaging) were utilized to interrogate the extracranial carotid arteries, the vertebral arteries and proximal subclavian arteries bilaterally. The degree of stenosis is determined by criteria similar to NASCET. FINDINGS: Right Side: 1. There is mild atherosclerotic plaque seen in the bifurcation/proximal ICA region. 2. The common carotid artery PSV proximally is 134 cm/s and distally 78 cm/s. 3. The proximal internal carotid artery velocities are 108 cm/s systolic and 17 cm/s diastolic. 4. The proximal external carotid artery PSV is 107 cm/s. 5. The vertebral artery shows antegrade flow. 6. The subclavian artery waveforms are normal. Left Side: 1. There is mild to moderate atherosclerotic plaque seen in the bifurcation/proximal ICA region. 2. The common carotid artery PSV proximally is 120 cm/s and distally 15 cm/s. 3. The proximal internal carotid artery velocities are 134 cm/s systolic and 19 cm/s diastolic. 4. The proximal external carotid artery PSV is 134 cm/s. 5. The vertebral artery shows antegrade flow. 6. The subclavian artery waveforms are normal. US/US carotid duplex BI IMPRESSION: 1. RIGHT: Minimal, non-hemodynamically significant stenosis of the proximal right internal carotid artery corresponding to a 0-49% stenosis by velocity criteria. 2. LEFT: Moderate, hemodynamically significant stenosis of the proximal left internal carotid artery corresponding to a 50-79% stenosis by velocity criteria.
--- NOTE | ~2024-02-16 | CT_ITS ---
EXAMINATION: CT ABDOMEN AND PELVIS WITH CONTRAST CLINICAL INFORMATION: Diarrhea, pain and history of ischemic colitis. COMPARISON: None available. TECHNIQUE: Multidetector volumetric images were obtained from the superior aspect of the liver through the pubic symphysis following administration 85 mL of Omnipaque 350 intravenous contrast. Sagittal and coronal reformatted images were obtained on the technologist's workstation. Oral contrast: No This CT examination was performed using dose optimization techniques as appropriate, variously including the following: *Automated exposure control *Adjustment of mA and/or kV according to patient size (this includes techniques or standardized protocols for targeted exams where dose is matched to indication/reason for exam; i.e. extremities or head) *Use of iterative reconstruction technique DLP: 1199 mGy-cm FINDINGS: LUNG BASES: There is a moderate size likely nonreducible hiatal hernia. Bilaterally with atelectatic changes seen in lingula. Otherwise lung bases are clear. Heart size appears normal. No pericardial effusion seen. LIVER, GALLBLADDER, AND BILIARY TREE: The liver is normal in size, shape, and attenuation. No focal hepatic lesion or biliary ductal dilatation is present. The gallbladder is unremarkable with no evidence of radiopaque gallstones, gallbladder wall thickening, or obvious pericholecystic inflammatory changes. PANCREAS: Unremarkable. SPLEEN: Unremarkable. ADRENAL GLANDS: Unremarkable. KIDNEYS AND URETERS: The kidneys are normal in size, shape, and attenuation. No hydronephrosis, hydroureter, or calculi seen. No perinephric stranding. There is a 1 cm hypodensity lower pole right kidney measuring cyst. No further workup needed. BLADDER: The bladder is distended. No bladder wall thickening seen. No radiopaque calculi. GASTROINTESTINAL TRACT: There is mural thickening involving proximal and mid descending colonic segments with mild pericolic fat stranding suggestive of colitis. Nondilated fluid-filled rest of the colon and small bowel loops are noted The appendix is not visualized. No free air or free fluid seen. ABDOMINAL WALL: No significant hernia is appreciated. LYMPH NODES: Normal. VASCULAR: Unremarkable. PELVIC VISCERA: The uterus is anteverted and appears unremarkable. No adnexal mass or free fluid seen. OSSEOUS STRUCTURES: There are degenerative disc changes throughout lumbar spine with mild ventral and posterior spondylosis. No aggressive lytic or sclerotic process seen. CT/CT abdomen pelvis w IV con IMPRESSION: 1. No acute intra-abdominal process seen. 2. Moderate size hiatal hernia. 3. Mild bladder distention. 4. Moderate-sized likely nonreducible hiatal hernia. Fleischner guidelines were followed.
--- NOTE | ~2024-02-16 | XR_ITS ---
EXAMINATION: XR KNEE, LEFT CLINICAL INFORMATION: Left knee pain COMPARISON: None available. TECHNIQUE: Four views of the left knee. FINDINGS: There is total left knee prosthesis with prosthetic components in satisfactory alignment. No loose bodies or joint effusion seen. The soft tissues are normal. XR/XR knee LT 4V IMPRESSION: Total left knee prosthesis with prosthetic components in satisfactory alignment.
--- NOTE | ~2024-02-16 | CT_ITS ---
EXAMINATION: CT HEAD WITHOUT CONTRAST CLINICAL INFORMATION: Fall on Eliquis COMPARISON: CT head without contrast 12/17/2023. MRI brain 08/16/2023. TECHNIQUE: Contiguous axial imaging was performed from the skull base to vertex without intravenous administration of contrast. This CT examination was performed using dose optimization techniques as appropriate, variously including the following: *Automated exposure control *Adjustment of mA and/or kV according to patient size (this includes techniques or standardized protocols for targeted exams where dose is matched to indication/reason for exam; i.e. extremities or head) *Use of iterative reconstruction technique DLP: 548.45 mGy-cm FINDINGS: There is no evidence of acute intracranial hemorrhage or edematous territorial infarction. The grier-white matter differentiation appears preserved. Proportional prominence of ventricles and cortical sulci with generalized volume loss. Patchy periventricular and deep white matter hypodensities likely representing mild to moderate chronic microangiopathic changes. 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 No mass effect, midline shift or extra-axial collection. Small soft tissue defect and underlying hematoma in the left parietal scalp. The included paranasal sinuses are well-aerated. The mastoids are clear. No acute osseous abnormality. Mild hyperostosis frontalis. CT/CT head/brain wo IV con IMPRESSION: 1. No acute intracranial pathology. Small soft tissue defect and underlying hematoma in the left parietal scalp. 2. 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
--- NOTE | 2024-02-16 15:56 | ECG_ITS ---
Test Reason : SYNCOPEE Blood Pressure : / mmHG Vent. Rate : 068 BPM Atrial Rate : 068 BPM P-R Int : 204 ms QRS Dur : 072 ms QT Int : 450 ms P-R-T Axes : 037 020 054 degrees QTc Int : 478 ms Normal sinus rhythm Normal ECG When compared with ECG of 17-DEC-2023 11:14, QT has lengthened Referred By: Ivone Dupont Electronically Signed By:JUMANA SETHI MD
--- NOTE | 2024-02-16 15:59 | ED.NAVMDI ---
HPI - Nausea/Vomiting/Diarrhea General Chief complaint: Nausea/Vomiting/Diarrhea Stated complaint: diarrhea,weakness Time Seen by Provider: 02/16/24 15:40 Source: patient and old records reviewed Mode of arrival: EMS Limitations: no limitations History of Present Illness HPI Narrative: 73 yo female with PMH of PAF on eliquis, HTN, HLD, lupus, hypothyroidism, chronic leg edema, ischemic colitis in the past presents with abrupt onset of nausea dry heaves and non-bloody diarrhea starting at 1pm. The patient notes she tried to get up to have diarrhea and felt weak and fell to the ground with LOC she has injury to L knee prior TKR denies head strike or LOC. The patient denies antibiotics, sick contacts, travel history. She reports just eating mac and cheese from home prior to event. She used her [employer] life alert right away when it happened and was not on the ground for long MD elicited complaint: nausea and diarrhea Pertinent past history: other (ischemic colitis) Onset (ago): day(s) (1pm today) Description of diarrhea: watery and loose Associated nausea: Yes Associated abdominal pain: Yes Location of pain: diffuse Radiation: diffuse Pain consistency: intermittent Severity: mild Quality: cramping Exacerbating factors: eating Relieving factors: none Associated symptoms: loss of appetite, malaise, nausea/vomiting, syncope (near syncope) and weakness Related Data Home Medications Medication Instructions Recorded Confirmed atorvastatin 40 mg tablet 40 mg PO BEDTIME 08/13/23 02/16/24 carboxymethylcellulose sodium 0.5 1 drp ophthalmic (eye) 5XD 08/13/23 02/16/24 % eye drops (Refresh Tears) carvedilol 3.125 mg tablet 3.125 mg PO BID 08/13/23 02/16/24 furosemide 20 mg tablet 20 mg PO DAILY 08/13/23 02/16/24 gabapentin 300 mg capsule 300 mg PO BEDTIME 08/13/23 02/16/24 levothyroxine 100 mcg tablet 100 mcg PO DAILY 08/13/23 02/16/24 omeprazole 40 mg capsule,delayed 40 mg PO DAILY 08/13/23 02/16/24 release potassium chloride 10 mEq 10 meq PO DAILY 08/13/23 02/16/24 tablet,extended release trazodone 100 mg tablet 100 mg PO BEDTIME 08/13/23 02/16/24 clobetasol 0.05 % topical cream 1 appl topical BID PRN LUPUS FLARE 12/17/23 02/16/24 levothyroxine 100 mcg tablet 50 mcg PO HERNADEZ 12/17/23 02/16/24 benazepril 10 mg tablet 10 mg PO BEDTIME 02/16/24 02/16/24 duloxetine 30 mg capsule,delayed 30 mg PO DAILY 02/16/24 02/16/24 release emollient combination no.77 1 appl topical DAILY PRN bruising 02/16/24 02/16/24 (Dermend topical cream) Previous Rx's Medication Instructions Recorded apixaban 5 mg tablet (Eliquis) 5 mg PO BID #60 tabs 09/16/23 diltiazem HCl 240 mg 240 mg PO DAILY #30 caps 09/16/23 capsule,extended release 24 hr Allergies Allergy/AdvReac Type Severity Reaction Status Date / Time erythromycin base Allergy Severe Rash Verified 08/18/23 11:31 [From Erythrocin] Penicillins [PENICILLINS] Allergy Severe HIVES Verified 08/13/23 14:58 droperidol [From INAPSINE] Allergy Intermediate UNUSUAL Verified 08/13/23 14:58 HEAD MOVEMENTS oxycodone [OXYCODONE] Allergy Mild ITCHING Verified 08/13/23 14:58 morphine [MORPHINE] AdvReac Unknown CONFUSION Verified 08/13/23 14:58 Review of Systems Review of Systems: Constitutional : No Weight loss, No Fever, No Chills ENT/Mouth : No sore throat, No Rhinorrhea Eyes: No Swelling, No Redness Cardiovascular : No Chest Pain, No SOB, No Edema Respiratory : No Cough, No Sputum, No Wheezing Gastrointestinal : Positive Nausea, no Vomiting, positive Diarrhea, positive abdominal Pain, No Hematochezia, No Melena Genitourinary : No Dysuria, No Urinary Frequency, No Hematuria, No Urgency Musculoskeletal : pos joint pain, No Myalgias, No Joint Swelling Skin : No Skin Lesions, No rash Neuro : pos Weakness, No Numbness, No Dizziness, No Headache Psych : No Anxiety/Panic, No Depression Heme/Lymph: No Bruising, No Lymphadenopathy Endocrine : No Polyuria, No Polydipsia All other systems reviewed and are negative. Gastrointestinal: Gastrointestinal: Reports nausea PMFSH Past Medical History Attestation statement: The following information was validated with the patient. Source: old records reviewed Medical History Atrial fibrillation Hypothyroidism Lower leg edema GERD (gastroesophageal reflux disease) HLD (hyperlipidemia) HTN (hypertension) Paroxysmal A-fib Frequent falls Anemia Head injury General weakness Fall Lupus Family History Family History Mother Myocardial infarction Social History Social History Household Members: None Housing: Apartment Do you presently have visiting nurse or other home services: Yes (cleaning, meals) Patient Tobacco Use Status: Never used Tobacco Smoked in Last 30 Days: No e-Cigarette/Vaping Use: Never Used Use of substances other than those prescribed or required for medical reasons: No Advance Directives: Yes Advance Directives on File: Yes Advance Directives Date on File: 12/17/23 service: No Physical Exam Vital Signs: Vital Signs: Last Vital Signs Temp 97.4 F 02/16/24 19:42 Pulse 77 02/16/24 19:42 Resp 16 02/16/24 19:42 BP 137/46 L 02/16/24 19:42 Pulse Ox 97 02/16/24 19:42 O2 Del Method Room Air 02/16/24 19:42 BMI result Body Mass Index 26.9 Appearance: Alert. Oriented X3. No acute distress. Eyes: Pupils equal, round and reactive to light. ENT: Pharynx mildly dry MM. contusion noted L parietal area Neck: Normal inspection. Neck supple. CVS: Normal heart rate and rhythm. Pulses normal. Respiratory: No respiratory distress. Breath sounds normal. Abdomen: Soft and mild diffuse lower ttp Skin: Skin warm and dry. Normal skin color. Normal skin turgor. Extremities: No lower extremity edema. L knee boggy infrapatellar hematoma - distal NV intact size of orange Neuro: Oriented X 3. No motor deficit. No sensory deficit. Course Course Course Narrative: leukocytosis is a chronic finding and not new cannot obtain orthostatics due to left knee hematoma repeat troponin ordered Reevaluation(s) Reevaluation #1: patient has seemed slightly confused as well asking for her glasses but they are in her hand - no focal weakness Medications Administered Generic Name Dose Route Start Last Admin Trade Name Freq PRN Reason Stop Dose Admin Sodium Chloride 1,000 mls @ 100 mls/hr 04/03/24 20:00 02/16/24 20:22 Ns IVCONT 100 mls/hr .Q10H PHONG Administration Discontinued Medications Generic Name Dose Route Start Last Admin Trade Name Abner PRN Reason Stop Dose Admin Acetaminophen 650 mg 02/16/24 16:21 02/16/24 17:23 Acetaminophen 325 Mg Tablet PO 02/16/24 16:22 650 mg ONCE ONE Administration Sodium Chloride 1,000 mls @ 999 mls/hr 02/16/24 16:00 02/16/24 19:56 Ns IV 02/16/24 17:00 Infused .Q1H1M PHONG Infusion Iohexol 100 ml 02/16/24 18:10 02/16/24 18:10 Iohexol 350 Mg/Ml 100 Ml Infus..Btl IV 02/16/24 18:11 85 ml ONCE ONE Administration Ondansetron HCl 4 mg 02/16/24 15:54 02/16/24 17:33 Ondansetron Hcl 4 Mg/2 Ml Vial IVPUSH 02/16/24 15:55 Not Given ONCE ONE Medical Decision Making Medical Decision Making MDM Narrative: 73 yo female with PMH of PAF on eliquis, HTN, HLD, lupus, hypothyroidism, chronic leg edema, ischemic colitis here with c/o abrupt onset nausea and dry heaves then starting diarrhea attempted to get up and felt weak no CP/SOB fell to the ground no headstrike injured L knee did have LOC- at this time labs, CT head to rule out ICH, L knee xray, fluids, EKG for syncope likely in setting vasovagal vs dehydration. She denies GIB symptoms. She will get CT scan of abdomen given hx of ischemic colitis has been admitted for same in the past. Differential Diagnosis Differential Diagnoses: The differential diagnosis associated with the presentation includes dehydration, colitis, knee injury, head injury, anemia, near syncope Admission/Observation Consideration of admission/observation: Escalation of care including admission/observation considered has colitis hx of same in past will hold antibiotics hx of same and did well without antibiotics, no repeat diarrhea here will admit for syncope workup Consult Healthcare Provider Management of the patient was discussed with: Hospitalist (will admit) Lab Data [facility] Lab Attestation statement: I reviewed the patient's lab results. 02/16/24 16:57 02/16/24 16:57 Labs: Lab Results 02/16/24 02/16/24 Range/Units 16:57 19:58 WBC 17.2 H (4.8-10.8) X10*3/uL RBC 4.59 D (4.20-5.50) X10*6/uL Hgb 11.3 L (12.0-16.0) g/dl Hct 37.5 (37.0-47.0) % MCV 81.7 (80.0-98.0) fL MCH 24.6 L (27.0-33.0) pg MCHC 30.1 L (31.0-35.0) g/dl RDW 16.3 H (11.0-16.0) % Plt Count 252 (160-400) X10*3/uL MPV 11.0 (9.4-12.3) fL Immature Gran % (Auto) 0.5 H (0.0-0.4) % Neut % (Auto) 81.3 H (45-73) % Lymph % (Auto) 9.1 L (20-40) % [place] % (Auto) 7.9 (2-11) % Eos % (Auto) 0.9 (0-4) % Baso % (Auto) 0.3 (0-2) % Lymph # (Auto) 1.6 (1.2-4.9) X10*3/uL [place] # (Auto) 1.4 H (0.1-1.2) X10*3/uL Eos # (Auto) 0.2 (0.0-0.4) X10*3/uL Baso # (Auto) 0.1 (0.0-0.2) X10*3/uL Abs Immat Gran (auto) 0.09 H (0.00-0.03) X10*3/uL Absolute Neuts (auto) 14.0 H (2.0-8.3) x10*3/uL Absolute Nucleated RBC 0.000 (0.0-0.012) X10*3/uL Nucleated RBC % (auto) 0.0 (0.0-0.2) /100WBC Sodium 139 (135-145) mmol/L Potassium 3.9 (3.3-5.1) mmol/L Chloride 105 (96-108) mmol/L Carbon Dioxide 27 (22-29) mmol/L Anion Gap 11 L (12-20) BUN 16 (9-16) mg/dL Creatinine 0.90 (0.5-1.4) mg/dL Estim Creat Clear Calc 58.9 Estimated GFR > 60 Random Glucose 125 H (60-115) mg/dL Lactic Acid 2.0 (0.5-2.0) mmol/L Calcium 9.7 D (8.4-10.2) mg/dL Magnesium 2.5 (1.6-2.6) mg/dL Total Bilirubin 0.4 (0.0-1.0) mg/dL Direct Bilirubin 0.2 (0.0-0.5) mg/dL AST 18 (5-31) U/L ALT 12 (0-31) U/L Alkaline Phosphatase 105 (39-117) U/L Total Creatine Kinase 49 (26-140) U/L Troponin I High Sens < 2.7 < 2.7 (<3.5-17.0) ng/L Total Protein 7.4 (6.5-8.0) g/dL Albumin 3.7 (3.5-5.0) g/dL Lipase 11 (8-78) U/L Procalcitonin 0.06 ng/mL Independent Interpretation I performed an independent interpretation of an: EKG, Plain X-Ray (no trauma) and CT Scan (no ICH, colitis noted) Interpretation: Rate: 68 Rhythm: NSR Barry: normal Normal P waves. 1st degree AVB Normal QRS complex. ST T wave : artifact noted, no JAY qTC: 478 prior studies: no acute ischemia The study has been interpreted contemporaneously by me. . Radiology Impression Discussion of test interpretation with radiology: I have reviewed the radiologist's reading. Independent Historian Clinical information obtained from an independent historian. History obtained from or confirmed by: EMS External Record Review External record reviewed: Inpatient record Discharge Plan Discharge Clinical Impression: Hematoma of left knee region, Colitis Syncope Qualifiers: Syncope type: unspecified Qualified Code(s): R55 - Syncope and collapse Patient Disposition: Admitted As Inpatient
[2024-02-16 16:08] VITALS: BP 102/81; BP 112/68; PULSE 55; PULSE 62; RESP 16; TEMP 36.4; O2SAT 96; BMI 26.9
[2024-02-16 17:01] VITALS: BP 125/67; PULSE 65; RESP 16; TEMP 36.3; O2SAT 97
[2024-02-16 17:02] LABS: MANUAL DIFF FLAG NO
--- NOTE | 2024-02-16 17:02 | MHC.EDTECH ---
Patient was biba from home ,Patient was incontinent of large amount of stool ,Bed bath given ,ekg taken and was read by Provider ,blood drawn including both sets of blood culture and lactic acid all sent to lab ,Patient was hooked up to electronic device monitor and vitals taken ,Call kelley within Patient reach .
[2024-02-16 17:05] LABS: Basophils Absolute Auto 0.1 X10*3/uL (0.0-0.2); Basophils Percent Auto 0.3 % (0-2); Eosinophils Absolute Auto 0.2 X10*3/uL (0.0-0.4); Eosinophils Percent Auto 0.9 % (0-4); Hematocrit 37.5 % (37.0-47.0); Hemoglobin 11.3 g/dl (12.0-16.0); Imm Gran Abs Auto 0.09 X10*3/uL (0.00-0.03); Imm Gran Pct Auto 0.5 % (0.0-0.4); Lymphocytes Absolute Auto 1.6 X10*3/uL (1.2-4.9); Lymphocytes Percent Auto 9.1 % (20-40); Mean Corpuscular HGB Conc 30.1 g/dl (31.0-35.0); Mean Corpuscular Hemoglobin 24.6 pg (27.0-33.0); Mean Corpuscular Volume 81.7 fL (80.0-98.0); Monocytes Absolute Auto 1.4 X10*3/uL (0.1-1.2); Monocytes Percent Auto 7.9 % (2-11); Neutrophils Percent Auto 81.3 % (45-73); Platelet Count 252 X10*3/uL (160-400); Red Blood Count 4.59 X10*6/uL (4.20-5.50); Red Cell Distribution Width 16.3 % (11.0-16.0); White Blood Count 17.2 X10*3/uL (4.8-10.8)
[2024-02-16] MEDS: Acetaminophen 325 MG TABLET 650 MG PO (17:23)
[2024-02-16 17:32] LABS: Alanine Aminotransferase 12 U/L (0-31); Albumin Level 3.7 g/dL (3.5-5.0); Alkaline Phosphatase 105 U/L (39-117); Anion Gap 11 (12-20); Aspartate Amino Transferase 18 U/L (5-31); Bilirubin Direct 0.2 mg/dL (0.0-0.5); Bilirubin Total 0.4 mg/dL (0.0-1.0); Blood Urea Nitrogen 16 mg/dL (9-16); Calcium 9.7 mg/dL (8.4-10.2); Carbon Dioxide 27 mmol/L (22-29); Chloride 105 mmol/L (96-108); Creatinine Clr Calc Pharmacy 58.9; Estimated Glomerular Filt Rate > 60; Glucose Random 125 mg/dL (60-115); Lipase 11 U/L (8-78); Magnesium 2.5 mg/dL (1.6-2.6); Potassium 3.9 mmol/L (3.3-5.1); Sodium 139 mmol/L (135-145); Total Protein 7.4 g/dL (6.5-8.0)
[2024-02-16] MEDS: 0.9 % Sodium Chloride 1,000 ML 999 ML IV (17:33)
[2024-02-16 17:34] LABS: Troponin-I High Sensitivity < 2.7 ng/L (<3.5-17.0)
--- NOTE | 2024-02-16 17:42 | PC.NURSE ---
pt a&o x4, pleasant, calm, and cooperative. pt comes from home after a syncopal episode. pt denies hitting head. sts she woke up sitting against the wall in her condo covered in feces. pt sts earlier today she felt weak and generally unwell. pt arrives to ED covered in feces. pt cleaned up by t/w and nerupa. 20G IV placed to LAC, fluids hung and pt medicated per mar for L knee pain. pt hx of L knee replacement. pt L knee with significant swelling. roberto bandage wrap placed to L knee by lydia. pt health care proxy at bedside with concern about BP medications possibly causing syncopal episodes. MD lydia aware. rr even/unlabored. call kelley within reach. plan of care ongoing.
[2024-02-16] MEDS: iohexoL 350 MG/ML 100 ML INFUS..BTL IV (18:10)
[2024-02-16 18:12] LABS: Procalcitonin 0.06 ng/mL
[2024-02-16 19:42] VITALS: BP 137/46; PULSE 77; RESP 16; TEMP 36.3; O2SAT 97
[2024-02-16] MEDS: 0.9 % Sodium Chloride 1,000 ML 100 ML IVCONT (20:22)
[2024-02-16 20:23] LABS: Troponin-I High Sensitivity < 2.7 ng/L (<3.5-17.0)
--- NOTE | 2024-02-16 20:26 | PHA.MEDREC ---
Pharmacy Consult ? Medication Reconciliation Pharmacy has completed the medication reconciliation. Patient confirmed medication. Reported benazepril was decrease to 10 mg. Report duloxetine is now 30 mg. Cortney Perez, JanaeD
[2024-02-16 20:41] LABS: Influenza A PCR NEGATIVE (Negative); Influenza B PCR NEGATIVE (Negative); Resp Syncy Virus RNA Qual PCR NEGATIVE (Negative); SARS COV2 PCR INHOUSE NEGATIVE (Negative)
--- NOTE | 2024-02-16 20:41 | P.HPHOSP_ITS ---
History of Present Illness Date of Service: 02/16/24 Attending physician on admission: Jose Vu Chief Complaint: Diarrhea, generalized weakness, fall at home Pt is a 73-year-old female with a PMH significant for?paroxysmal AFib on Eliquis, HLD, HTN, hypothyroidism, hx of ischemic colitis, and chronic lower leg edema who presents to the ED for evaluation of syncopal episode at home. Patient reports she was in her normal state of health until she ate lunch earlier today and began ?not feeling well? with upset stomach. Began experiencing abdominal pain described as both crampy and sharp in nature. Patient went to the bathroom and initially had a small bowel movement that was normal in consistency. She then went to lay down but still felt unwell and got to go to the bathroom again. Patient was using her cane to walk to the bathroom when she had a sudden syncopal episode in the hallway. No prodrome of symptoms; denies lightheadedness or dizziness. Patient reports that she just woke up after a few seconds on the floor and was incontinent of urine and stool. Stool was mostly liquid. Denies head strike, but noticed pain in her left knee. Patient used her life Alert to notify EMS who brought her to the ED for further evaluation. Denies fever, chills, nausea, vomiting. Currently reports abdominal pain has subsided. No chest pain/pressure, palpitations. Denies shortness of breath. No headache. Of note, patient was admitted to the hospital on 12/17-12/20 for similar symptoms of syncope while on the commode straining during bowel movement. Was found to have likely ischemic colitis from hypotension, not given antibiotics as there was no fever, chills, nausea, vomiting, or diarrhea. Syncopal episode was deemed most likely multifactorial: Vasovagal, polypharmacy, and hypoperfusion with positive orthostatics. In the ED pt's vitals WNL. Labs were significant for leukocytosis 17.2 otherwise largely unremarkable. Stable H& H. No electrolyte abnormalities. Renal and hepatic function WNL. Serial troponins negative. Procalcitonin 0.06. CPK 49. UA negative for UTI. X-ray of left knee without acute findings, no fracture or malalignment noted. CT of head negative for acute intracranial pathology, but did show small soft tissue defect underlying hematoma on left parietal scalp, and mild generalized volume loss with moderate chronic microangiopathy. CT of abdomen and pelvis found mural thickening involving proximal and mid descending colonic segments with mild pericolonic fat stranding suggestive of colitis. Also found moderate sized likely non reducible hiatal hernia. EKG demonstrated normal sinus rhythm without evidence of significant ST elevations or depressions. Pt was treated with acetaminophen and IVF. Pt will be admitted to the hospital for treatment and further workup of syncopal episode in the setting of likely colitis. Review of Systems 2 Review of Systems: Syncopal episode at home while walking to the bathroom Abdominal crampy/sharp pain Episode of diarrhea Left knee and left buttock pain Denies lightheadedness or dizziness No fever, chills, nausea, vomiting Denies headache PMFSH Medical History Atrial fibrillation Hypothyroidism Lower leg edema GERD (gastroesophageal reflux disease) HLD (hyperlipidemia) HTN (hypertension) Paroxysmal A-fib Frequent falls Anemia Head injury General weakness Fall Lupus Family History Mother Myocardial infarction Social History Household Members: None Housing: Apartment Do you presently have visiting nurse or other home services: Yes (cleaning, meals) Patient Tobacco Use Status: Never used Tobacco Smoked in Last 30 Days: No e-Cigarette/Vaping Use: Never Used Use of substances other than those prescribed or required for medical reasons: No Advance Directives: Yes Advance Directives on File: Yes Advance Directives Date on File: 12/17/23 service: No Meds Allergies Allergy/AdvReac Type Severity Reaction Status Date / Time erythromycin base Allergy Severe Rash Verified 08/18/23 11:31 [From Erythrocin] Penicillins [PENICILLINS] Allergy Severe HIVES Verified 08/13/23 14:58 droperidol [From INAPSINE] Allergy Intermediate UNUSUAL Verified 08/13/23 14:58 HEAD MOVEMENTS oxycodone [OXYCODONE] Allergy Mild ITCHING Verified 08/13/23 14:58 morphine [MORPHINE] AdvReac Unknown CONFUSION Verified 08/13/23 14:58 Active Medications: Current Medications Sodium Chloride (Ns) 1,000 mls @ 100 mls/hr IVCONT .Q10H PHONG Last Admin: 02/16/24 20:22 Dose: 100 mls/hr Home Medications Medication Instructions Recorded Confirmed Last Taken Type atorvastatin 40 mg tablet 40 mg PO BEDTIME 08/13/23 02/16/24 02/15/24 History carboxymethylcellulose sodium 0.5 1 drp ophthalmic (eye) 5XD 08/13/23 02/16/24 02/16/24 History % eye drops (Refresh Tears) carvedilol 3.125 mg tablet 3.125 mg PO BID 08/13/23 02/16/24 02/16/24 History furosemide 20 mg tablet 20 mg PO DAILY 08/13/23 02/16/24 02/16/24 History gabapentin 300 mg capsule 300 mg PO BEDTIME 08/13/23 02/16/24 02/15/24 History levothyroxine 100 mcg tablet 100 mcg PO DAILY 08/13/23 02/16/24 02/16/24 History omeprazole 40 mg capsule,delayed 40 mg PO DAILY 08/13/23 02/16/24 02/16/24 History release potassium chloride 10 mEq 10 meq PO DAILY 08/13/23 02/16/24 02/16/24 History tablet,extended release trazodone 100 mg tablet 100 mg PO BEDTIME 08/13/23 02/16/24 02/15/24 History clobetasol 0.05 % topical cream 1 appl topical BID PRN LUPUS FLARE 12/17/23 02/16/24 12/16/23 History levothyroxine 100 mcg tablet 50 mcg PO HERNADEZ 12/17/23 02/16/24 02/13/24 History benazepril 10 mg tablet 10 mg PO BEDTIME 02/16/24 02/16/24 02/15/24 History duloxetine 30 mg capsule,delayed 30 mg PO DAILY 02/16/24 02/16/24 02/16/24 History release emollient combination no.77 1 appl topical DAILY PRN bruising 02/16/24 02/16/24 Unknown History (Dermend topical cream) Physical Exam 2 Vital Signs and Narrative: Vital Signs: Last Vital Signs Temp 97.4 F 02/16/24 19:42 Pulse 77 02/16/24 19:42 Resp 16 02/16/24 19:42 BP 137/46 L 02/16/24 19:42 Pulse Ox 97 02/16/24 19:42 O2 Del Method Room Air 02/16/24 19:42 BMI result Body Mass Index 26.9 Constitutional: Alert, in no acute distress. Mental Status: Oriented to person, place and time. Eyes: Pupils are equal, round, and reactive to light. Ear, Nose, and Throat: Oropharynx clear, mucous membranes dry. Ears and nose without deformities. Trachea midline. Respiratory: Clear to auscultation bilaterally. No wheezing, rales, or rhonchi. Cardiovascular: S1, S2 regular. No murmurs, rubs, or gallops. Gastrointestinal: Abdomen soft, non-distended, with suprapubic and left lower quadrant tenderness. Normal bowel sounds. Neurologic: Cranial nerves II-XII are grossly intact bilaterally. No focal neurological deficits. Moves all extremities spontaneously. Skin: Warm, dry. Extremities: Non-pitting bilateral edema. Left knee with anterior ecchymosis. Left knee tender to palpation and reduced ROM secondary to pain. Psychiatric: Normal mood and affect. Results Labs 02/16/24 16:57 02/16/24 16:57 Labs: Laboratory Results - last 24 hr 02/16/24 02/16/24 16:57 19:58 MCV 81.7 MCH 24.6 L MCHC 30.1 L RDW 16.3 H Plt Count 252 MPV 11.0 Immature Gran % (Auto) 0.5 H Neut % (Auto) 81.3 H Lymph % (Auto) 9.1 L [place] % (Auto) 7.9 Eos % (Auto) 0.9 Baso % (Auto) 0.3 Lymph # (Auto) 1.6 [place] # (Auto) 1.4 H Eos # (Auto) 0.2 Baso # (Auto) 0.1 Abs Immat Gran (auto) 0.09 H Absolute Neuts (auto) 14.0 H Absolute Nucleated RBC 0.000 Nucleated RBC % (auto) 0.0 Anion Gap 11 L Estim Creat Clear Calc 58.9 Estimated GFR > 60 Random Glucose 125 H Lactic Acid 2.0 Calcium 9.7 D Magnesium 2.5 Total Bilirubin 0.4 Direct Bilirubin 0.2 AST 18 ALT 12 Alkaline Phosphatase 105 Total Creatine Kinase 49 Troponin I High Sens < 2.7 < 2.7 Total Protein 7.4 Albumin 3.7 Lipase 11 Procalcitonin 0.06 Imaging Radiologist's Impressions: Impressions Knee X-Ray 02/16/24 16:27 IMPRESSION: Total left knee prosthesis with prosthetic components in satisfactory alignment. Head CT 02/16/24 18:28 IMPRESSION: 1. No acute intracranial pathology. Small soft tissue defect and underlying hematoma in the left parietal scalp. 2. 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 Abdomen/Pelvis CT 02/16/24 18:29 IMPRESSION: 1. No acute intra-abdominal process seen. 2. Moderate size hiatal hernia. 3. Mild bladder distention. 4. Moderate-sized likely nonreducible hiatal hernia. Fleischner guidelines were followed. Assessment and Plan (1) Syncope: Qualifiers: Syncope type: unspecified Qualified Code(s): R55 - Syncope and collapse Status: Acute Plan Pt is a 73-year-old female with a PMH significant for?paroxysmal AFib on Eliquis, HLD, HTN, hypothyroidism, hx of ischemic colitis, and chronic lower leg edema who presents to the ED for evaluation of syncopal episode at home. Pt will be admitted to the hospital for treatment and further workup of syncopal episode in the setting of likely colitis. Question of colitis CT of abd/pelvis with findings suggestive of colitis Pt with abd cramping pain, liquid bowel movement, suprapubic and LLQ tenderness on exam Ischemic vs infectious vs inflammatory colitis Will check CRP, GI panel, CDiff GI consult Will hold off on antibiotics at this time; consider abx if leukocytosis persists Pt does not meet SIRS criteria: Leukocytosis, but no fever, tachycardia tachypnea; lactic acid WNL at 2.0 Clear liquid diet for now, advance as tolerated Follow CBC Syncopal episode Etiology unclear; differential includes vasovagal, cardiac, orthostatic, secondary to colitis Echocardiogram on 08/17/23 with no obvious valvular pathology Will check orthostatics Pt received IVF in ED Monitor on telemetry Weakness/frequent falls PT evaluation Paroxysmal AFib Continue Eliquis, carvedilol, diltiazem Hypothyroidism Continue levothyroxine Chronic lower leg edema Continue furosemide HLD Continue statin Mood disorder Continue home meds DNR/DNI, verified with pt Attending:?Dr. Singletary DVT Prophylaxis: On Eliquis Pt will require a hospitalization of at least two nights for treatment of?syncopal episode in the setting of likely colitis. Patient will require hospitalization for close monitoring of vitals, labs, and cardiac functioning, as well as specialist consultation with GI and ultimately PT evaluation for safe disposition home. Quality Stroke Does the patient have a stroke diagnosis?: No VTE Prior VTE?: No VTE Risk Level:: Medical - moderate - high VTE Device Contraindication: Treatment Not Indicated VTE Drug Contraindication: N/A - Med Ordered
[2024-02-16 22:00] VITALS: BP 156/47; PULSE 71; RESP 18; TEMP 36.7; O2SAT 98
--- NOTE | 2024-02-16 22:17 | MHC.EDTECH ---
2200 rounding done ,vitals taken ,urine sample collected and sent to lab ,And Patient belonging list done ,warm blanket given ,Patient resting quietly in bed ,450 ml urine empty from pure wick ,Call kelley within Pt reach .
[2024-02-16 22:18] LABS: Appearance Urine Clear; Color Urine Yellow; Glucose Urine UA Negative (Negative); Leukocyte Esterase Urine Trace (Negative); Nitrite Urine Negative (Negative); PH 6.5 (5.0-9.0); Specific Gravity - Urine 1.025 (1.005-1.025); UMIC TRIGGER UACC YES; Urine Blood Negative (Negative); Urine Ketones Negative (Negative); Urine Protein Negative (Neg-Trace)
[2024-02-16 22:21] LABS: Bacteria Urine None Seen (None Seen); Hyaline Casts Urine 0-2 /LPF (0-2); RBC Urine 0-2 /HPF (0-2); Squamous Epithelial Cell Urine 0-2 /HPF (0-2); WBC Urine 0-5 /HPF (0-5)
[2024-02-16] MEDS: carvediloL 3.125 MG TABLET PO (23:15)
[2024-02-16] MEDS: traZODone HCL 100 MG TABLET PO (23:15)
[2024-02-16] MEDS: Gabapentin 300 MG CAPSULE PO (23:15)
[2024-02-16] MEDS: Atorvastatin Calcium 40 MG TABLET PO (23:15)
[2024-02-16] MEDS: Apixaban 5 MG TABLET PO (23:15)
[2024-02-16 23:21] VITALS: BP 105/46; PULSE 81; RESP 15; TEMP 36.8; O2SAT 97
--- NOTE | 2024-02-16 23:23 | MHC.EDTECH ---
PATIENT ROUNDING DONE ,VITALS TAKEN ,PATIENT WAS OFFER FOOD ,HAD A [employer] SANDWICH AND WATER FOR SNACK .
[2024-02-16 23:45] LABS: C Reactive Protein < 0.10 mg/dL (< or = 0.50)
[2024-02-17] VITALS (8 sets, daily range): BP systolic 120–160; BP diastolic 50–69; PULSE 73–97; RESP 13–18; TEMP 36.4–36.9; O2SAT 94–97
--- NOTE | 2024-02-17 01:24 | MHC.EDTECH ---
Patient was incontinent of urine ,care given and bedding change ,vitals taken ,warm blanket given ,Call kelley within Pt reach .
--- NOTE | 2024-02-17 02:27 | PC.NURSE ---
pt asleep comfortably on stretcher respirations even and unlabored, pt in no apparent distress. iv fluids running through #20g iv lac at 100ml/hr. call kelley within reach. plan of care ongoing
[2024-02-17 06:15] LABS: Hematocrit 32.7 % (37.0-47.0); Mean Corpuscular HGB Conc 30.6 g/dl (31.0-35.0); Mean Corpuscular Hemoglobin 25.1 pg (27.0-33.0); Mean Platelet Volume 11.9 fL (9.4-12.3); Platelet Count 212 X10*3/uL (160-400); Red Blood Count 3.99 X10*6/uL (4.20-5.50); Red Cell Distribution Width 16.5 % (11.0-16.0)
--- NOTE | 2024-02-17 06:17 | MHC.EDTECH ---
0600 ROUNDING DONE ,VITALS TAKEN ,PT CLEAN AND DRY ,PT AWAKE WATCHING TELEVISION ,CALL MORALEZ WITHIN PATIENT REACH .
[2024-02-17] MEDS: Levothyroxine Sodium 100 MCG TABLET PO (06:33)
[2024-02-17] MEDS: 0.9 % Sodium Chloride 1,000 ML 100 ML IVCONT ×2 (06:35→15:57)
[2024-02-17] MEDS: Omeprazole 40 MG CAPSULE.DR PO (08:42)
[2024-02-17] MEDS: carvediloL 3.125 MG TABLET PO ×2 (08:42→21:10)
[2024-02-17] MEDS: Furosemide 20 MG TABLET PO (08:42)
[2024-02-17] MEDS: DULoxetine HCl 30 MG CAPSULE.DR PO (08:42)
[2024-02-17] MEDS: dilTIAZem HCL CD 240 MG CAP.ER.DEG PO (08:42)
[2024-02-17] MEDS: Apixaban 5 MG TABLET PO ×2 (08:42→21:10)
[2024-02-17] MEDS: Potassium Chloride ER 10 MEQ TABLET.ER PO (08:42)
[2024-02-17] MEDS: Artificial Tears 15 ML DROPS 1 DROP EYE-BOTH ×4 (10:18→21:22)
--- NOTE | 2024-02-17 10:34 | MHC.CM.PN ---
Addendum entered by Dorcas Soares 02/17/24 12:40: Rajesh Leija at [facility], patient was d/c'd from STR with [facility] and [facility] for home health aide. Patient is not currently active with [facility]. But patient requesting [facility] at d/c. Referral made via [facility]. Original Note: Met with patient in regards to discharge planning. Patient lives alone, ambulates with a walker/cane and has a home health aide. Patient believes [employer] is through [facility]. Patient still drives. PCP verified. Copy of HCP verified to be on file. Patient received 6 Moderna vaccines. IMM explained and signed. Physical therapy eval completed. Short term rehab is recommended. Patient does not feel she can go to [facility] because she is still paying the co-pay from her previous STR rehab at [facility]. Patient would prefer to return home with VNA. List of facilities contracted with patient's insurance provided from [employer] just in case patient changes her mind. T/W reached out to [facility] to verify if patient is active with their agency. Patient's niece or HCP will transport patient home when medically stable. Continue to monitor for d/c needs.
--- NOTE | 2024-02-17 12:15 | PM.GICN ---
History of Present Illness Data of Consult Service Date: 02/17/24 Requesting physician: Juana Coyne Primary Care Provider: Brandon Mauricio MD HPI 73 YF with paroxysmal AFib on Eliquis, HLD, HTN, hypothyroidism, hx of ischemic colitis, and chronic lower leg edema seen at [facility] ED on 02/16/24 after a syncopal episode at home. Patient reported she was in her normal state of health until she ate lunch on 02/16/24 and began ?not feeling well? with an upset stomach. She felt sick to her stomach and noted sharp and cramping abdominal pain followed by a small bowel movement of normal consistency around 11:30 on 02/16/24. She then went to lay down but still felt unwell and got to go to the bathroom again. Patient was using her cane to walk to the bathroom when she had a sudden syncopal episode in the hallway without any prodrome (denies feeling lightheaded or dizzy). Patient reports that she just woke up after a few seconds (briefly saw big white squares in front of her eyes) on the floor and was incontinent of urine and stool. Stool was mostly liquid. Denied head strike, but noticed pain in her left knee. Patient used her life Alert to notify EMS who brought her to the ED for further evaluation. She denied fever, chills, nausea, vomiting, chest pain/pressure, palpitations and reported abdominal pain had subsided. Pt reports a hx of chronic constipation for the past 1-2 years. She changed her diet and has been eating more fruits and vegetables and having a BM every 3-4 days (Previously could go upto 9 days with no BM). Has used Miralax in the past which was helpful. Pt reports a hx of intermittent dysphagia associated with intake of solid food. She reports having an EGD with dilation in the past when she had her colonoscopies. Pt reports having a colonoscopy [address] Lin - negative per patient and FU was advised in 10 yrs. Aching patient denies smoking or ETOH abuse. 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 She also look for [employer]. Patient lives by herself and is independent with her ADLs A friend and her kids provide help and support Family hx is positive for Colon cancer in her Dad who had surgery and had a colostomy. Of note, patient was admitted to the hospital on 12/17-12/20 for similar symptoms of syncope while on the commode straining during bowel movement. Was found to have likely ischemic colitis from hypotension, not given antibiotics as there was no fever, chills, nausea, vomiting, or diarrhea. Syncopal episode was deemed most likely multifactorial: Vasovagal, polypharmacy, and hypoperfusion with positive orthostatics. In the ED pt's vitals WNL. Labs were significant for leukocytosis 17.2 otherwise largely unremarkable. Stable H& H. No electrolyte abnormalities. Renal and hepatic function WNL. Serial troponins negative. Procalcitonin 0.06. CPK 49. UA negative for UTI. X-ray of left knee without acute findings, no fracture or malalignment noted. CT of head negative for acute intracranial pathology, but did show small soft tissue defect underlying hematoma on left parietal scalp, and mild generalized volume loss with moderate chronic microangiopathy. 02/16/[address] SCAN SHOWED: GASTROINTESTINAL TRACT: There is mural thickening involving proximal and mid descending colonic segments with mild pericolic fat stranding suggestive of colitis. Nondilated fluid-filled rest of the colon and small bowel loops are noted The appendix is not visualized. No free air or free fluid seen. IMPRESSION: 1. No acute intra-abdominal process seen. 2. Moderate size hiatal hernia. 3. Mild bladder distention. 4. Moderate-sized likely nonreducible hiatal hernia. EKG demonstrated normal sinus rhythm without evidence of significant ST elevations or depressions. Pt was treated with acetaminophen and IVF and admitted to [facility] for treatment and further workup of syncopal episode in the setting of likely colitis Review of Systems Review of Systems: Syncopal episode at home while walking to the bathroom Abdominal crampy/sharp pain Episode of diarrhea Left knee and left buttock pain Denies lightheadedness or dizziness No fever, chills, nausea, vomiting Denies headache PMFSH Past Medical History Medical History (Updated 03/02/24 @ 00:03 by Aly Farias) Atrial fibrillation Hypothyroidism Lower leg edema GERD (gastroesophageal reflux disease) HLD (hyperlipidemia) HTN (hypertension) Paroxysmal A-fib Frequent falls Anemia Head injury General weakness Fall Lupus Family History Family History Mother Myocardial infarction Social History Social History Household Members: None Housing: Condominium Do you presently have visiting nurse or other home services: Yes Patient Tobacco Use Status: Never used Tobacco e-Cigarette/Vaping Use: Never Used Advance Directives Date on File: 12/17/23 service: No Meds Allergies Allergy/AdvReac Type Severity Reaction Status Date / Time erythromycin base Allergy Severe Rash Verified 08/18/23 11:31 [From Erythrocin] Penicillins [PENICILLINS] Allergy Severe HIVES Verified 08/13/23 14:58 droperidol [From INAPSINE] Allergy Intermediate UNUSUAL Verified 08/13/23 14:58 HEAD MOVEMENTS oxycodone [OXYCODONE] Allergy Mild ITCHING Verified 08/13/23 14:58 morphine [MORPHINE] AdvReac Unknown CONFUSION Verified 08/13/23 14:58 Active Medications: Current Medications Acetaminophen (Acetaminophen 325 Mg Tablet) 650 mg PO Q6H PRN PRN Reason: Pain, Mild (Pain Scale 1-3) Apixaban (Apixaban 5 Mg Tablet) 5 mg PO BID [facility] Last Admin: 02/17/24 08:42 Dose: 5 mg Artificial Tears (Artificial Tears 15 Ml Drops) 1 drop EYE-BOTH 5XD [facility] Last Admin: 02/17/24 10:18 Dose: 1 drop Atorvastatin Calcium (Atorvastatin Calcium 40 Mg Tablet) 40 mg PO BEDTIME [facility] Last Admin: 02/16/24 23:15 Dose: 40 mg Benzonatate (Benzonatate 100 Mg Capsule) 100 mg PO TID PRN PRN Reason: Cough Carvedilol (Carvedilol 3.125 Mg Tablet) 3.125 mg PO BID [facility]; Protocol Last Admin: 02/17/24 08:42 Dose: 3.125 mg Diltiazem HCl (Diltiazem Hcl Cd 240 Mg Cap.Er.Deg) 240 mg PO DAILY [facility]; Protocol Last Admin: 02/17/24 08:42 Dose: 240 mg Docusate Sodium (Docusate Sodium 100 Mg Capsule) 100 mg PO DAILY PRN PRN Reason: Constipation Duloxetine HCl (Duloxetine Hcl 30 Mg Capsule.Dr) 30 mg PO DAILY [facility] Last Admin: 02/17/24 08:42 Dose: 30 mg Furosemide (Furosemide 20 Mg Tablet) 20 mg PO DAILY [facility]; Protocol Last Admin: 02/17/24 08:42 Dose: 20 mg Gabapentin (Gabapentin 300 Mg Capsule) 300 mg PO BEDTIME [facility] Last Admin: 02/16/24 23:15 Dose: 300 mg Sodium Chloride (Ns) 1,000 mls @ 100 mls/hr IVCONT .Q10H [facility] Last Admin: 02/17/24 06:35 Dose: 100 mls/hr Levothyroxine Sodium (Levothyroxine Sodium 50 Mcg Tablet) 50 mcg PO Hernadez@0600 [facility] Levothyroxine Sodium (Levothyroxine Sodium 100 Mcg Tablet) 100 mcg PO DAILY@0600 [facility] Last Admin: 02/17/24 06:33 Dose: 100 mcg Lisinopril (Lisinopril 10 Mg Tablet) 10 mg PO BEDTIME [facility] Last Admin: 02/17/24 01:07 Dose: Not Given Omeprazole (Omeprazole 40 Mg Capsule.Dr) 40 mg PO DAILY [facility] Last Admin: 02/17/24 08:42 Dose: 40 mg Ondansetron HCl (Ondansetron Hcl 4 Mg/2 Ml Vial) 4 mg IVPUSH Q8H PRN PRN Reason: Nausea and Vomiting Potassium Chloride (Potassium Chloride Er 10 Meq Tablet.Er) 10 meq PO DAILY [facility] Last Admin: 02/17/24 08:42 Dose: 10 meq Sodium Chloride (0.9 % Sodium Chloride Flush 3 Ml Syringe) 3 ml IVFLUSH QSHIFT [facility] Last Admin: 02/17/24 08:02 Dose: Not Given Trazodone HCl (Trazodone Hcl 100 Mg Tablet) 100 mg PO BEDTIME [facility] Last Admin: 02/16/24 23:15 Dose: 100 mg Home Medications ?Medication ?Instructions ?Recorded ?Confirmed ?Last Taken ?Type atorvastatin 40 mg tablet 40 mg PO BEDTIME 08/13/23 03/01/24 02/15/24 History carboxymethylcellulose sodium 0.5 1 drp ophthalmic (eye) 5XD 08/13/23 03/01/24 02/16/24 History % eye drops (Refresh Tears) furosemide 20 mg tablet 20 mg PO DAILY 08/13/23 03/01/24 02/16/24 History gabapentin 300 mg capsule 300 mg PO BEDTIME 08/13/23 03/01/24 02/15/24 History levothyroxine 100 mcg tablet 100 mcg PO DAILY 08/13/23 03/01/24 02/16/24 History omeprazole 40 mg capsule,delayed 40 mg PO DAILY 08/13/23 03/01/24 02/16/24 History release potassium chloride 10 mEq 10 meq PO DAILY 08/13/23 03/01/24 02/16/24 History tablet,extended release trazodone 100 mg tablet 100 mg PO BEDTIME 08/13/23 03/01/24 02/15/24 History clobetasol 0.05 % topical cream 1 appl topical BID PRN LUPUS FLARE 12/17/23 03/01/24 12/16/23 History levothyroxine 100 mcg tablet 50 mcg PO HERNADEZ 12/17/23 03/01/24 02/13/24 History duloxetine 30 mg capsule,delayed 30 mg PO DAILY 02/16/24 03/01/24 02/16/24 History release emollient combination no.77 1 appl topical DAILY PRN bruising 02/16/24 03/01/24 Unknown History (Dermend topical cream) Physical Exam Vital Signs: Vital Signs: Last Vital Signs Temp 97.7 F 02/17/24 06:15 Pulse 97 02/17/24 08:23 Resp 15 02/17/24 06:15 BP 135/64 02/17/24 08:23 Pulse Ox 96 02/17/24 07:42 O2 Del Method Room Air 02/17/24 06:15 BMI result Body Mass Index 26.9 Const: General: no acute distress Nutritional Appearance: overweight Orientation/consciousness: patient oriented x3 HEENT: Head: Yes normal to inspection Ears: hearing grossly normal bilaterally Eyes: Sclerae: sclerae normal Pupils: Equal, round and reactive pupils present Neck: Neck: Yes normal visual inspection Chest: Chest palpation & inspection: normal inspection of the chest Resp: Effort & Inspection: normal respiratory effort Auscultation: clear to auscultation bilaterally Cardio: Palpation: normal PMI Rate: regular rate Rhythm: regular rhythm Heart sounds: S1 normal heart sound present, S2 normal heart sound present and no murmurs GI: Palpation (GI): Soft to palpation, Tenderness to palpation present (GI) (Mild lower abd/LLQ tenderness without rebound) and No hepatosplenomegaly present Auscultation: normal bowel sounds Rectal Exam - Female: deferred Skin: General skin exam: no rashes or lesions noted Neuro: General: patient oriented x3, gait normal and moves all extremities Cranial nerves: Yes Equal, round and reactive pupils present Psych: Appearance: grossly normal Mental Status: mental status grossly normal Results Labs 02/17/24 05:29 02/16/24 16:57 Labs: Short CBC 02/16/24 02/17/24 Range/Units 16:57 05:29 WBC 17.2 H 7.0 (4.8-10.8) X10*3/uL Hgb 11.3 L 10.0 L (12.0-16.0) g/dl Hct 37.5 32.7 L (37.0-47.0) % Plt Count 252 212 (160-400) X10*3/uL BMP 02/16/24 16:57 Sodium 139 Potassium 3.9 Chloride 105 Carbon Dioxide 27 BUN 16 Creatinine 0.90 Calcium 9.7 D Cardiac Enzymes 02/16/24 Range/Units 16:57 Total Creatine Kinase 49 (26-140) U/L Liver Function 02/16/24 Range/Units 16:57 Total Bilirubin 0.4 (0.0-1.0) mg/dL Direct Bilirubin 0.2 (0.0-0.5) mg/dL AST 18 (5-31) U/L ALT 12 (0-31) U/L Alkaline Phosphatase 105 (39-117) U/L Albumin 3.7 (3.5-5.0) g/dL Urine 02/16/24 Range/Units 22:12 Urine Color Yellow Urine Appearance Clear Urine pH 6.5 (5.0-9.0) Ur Specific [place] 1.025 (1.005-1.025) Urine Protein Negative (Neg-Trace) mg/dL Urine Glucose (UA) Negative (Negative) mg/dL Assessment and Plan (1) Colitis: Status: Acute Plan 73 YF with paroxysmal AFib on Eliquis, HLD, HTN, hypothyroidism, hx of ischemic colitis, and chronic lower leg edema admitted to [facility] on 02/16/24 after a syncopal episode at home. Abdominal CT scan showed mural thickening involving proximal and mid descending colonic segments with mild pericolic fat stranding suggestive of colitis - likely due to ischemia. Other Ddx including infectious or inflammatory colitis less likely in the absence of abd pain and diarrhea. Pt reports a hx of chronic constipation for the past 1-2 years. Pt reports having a colonoscopy [address] Lin - negative per patient and FU was advised in 10 yrs. She reports having an EGD with dilation in the past when she had her colonoscopies. Pt is requesting to schedule her procedures at [facility] Etiology for syncopal episode is unclear - ? cardiac source versus vasovegal episode associated with abdominal pain Pt reports having a ? holter x 24 hrs via PCP's office in [place], [place] RECOMMENDATIONS: 1. Agree with IV fluids and anti-emetics 2. Advance to a regular diet since she is tolerating clear liquids without recurrent abdominal pain. 3. Syncope workup - as per hospitalist/cardiology 4. Patient reports being due for an EGD (Dysphagia) and colonoscopy this year for colorectal ca screening. I will ask GI de icer installer to schedule as outpatient. 5. Resumption of anticoagulation as per primary team. 6. Miralax once daily for constipation at discharge. ADDENDUM: HOSPITAL COURSE: Hospital course by problem: colitis likely ischemic - GI consulted and recommend supportive care while inpatient. They will arrange outpatient colonoscopy once the inflammation resolves. Diet was advanced with good tolerance and she was having normal BMs by the end of hospitalization recurrent syncope, likely vasovagal but also now frankly orthostatic - Initial concern for reflex syncope- possibly associated with defecation, so on bowel regimen. Telemetry showed NSR. TTE in August 2023 without valvular pathology. Cardiology was consulted and will arrange outpatient cardiac event monitor. Initially, orthostatics were negative but then she became frankly orthostatic by symptomatology and BP drop. She received IV fluids and was eventually started on low-dose midodrine. In addition, carvedilol was changed to metoprolol. Due to balance deficits, she was discharged to short-term rehabilitation at [facility]. Procedures Date of Service Date of Service: 03/04/24
[2024-02-17] MEDS: Acetaminophen 325 MG TABLET 650 MG PO (16:01)
--- NOTE | 2024-02-17 16:10 | P.PNIM_ITS ---
Subjective Subjective Date of Service: 02/17/24 Interval History: No further abdominal pain since admission. Tolerating clear liquids Review of Systems Denies chest pain Denies shortness of breath Denies nausea vomiting diarrhea Denies fever chills Physical Exam 2 Vital Signs: Vital Signs: Last Vital Signs Temp 97.7 F 02/17/24 14:07 Pulse 74 02/17/24 14:07 Resp 15 02/17/24 14:07 BP 137/68 02/17/24 14:07 Pulse Ox 94 02/17/24 14:07 O2 Del Method Room Air 02/17/24 14:07 BMI result Body Mass Index 26.9 Const: Other: Awake alert no acute distress Resp: Other: Clear to auscultation bilaterally no rales rhonchi or wheezes Cardio: Other: No S4; positive S1-S2; no S3 murmurs rubs or gallops GI: Other: Soft nontender nondistended normoactive bowel sounds Extrem: Other: No edema bilaterally Objective Data Active Medications Acetaminophen (Acetaminophen 325 Mg Tablet) 650 mg PO Q6H PRN PRN Reason: Pain, Mild (Pain Scale 1-3) Last Admin: 02/17/24 16:01 Dose: 650 mg Documented By: GONZALO Apixaban (Apixaban 5 Mg Tablet) 5 mg PO BID [facility] Last Admin: 02/17/24 08:42 Dose: 5 mg Documented By: GONZALO Artificial Tears (Artificial Tears 15 Ml Drops) 1 drop EYE-BOTH 5XD [facility] Last Admin: 02/17/24 15:57 Dose: 1 drop Documented By: GONZALO Atorvastatin Calcium (Atorvastatin Calcium 40 Mg Tablet) 40 mg PO BEDTIME [facility] Last Admin: 02/16/24 23:15 Dose: 40 mg Documented By: ANNAMARIE-KOBY Benzonatate (Benzonatate 100 Mg Capsule) 100 mg PO TID PRN PRN Reason: Cough Carvedilol (Carvedilol 3.125 Mg Tablet) 3.125 mg PO BID [facility]; Protocol Last Admin: 02/17/24 08:42 Dose: 3.125 mg Documented By: GONZALO Diltiazem HCl (Diltiazem Hcl Cd 240 Mg Cap.Er.Deg) 240 mg PO DAILY [facility]; Protocol Last Admin: 02/17/24 08:42 Dose: 240 mg Documented By: GONZALO Docusate Sodium (Docusate Sodium 100 Mg Capsule) 100 mg PO DAILY PRN PRN Reason: Constipation Duloxetine HCl (Duloxetine Hcl 30 Mg Capsule.) 30 mg PO DAILY [facility] Last Admin: 02/17/24 08:42 Dose: 30 mg Documented By: GONZALO Furosemide (Furosemide 20 Mg Tablet) 20 mg PO DAILY [facility]; Protocol Last Admin: 02/17/24 08:42 Dose: 20 mg Documented By: GONZALO Gabapentin (Gabapentin 300 Mg Capsule) 300 mg PO BEDTIME [facility] Last Admin: 02/16/24 23:15 Dose: 300 mg Documented By: HERNAN Sodium Chloride (Ns) 1,000 mls @ 100 mls/hr IVCONT .Q10H [facility] Last Admin: 02/17/24 15:57 Dose: 100 mls/hr Documented By: GONZALO Levothyroxine Sodium (Levothyroxine Sodium 50 Mcg Tablet) 50 mcg PO Robles@0600 [facility] Levothyroxine Sodium (Levothyroxine Sodium 100 Mcg Tablet) 100 mcg PO DAILY@0600 [facility] Last Admin: 02/17/24 06:33 Dose: 100 mcg Documented By: HERNAN Lisinopril (Lisinopril 10 Mg Tablet) 10 mg PO BEDTIME [facility] Last Admin: 02/17/24 01:07 Dose: Not Given Documented By: HERNAN Non-Admin Reason: blood pressures soft Omeprazole (Omeprazole 40 Mg Capsule.) 40 mg PO DAILY [facility] Last Admin: 02/17/24 08:42 Dose: 40 mg Documented By: GONZALO Ondansetron HCl (Ondansetron Hcl 4 Mg/2 Ml Vial) 4 mg IVPUSH Q8H PRN PRN Reason: Nausea and Vomiting Potassium Chloride (Potassium Chloride Er 10 Meq Tablet.Er) 10 meq PO DAILY [facility] Last Admin: 02/17/24 08:42 Dose: 10 meq Documented By: GONZALO Sodium Chloride (0.9 % Sodium Chloride Flush 3 Ml Syringe) 3 ml IVFLUSH QSHIFT [facility] Last Admin: 02/17/24 15:57 Dose: Not Given Documented By: GONZALO Non-Admin Reason: IV Running Trazodone HCl (Trazodone Hcl 100 Mg Tablet) 100 mg PO BEDTIME [facility] Last Admin: 02/16/24 23:15 Dose: 100 mg Documented By: HERNAN Labs 02/17/24 05:29 02/16/24 16:57 Labs: Laboratory Results - last 24 hr 02/16/24 02/16/24 02/16/24 16:57 19:58 22:12 MCV 81.7 MCH 24.6 L MCHC 30.1 L RDW 16.3 H Plt Count 252 MPV 11.0 Immature Gran % (Auto) 0.5 H Neut % (Auto) 81.3 H Lymph % (Auto) 9.1 L [place] % (Auto) 7.9 Eos % (Auto) 0.9 Baso % (Auto) 0.3 Lymph # (Auto) 1.6 [place] # (Auto) 1.4 H Eos # (Auto) 0.2 Baso # (Auto) 0.1 Abs Immat Gran (auto) 0.09 H Absolute Neuts (auto) 14.0 H Absolute Nucleated RBC 0.000 Nucleated RBC % (auto) 0.0 Anion Gap 11 L Estim Creat Clear Calc 58.9 Estimated GFR > 60 Random Glucose 125 H Lactic Acid 2.0 Calcium 9.7 D Magnesium 2.5 Total Bilirubin 0.4 Direct Bilirubin 0.2 AST 18 ALT 12 Alkaline Phosphatase 105 Total Creatine Kinase 49 Troponin I High Sens < 2.7 < 2.7 C-Reactive Protein < 0.10 Total Protein 7.4 Albumin 3.7 Lipase 11 Procalcitonin 0.06 Urine Color Yellow Urine Appearance Clear Urine pH 6.5 Ur Specific [place] 1.025 Urine Protein Negative Urine Glucose (UA) Negative Urine Ketones Negative Urine Blood Negative Urine Nitrite Negative Ur Leukocyte Esterase Trace H Urine RBC 0-2 Urine WBC 0-5 Ur Squamous Epith Cells 0-2 Urine Bacteria None Seen Hyaline Casts 0-2 Influenza Type A (PCR) NEGATIVE Influenza Type B (PCR) NEGATIVE RSV RNA Qual (PCR) NEGATIVE SARS-CoV-2 RNA (RT-PCR) NEGATIVE 02/17/24 05:29 MCV 82.0 MCH 25.1 L MCHC 30.6 L RDW 16.5 H Plt Count 212 MPV 11.9 Immature Gran % (Auto) Neut % (Auto) Lymph % (Auto) [place] % (Auto) Eos % (Auto) Baso % (Auto) Lymph # (Auto) [place] # (Auto) Eos # (Auto) Baso # (Auto) Abs Immat Gran (auto) Absolute Neuts (auto) Absolute Nucleated RBC 0.000 Nucleated RBC % (auto) 0.0 Anion Gap Estim Creat Clear Calc Estimated GFR Random Glucose Lactic Acid Calcium Magnesium Total Bilirubin Direct Bilirubin AST ALT Alkaline Phosphatase Total Creatine Kinase Troponin I High Sens C-Reactive Protein Total Protein Albumin Lipase Procalcitonin Urine Color Urine Appearance Urine pH Ur Specific [place] Urine Protein Urine Glucose (UA) Urine Ketones Urine Blood Urine Nitrite Ur Leukocyte Esterase Urine RBC Urine WBC Ur Squamous Epith Cells Urine Bacteria Hyaline Casts Influenza Type A (PCR) Influenza Type B (PCR) RSV RNA Qual (PCR) SARS-CoV-2 RNA (RT-PCR) Assessment and Plan (1) Colitis: Status: Acute (2) Syncope: Status: Acute Plan Pt is a 73-year-old female with a PMH significant for?paroxysmal AFib on Eliquis, HLD, HTN, hypothyroidism, hx of ischemic colitis, and chronic lower leg edema who presents to the ED for evaluation of syncopal episode at home. Pt will be admitted to the hospital for treatment and further workup of syncopal episode in the setting of likely colitis. 1.Question of colitis..likely ischemic -white count normalized this a.m.; no antibiotics -tolerating clear liquid diet without issue -seen by GI; recommendations appreciated -advance to regular diet 2.Syncopal episode -likely vasovagal by patient's description -Echocardiogram on 08/17/23 with no obvious valvular pathology -monitor on telemetry overnight -check ultrasound of carotids to complete workup 3.Weakness/frequent falls -PT evaluation 4.Paroxysmal AFib -sinus rhythm at this point -Eliquis, carvedilol, diltiazem DNR/DNI, Eliquis Patient requires ongoing hospitalization to complete syncope workup in demonstrate tolerance of advance diet Quality Stroke Does the patient have a stroke diagnosis?: No VTE Prior VTE?: No VTE Risk Level:: Medical - moderate - high VTE Device Contraindication: Treatment Not Indicated VTE Drug Contraindication: N/A - Med Ordered
--- NOTE | 2024-02-17 18:37 | MHC.EDTECH ---
patient given a dinner tray
--- NOTE | 2024-02-17 19:26 | PC.NURSE ---
Assumed care of pt at 1900. Pt resting comfortably in bed with purewick in place. I assisted pt with eye drop administration. Pt has no complaints at this time, dispo pending room assignment.
[2024-02-17] MEDS: Gabapentin 300 MG CAPSULE PO (21:10)
[2024-02-17] MEDS: lisinopriL 10 MG TABLET PO (21:10)
[2024-02-17] MEDS: Atorvastatin Calcium 40 MG TABLET PO (21:10)
[2024-02-17] MEDS: traZODone HCL 100 MG TABLET PO (21:10)
[2024-02-17] MEDS: 0.9 % Sodium Chloride Flush 3 ML SYRINGE IVFLUSH (21:11)
[2024-02-18] VITALS (7 sets, daily range): BP systolic 122–160; BP diastolic 55–70; PULSE 72–97; RESP 16–20; TEMP 36.3–37.1; O2SAT 92–96
[2024-02-18] MEDS: 0.9 % Sodium Chloride 1,000 ML 100 ML IVCONT ×2 (01:41→14:28)
[2024-02-18] MEDS: Levothyroxine Sodium 100 MCG TABLET PO (05:36)
[2024-02-18] MEDS: dilTIAZem HCL CD 240 MG CAP.ER.DEG PO (09:26)
[2024-02-18] MEDS: Furosemide 20 MG TABLET PO (09:26)
[2024-02-18] MEDS: Omeprazole 40 MG CAPSULE.DR PO (09:26)
[2024-02-18] MEDS: Apixaban 5 MG TABLET PO ×2 (09:26→21:13)
[2024-02-18] MEDS: Potassium Chloride ER 10 MEQ TABLET.ER PO (09:26)
[2024-02-18] MEDS: DULoxetine HCl 30 MG CAPSULE.DR PO (09:27)
[2024-02-18] MEDS: carvediloL 3.125 MG TABLET PO ×2 (09:27→21:12)
[2024-02-18] MEDS: Artificial Tears 15 ML DROPS 1 DROP EYE-BOTH ×2 (12:05→17:51)
--- NOTE | 2024-02-18 15:11 | P.PNIM_ITS ---
Subjective Subjective Date of Service: 02/18/24 Interval History: Episodes of dizziness noted this a.m.. Tolerating diet Review of Systems Denies chest pain Denies shortness of breath Denies nausea vomiting diarrhea Denies fever chills Physical Exam 2 Vital Signs: Vital Signs: Last Vital Signs Temp 97.6 F 02/18/24 11:28 Pulse 73 02/18/24 13:25 Resp 20 02/18/24 11:28 BP 131/55 L 02/18/24 13:25 Pulse Ox 96 02/18/24 13:25 O2 Del Method Room Air 02/18/24 11:28 BMI result Body Mass Index 26.9 Const: Other: Awake alert no acute distress Resp: Other: Clear to auscultation bilaterally no rales rhonchi or wheezes Cardio: Other: No S4; positive S1-S2; no S3 murmurs rubs or gallops GI: Other: Soft nontender nondistended normoactive bowel sounds Extrem: Other: No edema bilaterally Objective Data Active Medications Acetaminophen (Acetaminophen 325 Mg Tablet) 650 mg PO Q6H PRN PRN Reason: Pain, Mild (Pain Scale 1-3) Last Admin: 02/17/24 16:01 Dose: 650 mg Documented By: GONZALO Apixaban (Apixaban 5 Mg Tablet) 5 mg PO BID [facility] Last Admin: 02/18/24 09:26 Dose: 5 mg Documented By: THEE Artificial Tears (Artificial Tears 15 Ml Drops) 1 drop EYE-BOTH 5XD [facility] Last Admin: 02/18/24 12:05 Dose: 1 drop Documented By: THEE Atorvastatin Calcium (Atorvastatin Calcium 40 Mg Tablet) 40 mg PO BEDTIME [facility] Last Admin: 02/17/24 21:10 Dose: 40 mg Documented By: LAFLAMC Benzonatate (Benzonatate 100 Mg Capsule) 100 mg PO TID PRN PRN Reason: Cough Carvedilol (Carvedilol 3.125 Mg Tablet) 3.125 mg PO BID [facility]; Protocol Last Admin: 02/18/24 09:27 Dose: 3.125 mg Documented By: THEE Diltiazem HCl (Diltiazem Hcl Cd 240 Mg Cap.Er.Deg) 240 mg PO DAILY [facility]; Protocol Last Admin: 02/18/24 09:26 Dose: 240 mg Documented By: THEE Docusate Sodium (Docusate Sodium 100 Mg Capsule) 100 mg PO DAILY PRN PRN Reason: Constipation Duloxetine HCl (Duloxetine Hcl 30 Mg Capsule.) 30 mg PO DAILY [facility] Last Admin: 02/18/24 09:27 Dose: 30 mg Documented By: THEE Furosemide (Furosemide 20 Mg Tablet) 20 mg PO DAILY [facility]; Protocol Last Admin: 02/18/24 09:26 Dose: 20 mg Documented By: THEE Gabapentin (Gabapentin 300 Mg Capsule) 300 mg PO BEDTIME [facility] Last Admin: 02/17/24 21:10 Dose: 300 mg Documented By: KRISTAN Sodium Chloride (Ns) 1,000 mls @ 100 mls/hr IVCONT .Q10H [facility] Last Admin: 02/18/24 14:28 Dose: 100 mls/hr Documented By: THEE Levothyroxine Sodium (Levothyroxine Sodium 50 Mcg Tablet) 50 mcg PO Robles@0600 [facility] Levothyroxine Sodium (Levothyroxine Sodium 100 Mcg Tablet) 100 mcg PO DAILY@0600 [facility] Last Admin: 02/18/24 05:36 Dose: 100 mcg Documented By: KRISTAN Lisinopril (Lisinopril 10 Mg Tablet) 10 mg PO BEDTIME [facility] Last Admin: 02/17/24 21:10 Dose: 10 mg Documented By: KRISTAN Omeprazole (Omeprazole 40 Mg Capsule.) 40 mg PO DAILY [facility] Last Admin: 02/18/24 09:26 Dose: 40 mg Documented By: THEE Ondansetron HCl (Ondansetron Hcl 4 Mg/2 Ml Vial) 4 mg IVPUSH Q8H PRN PRN Reason: Nausea and Vomiting Potassium Chloride (Potassium Chloride Er 10 Meq Tablet.Er) 10 meq PO DAILY [facility] Last Admin: 02/18/24 09:26 Dose: 10 meq Documented By: THEE Sodium Chloride (0.9 % Sodium Chloride Flush 3 Ml Syringe) 3 ml IVFLUSH QSHIFT [facility] Last Admin: 02/18/24 09:27 Dose: Not Given Documented By: THEE Non-Admin Reason: IV Running Trazodone HCl (Trazodone Hcl 100 Mg Tablet) 100 mg PO BEDTIME [facility] Last Admin: 02/17/24 21:10 Dose: 100 mg Documented By: KRISTAN Labs 02/17/24 05:29 02/16/24 16:57 Microbiology Microbiology Results: Microbiology 02/16/24 16:58 Blood Culture - Preliminary Blood - Venous No growth after 24 hours. 02/16/24 16:56 Blood Culture - Preliminary Blood - Venous No growth after 24 hours. Assessment and Plan (1) Syncope: Status: Acute (2) Colitis: Status: Acute Plan Pt is a 73-year-old female with a PMH significant for?paroxysmal AFib on Eliquis, HLD, HTN, hypothyroidism, hx of ischemic colitis, and chronic lower leg edema who presents to the ED for evaluation of syncopal episode at home. Pt will be admitted to the hospital for treatment and further workup of syncopal episode in the setting of likely colitis. 1.Question of colitis..likely ischemic -tolerating regular diet -outpatient follow up with GI for colonoscopy 2.Syncopal episode -likely vasovagal by patient's description -Echocardiogram on 08/17/23 with no obvious valvular pathology -check ultrasound of carotids to complete workup 3.Weakness/frequent falls -PT evaluation... PT re-evaluate states home with services however given dizziness this afternoon will observe overnight hopeful discharge in a.m. 4.Paroxysmal AFib -likely cause of above issues. Will discuss with Cardiology outpatient follow up with Dr. Castellon -sinus rhythm at this point -Eliquis, carvedilol, diltiazem DNR/DNI, Eliquis Patient requires ongoing hospitalization to complete syncope workup in demonstrate tolerance of advance diet Quality Stroke Does the patient have a stroke diagnosis?: No VTE Prior VTE?: No VTE Risk Level:: Medical - moderate - high VTE Device Contraindication: Treatment Not Indicated VTE Drug Contraindication: N/A - Med Ordered
[2024-02-18] MEDS: traZODone HCL 100 MG TABLET PO (21:13)
[2024-02-18] MEDS: Gabapentin 300 MG CAPSULE PO (21:13)
[2024-02-18] MEDS: lisinopriL 10 MG TABLET PO (21:13)
[2024-02-18] MEDS: Atorvastatin Calcium 40 MG TABLET PO (21:13)
[2024-02-18] MEDS: 0.9 % Sodium Chloride Flush 3 ML SYRINGE IVFLUSH (21:15)
[2024-02-19] VITALS (9 sets, daily range): BP systolic 128–157; BP diastolic 56–68; PULSE 74–89; RESP 18–20; TEMP 36.2–37.4; O2SAT 90–95
[2024-02-19] MEDS: Levothyroxine Sodium 100 MCG TABLET PO (04:59)
[2024-02-19] MEDS: Artificial Tears 15 ML DROPS 1 DROP EYE-BOTH ×4 (05:01→20:16)
[2024-02-19] MEDS: dilTIAZem HCL CD 240 MG CAP.ER.DEG PO (08:13)
[2024-02-19] MEDS: carvediloL 3.125 MG TABLET PO ×2 (08:13→20:16)
[2024-02-19] MEDS: Apixaban 5 MG TABLET PO ×2 (08:13→20:16)
[2024-02-19] MEDS: Omeprazole 40 MG CAPSULE.DR PO (08:14)
[2024-02-19] MEDS: DULoxetine HCl 30 MG CAPSULE.DR PO (08:14)
[2024-02-19] MEDS: Potassium Chloride ER 10 MEQ TABLET.ER PO (08:14)
[2024-02-19] MEDS: Furosemide 20 MG TABLET PO (08:14)
[2024-02-19] MEDS: 0.9 % Sodium Chloride Flush 3 ML SYRINGE IVFLUSH ×2 (08:18→18:34)
--- NOTE | 2024-02-19 14:49 | HO.PM.IMPN ---
Subjective Subjective Date of Service: 02/19/24 Interval History: denies abd pain ongoing bouts of lightheadedness 3 prior syncopal episodes associated with BMs in NSR Review of Systems Review of Systems: Yes all other systems are reviewed and are negative Physical Exam Vital Signs: Vital Signs: Last Vital Signs Temp 97.2 F 02/19/24 10:59 Pulse 74 02/19/24 10:59 Resp 20 02/19/24 10:59 BP 144/67 H 02/19/24 10:59 Pulse Ox 93 02/19/24 10:59 O2 Del Method Room Air 02/19/24 10:59 BMI result Body Mass Index 26.9 Gen: in no acute distress HEENT: sclera anicteric, moist mucus membranes Neck: supple Lungs: clear to auscultation bilaterally Heart: regular rate and rhythm, no murmurs Abd: soft, non-tender, non-distended Ext: no edema Skin: warm/well-perfused Neuro: alert and oriented x3, no focal findings Psych: appropriate affect Objective Data Active Medications Acetaminophen (Acetaminophen 325 Mg Tablet) 650 mg PO Q6H PRN PRN Reason: Pain, Mild (Pain Scale 1-3) Last Admin: 02/17/24 16:01 Dose: 650 mg Documented By: GONZALO Apixaban (Apixaban 5 Mg Tablet) 5 mg PO BID [facility] Last Admin: 02/19/24 08:13 Dose: 5 mg Documented By: ELIECER Artificial Tears (Artificial Tears 15 Ml Drops) 1 drop EYE-BOTH 5XD [facility] Last Admin: 02/19/24 13:17 Dose: Not Given Documented By: ELIECER Non-Admin Reason: Previously Administered Atorvastatin Calcium (Atorvastatin Calcium 40 Mg Tablet) 40 mg PO BEDTIME [facility] Last Admin: 02/18/24 21:13 Dose: 40 mg Documented By: JESSE Benzonatate (Benzonatate 100 Mg Capsule) 100 mg PO TID PRN PRN Reason: Cough Carvedilol (Carvedilol 3.125 Mg Tablet) 3.125 mg PO BID [facility]; Protocol Last Admin: 02/19/24 08:13 Dose: 3.125 mg Documented By: ELIECER Diltiazem HCl (Diltiazem Hcl Cd 240 Mg Cap.Er.Deg) 240 mg PO DAILY [facility]; Protocol Last Admin: 02/19/24 08:13 Dose: 240 mg Documented By: ELIECER Docusate Sodium (Docusate Sodium 100 Mg Capsule) 100 mg PO DAILY PRN PRN Reason: Constipation Duloxetine HCl (Duloxetine Hcl 30 Mg Capsule.) 30 mg PO DAILY [facility] Last Admin: 02/19/24 08:14 Dose: 30 mg Documented By: ELIECER Furosemide (Furosemide 20 Mg Tablet) 20 mg PO DAILY [facility]; Protocol Last Admin: 02/19/24 08:14 Dose: 20 mg Documented By: ELIECER Gabapentin (Gabapentin 300 Mg Capsule) 300 mg PO BEDTIME [facility] Last Admin: 02/18/24 21:13 Dose: 300 mg Documented By: JESSE Levothyroxine Sodium (Levothyroxine Sodium 50 Mcg Tablet) 50 mcg PO Robles@0600 [facility] Levothyroxine Sodium (Levothyroxine Sodium 100 Mcg Tablet) 100 mcg PO DAILY@0600 [facility] Last Admin: 02/19/24 04:59 Dose: 100 mcg Documented By: JESSE Lisinopril (Lisinopril 10 Mg Tablet) 10 mg PO BEDTIME [facility] Last Admin: 02/18/24 21:13 Dose: 10 mg Documented By: JESSE Omeprazole (Omeprazole 40 Mg Capsule.) 40 mg PO DAILY [facility] Last Admin: 02/19/24 08:14 Dose: 40 mg Documented By: ELIECER Ondansetron HCl (Ondansetron Hcl 4 Mg/2 Ml Vial) 4 mg IVPUSH Q8H PRN PRN Reason: Nausea and Vomiting Potassium Chloride (Potassium Chloride Er 10 Meq Tablet.Er) 10 meq PO DAILY [facility] Last Admin: 02/19/24 08:14 Dose: 10 meq Documented By: ELIECER Sodium Chloride (0.9 % Sodium Chloride Flush 3 Ml Syringe) [facility] Admin: 02/19/24 08:18 Dose: 3 ml Documented By: ELIECER Trazodone HCl (Trazodone Hcl 100 Mg Tablet) 100 mg PO BEDTIME [facility] Last Admin: 02/18/24 21:13 Dose: 100 mg Documented By: JESSE Labs 02/17/24 05:29 02/16/24 16:57 Microbiology Microbiology Results: Microbiology 02/16/24 16:58 Blood Culture - Preliminary Blood - Venous No growth after 48 hours. 02/16/24 16:56 Blood Culture - Preliminary Blood - Venous No growth after 48 hours. Assessment and Plan (1) Syncope: Status: Acute (2) Colitis: Status: Acute Plan d4 73yo F with paroxysmal AF on apixaban, HLD, HTN, hypothyroidism, hx ischemic colitis, chronic lower leg edema admitted after syncopal episode, found to have colitis colitis likely ischemic - GI consulted, outpt C-scope, tolerating regular diet recurrent syncope - concern for reflex syncope- possibly associated with defecation? will order bowel regimen. Currently in NSR. TTE in Oct without valvular pathology. Consult Cardiology. Not orthostatic. pAF - apixaban, carvedilol, diltiazem HLD - atorvastatin HTN - carvedilol, diltiazem, lisinopril hypothyroidism - continue LT4 VTE ppx - apixaban dispo - anticipate home with VNA In my clinical judgment, the patient requires continued inpatient hospitalization for the following reasons: ongoing lightheadedness Total time managing care of this patient today: 35 minutes. Quality Stroke Does the patient have a stroke diagnosis?: No VTE Prior VTE?: No VTE Risk Level:: Medical - moderate - high VTE Device Contraindication: Treatment Not Indicated VTE Drug Contraindication: N/A - Med Ordered
[2024-02-19] MEDS: traZODone HCL 100 MG TABLET PO (20:16)
[2024-02-19] MEDS: Gabapentin 300 MG CAPSULE PO (20:16)
[2024-02-19] MEDS: Atorvastatin Calcium 40 MG TABLET PO (20:16)
[2024-02-19] MEDS: lisinopriL 10 MG TABLET PO (20:16)
[2024-02-20 03:46] VITALS: BP 117/57; PULSE 84; RESP 16; TEMP 37; O2SAT 92
[2024-02-20] MEDS: Levothyroxine Sodium 50 MCG TABLET PO (05:49)
[2024-02-20] MEDS: Levothyroxine Sodium 100 MCG TABLET PO (05:49)
[2024-02-20] MEDS: Artificial Tears 15 ML DROPS 1 DROP EYE-BOTH ×4 (05:51→20:38)
[2024-02-20 07:06] VITALS: BP 160/73; PULSE 97; RESP 20; TEMP 37.4; O2SAT 92
--- NOTE | 2024-02-20 09:34 | P.CONCA_ITS ---
History of Present Illness History of Present Illness Date of Service: 02/20/24 Requesting physician: Marci Chavira Consult reason: other (syncope) Chief complaint: syncopal episode, colitis Narrative: I was consulted to see [facility] in cardiology consultation today for evaluation of syncope and possible workup. She has a 73-year-old female was admitted here in August and seen by Dr. Castellon at which time she was diagnosed with paroxysmal atrial fibrillation. Since then she has been on carvedilol as well as Cardizem at home and on oral anticoagulation with Eliquis. She had an echocardiogram at that time which showed normal LV ejection fraction with severe basal septal asymmetric septal hypertrophy without obstructive physiology. Patient has history of hypertension at home usually a blood pressure is borderline elevated at 1 30-150 systolic as recorded in the Cardiology note. Patient said she came to the hospital because she passed out. Patient said she was having some abdominal discomfort and significant abdominal pain she went to the bathroom but was not feeling well. She then decided to lay down, her home wet cleaner machine had was there and then she felt or should go to the bathroom again and she got up and the next thing she knows as she found herself on the floor. There was some bowel bladder incontinence. Patient says she regained consciousness very quickly. She said she similarly she had another episode in December while she was straining and then she passed out at that time and was brought to the emergency. Workup at that time was within normal limits. When she came in orthostatic vitals on negative. She was not noted to be significantly dehydrated or having any bleeding issues. Hematocrit has remained stable. She has been observed for the last 3 days and she has not noted to have any significant arrhythmias. No recurrent episodes of atrial fibrillation. The syncopal episode was not preceded by any episodes of chest pain or shortness of breath. He denied any palpitations prior to passing out. She is very concerned about these passing out episodes as she says she lives alone. Review of Systems 2 Constitutional: Constitutional: Reports no additional constitutional complaints Cardiovascular: Cardiovascular: Denies chest pain, Reports lightheadedness, Reports Loss of Consciousness, Denies palpitations and Denies dyspnea Respiratory: Respiratory: Reports no additional respiratory complaints and Denies dyspnea Gastrointestinal: Gastrointestinal: Reports abdominal pain and Reports nausea Genitourinary: Genitourinary: Reports no additional female genitourinary complaints Musculoskeletal: Musculoskeletal: Reports no additional musculoskeletal complaints Integumentary/Breasts: Skin/Breast: Reports system reviewed and no additional complaints, except as docu Neurologic: Reports system reviewed and no additional complaints, except as documented Psychiatric: Psychiatric: Reports no additional psychiatric complaints Endocrine: Endocrine: Denies palpitations [facility] Past Medical History Medical History (Updated 02/20/24 @ 09:54 by Deyvi Jacob MD) Atrial fibrillation Hypothyroidism Lower leg edema GERD (gastroesophageal reflux disease) HLD (hyperlipidemia) HTN (hypertension) Paroxysmal A-fib Frequent falls Anemia Head injury General weakness Fall Lupus Family History Family History Mother Myocardial infarction Social History Social History Household Members: None [facility] Do you presently have visiting nurse or other home services: Yes Patient Tobacco Use Status: Never used Tobacco e-Cigarette/Vaping Use: Never Used Advance Directives Date on File: 12/17/23 service: No Meds Allergies Allergy/AdvReac Type Severity Reaction Status Date / Time erythromycin base Allergy Severe Rash Verified 08/18/23 11:31 [From Erythrocin] Penicillins [PENICILLINS] Allergy Severe HIVES Verified 08/13/23 14:58 droperidol [From INAPSINE] Allergy Intermediate UNUSUAL Verified 08/13/23 14:58 HEAD MOVEMENTS oxycodone [OXYCODONE] Allergy Mild ITCHING Verified 08/13/23 14:58 morphine [MORPHINE] AdvReac Unknown CONFUSION Verified 08/13/23 14:58 Active Medications: Current Medications Acetaminophen (Acetaminophen 325 Mg Tablet) 650 mg PO Q6H PRN PRN Reason: Pain, Mild (Pain Scale 1-3) Last Admin: 02/17/24 16:01 Dose: 650 mg Apixaban (Apixaban 5 Mg Tablet) 5 mg PO BID [facility] Last Admin: 02/19/24 20:16 Dose: 5 mg Artificial Tears (Artificial Tears 15 Ml Drops) 1 drop EYE-BOTH 5XD [facility] Last Admin: 02/20/24 05:51 Dose: 1 drop Atorvastatin Calcium (Atorvastatin Calcium 40 Mg Tablet) 40 mg PO BEDTIME [facility] Last Admin: 02/19/24 20:16 Dose: 40 mg Benzonatate (Benzonatate 100 Mg Capsule) 100 mg PO TID PRN PRN Reason: Cough Carvedilol (Carvedilol 3.125 Mg Tablet) 3.125 mg PO BID [facility]; Protocol Last Admin: 02/19/24 20:16 Dose: 3.125 mg Diltiazem HCl (Diltiazem Hcl Cd 240 Mg Cap.Er.Deg) 240 mg PO DAILY [facility]; Protocol Last Admin: 02/19/24 08:13 Dose: 240 mg Docusate Sodium (Docusate Sodium 100 Mg Capsule) 100 mg PO DAILY PRN PRN Reason: Constipation Duloxetine HCl (Duloxetine Hcl 30 Mg Capsule.Dr) 30 mg PO DAILY [facility] Last Admin: 02/19/24 08:14 Dose: 30 mg Furosemide (Furosemide 20 Mg Tablet) 20 mg PO DAILY [facility]; Protocol Last Admin: 02/19/24 08:14 Dose: 20 mg Gabapentin (Gabapentin 300 Mg Capsule) 300 mg PO BEDTIME [facility] Last Admin: 02/19/24 20:16 Dose: 300 mg Levothyroxine Sodium (Levothyroxine Sodium 50 Mcg Tablet) 50 mcg PO Hernadez@0600 [facility] Last Admin: 02/20/24 05:49 Dose: 50 mcg Levothyroxine Sodium (Levothyroxine Sodium 100 Mcg Tablet) 100 mcg PO DAILY@0600 [facility] Last Admin: 02/20/24 05:49 Dose: 100 mcg Lisinopril (Lisinopril 10 Mg Tablet) 10 mg PO BEDTIME [facility] Last Admin: 02/19/24 20:16 Dose: 10 mg Omeprazole (Omeprazole 40 Mg Capsule.Dr) 40 mg PO DAILY [facility] Last Admin: 02/19/24 08:14 Dose: 40 mg Ondansetron HCl (Ondansetron Hcl 4 Mg/2 Ml Vial) 4 mg IVPUSH Q8H PRN PRN Reason: Nausea and Vomiting Potassium Chloride (Potassium Chloride Er 10 Meq Tablet.Er) 10 meq PO DAILY [facility] Last Admin: 02/19/24 08:14 Dose: 10 meq Sodium Chloride (0.9 % Sodium Chloride Flush 3 Ml Syringe) 3 ml IVFLUSH QSHIFT [facility] Last Admin: 02/20/24 00:37 Dose: Not Given Trazodone HCl (Trazodone Hcl 100 Mg Tablet) 100 mg PO BEDTIME [facility] Last Admin: 02/19/24 20:16 Dose: 100 mg Home Medications ?Medication ?Instructions ?Recorded ?Confirmed ?Last Taken ?Type atorvastatin 40 mg tablet 40 mg PO BEDTIME 08/13/23 02/16/24 02/15/24 History carboxymethylcellulose sodium 0.5 1 drp ophthalmic (eye) 5XD 08/13/23 02/16/24 02/16/24 History % eye drops (Refresh Tears) carvedilol 3.125 mg tablet 3.125 mg PO BID 08/13/23 02/16/24 02/16/24 History furosemide 20 mg tablet 20 mg PO DAILY 08/13/23 02/16/24 02/16/24 History gabapentin 300 mg capsule 300 mg PO BEDTIME 08/13/23 02/16/24 02/15/24 History levothyroxine 100 mcg tablet 100 mcg PO DAILY 08/13/23 02/16/24 02/16/24 History omeprazole 40 mg capsule,delayed 40 mg PO DAILY 08/13/23 02/16/24 02/16/24 History release potassium chloride 10 mEq 10 meq PO DAILY 08/13/23 02/16/24 02/16/24 History tablet,extended release trazodone 100 mg tablet 100 mg PO BEDTIME 08/13/23 02/16/24 02/15/24 History clobetasol 0.05 % topical cream 1 appl topical BID PRN LUPUS FLARE 12/17/23 02/16/24 12/16/23 History levothyroxine 100 mcg tablet 50 mcg PO HERNADEZ 12/17/23 02/16/24 02/13/24 History benazepril 10 mg tablet 10 mg PO BEDTIME 02/16/24 02/16/24 02/15/24 History duloxetine 30 mg capsule,delayed 30 mg PO DAILY 02/16/24 02/16/24 02/16/24 History release emollient combination no.77 1 appl topical DAILY PRN bruising 02/16/24 02/16/24 Unknown History (Dermend topical cream) Physical Exam 2 Vital Signs: Vital Signs: Last Vital Signs Temp 99.4 F 02/20/24 07:06 Pulse 97 02/20/24 07:06 Resp 20 02/20/24 07:06 BP 160/73 H 02/20/24 07:06 Pulse Ox 92 02/20/24 07:06 O2 Del Method Room Air 02/20/24 07:06 O2 Flow Rate 93 02/19/24 23:41 BMI result Body Mass Index 26.9 Const: General: cooperative, comfortable, no acute distress, alert, awake and anxious Nutritional Appearance: average body habitus O rientation/consciousness: patient oriented x3 Limitations: no limitations HEENT: Head: Yes normocephalic and Yes atraumatic Neck: Neck: Yes trachea midline, Yes supple and Yes no JVD Resp: Effort & Inspection: normal respiratory effort Auscultation: clear to auscultation bilaterally Cardio: Jugular venous distension: no JVD Palpation: normal PMI Rate: r egular rate Rhythm: regular rhythm Heart sounds: S1 normal heart sound present, S2 normal heart sound present, no click, no gallops and no murmurs (Including with Valsalva) GI: Auscultation: normal bowel sounds Skin: General skin exam: no rashes or lesions noted Neuro: General: patient oriented x3 and no focal motor deficits Extrem: General: Yes no clubbing, cyanosis or edema Objective Labs and Meds 02/17/24 05:29 02/16/24 16:57 Assessment and Plan (1) Syncope: Qualifiers: Syncope type: unspecified Qualified Code(s): R55 - Syncope and collapse Status: Acute Recurrent syncopal episodes in this woman both happening situationally 1 while his training and 1 while she was having acute abdominal pain and urge to go to the bathroom. She now has colitis which is responsible for abdominal pain symptoms. Both of these episodes seem to be triggered by either a Valsalva maneuver like or painful stimulants. Both of these sound like vasovagal syncope to me. She has been monitored for last 3 days as no evidence of orthostasis on and acute heart issues including no evidence of acute myocardial infarction. Clinically she does not have any provoked systolic murmur suggestive hypertrophic cardiomyopathy. There been no arrhythmias on cardiac telemetry. From cardiac perspective I would do not think she requires any inpatient workup. Will consider outpatient cardiac event monitor with mobile telemetry to assess for any other significant arrhythmias as well as bradycardia that may require alternative therapy. For now I would continue carvedilol and Cardizem therapy. I have discussed with her the mechanism of reflex syncope and advised her to maintain adequate hydration. Obviously treating underlying GI condition is paramount so that she does not get recurrent bouts of significant GI issues. Patient is also advised to seek sitting or supine position when she gets unwell and feels any other symptoms although it seems like her syncopal episode is very quick. (2) Paroxysmal A-fib: Status: Acute Paroxysmal atrial fibrillation without any obvious clinical recurrence. Continue carvedilol and Cardizem. Continue full oral anticoagulation, currently on Eliquis 5 mg b.i.d.. She is at high risk for thromboembolic complication given the possible ischemic colitis and prior cerebellar CVA. Importance of oral anticoagulation therapy was discussed. Will follow up as outpatient. Thank you for allowing me to partake in her care Procedures Date of Service Date of Service: 02/20/24
[2024-02-20] MEDS: Docusate Sodium 100 MG CAPSULE PO (09:35)
[2024-02-20] MEDS: dilTIAZem HCL CD 240 MG CAP.ER.DEG PO (09:35)
[2024-02-20] MEDS: Omeprazole 40 MG CAPSULE.DR PO (09:35)
[2024-02-20] MEDS: Potassium Chloride ER 10 MEQ TABLET.ER PO (09:35)
[2024-02-20] MEDS: carvediloL 3.125 MG TABLET PO ×2 (09:35→20:32)
[2024-02-20] MEDS: Apixaban 5 MG TABLET PO ×2 (09:35→20:32)
[2024-02-20] MEDS: Furosemide 20 MG TABLET PO (09:35)
[2024-02-20] MEDS: DULoxetine HCl 30 MG CAPSULE.DR PO (09:35)
[2024-02-20] MEDS: 0.9 % Sodium Chloride Flush 3 ML SYRINGE IVFLUSH ×2 (09:41→17:36)
[2024-02-20 11:13] VITALS: BP 136/73; PULSE 80; RESP 20; TEMP 36.9; O2SAT 97
--- NOTE | 2024-02-20 12:08 | P.F2F_ITS ---
Service Date Service Date: 02/20/24 Encounter Date of encounter: 02/20/24 Reasons for Services Homebound: Leaving the home is medically contraindicated at this time without the asist of a device and/or another person due th the listed conditions above and below. Certification: Based on the above findings, I certify that this patient is confined to the home and needs intermittent nursing home care, physical therapy and/or speech therapy, or continues to need occupational therapy. The patient is under my care, and I have initiated the establishment of the plan of care. The patient will be followed by a physician who will periodically review the plan of care. Time Spent With Patient Time: Total time managing care of this patient today ____ minutes.
--- NOTE | 2024-02-20 12:09 | P.PNIM_ITS ---
Subjective Subjective Date of Service: 02/20/24 Interval History: lightheadedness improved no arrhythmias on telemetry no abd pain Review of Systems Review of Systems: Yes all other systems are reviewed and are negative Physical Exam 2 Vital Signs: Vital Signs: Last Vital Signs Temp 98.4 F 02/20/24 11:13 Pulse 80 02/20/24 11:13 Resp 20 02/20/24 11:13 BP 136/73 02/20/24 11:13 Pulse Ox 97 02/20/24 11:13 O2 Del Method Room Air 02/20/24 11:13 O2 Flow Rate 93 02/19/24 23:41 BMI result Body Mass Index 26.9 Gen: in no acute distress HEENT: sclera anicteric, moist mucus membranes Neck: supple Lungs: clear to auscultation bilaterally Heart: regular rate and rhythm, no murmurs Abd: soft, non-tender, non-distended Ext: no edema Skin: warm/well-perfused Neuro: alert and oriented x3, no focal findings Psych: appropriate affect Objective Data Active Medications Acetaminophen (Acetaminophen 325 Mg Tablet) 650 mg PO Q6H PRN PRN Reason: Pain, Mild (Pain Scale 1-3) Last Admin: 02/17/24 16:01 Dose: 650 mg Documented By: GONZALO Apixaban (Apixaban 5 Mg Tablet) 5 mg PO BID [facility] Last Admin: 02/20/24 09:35 Dose: 5 mg Documented By: ELIECER Artificial Tears (Artificial Tears 15 Ml Drops) 1 drop EYE-BOTH 5XD [facility] Last Admin: 02/20/24 09:36 Dose: 1 drop Documented By: ELIECER Atorvastatin Calcium (Atorvastatin Calcium 40 Mg Tablet) 40 mg PO BEDTIME [facility] Last Admin: 02/19/24 20:16 Dose: 40 mg Documented By: SAMMY Benzonatate (Benzonatate 100 Mg Capsule) 100 mg PO TID PRN PRN Reason: Cough Carvedilol (Carvedilol 3.125 Mg Tablet) 3.125 mg PO BID [facility]; Protocol Last Admin: 02/20/24 09:35 Dose: 3.125 mg Documented By: ELIECER Diltiazem HCl (Diltiazem Hcl Cd 240 Mg Cap.Er.Deg) 240 mg PO DAILY [facility]; Protocol Last Admin: 02/20/24 09:35 Dose: 240 mg Documented By: ELIECER Docusate Sodium (Docusate Sodium 100 Mg Capsule) 100 mg PO DAILY PRN PRN Reason: Constipation Last Admin: 02/20/24 09:35 Dose: 100 mg Documented By: ELIECER Duloxetine HCl (Duloxetine Hcl 30 Mg Capsule.) 30 mg PO DAILY [facility] Last Admin: 02/20/24 09:35 Dose: 30 mg Documented By: ELIECER Furosemide (Furosemide 20 Mg Tablet) 20 mg PO DAILY [facility]; Protocol Last Admin: 02/20/24 09:35 Dose: 20 mg Documented By: ELIECER Gabapentin (Gabapentin 300 Mg Capsule) 300 mg PO BEDTIME [facility] Last Admin: 02/19/24 20:16 Dose: 300 mg Documented By: SAMMY Levothyroxine Sodium (Levothyroxine Sodium 50 Mcg Tablet) 50 mcg PO Robles@0600 [facility] Last Admin: 02/20/24 05:49 Dose: 50 mcg Documented By: JESUSITA Levothyroxine Sodium (Levothyroxine Sodium 100 Mcg Tablet) 100 mcg PO DAILY@0600 [facility] Last Admin: 02/20/24 05:49 Dose: 100 mcg Documented By: JESUSITA Lisinopril (Lisinopril 10 Mg Tablet) 10 mg PO BEDTIME [facility] Last Admin: 02/19/24 20:16 Dose: 10 mg Documented By: SAMMY Omeprazole (Omeprazole 40 Mg Capsule.) 40 mg PO DAILY [facility] Last Admin: 02/20/24 09:35 Dose: 40 mg Documented By: ELIECER Ondansetron HCl (Ondansetron Hcl 4 Mg/2 Ml Vial) 4 mg IVPUSH Q8H PRN PRN Reason: Nausea and Vomiting Potassium Chloride (Potassium Chloride Er 10 Meq Tablet.Er) 10 meq PO DAILY [facility] Last Admin: 02/20/24 09:35 Dose: 10 meq Documented By: ELIECER Sodium Chloride (0.9 % Sodium Chloride Flush 3 Ml Syringe) 3 ml IVFLUSH QSHIFT [facility] Last Admin: 02/20/24 09:41 Dose: 3 ml Documented By: ELIECER Trazodone HCl (Trazodone Hcl 100 Mg Tablet) 100 mg PO BEDTIME [facility] Last Admin: 02/19/24 20:16 Dose: 100 mg Documented By: SAMMY Labs 02/17/24 05:29 02/16/24 16:57 Assessment and Plan (1) Syncope: Status: Acute (2) Colitis: Status: Acute Plan d5 73yo F with paroxysmal AF on apixaban, HLD, HTN, hypothyroidism, hx ischemic colitis, chronic lower leg edema admitted after syncopal episode, found to have colitis colitis likely ischemic - GI consulted, outpt C-scope, tolerating regular diet recurrent syncope, likely vasovagal - concern for reflex syncope- possibly associated with defecation? will order bowel regimen. Currently in NSR. TTE in Oct without valvular pathology. Not orthostatic. Cardiology consulted and will order cardiac event monitor pAF - apixaban, carvedilol, diltiazem HLD - atorvastatin HTN - carvedilol, diltiazem, lisinopril hypothyroidism - continue LT4 VTE ppx - apixaban dispo - plan STR In my clinical judgment, the patient requires continued inpatient hospitalization for the following reasons: placement Total time managing care of this patient today: 35 minutes. Quality Stroke Does the patient have a stroke diagnosis?: No VTE Prior VTE?: No VTE Risk Level:: Medical - moderate - high VTE Device Contraindication: Treatment Not Indicated VTE Drug Contraindication: N/A - Med Ordered
[2024-02-20 15:41] VITALS: BP 145/62; PULSE 75; RESP 20; TEMP 36.8; O2SAT 93
[2024-02-20 20:00] VITALS: BP 160/70; PULSE 80; RESP 20; TEMP 37.4; O2SAT 91
[2024-02-20] MEDS: Atorvastatin Calcium 40 MG TABLET PO (20:32)
[2024-02-20] MEDS: traZODone HCL 100 MG TABLET PO (20:32)
[2024-02-20] MEDS: lisinopriL 10 MG TABLET PO (20:32)
[2024-02-20] MEDS: Gabapentin 300 MG CAPSULE PO (20:32)
[2024-02-20 23:34] VITALS: BP 119/62; PULSE 86; RESP 20; TEMP 37.3; O2SAT 90
[2024-02-21] VITALS (11 sets, daily range): BP systolic 93–148; BP diastolic 52–80; PULSE 75–104; RESP 12–20; TEMP 36.3–37.7; O2SAT 92–95
[2024-02-21] MEDS: 0.9 % Sodium Chloride Flush 3 ML SYRINGE IVFLUSH ×3 (00:20→22:39)
[2024-02-21] MEDS: Levothyroxine Sodium 100 MCG TABLET PO (05:27)
[2024-02-21] MEDS: Artificial Tears 15 ML DROPS 1 DROP EYE-BOTH ×5 (05:27→22:39)
[2024-02-21] MEDS: Omeprazole 40 MG CAPSULE.DR PO (08:49)
[2024-02-21] MEDS: DULoxetine HCl 30 MG CAPSULE.DR PO (08:49)
[2024-02-21] MEDS: Docusate Sodium 100 MG CAPSULE PO (08:49)
[2024-02-21] MEDS: dilTIAZem HCL CD 240 MG CAP.ER.DEG PO (08:49)
[2024-02-21] MEDS: Potassium Chloride ER 10 MEQ TABLET.ER PO (08:49)
[2024-02-21] MEDS: Apixaban 5 MG TABLET PO ×2 (08:49→22:38)
[2024-02-21] MEDS: carvediloL 3.125 MG TABLET PO ×2 (08:49→22:38)
[2024-02-21] MEDS: Furosemide 20 MG TABLET PO (08:49)
--- NOTE | 2024-02-21 10:09 | MHC.CM.PN ---
Per ROUNDS discussion, Patient is not yet medically cleared for dc (Orthostatic/receiving IVF); PT is recommending home with services and CM will continue to follow.
[2024-02-21] MEDS: Lactated Ringers 1,000 ML 125 ML IVCONT (10:26)
[2024-02-21] MEDS: bisacodyL 5 MG TABLET.DR 10 MG PO (10:26)
[2024-02-21] MEDS: polyethylene glycoL 3350 17 GM POWD.PACK PO (10:26)
--- NOTE | 2024-02-21 11:14 | HO.PM.IMPN ---
Subjective Subjective Date of Service: 02/21/24 Interval History: felt lightheaded this morning orthostatics positive: 122/58 (P 81) -> 107/59 (P88) -> 93/52 (P104) Review of Systems Review of Systems: Yes all other systems are reviewed and are negative Physical Exam Vital Signs: Vital Signs: Last Vital Signs Temp 97.3 F 02/21/24 07:41 Pulse 104 H 02/21/24 09:50 Resp 20 02/21/24 07:41 BP 93/52 L 02/21/24 09:50 Pulse Ox 93 02/21/24 07:41 O2 Del Method Room Air 02/21/24 07:41 O2 Flow Rate 93 02/19/24 23:41 BMI result Body Mass Index 26.9 Gen: in no acute distress HEENT: sclera anicteric, moist mucus membranes Neck: supple Lungs: clear to auscultation bilaterally Heart: regular rate and rhythm, no murmurs Abd: soft, non-tender, non-distended Ext: no edema Skin: warm/well-perfused Neuro: alert and oriented x3, no focal findings Psych: appropriate affect Objective Data Active Medications Acetaminophen (Acetaminophen 325 Mg Tablet) 650 mg PO Q6H PRN PRN Reason: Pain, Mild (Pain Scale 1-3) Last Admin: 02/17/24 16:01 Dose: 650 mg Documented By: GONZALO Apixaban (Apixaban 5 Mg Tablet) 5 mg PO BID [facility] Last Admin: 02/21/24 08:49 Dose: 5 mg Documented By: SEEMA Artificial Tears (Artificial Tears 15 Ml Drops) 1 drop EYE-BOTH 5XD [facility] Last Admin: 02/21/24 10:27 Dose: 1 drop Documented By: SEEMA Atorvastatin Calcium (Atorvastatin Calcium 40 Mg Tablet) 40 mg PO BEDTIME [facility] Last Admin: 02/20/24 20:32 Dose: 40 mg Documented By: SAMMY Benzonatate (Benzonatate 100 Mg Capsule) 100 mg PO TID PRN PRN Reason: Cough Bisacodyl (Bisacodyl 5 Mg Tablet.) 10 mg PO DAILY [facility] Last Admin: 02/21/24 10:26 Dose: 10 mg Documented By: SEEMA Carvedilol (Carvedilol 3.125 Mg Tablet) 3.125 mg PO BID [facility]; Protocol Last Admin: 02/21/24 08:49 Dose: 3.125 mg Documented By: SEEMA Diltiazem HCl (Diltiazem Hcl Cd 240 Mg Cap.Er.Deg) 240 mg PO DAILY [facility]; Protocol Last Admin: 02/21/24 08:49 Dose: 240 mg Documented By: SEEMA Duloxetine HCl (Duloxetine Hcl 30 Mg Capsule.) 30 mg PO DAILY [facility] Last Admin: 02/21/24 08:49 Dose: 30 mg Documented By: SEEMA Furosemide (Furosemide 20 Mg Tablet) 20 mg PO DAILY [facility]; Protocol Last Admin: 02/21/24 08:49 Dose: 20 mg Documented By: SEEMA Gabapentin (Gabapentin 300 Mg Capsule) 300 mg PO BEDTIME [facility] Last Admin: 02/20/24 20:32 Dose: 300 mg Documented By: SAMMY Lactated Ringer's (Lr) 1,000 mls @ 125 mls/hr IVCONT .Q8H [facility] Stop: 02/21/24 22:14 Last Admin: 02/21/24 10:26 Dose: 125 mls/hr Documented By: SEEMA Levothyroxine Sodium (Levothyroxine Sodium 50 Mcg Tablet) 50 mcg PO Robles@0600 [facility] Last Admin: 02/20/24 05:49 Dose: 50 mcg Documented By: JESUSITA Levothyroxine Sodium (Levothyroxine Sodium 100 Mcg Tablet) 100 mcg PO DAILY@0600 [facility] Last Admin: 02/21/24 05:27 Dose: 100 mcg Documented By: MARCI Lisinopril (Lisinopril 10 Mg Tablet) 10 mg PO BEDTIME [facility] Last Admin: 02/20/24 20:32 Dose: 10 mg Documented By: SAMMY Omeprazole (Omeprazole 40 Mg Capsule.) 40 mg PO DAILY [facility] Last Admin: 02/21/24 08:49 Dose: 40 mg Documented By: SEEMA Ondansetron HCl (Ondansetron Hcl 4 Mg/2 Ml Vial) 4 mg IVPUSH Q8H PRN PRN Reason: Nausea and Vomiting Polyethylene Glycol (Polyethylene Glycol 3350 17 Gm Powd.Pack) 17 gm PO DAILY [facility] Last Admin: 02/21/24 10:26 Dose: 17 gm Documented By: SEEMA Potassium Chloride (Potassium Chloride Er 10 Meq Tablet.Er) 10 meq PO DAILY [facility] Last Admin: 02/21/24 08:49 Dose: 10 meq Documented By: SEEMA Senna/Docusate Sodium (Sennosides/Docusate Sodium Tablet) 2 tab PO BID [facility] Last Admin: 02/21/24 10:22 Dose: Not Given Documented By: SEEMA Non-Admin Reason: gave prn med Sodium Chloride (0.9 % Sodium Chloride Flush 3 Ml Syringe) 3 ml IVFLUSH QSHIFT [facility] Last Admin: 02/21/24 08:50 Dose: 3 ml Documented By: SEEMA Trazodone HCl (Trazodone Hcl 100 Mg Tablet) 100 mg PO BEDTIME [facility] Last Admin: 02/20/24 20:32 Dose: 100 mg Documented By: SAMMY Labs 02/17/24 05:29 02/16/24 16:57 Assessment and Plan (1) Syncope: Status: Acute (2) Colitis: Status: Acute Plan d6 73yo F with paroxysmal AF on apixaban, HLD, HTN, hypothyroidism, hx ischemic colitis, chronic lower leg edema admitted after syncopal episode, found to have colitis colitis likely ischemic - GI consulted, outpt C-scope, tolerating regular diet recurrent syncope, likely vasovagal but also orthostatic today - concern for reflex syncope- possibly associated with defecation? bowel regimen - currently in NSR. TTE in Oct without valvular pathology. Cardiology consulted and will arrange outpt cardiac event monitor - today she is orthostatic; previously orthostatics were normal. Will give LR IV and recheck orthostatics in AM pAF - apixaban, carvedilol, diltiazem HLD - atorvastatin HTN - carvedilol, diltiazem, lisinopril hypothyroidism - continue LT4 VTE ppx - apixaban dispo - plan STR In my clinical judgment, the patient requires continued inpatient hospitalization for the following reasons: orthostasis requiring IV fluids; placement Total time managing care of this patient today: 35 minutes. Quality Stroke Does the patient have a stroke diagnosis?: No VTE Prior VTE?: No VTE Risk Level:: Medical - moderate - high VTE Device Contraindication: Treatment Not Indicated VTE Drug Contraindication: N/A - Med Ordered
[2024-02-21] MEDS: Lactated Ringers 500 ML 125 ML IVCONT (18:31)
[2024-02-21] MEDS: traZODone HCL 100 MG TABLET PO (22:33)
[2024-02-21] MEDS: Gabapentin 300 MG CAPSULE PO (22:38)
[2024-02-21] MEDS: Sennosides/Docusate Sodium TABLET 2 TAB PO (22:39)
[2024-02-21] MEDS: lisinopriL 10 MG TABLET PO (22:39)
[2024-02-21] MEDS: Atorvastatin Calcium 40 MG TABLET PO (22:39)
[2024-02-22] VITALS (9 sets, daily range): BP systolic 95–164; BP diastolic 55–76; PULSE 62–88; RESP 18–20; TEMP 36.2–37.8; O2SAT 91–96
[2024-02-22] MEDS: Levothyroxine Sodium 100 MCG TABLET PO (05:27)
[2024-02-22] MEDS: Artificial Tears 15 ML DROPS 1 DROP EYE-BOTH ×4 (05:29→22:15)
[2024-02-22] MEDS: DULoxetine HCl 30 MG CAPSULE.DR PO (07:20)
[2024-02-22] MEDS: polyethylene glycoL 3350 17 GM POWD.PACK PO (07:20)
[2024-02-22] MEDS: carvediloL 3.125 MG TABLET PO (07:20)
[2024-02-22] MEDS: dilTIAZem HCL CD 240 MG CAP.ER.DEG PO (07:20)
[2024-02-22] MEDS: bisacodyL 5 MG TABLET.DR 10 MG PO (07:20)
[2024-02-22] MEDS: Furosemide 20 MG TABLET PO (07:20)
[2024-02-22] MEDS: Omeprazole 40 MG CAPSULE.DR PO (07:20)
[2024-02-22] MEDS: Sennosides/Docusate Sodium TABLET 2 TAB PO (07:21)
[2024-02-22] MEDS: Potassium Chloride ER 10 MEQ TABLET.ER PO (07:21)
[2024-02-22] MEDS: 0.9 % Sodium Chloride Flush 3 ML SYRINGE IVFLUSH ×3 (07:21→22:13)
[2024-02-22] MEDS: Apixaban 5 MG TABLET PO ×2 (07:21→22:11)
--- NOTE | 2024-02-22 08:50 | MHC.CM.PN ---
PT is now recommending STR; CM will follow.
[2024-02-22] MEDS: Acetaminophen 325 MG TABLET 650 MG PO ×2 (09:40→15:37)
[2024-02-22] MEDS: Midodrine HCl 2.5 MG TABLET PO ×3 (10:56→22:11)
--- NOTE | 2024-02-22 12:10 | MHC.CM.PN ---
BERNADRO returned a call to NEERAJ/Brandon @ [phone]. BERNARDO explained that [facility] with Patient's insurance and that [facility] [place] [facility] have offered beds.BERNARDO will continue to follow.
--- NOTE | 2024-02-22 14:11 | P.PNIM_ITS ---
Subjective Subjective Date of Service: 02/22/24 Interval History: still dizzy/orthostatic had a large BM finally 132/64 (P 62) -> 112/66 (P 79) -> 95/55 (P 88) Review of Systems Review of Systems: Yes all other systems are reviewed and are negative Physical Exam 2 Vital Signs: Vital Signs: Last Vital Signs Temp 97.9 F 02/22/24 12:00 Pulse 66 02/22/24 12:00 Resp 20 02/22/24 12:00 BP 131/66 02/22/24 12:00 Pulse Ox 95 02/22/24 12:00 O2 Del Method Room Air 02/22/24 12:00 O2 Flow Rate 93 02/19/24 23:41 BMI result Body Mass Index 26.9 Gen: in no acute distress HEENT: sclera anicteric, moist mucus membranes Neck: supple Lungs: clear to auscultation bilaterally Heart: regular rate and rhythm, no murmurs Abd: soft, non-tender, non-distended Ext: no edema Skin: warm/well-perfused Neuro: alert and oriented x3, no focal findings Psych: appropriate affect Objective Data Active Medications Acetaminophen (Acetaminophen 325 Mg Tablet) 650 mg PO Q6H PRN PRN Reason: Pain, Mild (Pain Scale 1-3) Last Admin: 02/22/24 09:40 Dose: 650 mg Documented By: SUE Apixaban (Apixaban 5 Mg Tablet) 5 mg PO BID [facility] Last Admin: 02/22/24 07:21 Dose: 5 mg Documented By: SEEMA Artificial Tears (Artificial Tears 15 Ml Drops) 1 drop EYE-BOTH 5XD [facility] Last Admin: 02/22/24 09:42 Dose: 1 drop Documented By: SUE Atorvastatin Calcium (Atorvastatin Calcium 40 Mg Tablet) 40 mg PO BEDTIME [facility] Last Admin: 02/21/24 22:39 Dose: 40 mg Documented By: GELA Benzonatate (Benzonatate 100 Mg Capsule) 100 mg PO TID PRN PRN Reason: Cough Bisacodyl (Bisacodyl 5 Mg Tablet.Dr) 10 mg PO DAILY [facility] Last Admin: 02/22/24 07:20 Dose: 10 mg Documented By: SEEMA Diltiazem HCl (Diltiazem Hcl Cd 240 Mg Cap.Er.Deg) 240 mg PO DAILY [facility]; Protocol Last Admin: 02/22/24 07:20 Dose: 240 mg Documented By: SEEMA Duloxetine HCl (Duloxetine Hcl 30 Mg Capsule.) 30 mg PO DAILY [facility] Last Admin: 02/22/24 07:20 Dose: 30 mg Documented By: SEEMA Furosemide (Furosemide 20 Mg Tablet) 20 mg PO DAILY [facility]; Protocol Last Admin: 02/22/24 07:20 Dose: 20 mg Documented By: SEMEA Gabapentin (Gabapentin 300 Mg Capsule) 300 mg PO BEDTIME [facility] Last Admin: 02/21/24 22:38 Dose: 300 mg Documented By: GELA Levothyroxine Sodium (Levothyroxine Sodium 50 Mcg Tablet) 50 mcg PO Robles@0600 [facility] Last Admin: 02/20/24 05:49 Dose: 50 mcg Documented By: JESUSITA Levothyroxine Sodium (Levothyroxine Sodium 100 Mcg Tablet) 100 mcg PO DAILY@0600 [facility] Last Admin: 02/22/24 05:27 Dose: 100 mcg Documented By: GELA Lisinopril (Lisinopril 10 Mg Tablet) 10 mg PO BEDTIME [facility] Last Admin: 02/21/24 22:39 Dose: 10 mg Documented By: GELA Metoprolol Tartrate (Metoprolol Tartrate 12.5 Mg Halftab) 12.5 mg PO BID [facility]; Protocol Midodrine (Midodrine Hcl 2.5 Mg Tablet) 2.5 mg PO TID [facility] Last Admin: 02/22/24 10:56 Dose: 2.5 mg Documented By: SEEMA Omeprazole (Omeprazole 40 Mg Capsule.) 40 mg PO DAILY [facility] Last Admin: 02/22/24 07:20 Dose: 40 mg Documented By: SEEMA Ondansetron HCl (Ondansetron Hcl 4 Mg/2 Ml Vial) 4 mg IVPUSH Q8H PRN PRN Reason: Nausea and Vomiting Polyethylene Glycol (Polyethylene Glycol 3350 17 Gm Powd.Pack) 17 gm PO DAILY [facility] Last Admin: 02/22/24 07:20 Dose: 17 gm Documented By: SEEMA Potassium Chloride (Potassium Chloride Er 10 Meq Tablet.Er) 10 meq PO DAILY [facility] Last Admin: 02/22/24 07:21 Dose: 10 meq Documented By: SEEMA Senna/Docusate Sodium (Sennosides/Docusate Sodium Tablet) 2 tab PO BID [facility] Last Admin: 02/22/24 07:21 Dose: 2 tab Documented By: SEEMA Sodium Chloride (0.9 % Sodium Chloride Flush 3 Ml Syringe) 3 ml IVFLUSH QSHIFT [facility] Last Admin: 02/22/24 07:21 Dose: 3 ml Documented By: SEEMA Trazodone HCl (Trazodone Hcl 100 Mg Tablet) 100 mg PO BEDTIME [facility] Last Admin: 02/21/24 22:33 Dose: 100 mg Documented By: VARNUM Labs 02/17/24 05:29 02/16/24 16:57 Microbiology Microbiology Results: Microbiology 02/16/24 16:58 Blood Culture - Final Blood - Venous No growth after 5 days. 02/16/24 16:56 Blood Culture - Final Blood - Venous No growth after 5 days. Assessment and Plan (1) Syncope: Status: Acute (2) Colitis: Status: Acute Plan d7 73yo F with paroxysmal AF on apixaban, HLD, HTN, hypothyroidism, hx ischemic colitis, chronic lower leg edema admitted after syncopal episode, found to have colitis colitis likely ischemic - GI consulted, outpt C-scope, tolerating regular diet and having BM recurrent syncope, likely vasovagal but also now frnakly orthostatic - concern for reflex syncope- possibly associated with defecation, so on bowel regimen - currently in NSR. TTE in Aug without valvular pathology. Cardiology consulted and will arrange outpt cardiac event monitor - got IV LR 1.5L yesterday. Still orthostatic. Change carvedilol to metoprolol and start low-dose midodrine pAF - apixaban - metoprolol + diltiazem HLD - atorvastatin HTN - metoprolol, diltiazem, lisinopril hypothyroidism - continue LT4 VTE ppx - apixaban dispo - plan STR In my clinical judgment, the patient requires continued inpatient hospitalization for the following reasons: orthostasis; placement Total time managing care of this patient today: 35 minutes. Quality Stroke Does the patient have a stroke diagnosis?: No VTE Prior VTE?: No VTE Risk Level:: Medical - moderate - high VTE Device Contraindication: Treatment Not Indicated VTE Drug Contraindication: N/A - Med Ordered
--- NOTE | 2024-02-22 14:14 | MHC.CM.PN ---
Patient and HCP/Brandon @ [phone] [facility]. CM will follow.
[2024-02-22] MEDS: Atorvastatin Calcium 40 MG TABLET PO (22:10)
[2024-02-22] MEDS: lisinopriL 10 MG TABLET PO (22:11)
[2024-02-22] MEDS: Gabapentin 300 MG CAPSULE PO (22:12)
[2024-02-22] MEDS: Metoprolol Tartrate 12.5 MG HALFTAB PO (22:13)
[2024-02-22] MEDS: traZODone HCL 100 MG TABLET PO (22:15)
[2024-02-23] VITALS (7 sets, daily range): BP systolic 112–162; BP diastolic 53–77; PULSE 66–93; RESP 18–20; TEMP 36.6–37.2; O2SAT 93–96
[2024-02-23] MEDS: Artificial Tears 15 ML DROPS 1 DROP EYE-BOTH ×2 (06:52→11:00)
[2024-02-23] MEDS: Levothyroxine Sodium 100 MCG TABLET PO (06:52)
[2024-02-23] MEDS: Potassium Chloride ER 10 MEQ TABLET.ER PO (08:31)
[2024-02-23] MEDS: DULoxetine HCl 30 MG CAPSULE.DR PO (08:31)
[2024-02-23] MEDS: Midodrine HCl 2.5 MG TABLET PO ×2 (08:31→15:34)
[2024-02-23] MEDS: Furosemide 20 MG TABLET PO (08:32)
[2024-02-23] MEDS: Omeprazole 40 MG CAPSULE.DR PO (08:32)
[2024-02-23] MEDS: dilTIAZem HCL CD 240 MG CAP.ER.DEG PO (08:32)
[2024-02-23] MEDS: Apixaban 5 MG TABLET PO (08:32)
[2024-02-23] MEDS: Metoprolol Tartrate 12.5 MG HALFTAB PO (08:32)
[2024-02-23] MEDS: 0.9 % Sodium Chloride Flush 3 ML SYRINGE IVFLUSH (08:34)
--- NOTE | 2024-02-23 10:28 | MHC.CM.PN ---
Per ROUNDS, Patient is medically cleared for dc to SNF/[facility] today. Patient will dc [facility] Today at 2PM, via [facility]. CM met with Patient at bedside and addressed IMM with her (original was given to Patient and a copy has been placed on the chart). BERNARDO spoke with HCP/Brandon @ [phone] and informed him of the dc plan.
--- NOTE | 2024-02-23 12:25 | PM.DS ---
DS: Providers Provider Date of Service: 02/23/24 Date of admission: 02/16/24 22:55 Date of discharge: 02/23/24 Primary care physician: Brandon Mauricio MD Consults: 02/16/24 22:55 Consult to Gastroenterology Routine Consulting Provider: Francis Bailon Reason for consultation: CT with ?Colitis 02/19/24 14:48 Consult to Cardiology Routine Consulting Provider: [facility] Reason for consultation: Recurrent syncope likely reflex/defecation DS: Diagnosis Discharge Diagnosis (1) Syncope: Status: Acute (2) Colitis: Status: Acute (3) Paroxysmal A-fib: Status: Acute (4) Orthostatic hypotension: Status: Acute DS: Summary Hospital Course Hospital Course: From the history and physical by the admitting hospitalist, SHARIF Laird, 02/16/24: Pt is a 73-year-old female with a PMH significant for?paroxysmal AFib on Eliquis, HLD, HTN, hypothyroidism, hx of ischemic colitis, and chronic lower leg edema who presents to the ED for evaluation of syncopal episode at home. Patient reports she was in her normal state of health until she ate lunch earlier today and began ?not feeling well? with upset stomach. Began experiencing abdominal pain described as both crampy and sharp in nature. Patient went to the bathroom and initially had a small bowel movement that was normal in consistency. She then went to lay down but still felt unwell and got to go to the bathroom again. Patient was using her cane to walk to the bathroom when she had a sudden syncopal episode in the hallway. No prodrome of symptoms; denies lightheadedness or dizziness. Patient reports that she just woke up after a few seconds on the floor and was incontinent of urine and stool. Stool was mostly liquid. Denies head strike, but noticed pain in her left knee. Patient used her life Alert to notify EMS who brought her to the ED for further evaluation. Denies fever, chills, nausea, vomiting. Currently reports abdominal pain has subsided. No chest pain/pressure, palpitations. Denies shortness of breath. No headache. Of note, patient was admitted to the hospital on 12/17-12/20 for similar symptoms of syncope while on the commode straining during bowel movement. Was found to have likely ischemic colitis from hypotension, not given antibiotics as there was no fever, chills, nausea, vomiting, or diarrhea. Syncopal episode was deemed most likely multifactorial: Vasovagal, polypharmacy, and hypoperfusion with positive orthostatics. In the ED pt's vitals WNL. Labs were significant for leukocytosis 17.2 otherwise largely unremarkable. Stable H& H. No electrolyte abnormalities. Renal and hepatic function WNL. Serial troponins negative. Procalcitonin 0.06. CPK 49. UA negative for UTI. X-ray of left knee without acute findings, no fracture or malalignment noted. CT of head negative for acute intracranial pathology, but did show small soft tissue defect underlying hematoma on left parietal scalp, and mild generalized volume loss with moderate chronic microangiopathy. CT of abdomen and pelvis found mural thickening involving proximal and mid descending colonic segments with mild pericolonic fat stranding suggestive of colitis. Also found moderate sized likely non reducible hiatal hernia. EKG demonstrated normal sinus rhythm without evidence of significant ST elevations or depressions. Pt was treated with acetaminophen and IVF. Pt will be admitted to the hospital for treatment and further workup of syncopal episode in the setting of likely colitis. 73yo F with paroxysmal AF on apixaban, HLD, HTN, hypothyroidism, hx ischemic colitis, and chronic lower leg edema who was admitted after a syncopal episode and found to have colitis. Hospital course by problem: colitis likely ischemic - GI consulted and recommend supportive care while inpatient. They will arrange outpatient colonoscopy once the inflammation resolves. Diet was advanced with good tolerance and she was having normal BMs by the end of hospitalization recurrent syncope, likely vasovagal but also now frankly orthostatic - Initial concern for reflex syncope- possibly associated with defecation, so on bowel regimen. Telemetry showed NSR. TTE in August 2023 without valvular pathology. Cardiology was consulted and will arrange outpatient cardiac event monitor. Initially, orthostatics were negative but then she became frankly orthostatic by symptomatology and BP drop. She received IV fluids and was eventually started on low-dose midodrine. In addition, carvedilol was changed to metoprolol. Due to balance deficits, she was discharged to short-term rehabilitation at [facility]. Time Attestation Discharge Coordination Time (in mins): 40 Quality: Safe Use of Opioids Does Pt have an Active Cancer Diagnosis on the Problem List?: No Quality: Stroke Does the patient have a stroke diagnosis?: No Physical Exam Vital Signs: Vital Signs: Last Vital Signs Temp 97.9 F 02/23/24 11:31 Pulse 66 02/23/24 11:31 Resp 18 02/23/24 11:31 BP 143/73 H 02/23/24 11:31 Pulse Ox 96 02/23/24 11:31 O2 Del Method Room Air 02/23/24 11:31 O2 Flow Rate 93 02/19/24 23:41 BMI result Body Mass Index 26.9 Gen: in no acute distress HEENT: sclera anicteric, moist mucus membranes Neck: supple Lungs: clear to auscultation bilaterally Heart: regular rate and rhythm, no murmurs Abd: soft, non-tender, non-distended Ext: no edema Skin: warm/well-perfused Neuro: alert and oriented x3, no focal findings Psych: appropriate affect DS: Data Data Completed and Pending Completed studies during hospitalization [Text1]: Laboratory Results WBC 7.0 X10*3/uL (4.8-10.8) 02/17/24 05:29 RBC 3.99 X10*6/uL (4.20-5.50) L 02/17/24 05:29 Hgb 10.0 g/dl (12.0-16.0) L 02/17/24 05:29 Hct 32.7 % (37.0-47.0) L 02/17/24 05:29 MCV 82.0 fL (80.0-98.0) 02/17/24 05:29 MCH 25.1 pg (27.0-33.0) L 02/17/24 05:29 MCHC 30.6 g/dl (31.0-35.0) L 02/17/24 05:29 RDW 16.5 % (11.0-16.0) H 02/17/24 05:29 Plt Count 212 X10*3/uL (160-400) 02/17/24 05:29 MPV 11.9 fL (9.4-12.3) 02/17/24 05:29 Immature Gran % (Auto) 0.5 % (0.0-0.4) H 02/16/24 16:57 Neut % (Auto) 81.3 % (45-73) H 02/16/24 16:57 Lymph % (Auto) 9.1 % (20-40) L 02/16/24 16:57 [place] % (Auto) 7.9 % (2-11) 02/16/24 16:57 Eos % (Auto) 0.9 % (0-4) 02/16/24 16:57 Baso % (Auto) 0.3 % (0-2) 02/16/24 16:57 Lymph # (Auto) 1.6 X10*3/uL (1.2-4.9) 02/16/24 16:57 [place] # (Auto) 1.4 X10*3/uL (0.1-1.2) H 02/16/24 16:57 Eos # (Auto) 0.2 X10*3/uL (0.0-0.4) 02/16/24 16:57 Baso # (Auto) 0.1 X10*3/uL (0.0-0.2) 02/16/24 16:57 Abs Immat Gran (auto) 0.09 X10*3/uL (0.00-0.03) H 02/16/24 16:57 Absolute Neuts (auto) 14.0 x10*3/uL (2.0-8.3) H 02/16/24 16:57 Absolute Nucleated RBC 0.000 X10*3/uL (0.0-0.012) 02/17/24 05:29 Nucleated RBC % (auto) 0.0 /100WBC (0.0-0.2) 02/17/24 05:29 Sodium 139 mmol/L (135-145) 02/16/24 16:57 Potassium 3.9 mmol/L (3.3-5.1) 02/16/24 16:57 Chloride 105 mmol/L (96-108) 02/16/24 16:57 Carbon Dioxide 27 mmol/L (22-29) 02/16/24 16:57 Anion Gap 11 (12-20) L 02/16/24 16:57 BUN 16 mg/dL (9-16) 02/16/24 16:57 Creatinine 0.90 mg/dL (0.5-1.4) 02/16/24 16:57 Estim Creat Clear Calc 58.9 02/16/24 16:57 Estimated GFR > 60 02/16/24 16:57 Random Glucose 125 mg/dL (60-115) H 02/16/24 16:57 Lactic Acid 2.0 mmol/L (0.5-2.0) 02/16/24 16:57 Calcium 9.7 mg/dL (8.4-10.2) D 02/16/24 16:57 Magnesium 2.5 mg/dL (1.6-2.6) 02/16/24 16:57 Total Bilirubin 0.4 mg/dL (0.0-1.0) 02/16/24 16:57 Direct Bilirubin 0.2 mg/dL (0.0-0.5) 02/16/24 16:57 AST 18 U/L (5-31) 02/16/24 16:57 ALT 12 U/L (0-31) 02/16/24 16:57 Alkaline Phosphatase 105 U/L (39-117) 02/16/24 16:57 Total Creatine Kinase 49 U/L (26-140) 02/16/24 16:57 Troponin I High Sens < 2.7 ng/L (<3.5-17.0) 02/16/24 19:58 C-Reactive Protein < 0.10 mg/dL (< or = 0.50) 02/16/24 16:57 Total Protein 7.4 g/dL (6.5-8.0) 02/16/24 16:57 Albumin 3.7 g/dL (3.5-5.0) 02/16/24 16:57 Lipase 11 U/L (8-78) 02/16/24 16:57 Procalcitonin 0.06 ng/mL 02/16/24 16:57 Urine Color Yellow 02/16/24 22:12 Urine Appearance Clear 02/16/24 22:12 Urine pH 6.5 (5.0-9.0) 02/16/24 22:12 Ur Specific [place] 1.025 (1.005-1.025) 02/16/24 22:12 Urine Protein Negative mg/dL (Neg-Trace) 02/16/24 22:12 Urine Glucose (UA) Negative mg/dL (Negative) 02/16/24 22:12 Urine Ketones Negative mg/dL (Negative) 02/16/24 22:12 Urine Blood Negative (Negative) 02/16/24 22:12 Urine Nitrite Negative (Negative) 02/16/24 22:12 Ur Leukocyte Esterase Trace (Negative) H 02/16/24 22:12 Urine RBC 0-2 /HPF (0-2) 02/16/24 22:12 Urine WBC 0-5 /HPF (0-5) 02/16/24 22:12 Ur Squamous Epith Cells 0-2 /HPF (0-2) 02/16/24 22:12 Urine Bacteria None Seen (None Seen) 02/16/24 22:12 Hyaline Casts 0-2 /LPF (0-2) 02/16/24 22:12 Influenza Type A (PCR) NEGATIVE (Negative) 02/16/24 19:58 Influenza Type B (PCR) NEGATIVE (Negative) 02/16/24 19:58 RSV RNA Qual (PCR) NEGATIVE (Negative) 02/16/24 19:58 SARS-CoV-2 RNA (RT-PCR) NEGATIVE (Negative) 02/16/24 19:58 Impressions Knee X-Ray 02/16/24 16:27 IMPRESSION: Total left knee prosthesis with prosthetic components in satisfactory alignment. Head CT 02/16/24 18:28 IMPRESSION: 1. No acute intracranial pathology. Small soft tissue defect and underlying hematoma in the left parietal scalp. 2. 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 Abdomen/Pelvis CT 02/16/24 18:29 IMPRESSION: 1. No acute intra-abdominal process seen. 2. Moderate size hiatal hernia. 3. Mild bladder distention. 4. Moderate-sized likely nonreducible hiatal hernia. Fleischner guidelines were followed. Carotid Doppler Study 02/18/24 15:39 IMPRESSION: 1. RIGHT: Minimal, non-hemodynamically significant stenosis of the proximal right internal carotid artery corresponding to a 0-49% stenosis by velocity criteria. 2. LEFT: Moderate, hemodynamically significant stenosis of the proximal left internal carotid artery corresponding to a 50-79% stenosis by velocity criteria. Discharge Plan Discharge Anticipated Discharge Date/Time: 02/20/24 12:03 Patient Disposition: [facility] Discharge Diagnosis: syncope ischemic colitis atrial fibrillation Referrals: [facility] [Outside] - 1 Week Brandon Mauricio MD [Primary Care Provider] - 1 Week Leonor Winchester MD [Physician] - 1 Week Deyvi Jacob MD [Physician] - 1 Week Discharge Medications: New midodrine 2.5 mg Tablet 2.5 mg PO TID Qty: 90 0RF metoprolol tartrate 25 mg tablet 12.5 mg PO BID Qty: 30 0RF polyethylene glycol 3350 17 gram Powder In Packet 17 g PO DAILY Qty: 30 0RF sennosides-docusate sodium [Senna Plus] 8.6-50 mg Tablet 2 tab PO BID Qty: 60 0RF Continued benazepril 10 mg tablet 10 mg PO BEDTIME duloxetine 30 mg capsule,delayed release(DR/EC) 30 mg PO DAILY Dermend Cream 1 appl TOPICAL DAILY PRN (Reason: bruising) atorvastatin 40 mg tablet 40 mg PO BEDTIME potassium chloride 10 mEq tablet extended release 10 meq PO DAILY omeprazole 40 mg capsule,delayed release(DR/EC) 40 mg PO DAILY levothyroxine 100 mcg tablet 100 mcg PO DAILY trazodone 100 mg tablet 100 mg PO BEDTIME gabapentin 300 mg capsule 300 mg PO BEDTIME furosemide 20 mg tablet 20 mg PO DAILY carboxymethylcellulose sodium [Refresh Tears] 0.5 % Drops 1 drp OPHTHALMIC (EYE) 5XD levothyroxine 100 mcg Tablet 50 mcg PO HERNADEZ Rx Instructions: total dose 150 mcg on sundays clobetasol 0.05 % cream 1 appl topical BID PRN (Reason: LUPUS FLARE) diltiazem HCl 240 mg capsule,extended release 24hr 240 mg PO DAILY Qty: 30 6RF Protocol: Hold for SBP/HR < HOLD for SBP < : 90 HOLD for HR < : 60 Eliquis 5 mg tablet 5 mg PO BID Qty: 60 6RF Discontinued carvedilol 3.125 mg tablet 3.125 mg PO BID Discharge Orders: Discharge Order (Routine); Ordered 02/23/24 Ordered By: Marci Chavira Diet: Advance to usual diet Activity on Discharge: As tolerated Stand Alone Forms: Patient Portal Discharge page Print Language: Ug[place]an Care Plan Goals: avoid syncope GI health Health Concerns: syncope orthostatic hypotension ischemic colitis atrial fibrillation Plan of Treatment: discharge to short-term rehabilitation at [facility] follow up with [facility] Cardiology for cardiac event monitoring follow up with [facility] Gastroenterology for colonoscopy encourage hydration CHANGE carvedilol 3.125mg twice daily to metoprolol 12.5mg twice daily START midodrine 2.5mg 3x a day RECHECK orthostatic vital signs in 1 week stand up carefully Please follow up with your primary care doctor within 1 week of discharge from rehabilitation Return to the hospital if you experience recurrent or worsening symptoms. Assessment: See Discharge Summary.
== END 2024-02-23 15:40 | disposition skilled nursing facility (03) | DRG 395 ==
LOC: HO.ED 19:39 → HO.EDOVER 23:03 → HO.IMC 02-17 19:23
PROVIDERS: Admitting Provider Student in an Organized Health Care Education/Training Program; Emergency Provider Emergency Medicine; PCP Internal Medicine; Visit Provider Family Medicine
DX: K55.9 Vascular disorder of intestine, unspecified (principal); I48.0 Paroxysmal atrial fibrillation; I95.1 Orthostatic hypotension; Z66 Do not resuscitate; R55 Syncope and collapse; E03.9 Hypothyroidism, unspecified; T50.915A Adverse effect of multiple unspecified drugs, medicaments and biological substances, initial encounter; E78.5 Hyperlipidemia, unspecified; I10 Essential (primary) hypertension; M32.9 Systemic lupus erythematosus, unspecified; Z20.822 Contact with and (suspected) exposure to COVID-19; Z79.01 Long term (current) use of anticoagulants; Z79.890 Hormone replacement therapy; Z79.899 Other long term (current) drug therapy
CPT/HCPCS: 0241U; 36415; 70450; 73564; 74177; 80048; 80076; 81001; 82550; 83605; 83690; 83735; 84145; 84484; 85025; 85027; 86140; 87040; 93005; 93880; 97110; 97116; 97162; 97530; 99285; J7120; Q9967

== ENCOUNTER → 2024-02-16 15:56 | Outpatient (BNV) | payer MEDICARE, SELFPAY | PROVIDERS: Admitting Provider Student in an Organized Health Care Education/Training Program; Emergency Provider Emergency Medicine; PCP Internal Medicine; Visit Provider Internal Medicine Cardiovascular Disease | DX: R55 Syncope and collapse (principal) | CPT/HCPCS: 93010 ==

== ENCOUNTER → 2024-02-16 22:55 | Outpatient (BNV) | payer MEDICARE, SELFPAY | PROVIDERS: Admitting Provider Student in an Organized Health Care Education/Training Program; Emergency Provider Emergency Medicine; PCP Internal Medicine; Visit Provider Internal Medicine Cardiovascular Disease | DX: R55 Syncope and collapse (principal); I48.0 Paroxysmal atrial fibrillation | CPT/HCPCS: 99222 ==

== ENCOUNTER → 2024-02-16 22:55 | Outpatient (BNV) | payer MEDICARE, SELFPAY | PROVIDERS: Admitting Provider Student in an Organized Health Care Education/Training Program; Emergency Provider Emergency Medicine; PCP Internal Medicine; Visit Provider Hospitalist | DX: I48.0 Paroxysmal atrial fibrillation (principal); I95.1 Orthostatic hypotension; K52.9 Noninfective gastroenteritis and colitis, unspecified | CPT/HCPCS: 99223; 99232; 99233; 99239 ==

== ENCOUNTER → 2024-02-16 22:55 | Outpatient (BNV) | payer MEDICARE, SELFPAY | PROVIDERS: Admitting Provider Student in an Organized Health Care Education/Training Program; Emergency Provider Emergency Medicine; PCP Internal Medicine; Visit Provider Internal Medicine Gastroenterology | DX: K52.9 Noninfective gastroenteritis and colitis, unspecified (principal) | CPT/HCPCS: 99222 ==

== ENCOUNTER 2024-03-01 13:12 | Outpatient (AMB) | payer MEDICARE, SELFPAY ==
--- NOTE | 2024-03-01 13:14 | A.OFFVIS_ITS ---
Intake Vital Signs 03/01/24 13:15 Height 5 ft 7 in Weight 163 lb BMI 25.5 BP 120/60 Blood Pressure Location Lt brachial Position Sitting Pulse 66 Pulse Source Pulse Oximeter Intake Visit Reasons: follow-up [facility] [place] clarification on next step [employer]ice Required: No Allergies erythromycin base [From Erythrocin] Allergy (Severe, Verified 08/18/23 11:31) Rash Penicillins [PENICILLINS] Allergy (Severe, Verified 08/13/23 14:58) HIVES droperidol [From INAPSINE] Allergy (Intermediate, Verified 08/13/23 14:58) UNUSUAL HEAD MOVEMENTS oxycodone [OXYCODONE] Allergy (Mild, Verified 08/13/23 14:58) ITCHING morphine [MORPHINE] Adverse Reaction (Unknown, Verified 08/13/23 14:58) CONFUSION Medication List - Last Reconciled 03/01/24 by Garry Castellon MD apixaban (Eliquis) 5 mg PO BID atorvastatin 40 mg PO BEDTIME benazepril 10 mg PO BEDTIME carboxymethylcellulose sodium 0.5% (Refresh Tears) 1 drp ophthalmic (eye) 5XD clobetasol 0.05% 1 appl topical BID PRN diltiazem HCl CD 240 mg See Protocol PO DAILY duloxetine 30 mg PO DAILY emollient combination no.77 (Dermend topical cream) 1 appl topical DAILY PRN furosemide 20 mg PO DAILY gabapentin 300 mg PO BEDTIME levothyroxine 100 mcg PO DAILY levothyroxine 50 mcg PO HERNADEZ metoprolol tartrate 12.5 mg (1/2 x 25 mg) PO BID midodrine 2.5 mg PO TID omeprazole 40 mg PO DAILY polyethylene glycol 3350 17 grams PO DAILY potassium chloride ER 10 mEq PO DAILY sennosides-docusate sodium 8.6-50 mg (Senna Plus) 2 tabs PO BID trazodone 100 mg PO BEDTIME HPI HPI Comments History of Present Illness Details Alta returns for follow-up. I had seen her last year in hospital consultation. At that time, issue was atrial fibrillation rapid rate. She would converted back to sinus rhythm. We had put her on diltiazem as well as beta-blockers. It seems that she is fairly stable in that regard. However, the main issue recently is that she is having recurrent falls. The suspicion is that she might be having low blood pressure/orthostatic hypotension causing syncopal episodes. This happened at least 4 times. That might also be some component of weakness and gait dysfunction but the concern is that low blood pressure is causing these problems. Hence she has on a combination of antihypertensives as well as midodrine. Apart from this, she does not have any overt cardiac symptoms like angina. Comes in a wheelchair. Currently in a group home. [facility] Medical History (Updated 03/01/24 @ 16:50 by Garry Castellon MD) Atrial fibrillation Hypothyroidism Lower leg edema GERD (gastroesophageal reflux disease) HLD (hyperlipidemia) HTN (hypertension) Paroxysmal A-fib Frequent falls Anemia Head injury General weakness Fall Lupus Family History Mother Myocardial infarction Social History Household Members: None [facility] Do you presently have visiting nurse or other home services: Yes Patient Tobacco Use Status: Never used Tobacco e-Cigarette/Vaping Use: Never Used Advance Directives Date on File: 12/17/23 service: No Review of Systems Const Denies chills, Denies fatigue, Denies fever(s), Denies frequent falls, Denies weakness, Denies weight gain and Denies weight loss ENT Denies dizziness Card Denies chest pain, Denies leg edema, Denies lightheadedness, Denies palpitations, Denies dyspnea and Denies dyspnea on exertion Resp Denies cough, Denies dyspnea and Denies dyspnea on exertion GI Denies hematochezia Musc Denies abnormal gait, Denies muscle weakness, Denies numbness, Denies radiating pain into limb and Denies tingling Neuro Denies abnormal gait, Denies dizziness, Denies frequent falls, Denies numbness, Denies tingling and Denies weakness Endo Denies fatigue and Denies palpitations Physical Exam Vital Signs: Last Vital Signs Pulse 66 03/01/24 13:15 BP 120/60 03/01/24 13:15 BMI result Body Mass Index 25.5 Const General: comfortable and no acute distress Orientation/consciousness: patient oriented x3 HEENT Other: Unremarkable Head: Yes normal to inspection Neck Neck: Yes normal visual inspection Chest Chest palpation & inspection: normal inspection of the chest Resp Auscultation: clear to auscultation bilaterally Cardio Palpation: normal PMI Heart sounds: S1 normal heart sound present, S2 normal heart sound present, no gallops, no murmurs and no rubs GI Palpation (GI): Soft to palpation Back/Spine/Pelvis Other: unremarkable Skin General skin exam: no rashes or lesions noted Neuro General: patient oriented x3 Extrem General: Yes normal to inspection Psych Mental Status: mental status grossly normal Assessment & Plan Assessment & Plan (1) Paroxysmal A-fib: Code(s): I48.0 - Paroxysmal atrial fibrillation Plan: EKG from February 15 with sinus rhythm at 68/Min. She seems stable in this regard. Continue diltiazem at current dose. May stop the metoprolol because of hypotension problems. Continue anticoagulation. Get a Holter monitor to look for any arrhythmic issues contributing to syncopal episodes but doubt this to be the case. (2) Orthostatic hypotension: Code(s): I95.1 - Orthostatic hypotension Plan: This was discussed in great detail with patient's power of civil rights attorney as well as family who came. According to a report brought by them, blood pressure can drop as much into the 60s with walking. However, today the blood pressure is completely normal. Because of this, we can stop some with the medications including benazepril, beta-blockers. We will also stop the midodrine for now. Also consider stopping fluoxetine, trazodone, gabapentin if there is no need for it. If she still having hypotension issues, then we can decrease the diltiazem further to 120 mg daily. If that causes any recurrence of atrial fibrillation then, possibly just use amiodarone. Her echocardiogram does show severe septal hypertrophy but doubt outflow tract obstruction is the reason for her syncope. Overall, it may be reasonable to just keep her blood pressure on the higher side to avoid hypotension episodes. (3) Leg swelling: Code(s): M79.89 - Other specified soft tissue disorders Plan: Slight swelling on left side but not clearly suggestive of any congestive heart failure. Right side looks okay. Appears just nonspecific and could be venous insufficiency. She is already on some diuretics. Again explained the fact that additional diuretics were only make her more dehydrated and cause orthostatic syncope. Hence avoid further meds for now. Plan Total time spent including review of hospitalization records, counseling, documentation, coordination of care-60 minutes. Coding Level of Care Code Est Pt Level 5 (96176) Diagnoses Paroxysmal A-fib I48.0 Orthostatic hypotension I95.1 Leg swelling M79.89
[2024-03-01 13:15] VITALS: BP 120/60; PULSE 66; BMI 25.5
== END 2024-03-01 14:04 | disposition home or self-care (01) ==
PROVIDERS: PCP Internal Medicine; Visit Provider Internal Medicine
DX: I48.0 Paroxysmal atrial fibrillation (principal); I49.1 Atrial premature depolarization
CPT/HCPCS: 93248; 99215

== ENCOUNTER → 2024-03-01 13:12 | Outpatient (BNVA) | payer MEDICARE, SELFPAY | PROVIDERS: PCP Internal Medicine; Visit Provider Internal Medicine ==

== ENCOUNTER → 2024-03-01 14:12 | Outpatient (REF) | payer MEDICARE, SELFPAY ==
--- NOTE | 2024-03-01 14:39 | HM_ITS ---
Conclusion: 1. Patient was monitored for total period of 13 days 2. Baseline was normal sinus rhythm with average heart of 78 beats per minute 3. Intermittent episodes of atrial fibrillation noted although with a total burden of only 0.3% with longest episode lasting 17 minutes with fastest heart rate of 170 beats per minute 4. Occasional PACs noted with total burden of 0.7% 5. Rare PVCs with 2 ventricular events, 3 beats long at 156 beats per minute 6. No patient reported events MTDD
== END ==
LOC: HO.CARD 14:12
PROVIDERS: PCP Internal Medicine; Visit Provider Internal Medicine Cardiovascular Disease
DX: I48.0 Paroxysmal atrial fibrillation (principal); I95.1 Orthostatic hypotension
CPT/HCPCS: 93246; 99212

== ENCOUNTER 2024-04-12 13:52 | Outpatient (AMB) | payer MEDICARE, SELFPAY ==
[2024-04-12 14:05] VITALS: BP 120/74; PULSE 71; BMI 25.2
--- NOTE | 2024-04-12 14:05 | A.OFFVIS_ITS ---
Vital Signs 04/12/24 14:05 Height 5 ft 7 in Weight 160 lb 14.999 oz BMI 25.2 BP 120/74 Blood Pressure Location Lt brachial Position Sitting Pulse 71 Intake Visit Reasons: f/up 30 day Intake Note: 1 month follow-up c/o dizziness first thing in the morning [employer] Required: No Global Risk Management Director: Global Risk Management Director Present Accompanied by: Family/Other Allergies erythromycin base [From Erythrocin] Allergy (Severe, Verified 08/18/23 11:31) Rash Penicillins [PENICILLINS] Allergy (Severe, Verified 08/13/23 14:58) HIVES droperidol [From INAPSINE] Allergy (Intermediate, Verified 08/13/23 14:58) UNUSUAL HEAD MOVEMENTS oxycodone [OXYCODONE] Allergy (Mild, Verified 08/13/23 14:58) ITCHING morphine [MORPHINE] Adverse Reaction (Unknown, Verified 08/13/23 14:58) CONFUSION Medication List - Last Reconciled 04/12/24 by Garry Castellon MD apixaban (Eliquis) 5 mg PO BID atorvastatin 40 mg PO BEDTIME carboxymethylcellulose sodium 0.5% (Refresh Tears) 1 drp ophthalmic (eye) 5XD clobetasol 0.05% 1 appl topical BID PRN diltiazem HCl CD 240 mg See Protocol PO DAILY duloxetine 30 mg PO DAILY emollient combination no.77 (Dermend topical cream) 1 appl topical DAILY PRN furosemide 20 mg PO DAILY gabapentin 300 mg PO BEDTIME levothyroxine 100 mcg PO DAILY levothyroxine 150 mcg PO HERNADEZ [id number] 250 mg (90 mg-160 mg) (Ocuvite Adult 50 Plus) 1 cap PO DAILY omeprazole 40 mg PO DAILY polyethylene glycol 3350 17 grams PO DAILY PRN potassium chloride ER 10 mEq PO DAILY trazodone 100 mg PO BEDTIME HPI Comments Details: Alta returns for follow-up. I had seen her last year in hospital in 2022. At that time, issue was atrial fibrillation rapid rate. She converted back to sinus rhythm. We had put her on diltiazem as well as beta-blockers. It seems that she is fairly stable in that regard. However, the main issue recently is t hat she is having recurrent falls. The suspicion is that she might be having low blood pressure/orthostatic hypotension causing syncopal episodes. This happened at least 4 times. That might also be some component of weakness and gait dysfunction but the concern is that low blood pressure is causing these problems. She was also on midodrine for that. After the last visit, we made changes in her medications. We stopped the benazepril, metoprolol as well as the midodrine. After that, she states she is significantly better. She has not really had any further falls whatsoever. Still gets some orthostatic dizziness but much less than what she had in the past. Overall it seems that she feels improved significantly. [facility] Medical History (Updated 03/02/24 @ 00:03 by Aly Farias) Atrial fibrillation Hypothyroidism Lower leg edema GERD (gastroesophageal reflux disease) HLD (hyperlipidemia) HTN (hypertension) Paroxysmal A-fib Frequent falls Anemia Head injury General weakness Fall Lupus Family History Mother Myocardial infarction Social History Household Members: None Housing: Condominium Do you presently have visiting nurse or other home services: Yes Patient Tobacco Use Status: Never used Tobacco e-Cigarette/Vaping Use: Never Used Advance Directives Date on File: 12/17/23 service: No Review of Systems Const Denies chills, Denies fatigue, Denies fever(s), Denies frequent falls, Denies weakness, Denies weight gain and Denies weight loss ENT Denies dizziness Card Denies chest pain, Denies leg edema, Denies lightheadedness, Denies palpitations, Denies dyspnea, Denies dyspnea on exertion, Denies orthopnea and Denies other (loss of consciousness) Resp Denies cough, Denies dyspnea and Denies dyspnea on exertion GI Denies hematochezia and Denies change in stool character Musc Denies abnormal gait, Denies muscle weakness, Denies numbness, Denies radiating pain into limb and Denies tingling Neuro Denies abnormal gait, Denies dizziness, Denies frequent falls, Denies numbness, Denies tingling and Denies weakness Endo Denies fatigue and Denies palpitations Physical Exam Vital Signs: Last Vital Signs Pulse 71 04/12/24 14:05 BP 120/74 04/12/24 14:05 BMI result Body Mass Index 25.2 Const General: comfortable and no acute distress Orientation/consciousness: patient oriented x3 HEENT Other: Unremarkable Head: Yes normal to inspection Neck Neck: Yes normal visual inspection Chest Chest palpation & inspection: normal inspection of the chest Resp Auscultation: clear to auscultation bilaterally Cardio Palpation: normal PMI Heart sounds: S1 normal heart sound present, S2 normal heart sound present, no gallops, no murmurs and no rubs GI Palpation (GI): Soft to palpation Back/Spine/Pelvis Other: unremarkable Skin General skin exam: no rashes or lesions noted Neuro General: patient oriented x3 Extrem General: Yes normal to inspection Psych Mental Status: mental status grossly normal Assessment & Plan Assessment & Plan (1) Paroxysmal A-fib: Code(s): I48.0 - Paroxysmal atrial fibrillation Category: Medical Plan: In the recent Holter, there is evidence of atrial fibrillation with rapid rate but with a burden of only 0.3%. Currently on diltiazem only. Off metoprolol due to the low her blood pressure/falls. Next option would be to add amiodarone on either decrease or stop the diltiazem. We will see how she does with the orthostatic episodes. Otherwise, continue with anticoagulation. (2) Orthostatic hypotension: Code(s): I95.1 - Orthostatic hypotension Category: Medical Plan: Per prior documentation, blood pressures were going as low as the 60s. In the current blood pressure diary they brought, almost all of them are well within the normal range in the 120s and above. She is off benazepril, beta-blockers as well as the midodrine. Overall, seems much better. If there is still a concern, then consider stopping fluoxetine, trazodone, gabapentin. Her echocardiogram does show severe septal hypertrophy but doubt outflow tract obstruction is the reason for her syncope. Overall, it may be reasonable to just keep her blood pressure on the higher side to avoid hypotension episodes. (3) Leg swelling: Code(s): M79.89 - Other specified soft tissue disorders Category: Medical Plan: Suspected venous insufficiency. No specific management for now. Slight swelling on left side but not clearly suggestive of any congestive heart failure. Right side looks okay. Appears just nonspecific and could be venous insufficiency. She is already on some diuretics. Again explained the fact that additional diuretics were only make her more dehydrated and cause orthostatic syncope. Hence avoid further meds for now. Plan Discussed with power of workers compensation attorney as well as niece. Medications: Changed From polyethylene glycol 3350 17 grams PO DAILY 30 ea 0RF To polyethylene glycol 3350 17 grams PO DAILY PRN Coding Level of Care Code Est Pt Level 4 (20003) Diagnoses Paroxysmal A-fib I48.0 Orthostatic hypotension I95.1 Leg swelling M79.89
== END 2024-04-12 14:37 | disposition home or self-care (01) ==
PROVIDERS: PCP Internal Medicine; Visit Provider Internal Medicine
DX: I48.0 Paroxysmal atrial fibrillation (principal); I95.1 Orthostatic hypotension; M79.89 Other specified soft tissue disorders
CPT/HCPCS: 99214

== ENCOUNTER → 2024-04-12 13:52 | Outpatient (BNVA) | payer MEDICARE, SELFPAY | PROVIDERS: PCP Internal Medicine; Visit Provider Internal Medicine | DX: I48.0 Paroxysmal atrial fibrillation (principal); I95.1 Orthostatic hypotension; M79.89 Other specified soft tissue disorders | CPT/HCPCS: 99212 ==

== ENCOUNTER 2024-05-11 08:59 | Outpatient (AMB) | payer MEDICARE, SELFPAY ==
--- NOTE | 2024-05-11 09:07 | A.OFFVIS_ITS ---
Vital Signs 05/11/24 09:13 Height 5 ft 6 in Weight 157 lb BMI 25.3 BP 134/64 Blood Pressure Location Lt brachial Position Sitting Pulse 76 Intake Visit Reasons: pre Colonoscopy/EGD Intake Note: Patient follow up for pre colonoscopy .EGD procedures. Patient cc: some difficulty swallowing come and go and some constipation on and off. Cognos Required: No Accompanied by: Family/Other Allergies erythromycin base [From Erythrocin] Allergy (Severe, Verified 05/11/24 09:10) Rash Penicillins [PENICILLINS] Allergy (Severe, Verified 05/11/24 09:10) HIVES droperidol [From INAPSINE] Allergy (Intermediate, Verified 05/11/24 09:10) UNUSUAL HEAD MOVEMENTS oxycodone [OXYCODONE] Allergy (Mild, Verified 05/11/24 09:10) ITCHING morphine [MORPHINE] Adverse Reaction (Unknown, Verified 05/11/24 09:10) CONFUSION Medication List - Last Reconciled 05/11/24 by Leonor Winchester MD apixaban (Eliquis) 5 mg PO BID atorvastatin 40 mg PO BEDTIME carboxymethylcellulose sodium 0.5% (Refresh Tears) 1 drp ophthalmic (eye) 5XD clobetasol 0.05% 1 appl topical BID PRN diltiazem HCl CD 240 mg See Protocol PO DAILY duloxetine 30 mg PO DAILY emollient combination no.77 (Dermend topical cream) 1 appl topical DAILY PRN furosemide 20 mg PO DAILY gabapentin 300 mg PO BEDTIME levothyroxine 100 mcg PO DAILY levothyroxine 150 mcg PO HERNADEZ [id number]-[id number]-omx-fgak-lut-jacob 250 mg (90 mg-160 mg) (Ocuvite Adult 50 Plus) 1 cap PO DAILY omeprazole 40 mg PO DAILY polyethylene glycol 3350 17 grams PO DAILY PRN potassium chloride ER 10 mEq PO DAILY trazodone 100 mg PO BEDTIME HPI HPI pre Colonoscopy/EGD: Details: GI clinic visit for this 73 YF with paroxysmal AFib on Eliquis, HLD, HTN, hypothyroidism, hx of ischemic colitis, and chronic lower leg edema for FU after hospitalization [facility] IMAGING STUDIES: 02/16/[address] SCAN SHOWED: GASTROINTESTINAL TRACT: There is mural thickening involving proximal and mid descending colonic segments with mild pericolic fat stranding suggestive of colitis. Nondilated fluid-filled rest of the colon and small bowel loops are noted The appendix is not visualized. No free air or free fluid seen. IMPRESSION: 1. No acute intra-abdominal process seen. 2. Moderate size hiatal hernia. 3. Mild bladder distention. 4. Moderate-sized likely nonreducible hiatal hernia. ENDOSCOPIC STUDIES: She reports having an EGD with dilation in the past when she had her colonoscopies. Pt reports having a colonoscopy [address] Lin - negative per patient and FU was advised in 10 yrs. TODAY'S VISIT: Pt is accompanied by her niece (Sister's daughter) Patient cc: some difficulty swallowing come and go and some constipation on and off. Denies any falls/syncopal episodes recently. Complains of intermittent dysphagia to solids. Being careful with eating - taking small bites. Patient denies symptoms of heartburn, nausea, vomiting. No appetite and Wt loss of 12 lbs since hospitalization. Tried to eat when its time to eat. Complains of constipation - attributes to not eating as much. Takes prune juice or Miralax with relief of symptoms Has a BM every 4-5 days - intermittent hard stools and sometimes very loose Denies recent diarrhea, black stools or rectal bleeding. Patient is on Eliquis for chronic atrial fibrillation and has asymmetric septal hypertrophy. She denies major pulmonary problems, loud snoring or sleep apnea Denies problems with anesthesia in the past. Family hx is positive for Colon cancer in her Dad who had surgery and had a colostomy. A sister had surgery for a large polyp PAST GI HISTORY BY REVIEW OF MEDICAL RECORDS: 02/17/24 [place] [facility] [place] 73 YF with paroxysmal AFib on Eliquis, HLD, HTN, hypothyroidism, hx of ischemic colitis, and chronic lower leg edema seen [place] [facility] [place]24 after a syncopal episode at home. Patient reported she was in her normal state of health until she ate lunch on 02/16/24 and began ?not feeling well? with an upset stomach. She felt sick to her stomach and noted sharp and cramping abdominal pain followed by a small bowel movement of normal consistency around 11:30 on 02/16/24. She then went to lay down but still felt unwell and got to go to the bathroom again. Patient was using her cane to walk to the bathroom when she had a sudden syncopal episode in the hallway without any prodrome (denies feeling lightheaded or dizzy). Patient reports that she just woke up after a few seconds (briefly saw big white squares in front of her eyes) on the floor and was incontinent of urine and stool. Stool was mostly liquid. Denied head strike, but noticed pain in her left knee. Patient used her life Alert to notify EMS who brought her to the ED for further evaluation. She denied fever, chills, nausea, vomiting, chest pain/pressure, palpitations and reported abdominal pain had subsided. Pt reports a hx of chronic constipation for the past 1-2 years. She changed her diet and has been eating more fruits and vegetables and having a BM every 3-4 days (Previously could go upto 9 days with no BM). Has used Miralax in the past which was helpful. Pt reports a hx of intermittent dysphagia associated with intake of solid food. Aching patient denies smoking or ETOH abuse. 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 She also look for [employer]. Patient lives by herself and is independent with her ADLs A friend and her kids provide help and support Family hx is positive for Colon cancer in her Dad who had surgery and had a colostomy. Of note, patient was admitted to the hospital on 12/17-12/20 for similar symptoms of syncope while on the commode straining during bowel movement. Was found to have likely ischemic colitis from hypotension, not given antibiotics as there was no fever, chills, nausea, vomiting, or diarrhea. Syncopal episode was deemed most likely multifactorial: Vasovagal, polypharmacy, and hypoperfusion with positive orthostatics. In the ED pt's vitals WNL. Labs were significant for leukocytosis 17.2 otherwise largely unremarkable. Stable H& H. No electrolyte abnormalities. Renal and hepatic function WNL. Serial troponins negative. Procalcitonin 0.06. CPK 49. UA negative for UTI. X-ray of left knee without acute findings, no fracture or malalignment noted. CT of head negative for acute intracranial pathology, but did show small soft tissue defect underlying hematoma on left parietal scalp, and mild generalized volume loss with moderate chronic microangiopathy. EKG demonstrated normal sinus rhythm without evidence of significant ST elevations or depressions. Pt was treated with acetaminophen and IVF and [place] [facility] [place] and further workup of syncopal episode in the setting of likely ASSESSMENT: 73 YF with paroxysmal AFib on Eliquis, HLD, HTN, hypothyroidism, hx of ischemic colitis, and chronic lower leg edema admitted [place] [facility] [place] after a syncopal episode at home. Abdominal CT scan showed mural thickening involving proximal and mid descending colonic segments with mild pericolic fat stranding suggestive of colitis - likely due to ischemia. Other Ddx including infectious or inflammatory colitis less likely in the absence of abd pain and diarrhea. Pt reports a hx of chronic constipation for the past 1-2 years. Pt reports having a colonoscopy [address] Lin - negative per patient and FU was advised in 10 yrs. She reports having an EGD with dilation in the past when she had her colonoscopies. Pt is requesting to schedule her procedures [place] [facility] Etiology for syncopal episode is unclear - ? cardiac source versus vasovegal episode associated with abdominal pain Pt reports having a ? holter x 24 hrs via PCP's office in [place], [place] RECOMMENDATIONS: 1. Agree with IV fluids and anti-emetics 2. Advance to a regular diet since she is tolerating clear liquids without recurrent abdominal pain. 3. Syncope workup - as per hospitalist/cardiology 4. Patient reports being due for an EGD (Dysphagia) and colonoscopy this year for colorectal ca screening. I will ask GI flight crew scheduler to schedule as outpatient. 5. Resumption of anticoagulation as per primary team. 6. Miralax once daily for constipation at discharge. [facility] Medical History (Updated 05/11/24 @ 16:12 by Leonor Winchester MD) Atrial fibrillation Anemia Hypothyroidism Lower leg edema GERD (gastroesophageal reflux disease) HLD (hyperlipidemia) HTN (hypertension) Paroxysmal A-fib Frequent falls Head injury General weakness Fall Lupus Family History Mother Myocardial infarction Social History Household Members: None Housing: Condominium Do you presently have visiting nurse or other home services: Yes Patient Tobacco Use Status: Never used Tobacco e-Cigarette/Vaping Use: Never Used Advance Directives Date on File: 12/17/23 service: No Review of Systems Const All systems reviewed & are unremarkable except as noted in HPI and below Physical Exam Vital Signs: Last Vital Signs Pulse 76 05/11/24 09:13 BP 134/64 05/11/24 09:13 BMI result Body Mass Index 25.3 Const General: no acute distress Nutritional Appearance: average body habitus Orientation/consciousness: patient oriented x3 Limitations: no limitations HEENT Head: Yes normal to inspection Ears: hearing grossly normal bilaterally Eyes Sclerae: sclerae normal Pupils: Equal, round and reactive pupils present Neck Neck: Yes normal visual inspection Chest Chest palpation & inspection: normal inspection of the chest Resp Effort & Inspection: normal respiratory effort Auscultation: clear to auscultation bilaterally Cardio Palpation: normal PMI Rate: regular rate Rhythm: regular rhythm Heart sounds: S1 normal heart sound present, S2 normal heart sound present and no murmurs GI Palpation (GI): Soft to palpation, nontender and No hepatosplenomegaly present Auscultation: normal bowel sounds Rectal Exam - Female: deferred Skin General skin exam: no rashes or lesions noted Neuro General: patient oriented x3, gait normal and moves all extremities Cranial nerves: Yes Equal, round and reactive pupils present Psych Appearance: grossly normal Mental Status: mental status grossly normal Assessment & Plan Assessment & Plan (1) Colitis: Code(s): K52.9 - Noninfective gastroenteritis and colitis, unspecified Category: Medical Plan 73 YF with paroxysmal AFib on Eliquis, HLD, HTN, hypothyroidism, hx of ischemic colitis, and chronic lower leg edema seen for FU after recent [place] [facility] after a syncopal episode at home. Abdominal CT scan showed mural thickening involving proximal and mid descending colonic segments with mild pericolic fat stranding likely due to ischemic colitis.. Other Ddx including infectious or inflammatory colitis less likely in the absence of abd pain and diarrhea. Pt reports a hx of chronic constipation for the past 1-2 years. Pt reports having a colonoscopy [address] Lin - negative per patient and FU was advised in 10 yrs. She reports having an EGD with dilation in the past for dysphagia when she had her colonoscopies. Pt advised to have fu labs today. Schedule for an EGD (anemia and dysphagia) and colonoscopy (anemia and screening). EGD and colonoscopy procedures and potential complications were reviewed with the patient and her niece - scheduled on 05/30/24 She was advised to hold Eliquis x 3 days prior to her colonoscopy appointment (after clearance from Cardiology) ADDENDUM: Labs showed improvement in anemia with hemoglobin of 11 hematocrit of 35.5, platelets 318, INR 1.6. Normal LFTs, vitamin B12. Iron studies were suggestive of iron-deficiency anemia. Orders: Orders Vitamin B12 and Folate Today D64.9 - Anemia, unspecified IRON PROFILE Today D64.9 - Anemia, unspecified Complete Blood Count no Diff Today D64.9 - Anemia, unspecified Vitamin D 25-OH Total Today D64.9 - Anemia, unspecified Comprehensive Met. Panel Today D64.9 - Anemia, unspecified Prothrombin Time INR Today D64.9 - Anemia, unspecified Ferritin Today D64.9 - Anemia, unspecified Medications: New bisacodyl (Dulcolax (bisacodyl)) Take 4 tablets at 12 pm the day before colonoscopy appointment 10 mg (2 x 5 mg) PO ONCE 4 tabs 0RF colon prep 2 days polyethylene glycol 3350 (Miralax) Mix Miralax with 64 oz(8 cups) of Crystal light. Take 2 tablets of Dulcolax qt 12 pm. Wait to have your 1st bowel movement, then begin drinking Miralax. Drink a glass of Miralax every 10-15 minutes until you are finished. You will drink at least another 4 cups of clear liquid of your choice over the next 2 hours. Please drink as many clear liquids as possible You may have clear liquids up to four hours before your procedure 17 grams PO DAILY 238 grams 0RF 1 day ferrous gluconate 324 mg PO DAILY 90 tabs 1RF 90 days Coding Level of Care Code Est Pt Level 4 (81331) Diagnoses Colitis K52.9 Time Spent (min) 24
[2024-05-11 09:13] VITALS: BP 134/64; PULSE 76; BMI 25.3
== END 2024-05-11 10:22 | disposition home or self-care (01) ==
PROVIDERS: PCP Internal Medicine; Visit Provider Internal Medicine Gastroenterology
DX: K52.9 Noninfective gastroenteritis and colitis, unspecified (principal)
CPT/HCPCS: 99214

== ENCOUNTER 2024-05-11 08:59 | Outpatient (REF) | payer MEDICARE, SELFPAY ==
[2024-05-11 10:37] LABS: Hematocrit 35.5 % (37.0-47.0); Mean Corpuscular Hemoglobin 23.5 pg (27.0-33.0); Mean Corpuscular Volume 75.9 fL (80.0-98.0); Mean Platelet Volume 11.2 fL (9.4-12.3); Platelet Count 318 X10*3/uL (160-400); Red Blood Count 4.68 X10*6/uL (4.20-5.50); Red Cell Distribution Width 17.5 % (11.0-16.0); White Blood Count 5.9 X10*3/uL (4.8-10.8)
[2024-05-11 10:42] LABS: INTERNATIONAL NORM RATIO 1.6 (0.9-1.1); Prothrombin Time 19.9 SEC (11.1-13.3)
[2024-05-11 11:21] LABS: Alanine Aminotransferase 11 U/L (0-31); Albumin Level 3.8 g/dL (3.5-5.0); Alkaline Phosphatase 103 U/L (39-117); Anion Gap 10 (12-20); Aspartate Amino Transferase 18 U/L (5-31); Bilirubin Total 0.4 mg/dL (0.0-1.0); Blood Urea Nitrogen 8 mg/dL (9-16); Calcium 9.3 mg/dL (8.4-10.2); Carbon Dioxide 30 mmol/L (22-29); Chloride 106 mmol/L (96-108); Estimated Glomerular Filt Rate > 60; Glucose Random 96 mg/dL (60-115); Iron 23 mcg/dL (30-160); Percent Iron Saturation 7 % (15-50); Sodium 142 mmol/L (135-145); Total Iron Binding Capacity 310 mcg/dL (228-428); Total Protein 7.5 g/dL (6.5-8.0); Unsaturated Iron Binding 287 ug/dL
[2024-05-11 11:35] LABS: Ferritin 21 ng/mL (10-250)
[2024-05-11 11:37] LABS: Folate 10.2 ng/mL (> or = 4.0); Vitamin B12 288 pg/mL (200-900)
== END 2024-05-11 09:00 | disposition home or self-care (01) ==
LOC: HO.LAB 08:59
PROVIDERS: PCP Internal Medicine; Visit Provider Internal Medicine Gastroenterology
DX: Z01.818 Encounter for other preprocedural examination (principal); K59.00 Constipation, unspecified; K52.9 Noninfective gastroenteritis and colitis, unspecified; D64.9 Anemia, unspecified; I48.0 Paroxysmal atrial fibrillation; Z79.01 Long term (current) use of anticoagulants
CPT/HCPCS: 36415; 80053; 82306; 82607; 82728; 82746; 83540; 85027; 85610; 99212

== ENCOUNTER 2024-05-30 07:13 | Day surgery (SDC) | payer MEDICARE, SELFPAY ==
--- NOTE | 2024-05-29 10:13 | P.CONAN_ITS ---
HPI - Anesthesia Eval Consult details Narrative: 73yo F for Upper Endoscopy and Colonoscopy Eliquis for afib. [place] [facility] [place]. PMFSH Active Problems Active Problems: All Active Problems Atrial fibrillation (Acute) Chronic anticoagulation (Acute) Anemia (Acute) Leg swelling (Acute) Orthostatic hypotension (Acute) Colitis (Acute) Syncope (Acute) Hematoma of left knee region (Acute) Asymmetric septal hypertrophy (Acute) Rash and nonspecific skin eruption (Acute) Past Medical History Medical History Hypothyroidism Lower leg edema GERD (gastroesophageal reflux disease) HLD (hyperlipidemia) HTN (hypertension) Paroxysmal A-fib Atrial fibrillation Frequent falls Lupus Anemia Head injury General weakness Fall Family History Family History Mother Myocardial infarction Surgical History Surgical History H/O colonoscopy History of esophagogastroduodenoscopy (EGD) Social History Social History Household Members: None Housing: Condominium Do you presently have visiting nurse or other home services: Yes Patient Tobacco Use Status: Never used Tobacco e-Cigarette/Vaping Use: Never Used Use of substances other than those prescribed or required for medical reasons: No Are you DNR?: No Advance Directives: No Advance Directives Information Provided: Yes Advance Directives Date on File: 12/17/23 Patient : No service: No Meds Allergies Allergy/AdvReac Type Severity Reaction Status Date / Time erythromycin base Allergy Severe Rash Verified 05/11/24 09:10 [From Erythrocin] Penicillins [PENICILLINS] Allergy Severe HIVES Verified 05/11/24 09:10 droperidol [From INAPSINE] Allergy Intermediate UNUSUAL Verified 05/11/24 09:10 HEAD MOVEMENTS oxycodone [OXYCODONE] Allergy Mild ITCHING Verified 05/11/24 09:10 morphine [MORPHINE] AdvReac Unknown CONFUSION Verified 05/11/24 09:10 Home Medications ?Medication ?Instructions ?Recorded ?Confirmed ?Last Taken ?Type atorvastatin 40 mg tablet 40 mg PO BEDTIME 08/13/23 05/30/24 05/29/24 History carboxymethylcellulose sodium 0.5 1 drp ophthalmic (eye) 5XD 08/13/23 05/11/24 02/16/24 History % eye drops (Refresh Tears) furosemide 20 mg tablet 20 mg PO DAILY 08/13/23 05/30/24 05/29/24 History gabapentin 300 mg capsule 300 mg PO BEDTIME 08/13/23 05/30/24 05/29/24 History levothyroxine 100 mcg tablet 100 mcg PO DAILY 08/13/23 05/30/24 05/29/24 History omeprazole 40 mg capsule,delayed 40 mg PO DAILY 08/13/23 05/30/24 05/29/24 History release potassium chloride 10 mEq 10 meq PO DAILY 08/13/23 05/30/24 05/29/24 History tablet,extended release trazodone 100 mg tablet 100 mg PO BEDTIME 08/13/23 05/11/24 02/15/24 History clobetasol 0.05 % topical cream 1 appl topical BID PRN LUPUS FLARE 12/17/23 05/11/24 12/16/23 History duloxetine 30 mg capsule,delayed 30 mg PO DAILY 02/16/24 05/30/24 05/29/24 History release emollient combination no.77 1 appl topical DAILY PRN bruising 02/16/24 05/11/24 Unknown History (Dermend topical cream) levothyroxine 100 mcg tablet 150 mcg PO HERNADEZ 04/12/24 05/11/24 Unknown History yipivnsc-cqw-pakke1 250 mg-dha 90 1 cap PO DAILY 04/12/24 05/30/24 05/29/24 History mg-epa 160 jv-gsnk-ccor-zeax capsule (Ocuvite Adult 50 Plus) polyethylene glycol 3350 17 gram 17 g PO DAILY PRN 04/12/24 05/11/24 Unknown History oral powder packet Exam Pertinent Lab Results Pertinent Lab Results: Laboratory Tests 05/11/24 10:16 WBC 5.9 Hgb 11.0 L Hct 35.5 L Plt Count 318 D Sodium 142 Potassium 4.0 Chloride 106 Carbon Dioxide 30 H BUN 8 L Creatinine 0.66 Narrative Narrative: EKG 02/2024 Vent. Rate : 068 BPM Atrial Rate : 068 BPM P-R Int : 204 ms QRS Dur : 072 ms QT Int : 450 ms P-R-T Axes : 037 020 054 degrees QTc Int : 478 ms Normal sinus rhythm Normal ECG When compared with ECG of 17-DEC-2023 11:14, QT has lengthened ECHO 2022 Conclusions: - The left ventricular systolic function is normal. The calculated ejection fraction is 64% by biplane method. - There is severe septal and severe basal asymmetric hypertrophy. - No obvious valvular pathology seen on this study. Assessment and Plan Assessment Anesthesia Assessment: Chart Reviewed
[2024-05-30] VITALS (8 sets, daily range): BP systolic 144–197; BP diastolic 82–95; PULSE 67–77; RESP 14–16; TEMP 36.2–36.3; O2SAT 96–100; BMI 25.5
[2024-05-30] MEDS: Lactated Ringers 1,000 ML 100 ML IVCONT (08:08)
--- NOTE | 2024-05-30 08:26 | MHC.SHP ---
Pre-Procedural Eval Section A - 24 Hr Update-Section A only Date of Service: 05/30/24 The patient is an INPATIENT: No Changes since office visit: Yes Patient answered all questions; No Cold of Flu in the past 2 weeks, No New Medical Problems and No Changes in Medication The patient has been examined within 24 hours of the surgical procedure. The History & Physical has been completed within 30 days and I have reviewed it.: Yes Section B - Complete if H&P > 30 days Chief Complaint: Anemia, unspecified Allergies: Allergies Allergy/AdvReac Type Severity Reaction Status Date / Time erythromycin base Allergy Severe Rash Verified 05/11/24 09:10 [From Erythrocin] Penicillins [PENICILLINS] Allergy Severe HIVES Verified 05/11/24 09:10 droperidol [From INAPSINE] Allergy Intermediate UNUSUAL Verified 05/11/24 09:10 HEAD MOVEMENTS oxycodone [OXYCODONE] Allergy Mild ITCHING Verified 05/11/24 09:10 morphine [MORPHINE] AdvReac Unknown CONFUSION Verified 05/11/24 09:10 Exam Surgical H&P Exam: Normal: Heart, Normal: Lungs, Normal: Extremities and Normal: Abdomen Plan Diagnosis/Plan: Unchanged I have reviewed the history and physical and performed a pertinent physical examination on my patient. No changes have occurred unless specified. Time Spent With Patient Time: Total time managing care of this patient today ____ minutes.
--- NOTE | 2024-05-30 08:51 | HO.ANESPROP2 ---
[facility] Active Problems Active Problems: All Active Problems Chronic anticoagulation (Acute) Leg swelling (Acute) Orthostatic hypotension (Acute) Colitis (Acute) Syncope (Acute) Hematoma of left knee region (Acute) Asymmetric septal hypertrophy (Acute) Rash and nonspecific skin eruption (Acute) Atrial fibrillation (Acute) Anemia (Acute) Past Medical History Medical History Hypothyroidism Lower leg edema GERD (gastroesophageal reflux disease) HLD (hyperlipidemia) HTN (hypertension) Paroxysmal A-fib Atrial fibrillation Frequent falls Lupus Anemia Head injury General weakness Fall Functional capacity: independent ambulation Patient : No Family History Family History Mother Myocardial infarction Family history of problems with anesthesia: No Surgical History Surgical History H/O colonoscopy History of esophagogastroduodenoscopy (EGD) History of Problems with Anesthesia: No Social History Social History Household Members: None Housing: Condominium Do you presently have visiting nurse or other home services: Yes Patient Tobacco Use Status: Never used Tobacco e-Cigarette/Vaping Use: Never Used Use of substances other than those prescribed or required for medical reasons: No Are you DNR?: No Advance Directives: No Advance Directives Information Provided: Yes Advance Directives Date on File: 12/17/23 service: No Meds Allergies Allergy/AdvReac Type Severity Reaction Status Date / Time erythromycin base Allergy Severe Rash Verified 05/11/24 09:10 [From Erythrocin] Penicillins [PENICILLINS] Allergy Severe HIVES Verified 05/11/24 09:10 droperidol [From INAPSINE] Allergy Intermediate UNUSUAL Verified 05/11/24 09:10 HEAD MOVEMENTS oxycodone [OXYCODONE] Allergy Mild ITCHING Verified 05/11/24 09:10 morphine [MORPHINE] AdvReac Unknown CONFUSION Verified 05/11/24 09:10 Active Medications: Current Medications Lactated Ringer's (Lr) 1,000 mls @ 100 mls/hr IVCONT .Q10H PHONG Last Admin: 05/30/24 08:08 Dose: 100 mls/hr Home Medications ?Medication ?Instructions ?Recorded ?Confirmed ?Last Taken ?Type atorvastatin 40 mg tablet 40 mg PO BEDTIME 08/13/23 05/30/24 05/29/24 History carboxymethylcellulose sodium 0.5 1 drp ophthalmic (eye) 5XD 08/13/23 05/11/24 02/16/24 History % eye drops (Refresh Tears) furosemide 20 mg tablet 20 mg PO DAILY 08/13/23 05/30/24 05/29/24 History gabapentin 300 mg capsule 300 mg PO BEDTIME 08/13/23 05/30/24 05/29/24 History levothyroxine 100 mcg tablet 100 mcg PO DAILY 08/13/23 05/30/24 05/29/24 History omeprazole 40 mg capsule,delayed 40 mg PO DAILY 08/13/23 05/30/24 05/29/24 History release potassium chloride 10 mEq 10 meq PO DAILY 08/13/23 05/30/24 05/29/24 History tablet,extended release trazodone 100 mg tablet 100 mg PO BEDTIME 08/13/23 05/11/24 02/15/24 History clobetasol 0.05 % topical cream 1 appl topical BID PRN LUPUS FLARE 12/17/23 05/11/24 12/16/23 History duloxetine 30 mg capsule,delayed 30 mg PO DAILY 02/16/24 05/30/24 05/29/24 History release emollient combination no.77 1 appl topical DAILY PRN bruising 02/16/24 05/11/24 Unknown History (Dermend topical cream) levothyroxine 100 mcg tablet 150 mcg PO HERNADEZ 04/12/24 05/11/24 Unknown History sdckmxuq-vig-uevdm5 250 mg-dha 90 1 cap PO DAILY 04/12/24 05/30/24 05/29/24 History mg-epa 160 pc-nxza-weco-zeax capsule (Ocuvite Adult 50 Plus) polyethylene glycol 3350 17 gram 17 g PO DAILY PRN 04/12/24 05/11/24 Unknown History oral powder packet Exam Height,Weight and Vital Signs: Height 5 ft 6 in Weight 71.668 kg Last Vital Signs Temp 97.3 F 05/30/24 08:07 Pulse 74 05/30/24 08:07 Resp 16 05/30/24 08:07 BP 144/87 H 05/30/24 08:07 Pulse Ox 98 05/30/24 08:07 O2 Del Method Room Air 05/30/24 08:07 Airway Mallampati Class: II TM Dist: >3cm Neck ROM: Full Heart: RRR Lungs: CTA Assessment and Plan Assessment Anesthesia Assessment: Anesthesia Plan Discussed Final Anesthetic Review Family History of Problems with Anesthesia: No History of Problems with Anesthesia: No NPO: Yes ASA Class: II Final Preanesthetic Review: Meds/Allgs Chart Reviewed, Consent Obtained/Reviewed and Anes Risks/Benef Reviewed Patient Risk: Low Procedure Risk: Low Anesthetic Plan Anesthetic Plan: MAC: Disposition: Standard PACU
--- NOTE | 2024-05-30 09:44 | HO.OPN-COLON ---
Colonoscopy Operative Note Operative Note Date of Service: 05/30/24 Narrative: FLEXIBLE TRANSORAL UPPER GASTROINTESTINAL ENDOSCOPY WITH BIOPSIES AND ESOPHAGEAL BALLOON DILATION AND COLONOSCOPY TILL CECUM WITH BIOPSIES, SNARE POLYPECTOMY, SUBMUCOSAL INJECTION AND HEMOCLIP PLACEMENT Pre-op diagnosis: Colon cancer screening, dysphagia, iron deficiency anemia, Post-op diagnosis: Hiatal hernia, Gastritis, Gastric polyp, Colon Polyps, Diverticulosis, hemorrhoids ? Endoscopist:? Leonor Winchester MD Anesthesia:?MAC UPPER ENDOSCOPY Consent: Indications for the procedure and potential complications of bleeding, perforation, reaction to medications and missed diagnosis were discussed with the patient and informed consent was obtained. Instrument: Olympus GIF H 160 mid size upper endoscope Monitoring: Vital signs and clinical assessment, continuous EKG monitoring, Pulse oximetry, Carbon Dioxide monitoring and blood pressure monitoring were done throughout the procedure. Procedure: The patient was placed in the left lateral decubitis position and pre-procedure medications were administered and a bite block was placed. The endoscope was inserted into the mouth and advanced under direct vision to the third part of duodenum. A careful inspection was made as the upper endoscope was withdrawn including a retroflexed examination of the proximal stomach; Findings and interventions are described below. Findings: Larynx: Normal Esophagus: Tortuous esophagus with increased tertiary contractions without stricture or ring. GE junction at 36 cms, large hiatal hernia 36 to 42 cms. . No esophagitis or Sam's. Empiric balloon dilation of distal esophagus was performed with a 19 mm (51 F) CRE balloon x 60 seconds Stomach: A 7-8 mm benign appearing polyps in the gastric body - biopsied. Moderate diffuse gastric erythema - biopsies were obtained from the antrum. Grade 4 flap valve on retroflexed examination of the cardia. Duodenum: Normal bulb and descending duodenum Biopsies were obtained from descending duodenum to check for celiac sprue Intervention: Biopsies as noted above COLONOSCOPY PROCEDURE NOTE Instrument: Olympus PCF H 190 L variable stiffness pediatric colonoscope Monitoring: Vital signs and clinical assessment, intermittent blood pressure monitoring, continuous EKG monitoring, Pulse oximetry and Carbon Dioxide monitoring were done throughout the procedure. Please see anesthesia flowsheet. Colon withdrawl time was 27 minutes. Procedure: The patient was placed in the left lateral decubitis position and pre-procedure medications were administered. After a digital rectal examination of the ano-rectum, the video colonoscope was inserted into the rectum and advanced through the colon to the cecum. The colonoscope was slowly withdrawn in a retrograde panoramic fashion and the colon mucosa was carefully examined including a retroflexed view of the rectum. Findings and interventions are described below. Procedure Difficulty: without difficulty Findings: Terminal Ileum: Not evaluated Cecum: A 7-8 mm sessile polyp - removed with a hot snare Polyp versus fold at the appendicular orifice - biopsies obtained Ascending Colon: A 2 cms flat polyp in the proximal AC at 70 cms. Polyp was raised with 3 cc of [place] and removed piecemeal with a stiff hot snare. Polypectomy site was closed with 1 hemoclip Two 8 to 10 mm sessile polyps in the distal AC - remove with hot snare Transverse Colon: Normal Descending Colon: A 7-8 mm sessile polyp - removed with a hot snare Sigmoid Colon: Moderate diverticulosis Rectum: Normal Ano-rectum: Small internal hemorrhoids and hypertrophied anal papillae Colon preparation: Good after copious irrigation. [place] Bowel Preparation Scale Right colon; 2 Transverse colon: 2 Left colon; 2 (0 = Unprepared colon segment with mucosa not seen due to solid stool that cannot be cleared. 1 = Portion of mucosa of the colon segment seen, but other areas of the colon segment not well seen due to staining, residual stool and/or opaque liquid. 2 = Minor amount of residual staining, small fragments of stool and/or opaque liquid, but mucosa of colon segment seen well. 3 = Entire mucosa of colon segment seen well with no residual staining, small fragments of stool or opaque liquid) Impression and Post Procedure Diagnosis: Endoscopy Findings: ESOPHAGUS: Tortuous esophagus with increased tertiary contractions without stricture or ring. GE junction at 36 cms, large hiatal hernia 36 to 42 cms. . No esophagitis or Sam's. Empiric balloon dilation of distal esophagus was performed with a 19 mm (51 F) CRE balloon x 60 seconds STOMACH: A 7-8 mm benign appearing polyps in the gastric body - biopsied. Moderate diffuse gastric erythema - biopsies were obtained from the antrum. DUODENUM: Normal - biopsied to check for celiac sprue Colonoscopy Findings: Five polyps were removed Moderate diverticulosis seen in the sigmoid colon small hemorrhoids on retroflexed exam. Plan: Pt has a FU appointment on 06/15/[address] Winchester Repeat Colonoscopy in 6 -12 months if polyps are adenomatous and 10 year if polyps are hyperplastic. Above findings were reviewed with the patient and relevant handouts were given and the discharge area. BIOPSIES SHOWED:A. Small bowel, biopsy: Duodenal mucosa within normal limits; negative for celiac disease. B. Stomach, antrum, biopsy: Antral-type mucosa with moderate chronic inactive inflammation; no Helicobacter organisms seen. C. Stomach, polyp, biopsy: Antral-type mucosa with mild chronic inactive inflammation and surface hyperplastic changes; no Helicobacter organisms seen. D. Colon, ascending, polypectomies (2): Fragments of tubular adenomata; negative for high-grade dysplasia or carcinoma. E. Cecum, polypectomy: Tubular adenoma; negative for high-grade dysplasia or carcinoma. F. Colon, appendiceal orifice, biopsy: Mildly active colitis. G. Colon, proximal ascending, polypectomy: Fragments of tubular adenoma; negative for high-grade dysplasia or carcinoma. H. Colon, descending, polypectomy: Fragments of tubular adenoma with high grade dysplasia; multiple additional levels examined. Comment: The high grade dysplasia in part H extends to the edges of that particular tissue fragment. Repeat Colonoscopy will be scheduled in 6 months
--- NOTE | 2024-05-30 11:13 | HO.POSTANES ---
Post Anesthesia Evaluation Post Anesthesia Evaluation Date of Service: 05/30/24 Vital Signs: Vital Signs Temp Pulse Resp BP Pulse Ox O2 Del Method 05/30/24 11:02 97.3 F 68 16 190/90 H 99 Room Air 05/30/24 10:47 67 14 190/88 H 98 Room Air 05/30/24 10:42 70 15 197/95 H 96 Room Air 05/30/24 10:37 76 15 177/90 H 100 Room Air 05/30/24 10:32 97.2 F 77 16 160/82 H 100 Room Air 05/30/24 08:07 97.3 F 74 16 144/87 H 98 Room Air Anesthesia: Monitored Mental Status: Awake Pain Control: Satisfactory Nausea/Vomiting: None Hydration: Adequate Anesthesia-Related Issues: No Anes. Related Issues
== END 2024-05-30 12:04 | disposition home or self-care (01) ==
PROVIDERS: PCP Internal Medicine; Visit Provider Internal Medicine Gastroenterology
PROC: (CPT 43249; principal; 2024-05-30 09:00)
DX: K29.70 Gastritis, unspecified, without bleeding (principal); K31.7 Polyp of stomach and duodenum; K22.4 Dyskinesia of esophagus; K44.9 Diaphragmatic hernia without obstruction or gangrene; K21.9 Gastro-esophageal reflux disease without esophagitis; R13.10 Dysphagia, unspecified; D50.9 Iron deficiency anemia, unspecified; Z12.11 Encounter for screening for malignant neoplasm of colon; D12.0 Benign neoplasm of cecum; D12.2 Benign neoplasm of ascending colon; D12.4 Benign neoplasm of descending colon; K52.9 Noninfective gastroenteritis and colitis, unspecified; K57.30 Diverticulosis of large intestine without perforation or abscess without bleeding; K64.8 Other hemorrhoids; K62.89 Other specified diseases of anus and rectum; Z80.0 Family history of malignant neoplasm of digestive organs; I10 Essential (primary) hypertension; E78.5 Hyperlipidemia, unspecified; I48.0 Paroxysmal atrial fibrillation; Z79.01 Long term (current) use of anticoagulants; Z79.02 Long term (current) use of antithrombotics/antiplatelets; Z79.899 Other long term (current) drug therapy
CPT/HCPCS: 43249; 43239; 45385; 45381; 45380; 88305; 88313; 88342; C1726; J2704

== ENCOUNTER → 2024-05-30 07:13 | Outpatient (BNV) | payer MEDICARE, SELFPAY | PROVIDERS: PCP Internal Medicine; Visit Provider Internal Medicine Gastroenterology | DX: Z12.11 Encounter for screening for malignant neoplasm of colon (principal); D12.0 Benign neoplasm of cecum; D12.2 Benign neoplasm of ascending colon; D12.4 Benign neoplasm of descending colon; K52.9 Noninfective gastroenteritis and colitis, unspecified; D50.9 Iron deficiency anemia, unspecified; R13.10 Dysphagia, unspecified; K29.70 Gastritis, unspecified, without bleeding; K31.7 Polyp of stomach and duodenum | CPT/HCPCS: 43239; 43249; 45380; 45381; 45385 ==

== ENCOUNTER 2024-10-11 12:58 | Outpatient (AMB) | payer MEDICARE, SELFPAY ==
[2024-10-11 13:36] VITALS: BP 166/76; PULSE 80; BMI 26.2
--- NOTE | 2024-10-11 13:36 | A.OFFVIS_ITS ---
Vital Signs 10/11/24 13:36 Height 5 ft 6 in Weight 162 lb 4.163 oz BMI 26.2 BP 166/76 H Blood Pressure Location Lt brachial Position Sitting Pulse 80 Pulse Source Pulse Oximeter Intake Visit Reasons: r/s 09/07/24 6 mos followup Gastroenterology Technician Required: No Accompanied by: Self / Same As Patient Allergies erythromycin base [From Erythrocin] Allergy (Severe, Verified 05/11/24 09:10) Rash Penicillins [PENICILLINS] Allergy (Severe, Verified 05/11/24 09:10) HIVES droperidol [From INAPSINE] Allergy (Intermediate, Verified 05/11/24 09:10) UNUSUAL HEAD MOVEMENTS oxycodone [OXYCODONE] Allergy (Mild, Verified 05/11/24 09:10) ITCHING morphine [MORPHINE] Adverse Reaction (Unknown, Verified 05/11/24 09:10) CONFUSION Medication List - Last Reconciled 10/11/24 by Garry Castellon MD apixaban (Eliquis) 5 mg PO BID atorvastatin 40 mg PO BEDTIME clobetasol 0.05% 1 appl topical BID PRN diltiazem HCl CD 240 mg See Protocol PO DAILY 90 days duloxetine 60 mg PO DAILY emollient combination no.77 (Dermend topical cream) 1 appl topical DAILY PRN ferrous gluconate 324 mg PO DAILY 90 days furosemide 20 mg PO DAILY gabapentin 300 mg PO BEDTIME levothyroxine 100 mcg PO DAILY levothyroxine 150 mcg PO HERNADEZ lifitegrast 5% (Xiidra) 1 drp ophthalmic (eye) BID [id number] 250 mg (90 mg-160 mg) (Ocuvite Adult 50 Plus) 1 cap PO DAILY omeprazole 40 mg PO DAILY peg 400-propylene glycol 0.4-0.3 % (Systane Ultra) 1 drp ophthalmic (eye) DAILY PRN perfluorohexyloctane (PF) 100% (Miebo (PF)) 1 drp ophthalmic (eye) QID potassium chloride ER 10 mEq PO DAILY trazodone 100 mg PO BEDTIME HPI Comments Details: Rica returns for follow-up. She was hospitalized in 2022 for atrial fibrillation rapid ventricular response. Then converted to sinus rhythm. Was put on diltiazem/beta-blockers. Then more recently, was having weakness and recurring falls. Thought to be possibly orthostatic hypotension. Unclear if there were other components like weakness/gait dysfunction. Then med changes were made including stopping benazepril, metoprolol as well as midodrine. For the last several months, she states she is generally doing fine. The orthostatic dizziness is much improved and not as bad as before. No other complaints otherwise. [facility] Medical History Hypothyroidism Lower leg edema GERD (gastroesophageal reflux disease) HLD (hyperlipidemia) HTN (hypertension) Paroxysmal A-fib Atrial fibrillation Frequent falls Lupus Anemia Head injury General weakness Fall Surgical History H/O colonoscopy History of esophagogastroduodenoscopy (EGD) Family History Mother Myocardial infarction Social History (Updated 10/11/24 @ 13:44 by Leatha Hodgson CMA) Household Members: None [facility] Do you presently have visiting nurse or other home services: Yes Alcohol intake: never Patient Tobacco Use Status: Never used Tobacco e-Cigarette/Vaping Use: Never Used Advance Directives Date on File: 12/17/23 service: No Review of Systems Const Denies chills, Denies fatigue, Denies fever(s), Denies weight gain and Denies weight loss ENT Denies dizziness Card Denies chest pain, Denies leg edema, Denies lightheadedness, Denies palpitations, Denies dyspnea on exertion, Denies orthopnea and Denies other Resp Denies cough and Denies dyspnea on exertion GI Denies hematochezia and Denies change in stool character Musc Denies abnormal gait, Denies muscle weakness, Denies numbness, Denies radiating pain into limb and Denies tingling Neuro Denies abnormal gait, Denies dizziness, Denies numbness and Denies tingling Endo Denies fatigue and Denies palpitations Physical Exam Vital Signs: Last Vital Signs Pulse 80 10/11/24 13:36 BP 166/76 H 10/11/24 13:36 BMI result Body Mass Index 26.2 Const General: comfortable and no acute distress Orientation/consciousness: patient oriented x3 HEENT Other: Unremarkable Head: Yes normal to inspection Neck Neck: Yes normal visual inspection Chest Chest palpation & inspection: normal inspection of the chest Resp Auscultation: clear to auscultation bilaterally Cardio Palpation: normal PMI Heart sounds: S1 normal heart sound present, S2 normal heart sound present, no gallops, no murmurs and no rubs GI Palpation (GI): Soft to palpation Back/Spine/Pelvis Other: unremarkable Skin General skin exam: no rashes or lesions noted Neuro General: patient oriented x3 Extrem Other: Trace edema General: Yes normal to inspection Psych Mental Status: mental status grossly normal Assessment & Plan Assessment & Plan (1) Paroxysmal A-fib: Code(s): I48.0 - Paroxysmal atrial fibrillation Category: Medical Plan: In the Holter, there is evidence of atrial fibrillation with rapid rate but with a burden of only 0.3%. On diltiazem. Off metoprolol due to the low blood pressure/falls. Next option would be to add amiodarone and either decrease or stop the diltiazem. Continue anticoagulation. (2) Orthostatic hypotension: Code(s): I95.1 - Orthostatic hypotension Category: Medical Plan: Per prior documentation, blood pressures were going as low as the 60s. That seems to be much stable at this time. Today's blood pressure is high but she states that several other blood pressures only the 120s at home and hence no changes made. We may have to keep her blood pressure is slightly on the higher side to avoid any significant hypotension/falls. (3) Leg swelling: Code(s): M79.89 - Other specified soft tissue disorders Category: Medical Plan: Suspected venous insufficiency. Seems stable. Coding Level of Care Code Est Pt Level 4 (38283) Diagnoses Paroxysmal A-fib I48.0 Orthostatic hypotension I95.1 Leg swelling M79.89
== END 2024-10-11 13:57 | disposition home or self-care (01) ==
PROVIDERS: PCP Internal Medicine; Visit Provider Internal Medicine
DX: I48.0 Paroxysmal atrial fibrillation (principal); I95.1 Orthostatic hypotension; M79.89 Other specified soft tissue disorders
CPT/HCPCS: 99214

== ENCOUNTER → 2024-10-11 12:58 | Outpatient (BNVA) | payer MEDICARE, SELFPAY | PROVIDERS: PCP Internal Medicine; Visit Provider Internal Medicine | DX: I48.0 Paroxysmal atrial fibrillation (principal); I95.1 Orthostatic hypotension; M79.89 Other specified soft tissue disorders | CPT/HCPCS: 99212 ==

== ENCOUNTER 2024-11-06 06:21 | Outpatient (REF) | payer MEDICARE, SELFPAY | END 2024-11-06 06:22 | disposition home or self-care (01) | LOC: HO.CT 06:21 | PROVIDERS: PCP Internal Medicine; Visit Provider Internal Medicine | DX: R91.1 Solitary pulmonary nodule (principal) | CPT/HCPCS: 71250 ==

== ENCOUNTER → 2024-11-06 06:23 | Outpatient (BNV) | payer MEDICARE, SELFPAY | PROVIDERS: PCP Internal Medicine; Visit Provider Radiology Diagnostic Radiology | DX: R91.1 Solitary pulmonary nodule (principal) | CPT/HCPCS: 71250 ==

== ENCOUNTER 2024-11-27 07:45 | Day surgery (SDC) | payer MEDICARE, SELFPAY ==
[2024-11-23 12:14] VITALS: BMI 26.2
[2024-11-23 13:01] VITALS: BMI 27.0
--- NOTE | 2024-11-24 09:01 | HO.ANESPROP2 ---
HPI - Anesthesia Eval Consult details Narrative: 74yo F for Colonoscopy Follows [facility] Cardiology for afib. Stable at 09/2024 office visit Eliquis for afib PMFSH Active Problems Active Problems: All Active Problems Chronic anticoagulation (Acute) Leg swelling (Acute) Orthostatic hypotension (Acute) Colitis (Acute) Syncope (Acute) Hematoma of left knee region (Acute) Asymmetric septal hypertrophy (Acute) Rash and nonspecific skin eruption (Acute) Atrial fibrillation (Acute) Anemia (Acute) Past Medical History Medical History (Updated 11/23/24 @ 13:06 by Melody Jaquez RN) History of repair of both ankle joints Hypothyroidism Lower leg edema GERD (gastroesophageal reflux disease) HLD (hyperlipidemia) HTN (hypertension) Paroxysmal A-fib Atrial fibrillation Frequent falls Lupus Anemia Head injury General weakness Fall Family History Family History Mother Myocardial infarction Family history of problems with anesthesia: No Surgical History Surgical History (Updated 11/23/24 @ 13:06 by Melody Jaquez RN) Hx of nasal septoplasty Hx of repair of right rotator cuff 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 H/O colonoscopy (05/30/24) History of esophagogastroduodenoscopy (EGD) (05/30/24) History of Problems with Anesthesia: No Social History Social History (Updated 11/23/24 @ 13:03 by Melody Jaquez RN) Household Members: None [facility] Are you a primary healthcare insurance sales agent to a significant other at home: No Do you presently have visiting nurse or other home services: Yes ([facility] xweek) Alcohol intake: never Patient Tobacco Use Status: Former Tobacco user Tobacco use type: Cigarette Smoked in Last 30 Days: No e-Cigarette/Vaping Use: Never Used Use of substances other than those prescribed or required for medical reasons: No Have you been hit, kicked, punched, or otherwise hurt by someone within the past year? If so, by whom?: No Are you DNR?: No Advance Directives: Yes Advance Directives Information Provided: No Advance Directives on File: Yes Advance Directives Date on File: 12/17/23 Recently lost weight without trying: No Nutrition Risks: Surgical patient >75years Poor oral hygiene: No service: No Meds Allergies Allergy/AdvReac Type Severity Reaction Status Date / Time erythromycin base Allergy Severe Rash Verified 05/11/24 09:10 [From Erythrocin] Penicillins [PENICILLINS] Allergy Severe HIVES Verified 05/11/24 09:10 droperidol [From INAPSINE] Allergy Intermediate UNUSUAL Verified 05/11/24 09:10 HEAD MOVEMENTS oxycodone [OXYCODONE] Allergy Mild ITCHING Verified 05/11/24 09:10 morphine [MORPHINE] AdvReac Unknown CONFUSION Verified 05/11/24 09:10 Home Medications ?Medication ?Instructions ?Recorded ?Confirmed ?Last Taken ?Type atorvastatin 40 mg tablet 40 mg PO BEDTIME 08/13/23 11/23/24 05/29/24 History furosemide 20 mg tablet 20 mg PO DAILY 08/13/23 11/23/24 05/29/24 History gabapentin 300 mg capsule 300 mg PO BEDTIME 08/13/23 11/23/24 05/29/24 History levothyroxine 100 mcg tablet 100 mcg PO DAILY 08/13/23 11/23/24 05/29/24 History omeprazole 40 mg capsule,delayed 40 mg PO DAILY 08/13/23 11/23/24 05/29/24 History release potassium chloride 10 mEq 10 meq PO DAILY 08/13/23 11/23/24 05/29/24 History tablet,extended release trazodone 100 mg tablet 100 mg PO BEDTIME 08/13/23 11/23/24 02/15/24 History clobetasol 0.05 % topical cream 1 appl topical BID PRN LUPUS FLARE 12/17/23 11/23/24 12/16/23 History emollient combination no.77 1 appl topical DAILY PRN bruising 02/16/24 11/23/24 Unknown History (Dermend topical cream) duloxetine 30 mg capsule,delayed 60 mg PO DAILY 10/11/24 11/23/24 Unknown History release lifitegrast 5 % eye drops in a 1 drp ophthalmic (eye) BID 10/11/24 11/23/24 Unknown History dropperette (Xiidra) peg 400-propylene glycol 0.4 %-0.3 1 drp ophthalmic (eye) QID PRN Dry 10/11/24 11/23/24 Unknown History % eye drops (Systane Ultra) Eyes perfluorohexyloctane (PF) 100 % 1 drp ophthalmic (eye) QID 10/11/24 11/23/24 Unknown History eye drops (Miebo (PF)) Exam Height,Weight and Vital Signs: Height 5 ft 6 in Weight 75.75 kg Narrative Narrative: Holter 02/2024 1. Patient was monitored for total period of 13 days 2. Baseline was normal sinus rhythm with average heart of 78 beats per minute 3. Intermittent episodes of atrial fibrillation noted although with a total burden of only 0.3% with longest episode lasting 17 minutes with fastest heart rate of 170 beats per minute 4. Occasional PACs noted with total burden of 0.7% 5. Rare PVCs with 2 ventricular events, 3 beats long at 156 beats per minute 6. No patient reported events Assessment and Plan Assessment Anesthesia Assessment: Chart Reviewed Final Anesthetic Review Family History of Problems with Anesthesia: No History of Problems with Anesthesia: No
[2024-11-27 08:03] VITALS: BMI 25.8
[2024-11-27] MEDS: Lactated Ringers 1,000 ML 100 ML IVCONT (08:10)
--- NOTE | 2024-11-27 08:24 | P.CONAN_ITS ---
[facility] Active Problems Active Problems: All Active Problems Chronic anticoagulation (Acute) Leg swelling (Acute) Orthostatic hypotension (Acute) Colitis (Acute) Syncope (Acute) Hematoma of left knee region (Acute) Asymmetric septal hypertrophy (Acute) Rash and nonspecific skin eruption (Acute) Atrial fibrillation (Acute) Anemia (Acute) Past Medical History Medical History History of repair of both ankle joints Hypothyroidism Lower leg edema GERD (gastroesophageal reflux disease) HLD (hyperlipidemia) HTN (hypertension) Paroxysmal A-fib Atrial fibrillation Frequent falls Lupus Anemia Head injury General weakness Fall Functional capacity: independent ambulation Patient : No Family History Family History Mother Myocardial infarction Family history of problems with anesthesia: No Surgical History Surgical History Hx of nasal septoplasty Hx of repair of right rotator cuff 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 H/O colonoscopy (05/30/24) History of esophagogastroduodenoscopy (EGD) (05/30/24) History of Problems with Anesthesia: No Social History Social History Household Members: None Housing: Condominium Are you a primary continuum of care manager to a significant other at home: No Do you presently have visiting nurse or other home services: Yes ([employer] 1 xweek) Alcohol intake: never Patient Tobacco Use Status: Former Tobacco user Tobacco use type: Cigarette e-Cigarette/Vaping Use: Never Used Advance Directives Date on File: 12/17/23 service: No Meds Allergies Allergy/AdvReac Type Severity Reaction Status Date / Time erythromycin base Allergy Severe Rash Verified 11/27/24 08:06 [From Erythrocin] Penicillins [PENICILLINS] Allergy Severe HIVES Verified 05/11/24 09:10 droperidol [From INAPSINE] Allergy Intermediate UNUSUAL Verified 11/27/24 08:06 HEAD MOVEMENTS oxycodone [OXYCODONE] Allergy Mild ITCHING Verified 11/27/24 08:06 morphine [MORPHINE] AdvReac Unknown CONFUSION Verified 11/27/24 08:06 Active Medications: Current Medications Lactated Ringer's (Lr) 1,000 mls @ 100 mls/hr IVCONT .Q10H PHONG Last Admin: 11/27/24 08:10 Dose: 100 mls/hr Home Medications ?Medication ?Instructions ?Recorded ?Confirmed ?Last Taken ?Type atorvastatin 40 mg tablet 40 mg PO BEDTIME 08/13/23 11/23/24 05/29/24 History furosemide 20 mg tablet 20 mg PO DAILY 08/13/23 11/23/24 05/29/24 History gabapentin 300 mg capsule 300 mg PO BEDTIME 08/13/23 11/23/24 05/29/24 History levothyroxine 100 mcg tablet 100 mcg PO DAILY 08/13/23 11/23/24 11/27/24 History omeprazole 40 mg capsule,delayed 40 mg PO DAILY 08/13/23 11/23/24 11/27/24 History release potassium chloride 10 mEq 10 meq PO DAILY 08/13/23 11/23/24 05/29/24 History tablet,extended release trazodone 100 mg tablet 100 mg PO BEDTIME 08/13/23 11/23/24 02/15/24 History clobetasol 0.05 % topical cream 1 appl topical BID PRN LUPUS FLARE 12/17/23 11/23/24 12/16/23 History emollient combination no.77 1 appl topical DAILY PRN bruising 02/16/24 11/23/24 Unknown History (Dermend topical cream) duloxetine 30 mg capsule,delayed 60 mg PO DAILY 10/11/24 11/23/24 Unknown History release lifitegrast 5 % eye drops in a 1 drp ophthalmic (eye) BID 10/11/24 11/23/24 Unknown History dropperette (Xiidra) peg 400-propylene glycol 0.4 %-0.3 1 drp ophthalmic (eye) QID PRN Dry 10/11/24 11/23/24 Unknown History % eye drops (Systane Ultra) Eyes perfluorohexyloctane (PF) 100 % 1 drp ophthalmic (eye) QID 10/11/24 11/23/24 Unknown History eye drops (Miebo (PF)) Exam Height,Weight and Vital Signs: Height 5 ft 6 in Weight 72.575 kg Airway Mallampati Class: II TM Dist: >3cm Neck ROM: Full Heart: irreg Lungs: CTA Assessment and Plan Assessment Anesthesia Assessment: Anesthesia Plan Discussed and Chart Reviewed Final Anesthetic Review Family History of Problems with Anesthesia: No History of Problems with Anesthesia: No NPO: Yes ASA Class: II and III Final Preanesthetic Review: Meds/Allgs Chart Reviewed, Consent Obtained/Reviewed and Anes Risks/Benef Reviewed Patient Risk: Intermediate Procedure Risk: Low Anesthetic Plan Anesthetic Plan: MAC:
--- NOTE | 2024-11-27 08:25 | MHC.SHP ---
Pre-Procedural Eval Section A - 24 Hr Update-Section A only Date of Service: 11/27/24 The patient is an INPATIENT: No The patient has been examined within 24 hours of the surgical procedure. The History & Physical has been completed within 30 days and I have reviewed it.: No Section B - Complete if H&P > 30 days Chief Complaint: Surveillance of colon polyps Relevant Family History (Specify if Yes): No Relevant Social History: None Present Medications: see Short Stay Collaborative assessment Medical History: Significant History (Atrial fibrillation Anemia Hypothyroidism Lower leg edema GERD (gastroesophageal reflux disease) HLD (hyperlipidemia) HTN (hypertension) Paroxysmal A-fib Frequent falls Head injury General weakness Fall Lupus) History of Previous Operations: Relevant previous surgery/procedure and date(s) (History of EGD and colonoscopy, status post left knee replacement, status post left shoulder replacement) Allergies: Allergies Allergy/AdvReac Type Severity Reaction Status Date / Time erythromycin base Allergy Severe Rash Verified 11/27/24 08:06 [From Erythrocin] Penicillins [PENICILLINS] Allergy Severe HIVES Verified 05/11/24 09:10 droperidol [From INAPSINE] Allergy Intermediate UNUSUAL Verified 11/27/24 08:06 HEAD MOVEMENTS oxycodone [OXYCODONE] Allergy Mild ITCHING Verified 11/27/24 08:06 morphine [MORPHINE] AdvReac Unknown CONFUSION Verified 11/27/24 08:06 Review of Systems Sugical H&P ROS: Negative: Constitution, Cardiovascular and Respiratory and Yes, Specify: Gastrointestinal (constipation) Exam Surgical H&P Exam: Normal: Heart, Normal: Lungs, Normal: Extremities and Normal: Abdomen Plan Diagnosis/Plan: Unchanged I have reviewed the history and physical and performed a pertinent physical examination on my patient. No changes have occurred unless specified. Time Spent With Patient Time: Total time managing care of this patient today ____ minutes.
--- NOTE | 2024-11-27 08:30 | P.CONAN_ITS ---
[facility] Active Problems Active Problems: All Active Problems Chronic anticoagulation (Acute) Leg swelling (Acute) Orthostatic hypotension (Acute) Colitis (Acute) Syncope (Acute) Hematoma of left knee region (Acute) Asymmetric septal hypertrophy (Acute) Rash and nonspecific skin eruption (Acute) Atrial fibrillation (Acute) Anemia (Acute) Past Medical History Medical History History of repair of both ankle joints Hypothyroidism Lower leg edema GERD (gastroesophageal reflux disease) HLD (hyperlipidemia) HTN (hypertension) Paroxysmal A-fib Atrial fibrillation Frequent falls Lupus Anemia Head injury General weakness Fall Functional capacity: independent ambulation Family History Family History Mother Myocardial infarction Family history of problems with anesthesia: No Surgical History Surgical History Hx of nasal septoplasty Hx of repair of right rotator cuff 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 H/O colonoscopy (05/30/24) History of esophagogastroduodenoscopy (EGD) (05/30/24) History of Problems with Anesthesia: No Social History Social History Household Members: None Housing: Condominium Are you a primary personal care home administrator to a significant other at home: No Do you presently have visiting nurse or other home services: Yes ([employer] 1 xweek) Alcohol intake: never Patient Tobacco Use Status: Former Tobacco user Tobacco use type: Cigarette e-Cigarette/Vaping Use: Never Used Advance Directives Date on File: 12/17/23 service: No Meds Allergies Allergy/AdvReac Type Severity Reaction Status Date / Time erythromycin base Allergy Severe Rash Verified 11/27/24 08:06 [From Erythrocin] Penicillins [PENICILLINS] Allergy Severe HIVES Verified 05/11/24 09:10 droperidol [From INAPSINE] Allergy Intermediate UNUSUAL Verified 11/27/24 08:06 HEAD MOVEMENTS oxycodone [OXYCODONE] Allergy Mild ITCHING Verified 11/27/24 08:06 morphine [MORPHINE] AdvReac Unknown CONFUSION Verified 11/27/24 08:06 Active Medications: Current Medications Lactated Ringer's (Lr) 1,000 mls @ 100 mls/hr IVCONT .Q10H PHONG Last Admin: 11/27/24 08:10 Dose: 100 mls/hr Home Medications ?Medication ?Instructions ?Recorded ?Confirmed ?Last Taken ?Type atorvastatin 40 mg tablet 40 mg PO BEDTIME 08/13/23 11/23/24 05/29/24 History furosemide 20 mg tablet 20 mg PO DAILY 08/13/23 11/23/24 05/29/24 History gabapentin 300 mg capsule 300 mg PO BEDTIME 08/13/23 11/23/24 05/29/24 History levothyroxine 100 mcg tablet 100 mcg PO DAILY 08/13/23 11/23/24 11/27/24 History omeprazole 40 mg capsule,delayed 40 mg PO DAILY 08/13/23 11/23/24 11/27/24 History release potassium chloride 10 mEq 10 meq PO DAILY 08/13/23 11/23/24 05/29/24 History tablet,extended release trazodone 100 mg tablet 100 mg PO BEDTIME 08/13/23 11/23/24 02/15/24 History clobetasol 0.05 % topical cream 1 appl topical BID PRN LUPUS FLARE 12/17/23 11/23/24 12/16/23 History emollient combination no.77 1 appl topical DAILY PRN bruising 02/16/24 11/23/24 Unknown History (Dermend topical cream) duloxetine 30 mg capsule,delayed 60 mg PO DAILY 10/11/24 11/23/24 Unknown History release lifitegrast 5 % eye drops in a 1 drp ophthalmic (eye) BID 10/11/24 11/23/24 Unknown History dropperette (Xiidra) peg 400-propylene glycol 0.4 %-0.3 1 drp ophthalmic (eye) QID PRN Dry 10/11/24 11/23/24 Unknown History % eye drops (Systane Ultra) Eyes perfluorohexyloctane (PF) 100 % 1 drp ophthalmic (eye) QID 10/11/24 11/23/24 Unknown History eye drops (Miebo (PF)) Exam Height,Weight and Vital Signs: Height 5 ft 6 in Weight 72.575 kg Assessment and Plan Final Anesthetic Review Family History of Problems with Anesthesia: No History of Problems with Anesthesia: No
--- NOTE | 2024-11-27 09:26 | P.OPN-COLO_ITS ---
Colonoscopy Operative Note Operative Note Date of Service: 11/27/24 Narrative: COLONOSCOPY TILL CECUM WITH SNARE POLYPECTOMY Pre-op diagnosis: Surveillance for colon polyps. Post-op diagnosis:? Colon polyps, Diverticulosis, hemorrhoids Endoscopist:? Leonor Winchester MD Anesthesia:?MAC Consent: Indications for the procedure and potential complications of bleeding, perforation, reaction to medications and missed diagnosis were discussed with the patient and informed consent was obtained. Instrument: Olympus PCF H 190 L variable stiffness pediatric colonoscope Monitoring: Vital signs and clinical assessment, intermittent blood pressure monitoring, continuous EKG monitoring, Pulse oximetry and Carbon Dioxide monitoring were done throughout the procedure. Please see anesthesia flowsheet. Colon withdrawl time was 25 minutes. Procedure: The patient was placed in the left lateral decubitis position and pre-procedure medications were administered. After a digital rectal examination of the ano-rectum, the video colonoscope was inserted into the rectum and advanced through the colon to the cecum. The colonoscope was slowly withdrawn in a retrograde panoramic fashion and the colon mucosa was carefully examined including a retroflexed view of the rectum. Findings and interventions are described below. Procedure Difficulty: without difficulty Findings: Terminal Ileum: Not evaluated Cecum: Two 10 - 12 mm sessile polyps - removed with a stiff hot snare Ascending Colon: Two 10 -12 mm sessile polyps - removed with a stiff hot snare. Transverse Colon: Two 12-15 mm sessile polyps - removed with a hot snare Descending Colon: Normal Sigmoid Colon: Moderate diverticulosis Rectum: Normal Ano-rectum: Small internal hemorrhoids Colon preparation: Good after copious irrigation. [place] Bowel Preparation Scale Right colon; 2 Transverse colon: 2 Left colon; 2 (0 = Unprepared colon segment with mucosa not seen due to solid stool that cannot be cleared. 1 = Portion of mucosa of the colon segment seen, but other areas of the colon segment not well seen due to staining, residual stool and/or opaque liquid. 2 = Minor amount of residual staining, small fragments of stool and/or opaque liquid, but mucosa of colon segment seen well. 3 = Entire mucosa of colon segment seen well with no residual staining, small fragments of stool or opaque liquid) Impression and Post Procedure Diagnosis: Colonoscopy Findings: Six small to medium sized polyps were removed Moderate diverticulosis seen in the sigmoid colon small hemorrhoids on retroflexed exam. Plan: Pt has a FU appointment on 12/14/[address] Winchester Repeat Colonoscopy in 2-3 years if polyps are adenomatous and due to history of multiple adenomatous colon polyps Above findings were reviewed with the patient and relevant handouts were given and the discharge area. Miralax 1-2 times daily for constipation.
[2024-11-27 09:27] VITALS: BP 113/60; PULSE 84; RESP 16; TEMP 36.4; O2SAT 95
[2024-11-27 09:42] VITALS: BP 181/81; PULSE 76; RESP 16; O2SAT 94
--- NOTE | 2024-11-27 09:56 | HO.POSTANES ---
Post Anesthesia Evaluation Post Anesthesia Evaluation Date of Service: 11/27/24 Vital Signs: Vital Signs Temp Pulse Resp BP Pulse Ox O2 Del Method 11/27/24 09:42 76 16 181/81 H 94 Room Air, Nasal Cannula with ETCO2 11/27/24 09:27 97.6 F 84 16 113/60 95 Room Air Anesthesia: Monitored Mental Status: Awake Pain Control: Satisfactory Nausea/Vomiting: None Hydration: Adequate Anesthesia-Related Issues: No Anes. Related Issues
[2024-11-27 09:57] VITALS: BP 136/106; PULSE 64; RESP 16; O2SAT 95
[2024-11-27 10:15] VITALS: BP 176/76; PULSE 69; RESP 16; TEMP 36.4; O2SAT 97
== END 2024-11-27 10:51 | disposition home or self-care (01) ==
PROVIDERS: PCP Internal Medicine; Visit Provider Internal Medicine Gastroenterology
PROC: 0DJD8ZZ Inspection of Lower Intestinal Tract, Via Natural or Artificial Opening Endoscopic (ICD-10-PCS; CPT 45378; principal; 2024-11-27 08:30)
DX: Z12.11 Encounter for screening for malignant neoplasm of colon (principal); Z86.0101 Personal history of adenomatous and serrated colon polyps; D12.0 Benign neoplasm of cecum; D12.2 Benign neoplasm of ascending colon; D12.3 Benign neoplasm of transverse colon; K57.30 Diverticulosis of large intestine without perforation or abscess without bleeding; K64.8 Other hemorrhoids; K52.9 Noninfective gastroenteritis and colitis, unspecified; K59.00 Constipation, unspecified; I48.0 Paroxysmal atrial fibrillation; D64.9 Anemia, unspecified; I10 Essential (primary) hypertension; E78.5 Hyperlipidemia, unspecified; M32.9 Systemic lupus erythematosus, unspecified; E03.9 Hypothyroidism, unspecified; R60.0 Localized edema; Z91.81 History of falling; Z87.828 Personal history of other (healed) physical injury and trauma; Z79.01 Long term (current) use of anticoagulants; Z79.899 Other long term (current) drug therapy; Z88.0 Allergy status to penicillin; Z88.1 Allergy status to other antibiotic agents; Z88.5 Allergy status to narcotic agent; Z98.890 Other specified postprocedural states
CPT/HCPCS: 45385; 88305; J2704

== ENCOUNTER → 2024-11-27 07:45 | Outpatient (BNV) | payer MEDICARE, SELFPAY | PROVIDERS: PCP Internal Medicine; Visit Provider Internal Medicine Gastroenterology | DX: Z12.11 Encounter for screening for malignant neoplasm of colon (principal); Z86.0100 Personal history of colon polyps, unspecified; D12.2 Benign neoplasm of ascending colon; K57.30 Diverticulosis of large intestine without perforation or abscess without bleeding | CPT/HCPCS: 45385 ==

== ENCOUNTER 2025-04-11 12:40 | Outpatient (AMB) | payer MEDICARE, SELFPAY ==
[2025-04-11 13:04] VITALS: BP 120/80; PULSE 69; BMI 27.4
--- NOTE | 2025-04-11 13:04 | A.OFFVIS_ITS ---
Vital Signs 04/11/25 13:04 Height 5 ft 6 in Weight 169 lb 12.095 oz BMI 27.4 BP 120/80 Blood Pressure Location Lt brachial Position Sitting Pulse 69 Intake Visit Reasons: 6m follow up Intake Note: 6 month follow-up with ekg Instant Print Operator Required: No Private Wealth Advisor: Private Wealth Advisor Present Accompanied by: Family/Other Allergies erythromycin base [From Erythrocin] Allergy (Severe, Verified 11/27/24 08:06) Rash Penicillins [PENICILLINS] Allergy (Severe, Verified 05/11/24 09:10) HIVES droperidol [From INAPSINE] Allergy (Intermediate, Verified 11/27/24 08:06) UNUSUAL HEAD MOVEMENTS oxycodone [OXYCODONE] Allergy (Mild, Verified 11/27/24 08:06) ITCHING morphine [MORPHINE] Adverse Reaction (Unknown, Verified 11/27/24 08:06) CONFUSION Medication List - Last Reconciled 04/11/25 by Garry Castellon MD apixaban (Eliquis) 5 mg PO BID atorvastatin 40 mg PO BEDTIME clobetasol 0.05% 1 appl topical BID PRN diltiazem HCl CD 240 mg See Protocol PO DAILY 90 days duloxetine 90 mg PO DAILY emollient combination no.77 (Dermend topical cream) 1 appl topical DAILY PRN furosemide 20 mg PO DAILY gabapentin 300 mg PO BEDTIME levothyroxine 100 mcg PO DAILY lifitegrast 5% (Xiidra) 1 drp ophthalmic (eye) BID omeprazole 40 mg PO DAILY peg 400-propylene glycol 0.4-0.3 % (Systane Ultra) 1 drp ophthalmic (eye) QID PRN perfluorohexyloctane (PF) 100% (Miebo (PF)) 1 drp ophthalmic (eye) QID potassium chloride ER 10 mEq PO DAILY trazodone 100 mg PO BEDTIME HPI Comments Details: Rica returns for follow-up. She was hospitalized in 2022 for atrial fibrillation with rapid ventricular response. Then converted to sinus rhythm. Was put on Diltiazem/Beta-blockers. Then, she was having weakness with recurring falls. Thought to be from orthostatic hypotension. Unclear if there were other components like weakness/gait dysfunction. Then med changes were made including stopping benazepril, metoprolol as well as midodrine. After the changes, she has been doing much better. The dizziness/orthostatic symptoms are significantly improved. 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 H/O colonoscopy (05/30/24) History of esophagogastroduodenoscopy (EGD) (05/30/24) Family History Mother Myocardial infarction Social History Household Members: None Housing: Condominium Are you a primary director of primary care to a significant other at home: No Do you presently have visiting nurse or other home services: Yes ([facility] xweek) Alcohol intake: never Patient Tobacco Use Status: Former Tobacco user Tobacco use type: Cigarette e-Cigarette/Vaping Use: Never Used Advance Directives Date on File: 12/17/23 service: No Review of Systems Const Denies chills, Denies fatigue, Denies fever(s), Denies frequent falls, Denies weakness, Denies weight gain and Denies weight loss ENT Denies dizziness Card Denies chest pain, Denies leg edema, Denies lightheadedness, Denies palpitations, Denies dyspnea, Denies dyspnea on exertion, Denies orthopnea and Denies other (loss of consciousness) Resp Denies cough, Denies dyspnea and Denies dyspnea on exertion GI Denies hematochezia and Denies change in stool character Musc Denies abnormal gait, Denies muscle weakness, Denies numbness, Denies radiating pain into limb and Denies tingling Neuro Denies abnormal gait, Denies dizziness, Denies frequent falls, Denies numbness, Denies tingling and Denies weakness Endo Denies fatigue and Denies palpitations Physical Exam Vital Signs: Last Vital Signs Pulse 69 04/11/25 13:04 BP 120/80 04/11/25 13:04 BMI result Body Mass Index 27.4 Const General: comfortable and no acute distress Orientation/consciousness: patient oriented x3 HEENT Other: Unremarkable Head: Yes normal to inspection Neck Neck: Yes normal visual inspection Chest Chest palpation & inspection: normal inspection of the chest Resp Auscultation: clear to auscultation bilaterally Cardio Palpation: normal PMI Heart sounds: S1 normal heart sound present, S2 normal heart sound present, no gallops, no murmurs and no rubs GI Palpation (GI): Soft to palpation Back/Spine/Pelvis Other: unremarkable Skin General skin exam: no rashes or lesions noted Neuro General: patient oriented x3 Extrem General: Yes normal to inspection Psych Mental Status: mental status grossly normal Office Procedures EKG Details: EKG with underlying sinus rhythm at 69/Min; sinus arrhythmias; no ischemic changes; [place]. [address]-[id number], Complete Assessment & Plan Assessment & Plan (1) Paroxysmal A-fib: Code(s): I48.0 - Paroxysmal atrial fibrillation Category: Medical Plan: In the Holter, there is evidence of atrial fibrillation with rapid rate but with a burden of only 0.3%. On diltiazem. Off metoprolol due to the low blood pressure/falls. Next option would be to add amiodarone and either decrease or stop the diltiazem. Continue anticoagulation. (2) Orthostatic hypotension: Code(s): I95.1 - Orthostatic hypotension Category: Medical Plan: Per prior documentation, blood pressures were going as low as the 60s. Seems stable. (3) Leg swelling: Code(s): M79.89 - Other specified soft tissue disorders Category: Medical Plan: Suspected venous insufficiency. Seems stable. Compression stockings if she can do. Plan Discussion Notes During the visit, I discussed the improvements in the patient's orthostatic hypotension after medication changes last year, leading to reduced dizziness and no recent falls. We reviewed the cosmetic nature of peripheral edema and the potential use of compression stockings. I emphasized the importance of leg elevation. We discussed the easy bruising from Eliquis, and I explained that the benefits of anticoagulation outweigh the superficial bruising. We agreed to maintain current management strategies, with a follow-up scheduled in six months to evaluate progress and make any necessary adjustments. Patient was informed and verbally consented to the use of an ambient scribe for clinic note documentation during this visit. Patient Instructions: - Monitor blood pressure regularly. - Elevate legs to reduce ankle swelling. - Use compression stockings if comfortable. - Maintain hydration to manage dizziness. - Continue taking Eliquis as prescribed. - Schedule a follow-up in six months. Coding Level of Care Code Est Pt Level 4 (63369) Complex EM visit Add On G2211 Diagnoses Paroxysmal A-fib I48.0 Orthostatic hypotension I95.1 Leg swelling M79.89 CPT Codes EKG - CPT: 24489-Nudefqtmvkocndrdw, Complete ([id number])
--- OUTSIDE RECORDS SUMMARY | 2025-04-11 13:20 | XMS_ITS ---
Author Organization [facility] Care Team Providers Care Sole Molding Machine Operator Name Role Phone Sharonda Gonzalez Unavailable Unavailable Tania Cee Unavailable Unavailable Narda Alfred Unavailable Unavailable Malika Monsivais Unavailable Unavailable Neha Hope Unavailable Unavailable Allergies and adverse reactions Code CodeSystem Substance Reaction Severity StartDate Concern Status 7984 RXNORM Penicillin Unknown 07/19/2020 active 3648 RXNORM Droperidol Unknown 07/19/2020 active Care Team Name Role Address Phone Organization Dates Tania Cee PCP [address] [place] [address] (Office): : [facility] 07/20/2020 - 07/31/2020 Sharonda Gonzalez [address] [place] [address] (Office): : [phone] [facility] 07/20/2020 - 07/31/2020 Narda Alfred [address] [place] [address] (Office): : [facility] 07/20/2020 - 07/31/2020 Malika Monsivais [address] [place] [address], [facility] (Office): : [phone] [facility] 07/20/2020 - 07/31/2020 Neha Hope [address], [place], [address], [place] (Office): : [facility] 07/20/2020 - 07/31/2020 Goals Section Description Status Target Date SKIN IMPAIRMENT- Skin will r emain intact-Potential: Bell Scale Risk: Moderate = 11-15; High = 5-10 Active 10/20/2020 ADL's MOBILITY IMPAIRED-Improve skills to achiev e discharge. Active 10/20/2020 ADVANCED DIRECTIVES: Residen t wishes for advance directives will be honored Active 10/20/2020 BOWEL/BLADDER IMPAIRMENT: Achieve continence and prevent infection Active 10/20/2020 DISCHARGE PLANNING - Achieve discharge as planne d Active 10/20/2020 EDUCATION - Resident/caregiv er will achieve desired or required knowledge for discharge Active 10/20/2020 FALL RISK - Resident will be free of injury from fall Active 10/20/2020 I hope that I can be success fully resuscitated in the event my heart stops. Active 10/20/2020 INFECTION - infection will resolve Active 10/20/2020 IV THERAPY - Maintain patency and prevent infect ion Active 10/20/2020 My family and I will participate in my discharge planning Active 10/20/2020 NUTRITION/FLUID MAINTENANCE - Resident will have meal intake greater than 75 %. Resident will have no signs and symptoms of fluid imbalance. Active 10/20/2020 PAIN- ALTERATION IN COMFORT- Reduce pain/remain pain free Active 10/20/2020 PSYCH-ACTIVE MEDICATION - Pa tient/Resident will have the lowest therapeutic dose with no adverse side effects Active 10/20/20 20 Patient will maintain best function for abilitie s Active 10/20/2020 The resident will maintain i nvolvement in cognitive stimulation, social activities as desired through review date. Active 04/2020 Will have intake >75% of temo ls W ill have stable weights Active 10/20/2020 Mental Status Section Date Assessment Total Score Description 07/31/2020 CAM 0 No delirium ind icated 07/25/2020 BIMS 15 cognitively int act CAM 0 No delirium ind icated Problems Problem # Description Date of onset Resolved Date Code CodeSystem Concern Status 1 SEPSIS, UNSPECIFIED ORGANISM 07/20/[address] active 2 ACUTE KIDNEY FAILURE, UNSPECIFIED 07/19/[address] active 3 BACTEREMIA 07/19/[address] active 4 ESSENTIAL (PRIMARY) HYPERTENSION 07/19/[address] active 5 GASTRO-ESOPHAGEAL REFLUX DISEASE WITHOUT ESOPHAGITIS 07/19/[address] active 6 GRAM-NEGATIVE SEPSIS, UNSPECIFIED 07/19/[address] active 7 HYPOKALEMIA 07/19/[address] active 8 HYPOTENSION, UNSPECIFIED 07/19/[address] active 9 HYPOTHYROIDISM, UNSPECIFIED 07/19/[address] active 10 MAJOR DEPRESSIVE DISORDER, SINGLE EPISODE, UNSPECIFIED 07/19/[address] active 11 MUSCLE WEAKNESS (GENERALIZED) 07/19/[address] active 12 NAUSEA WITH VOMITING, UNSPECIFIED 07/19/[address] active 13 OTHER ABNORMALITIES OF GAIT AND MOBILITY 07/19/[address] active 14 OTHER FORMS OF ACUTE ISCHEMIC HEART DISEASE 07/19/[address] active 15 OTHER SPECIFIED ABNORMAL FINDINGS OF BLOOD CHEMISTRY 07/19/[address] active 16 OTHER SPECIFIED ARTHRITIS, MULTIPLE SITES 07/19/[address] [employer] [facility] [address] active 17 RHABDOMYOLYSIS 07/19/[address] [address] ac tive 18 SYNCOPE AND COLLAPSE 07/19/[address] [facility] [address] active 19 UNSTEADINESS ON FEET 07/19/[address] [facility] [facility] [address] active 20 URINARY TRACT INFECTION, SITE NOT SPECIFIED 07/19/[address] active Reason for Referral No Reasons for Referral Entered Social History Social History Observation Description Start Date End Date Code Code System Current Smoking Status Tobacco smoking consumption unknown 601362469 SNOMED CT Sex Assigned At Female 1950 74943-8 [facility] Gender Identity Vital Signs Code Code System Vitals Name Values and Units Timing Information 8462-4 LOINC Blood Pressure-Diastolic Value=78 Un its=mmHg 07/31/2020 8480-6 LOINC Blood Pressure-Systolic Edory=645 Un its=mmHg 07/31/2020 29092-5 LOINC Pain Level Value=1.0 07/31/2020 9279-1 LOINC Respiratory Rate Value=18.0 Units=/m in 07/31/2020 8310-5 [facility] Body Temperature Value=98.0 Units=?? F 07/31/2020 8867-4 [facility] Heart rate Gapqn=713.0 Units=/min 07/31/2020 77421-6 [facility] O2 % dC Oximetry Value=96.0 Units= % 07/31/2020 39400-0 [facility] Weight Pskdg=048.6 Units=Lbs 03/2020 8302-2 [facility] Height Value=67.0 Units=Inches 07/20/2020
== END 2025-04-11 13:29 | disposition home or self-care (01) ==
LOC: HO.HCS 12:41
PROVIDERS: PCP Internal Medicine; Visit Provider Internal Medicine
DX: I48.0 Paroxysmal atrial fibrillation (principal); I95.1 Orthostatic hypotension; M79.89 Other specified soft tissue disorders
CPT/HCPCS: 93010; 99214; G2211

== ENCOUNTER → 2025-04-11 12:40 | Outpatient (BNVA) | payer MEDICARE, SELFPAY | PROVIDERS: PCP Internal Medicine; Visit Provider Internal Medicine | DX: I48.0 Paroxysmal atrial fibrillation (principal); I95.1 Orthostatic hypotension; M79.89 Other specified soft tissue disorders | CPT/HCPCS: 93005; 99212 ==